=== PATIENT | female | born 1955 | race Caucasian/White ===

== ENCOUNTER 2022-06-12 04:46 | Inpatient (IN) | payer MEDICARE, SELFPAY ==
[2022-06-12] VITALS (13 sets, daily range): BP systolic 138–186; BP diastolic 53–83; PULSE 61–73; RESP 13–16; TEMP 36.1–36.7; O2SAT 90–97; BMI 18.5
--- NOTE | ~2022-06-12 | XR_ITS ---
XR hip RT 2V w AP pelvis 06/27/2022 07:47 Indication: Postop right hip internal fixation Procedure: 3 views right hip Comparison: 06/12/2022 Findings: Status post internal fixation with reduction of right femoral intertrochanteric fracture wi th intramedullary suzanne and dynamic compression screw. Displaced lesser trochanter. Osteopenia. There i s residual contrast in the colon. Vascular calcifications are present. No new fractures. Impression: 1: Near-anatomic alignment of right femoral intertrochanteric fracture status post internal fixation. Reviewed, dictated and finalized at location A. Impression: 1: Near-anatomic alignment of right femoral intertrochanteric fracture status p ost internal fixation.
--- NOTE | ~2022-06-12 | XR_ITS ---
EXAMINATION: XR chest 1V portable DATE: 06/21/2022 08:30 INDICATION: Shortness of breath. TECHNIQUE: A single frontal view of the chest was obtained. COMPARISON: Chest single view 06/20/2022, chest CT 06/20/2022 FINDINGS: There are small right and moderate-sized left pleural effusions. There are patchy airspace opacities in all lung zones bilaterally. No pneumothorax. The heart size is normal. A right upper ext remity peripherally inserted central venous catheter (PICC) is seen with tip at the superior cavoatri al junction. IMPRESSION: 1. Small right and moderate-sized left pleural effusions. 2. Diffuse lung disease with improved aeration of left lung, consistent with pulmonary edema versus p neumonia. Reviewed, dictated and finalized at location A. IMPRESSION: 1. Small right and moderate-sized left pleural effusions. 2. Diffuse lung disease with improved aeration of left lung, consistent with pu lmonary edema versus pneumonia.
--- NOTE | ~2022-06-12 | XR_ITS ---
EXAMINATION: XR hip RT 2V w AP pelvis DATE: 06/12/2022 05:54 INDICATION: Right hip pain. TECHNIQUE: An anteroposterior view of the pelvis and 2 views of right hip were obtained. COMPARISON: None. FINDINGS: There is a comminuted intertrochanteric fracture of proximal right femur. The main distal f racture fragment demonstrates 24 degrees varus angulation, impaction, and posterior angulation. There is mild osteoarthritis of the hips. There is lumbar levocurvature and mild spondylosis. IMPRESSION: 1. Intertrochanteric fracture of proximal right femur. 2. Mild osteoarthritis of the hips. Reviewed, dictated and finalized at location A.
--- NOTE | ~2022-06-12 | XR_ITS ---
EXAMINATION: XR chest 1V portable INDICATION: Pleural effusion TECHNIQUE: Portable AP chest at 0812 hours COMPARISON: 06/21/2022 FINDINGS: There are small pleural effusions. The left pleural effusion is decreased in size. There ar e minimal airspace opacities of the mid and lower lung zones with improvement. No pneumothorax is luz maria ntified. The heart size is normal. A right upper chart PICC ends with its tip in the distal superior vena cava. IMPRESSION: 1. Small pleural effusions, improved on the left. 2. Improving opacities of the mid and lower lung zones, consistent with pulmonary edema versus pneumo daja. Reviewed, dictated and finalized at location B. IMPRESSION: 1. Small pleural effusions, improved on the left. 2. Improving opacities of the mid and lower lung zones, consistent with pulmona ry edema versus pneumonia.
--- NOTE | ~2022-06-12 | XR_ITS ---
EXAMINATION: XR chest 1V portable DATE: 06/20/2022 05:54 INDICATION: Shortness of breath TECHNIQUE: frontal view of the chest was obtained. COMPARISON: Chest radiograph dated 06/19/22 FINDINGS: Dense opacities throughout the left hemithorax relatively sparing the apex consistent with likely mod erate to large left pleural effusion and associated atelectasis and/or pneumonia. Additional less den se airspace opacities at the left apex and throughout the central right lung is also an increased int erstitial pattern suggesting mild pulmonary edema. No pneumothorax or right-sided pleural effusion. C ardiac silhouette is obscured but not enlarged. IMPRESSION: 1. Increasing moderate to large left pleural effusion with associated atelectasis and/or pneumonia. 2. Perihilar predominant mild pulmonary edema. Reviewed, dictated and finalized at location A. IMPRESSION: 1. Increasing moderate to large left pleural effusion with associated atelectas is and/or pneumonia. 2. Perihilar predominant mild pulmonary edema.
--- NOTE | ~2022-06-12 | XR_ITS ---
XR chest 1V portable DATE: 06/19/2022 05:54 INDICATION: Shortness of breath TECHNIQUE: Portable AP chest on 06/19/2022 and 0525 hours COMPARISON: 06/18/2022 portable AP chest at 0525 hours FINDINGS: There is moderate interval improvement of left lung atelectasis since 06/18/2022, with resol ution of leftward shift of the heart mediastinum, increased aeration in the left upper lung zone. The re is residual prominent infiltrate and/atelectasis in the left mid and lower lung zones and to a les ser extent right mid and lower lung prather. No pneumothorax. Heart size is likely within normal range. Aortic arch calcification. No central lines or tubes. IMPRESSION: Improvement of left lung atelectasis since 06/18/2000 Reviewed, dictated and finalized at location A.
--- NOTE | ~2022-06-12 | XR_ITS ---
EXAMINATION: XR surgery orthopedic DATE: 06/21/2022 15:13 INDICATION: Right intertrochanteric nailing an intratrochanteric right hip fracture TECHNIQUE: 4 fluoroscopic images of the right hip were obtained during procedure performed by Dr. Mike mosqueda. Radiologist was not present for the imaging or procedure. The amount of fluoroscopy time used duri ng this procedure was 1.3 minutes. COMPARISON: 06/12/2022 FINDINGS: Interval open reduction internal fixation of the comminuted intratrochanteric fracture of the proxima l right femur with antegrade intramedullary suzanne, femoral neck dynamic compression screw and distal in terlocking screw fixation. Alignment is now near-anatomic aside from residual mild proximal distracti on of the intratrochanteric fracture fragment which is not included within the fixation. No new fract ures identified. Expected small amount of postoperative soft tissue gas at the operative bed. IMPRESSION: 1. Near-anatomic alignment post open reduction internal fixation of a comminuted intratrochanteric fr acture of the proximal right femur. Reviewed, dictated and finalized at location A. IMPRESSION: 1. Near-anatomic alignment post open reduction internal fixation of a comminute d intratrochanteric fracture of the proximal right femur.
--- NOTE | ~2022-06-12 | XR_ITS ---
EXAMINATION: XR chest 1V portable DATE: 06/15/2022 06:14 INDICATION: Lung atelectasis. TECHNIQUE: A single frontal view of the chest was obtained. COMPARISON: Chest CT 06/14/2022 FINDINGS: There are lucencies in the lungs, consistent with emphysema. There is volume loss of left h emithorax. There is a small left pleural effusion. There are airspace opacities in all left lung zone s, worse at left lung base. No pneumothorax. The heart size is normal. IMPRESSION: 1. Diffuse left lung disease with volume loss with interval improvement in aeration, likely a combina tion of atelectasis and pneumonia. 2. Stable small left pleural effusion. 3. Emphysema. Reviewed, dictated and finalized at location A. IMPRESSION: 1. Diffuse left lung disease with volume loss with interval improvement in aera tion, likely a combination of atelectasis and pneumonia. 2. Stable small left pleural effusion. 3. Emphysema.
--- NOTE | ~2022-06-12 | US_ITS ---
EXAMINATION: US venous doppler [facility] DATE: 06/26/2022 12:57 INDICATION: Lower limb swelling. TECHNIQUE: Grayscale ultrasound images without and with compression and Doppler ultrasound images of the bilateral lower extremity veins were obtained. COMPARISON: None. FINDINGS: The visualized portions of right common femoral vein, profunda (deep) femoral vein, femoral vein, pop liteal vein, peroneal veins, posterior tibial veins, and greater saphenous vein outflow are patent. The visualized portions of left common femoral vein, profunda femoral vein, femoral vein, popliteal v ein, peroneal veins, posterior tibial veins, and greater saphenous vein outflow are patent. IMPRESSION: 1. No deep venous thrombosis. Reviewed, dictated and finalized at location A.
--- NOTE | ~2022-06-12 | XR_ITS ---
EXAMINATION: XR chest 1V portable DATE: 06/16/2022 05:49 INDICATION: Pneumonia. TECHNIQUE: A single frontal view of the chest was obtained. COMPARISON: Chest single view 06/15/2022, chest CT 06/14/2022 FINDINGS: There is a small left pleural effusion. There is mild elevation of left hemidiaphragm. Ther e are airspace opacities in all left lung zones with a lower lung predominance. There are airspace op acities in right mid and lower lung zones. No pneumothorax. The heart size is normal. IMPRESSION: 1. Diffuse lung disease with improved aeration on the left, likely a combination of atelectasis and p neumonia. 2. Small left pleural effusion. Reviewed, dictated and finalized at location A. IMPRESSION: 1. Diffuse lung disease with improved aeration on the left, likely a combinatio n of atelectasis and pneumonia. 2. Small left pleural effusion.
--- NOTE | ~2022-06-12 | CT_ITS ---
EXAMINATION:CT diagnostic chest wo con DATE: 06/20/2022 12:04 INDICATION: Abnormal chest radiograph. Pleural effusion. TECHNIQUE: Computed tomography (CT) of the chest was performed without intravenous contrast. Automate d exposure control and iterative reconstruction technique were employed. The dose-length product (DLP ) was 121.77 mGy-cm. COMPARISON: Chest CT 06/14/2022, chest single view 06/20/2022 FINDINGS: There is mild emphysema. There are small right and moderate-sized left pleural effusions. T here are patchy airspace and groundglass opacities involving all lobes. There is dependent atelectasi s in the lower lobes. A calcified left lung nodule is consistent with old granulomatous disease. Ther e is mucous in the trachea and left mainstem bronchus. The heart size is normal. There are coronary a rtery calcifications. No pericardial effusion. There is moderate thoracic spondylosis. IMPRESSION: 1. Small right and moderate-sized left pleural effusions. 2. Multifocal lung disease, consistent with pulmonary edema versus pneumonia. 3. Mild emphysema. Reviewed, dictated and finalized at location A.
--- NOTE | ~2022-06-12 | XR_ITS ---
XR chest 1V portable DATE: 06/18/2022 06:40 INDICATION: Pneumonia TECHNIQUE: Portable AP chest on 06/18/2022 at 0525 hours COMPARISON: 06/16/2022 portable AP chest at 0510 hours FINDINGS: There is interval severe left lung atelectasis with minimal residual aeration in the left a pical area, with leftward shift of heart and mediastinum. The distal left mainstem bronchus appears o ccluded. There is pulmonary vascular congestion, prominence of the minor fissure consistent with pulmonary int erstitial edema, as well as some Jena B-lines consistent with pulmonary interstitial edema of the r ight lung. Minimal right pleural effusion is suggested. No pneumothorax. IMPRESSION: Near complete left lung atelectasis, with associated leftward shift heart and mediastinum Right lung congestive changes Reviewed, dictated and finalized at location A.
--- NOTE | ~2022-06-12 | XR_ITS ---
MODIFIED ESOPHAGRAM HISTORY: Witnessed choking episode TECHNIQUE: Modified barium esophagram was performed on 06/23/2022. I administered fluoroscopy and perf ormed the exam with speech pathologist. Patient was seated for lateral fluoroscopic imaging for chuck stion of thin liquids, pudding, solids and quantified amounts, followed by thin liquids in uncontroll ed amounts. This was recorded on tape. A single fluoroscopic spot image was also recorded. The DAP fo r this procedure was 1.088 Gycm2. The amount of fluoroscopy time used during this procedure was 1.7 m inutes. FINDINGS: Oral stage: Adequate function. Pharyngeal stage: There is piriform sinus residue and pharyngeal wall residue. Flash laryngeal penetr ation with trace amount of thin liquids with uncontrolled swallows. No aspiration.. Cervical/esophageal stage: Adequate function. IMPRESSION: Mild pharyngeal dysphagia with flash laryngeal penetration of trace amount of thin liquid . No aspiration. Please correlate with speech pathologist findings and specific feeding recommendati ons. Reviewed, dictated and finalized at location A. IMPRESSION: Mild pharyngeal dysphagia with flash laryngeal penetration of trace amount of thin liquid. No aspiration. Please correlate with speech pathologis t findings and specific feeding recommendations.
--- NOTE | ~2022-06-12 | CT_ITS ---
EXAMINATION: CTA chest PE protocol DATE: 06/14/2022 10:40 INDICATION: Chest pain and hypoxia TECHNIQUE: Computed tomography angiography (CTA) of the chest was performed with 100 mL Omnipaque-350 intravenous contrast timed to evaluate the pulmonary arteries. Coronal maximum intensity projection 3D-reconstructions were created by the technologist. The dose-length product (DLP) was 162.12 mGy-cm. Automated exposure control and iterative reconstruction technique were employed. COMPARISON: None. FINDINGS: The pulmonary arteries are well-opacified. No pulmonary embolism is identified. There is co mplete collapse of the left lung which appears to be due to mucous plugging in the main stem bronchus . There is mild emphysema. No pneumothorax is identified. There is a small left pleural effusion. The re are airspace opacities in the medial aspect of the right lower lobe. The heart size is normal. No pathologically enlarged thoracic lymph nodes are identified. There is moderate thoracic spondylosis. IMPRESSION: 1. No pulmonary embolus identified. 2. Complete collapse of the left lung which appears to be due to mucous plugging in the main stem bro nchus. 3. Small left pleural effusion. 4. Airspace opacities in the medial aspect of the right lower lobe, atelectasis versus infection/infl ammation versus subsolid nodule. Follow-up low-dose CT in three months is recommended. Reviewed, dictated and finalized at location B. IMPRESSION: 1. No pulmonary embolus identified. 2. Complete collapse of the left lung which appears to be due to mucous pluggin g in the main stem bronchus. 3. Small left pleural effusion. 4. Airspace opacities in the medial aspect of the right lower lobe, atelectasis versus infection/inflammation versus subsolid nodule. Follow-up low-dose CT in three months is recommended.
--- NOTE | ~2022-06-12 | XR_ITS ---
XR abdomen/kub 1V 07/03/2022 07:47 Indication: Nausea and vomiting Procedure: KUB Comparison: No prior studies for comparison. Findings: There is a large amount of gas within the small bowel and throughout the colon., Most likel y adynamic ileus. No definite transition site identified. No abnormal calcifications. No acute osseou s abnormality. Moderate lumbar spondylosis. Impression: 1: Dilated small bowel and colon throughout the abdomen, consistent with ileus. Distal colonic/rectal obstruction less favored. Reviewed, dictated and finalized at location A. Impression: 1: Dilated small bowel and colon throughout the abdomen, consistent with ileus. Distal colonic/rectal obstruction less favored.
--- NOTE | ~2022-06-12 | XR_ITS ---
EXAMINATION: XR chest 2V DATE: 06/25/2022 10:53 INDICATION: Fever. TECHNIQUE: Frontal and lateral views of the chest were obtained. COMPARISON: Chest single view 06/22/2022, chest CT 06/20/2022 FINDINGS: There are lucencies in the lungs, consistent with emphysema. There are small pleural effusi ons. There are airspace opacities at the lung bases. No pneumothorax. The heart size is normal. A rig ht upper extremity peripherally inserted central venous catheter (PICC) is seen with tip at the super ior cavoatrial junction. IMPRESSION: 1. Small pleural effusions. 2. Airspace opacities at the lung bases, consistent with atelectasis versus pneumonia. 3. Emphysema. Reviewed, dictated and finalized at location A. IMPRESSION: 1. Small pleural effusions. 2. Airspace opacities at the lung bases, consistent with atelectasis versus pne umonia. 3. Emphysema.
--- NOTE | ~2022-06-12 | XR_ITS ---
EXAMINATION: XR abdomen/kub 1V DATE: 07/04/2022 13:09 INDICATION: Adynamic ileus. TECHNIQUE: A supine view of the abdomen was obtained. COMPARISON: Abdomen radiograph 07/03/2022 FINDINGS: There is gaseous distention of the colon. There is loss of haustra in the proximal transver se colon and rectosigmoid. There is a dilated loop of small bowel in left abdomen. IMPRESSION: 1. Dilated small and large bowel, consistent with adynamic ileus or less likely distal colonic obstru ction. Loss of haustra in the proximal transverse colon and rectosigmoid suggests colitis. Reviewed, dictated and finalized at location A. IMPRESSION: 1. Dilated small and large bowel, consistent with adynamic ileus or less likely distal colonic obstruction. Loss of haustra in the proximal transverse colon a nd rectosigmoid suggests colitis.
--- NOTE | ~2022-06-12 | XR_ITS ---
EXAMINATION: XR chest 1V portable DATE: 06/26/2022 11:05 INDICATION: Altered mental status. TECHNIQUE: A single frontal view of the chest was obtained. COMPARISON: Chest 2 views 06/25/2022, chest CT 06/20/2022 FINDINGS: There is a small left pleural effusion. There are airspace opacities in the lower lung zone s, left worse than right. No pneumothorax. The heart size is normal. A right upper extremity peripher ally inserted central venous catheter (PICC) is seen with tip at the superior cavoatrial junction. IMPRESSION: 1. Stable small left pleural effusion. 2. Airspace opacities in the lower lung zones, left worse than right with improvement on the right, c onsistent with atelectasis versus pneumonia. Reviewed, dictated and finalized at location A. IMPRESSION: 1. Stable small left pleural effusion. 2. Airspace opacities in the lower lung zones, left worse than right with impro vement on the right, consistent with atelectasis versus pneumonia.
--- NOTE | ~2022-06-12 | XR_ITS ---
EXAMINATION: XR abdomen obstructive series DATE: 07/05/2022 12:36 INDICATION: Adynamic ileus. TECHNIQUE: Upright and supine views of the abdomen were obtained. COMPARISON: Abdomen radiograph 07/04/2022 FINDINGS: There is fold thickening of the transverse colon and sigmoid colon, which are mildly disten ded. The small bowel is normal in caliber. No free intraperitoneal gas. There is internal fixation of proximal right femur. IMPRESSION: 1. Fold thickening of the transverse colon and sigmoid colon, which are mildly distended, likely coli tis and adynamic ileus. Reviewed, dictated and finalized at location A. IMPRESSION: 1. Fold thickening of the transverse colon and sigmoid colon, which are mildly distended, likely colitis and adynamic ileus.
[2022-06-12] MEDS: MORPHINE SULFATE (*CRX) 4 MG/ML INJ IV PUSH ×5 (05:10→22:28)
--- NOTE | 2022-06-12 05:34 | PC.NURSE ---
Patient in xray at this time.
--- NOTE | 2022-06-12 05:56 | ECG_ITS ---
Measurements Intervals [place] Rate: 65 P: 27 NE: 146 QRS: 57 QRSD: 106 T: 75 QT: 441 QTc: 459 Interpretive Statements SINUS RHYTHM INCOMPLETE RIGHT BUNDLE BRANCH BLOCK BASELINE ARTIFACT- I, II, III, AVR, AVL, AVF, V1-V6 BORDERLINE ECG NO PREVIOUS ECG AVAILABLE FOR COMPARISON Electronically Signed On 06-12-2022 8:37:04 CDT by Navdeep Maciel D.O.
--- NOTE | 2022-06-12 06:12 | ED.LOWEXIN ---
HPI - Extremity Injury (Lower) General Chief Complaint: Extremity Injury, Lower Stated Complaint: Right hip pain Time Seen by Provider: 06/12/22 04:47 History of Present Illness HPI Narrative: Patient is a 66-year-old female who presents ER with right hip pain. Patient fell from standing in her kitchen. Did not strike her head or lose consciousness. Laid on the floor for couple hours before her and her decided to call an ambulance for help. She is in too much pain to try to ambulate. Related Data Allergies Allergy/AdvReac Type Severity Reaction Status Date / Time No Known Allergies Allergy Verified 06/12/22 04:55 Review of Systems Review of Systems: All systems reviewed & are unremarkable except as noted in HPI and below Constitutional: Constitutional: Denies chills and Denies fever(s) ENT: Denies nasal congestion and Denies sore throat Cardiovascular: Cardiovascular: Denies chest pain, Denies rapid heart rate and Denies radiating jaw, neck or arm pain Respiratory: Respiratory: Denies cough and Denies dyspnea Gastrointestinal: Gastrointestinal: Denies abdominal pain, Denies nausea and Denies vomiting Musculoskeletal: Musculoskeletal: Reports arthralgias and Reports joint swelling Neurologic: Denies focal weakness and Denies numbness PMFSH Past Medical History Medical History Anxiety Enlarged thyroid Family History Family History Father Diabetes mellitus Hypertension Family history of cardiovascular disease Social History Social History (System 12/15/21 @ 11:49 by Janay Fuchs) Smoking status: Current some day smoker Exam Narrative: GENERAL: Well-appearing, well-nourished, and in no acute distress. HEAD: Normocephalic, atraumatic. EYES: PERRL and EOMI. ENT: Mucous membranes moist. Rosacea of the face. CHEST: Clear to auscultation. No respiratory distress. HEART: Regular rate and rhythm. Normal peripheral pulses. ABDOMEN: Soft, nontender, nondistended. EXTREMITIES: Tender palpation to the right hip with limited range of motion due to the pain. No shortening or external rotation. Scattered abrasions bruising to the upper extremities. SKIN: Warm, dry, no rash. NEURO: Alert and oriented x3. PSYCH: Normal mood and affect. Course Course Emergency Course: Discussed case with Dr. Spicer. He will plan to take patient to the OR today. Keep NPO. Patient aware of diagnosis and treatment plan. Will contact hospitalist service for admission. Vital Signs Vital signs: Vital Signs Temperature 98.1 F 06/12/22 04:45 Pulse Rate 73 06/12/22 04:45 Respiratory Rate 15 06/12/22 04:45 Blood Pressure 186/83 H 06/12/22 04:45 Pulse Oximetry 93 06/12/22 04:45 Oxygen Delivery Room Air 06/12/22 04:45 Temperature 98.1 F 06/12/22 04:45 Pulse Rate 73 06/12/22 04:45 Respiratory Rate 15 06/12/22 04:45 Blood Pressure 186/83 H 06/12/22 04:45 Pulse Oximetry 93 06/12/22 04:45 Oxygen Delivery Room Air 06/12/22 04:45 MDM - Extremity Injury (Lower) Lab Data Result diagrams: 06/12/22 06:06 06/12/22 06:06 Labs: Lab Results 06/12/22 06/12/22 06/12/22 Range/Units 06:06 06:06 06:06 WBC 16.2 H (4.5-10.0) K/mm3 RBC 5.22 (4.2-5.4) M/mm3 Hgb 17.1 H (12.0-15.0) g/dL Hct 48.6 H (37.0-47.0) % MCV 93.1 (80-100) fl MCH 32.8 (26-34) pg MCHC 35.2 (32-36) g/dl RDW 15.5 H (11.5-14.5) % Plt Count 260 (150-375) k/mm3 MPV 8.8 (7.4-10.4) fl Immature Gran % (Auto) 0.5 (0-0.5) % Neut % (Auto) 88.7 H (45.5-73.1) % Lymph % (Auto) 5.1 L (18.3-44.2) % [place] % (Auto) 5.1 (2.6-8.5) % Eos % (Auto) 0.2 (0-4.4) % Baso % (Auto) 0.4 (0.2-1.2) % Lymph # (Auto) 0.82 L (0.9-3.2) K/mm3 [place] # (Auto) 0.8 H (0.1-0.6) K/mm3 Eos # (Auto) 0.0 (0-0.3) K/mm3 Baso #
[2022-06-12 06:13] LABS: Basophils Absolute Auto 0.1 K/mm3 (0.0-0.1); Basophils Percent Auto 0.4 % (0.2-1.2); Eosinophils Percent Auto 0.2 % (0-4.4); Hematocrit 48.6 % (37.0-47.0); Hemoglobin 17.1 g/dL (12.0-15.0); Immature Granulocyte Absolute 0.08 K/mm3 (0.00-0.031); Immature Granulocyte Percent A 0.5 % (0-0.5); Lymphocytes Absolute Auto 0.82 K/mm3 (0.9-3.2); Lymphocytes Percent Auto 5.1 % (18.3-44.2); Mean Corpuscular HGB Conc 35.2 g/dl (32-36); Mean Corpuscular Hemoglobin 32.8 pg (26-34); Mean Corpuscular Volume 93.1 fl (80-100); Mean Platelet Volume 8.8 fl (7.4-10.4); Monocytes Absolute Auto 0.8 K/mm3 (0.1-0.6); Monocytes Percent Auto 5.1 % (2.6-8.5); Neutrophils Absolute Auto 14.4 K/mm3 (1.3-6.7); Neutrophils Percent Auto 88.7 % (45.5-73.1); Platelet Count Result 260 k/mm3 (150-375); Red Blood Count 5.22 M/mm3 (4.2-5.4); Red Cell Distribution Width 15.5 % (11.5-14.5); White Blood Count 16.2 K/mm3 (4.5-10.0)
[2022-06-12 06:22] LABS: Anion Gap 13 mmol/L (8-16); Blood Urea Nitrogen 5 mg/dL (7-17); Calcium 7.9 mg/dL (8.4-10.2); Carbon Dioxide 24 mmol/L (22-30); Chloride 87 mmol/L (98-107); Estimated Glomerular Filt Rate > 60; Glucose 103 mg/dL (65-110); Potassium 3.6 mmol/L (3.4-5.0); Sodium 124 mmol/L (137-145)
[2022-06-12 06:24] LABS: INR 1.1; Prothrombin Time 13.7 Seconds (11.1-14.7)
[2022-06-12 06:25] LABS: Partial Thromboplastin Time 31.6 SECONDS (22.3-36.8)
[2022-06-12] MEDS: SODIUM CHLORIDE 0.9% IV 1,000 ML 125 ML IV CONT (08:08)
--- NOTE | 2022-06-12 08:11 | PM.CNOR ---
Assessment and Plan Assessment and plan (1) Closed intertrochanteric fracture of right femur: Code(s): S72.141A - Displaced intertrochanteric fracture of right femur, initial encounter for closed fracture Status: Acute Plan 66-year-old female with a comminuted right intertrochanteric hip fracture. This is unstable will need to be fixed surgically. She has got some medical issues that will need to be addressed including hyponatremia. She has a markedly elevated white count as well and an elevated hemoglobin. I have discussed the case with the hospitalist service. We will plan on surgical stabilization Monday which will give about 48 hours or so to address these issues and try to get her medically optimized for surgery. Did discuss this in detail with the patient however will review it again tomorrow with her as she may not have fully understood what I was talking about today secondary to recent alcohol consumption. History of Present Illness HPI Consult date: 06/12/22 Consult reason: fracture (Right IT hip fracture) Chief complaint: hip fracture Narrative: This document created with [id number] technology and is subject to postdoctoral scientist irregularities. 66-year-old female who was brought into the ER overnight complaints of right hip pain. She states that she was standing in her leg gave out. She was x-rayed and found to have a right intertrochanteric hip fracture. she is going to be admitted for further evaluation and management. Patient expresses no prodrome prior to this. She does smell of alcohol and admits to have had three beers and a red-headed slut to drink last night. (The latter is apparently a concoction of jaegermeister, peach schnapps and cranberry juice.) She is also a pack per day smoker for many years. She lives with her in [place]. No other injuries with this occurrence noted at this time. Review of Systems Constitutional: Constitutional: Reports no additional constitutional complaints, Denies excessive sweating and Denies fatigue Eyes: Eyes: Reports no additional eye complaints ENT: Reports system reviewed and no additional complaints, except as documented Cardiovascular: Cardiovascular: Denies chest pain at rest and Denies dyspnea Respiratory: Respiratory: Reports no additional respiratory complaints and Denies dyspnea Gastrointestinal: Gastrointestinal: Reports no additional gastrointestinal complaints Musculoskeletal: Musculoskeletal: Reports as per HPI Integumentary/Breasts: Skin/Breast: Reports system reviewed and no additional complaints, except as docu Neurologic: Reports as per HPI Psychiatric: Psychiatric: Reports anxiety Endocrine: Endocrine: Denies excessive sweating and Denies fatigue Hematologic/Lymphatic: Hematologic/Lymphatic: Denies easy bleeding and Denies easy bruising PMFSH Past Medical History Medical History (Updated 06/12/22 @ 08:19 by Mango Spicer MD) Alcohol use Anxiety Closed intertrochanteric fracture of right femur Enlarged thyroid Family History Family History Father Diabetes mellitus Hypertension Family history of cardiovascular disease Social History Social History (System 12/15/21 @ 11:49 by Janay Fuchs) Smoking status: Current some day smoker Meds Home Medications and Allergies Home Medications Medication Instructions Recorded Confirmed Type escitalopram oxalate 20 mg tablet 20 mg PO DAILY #90 tabs 02/25/22 Rx Allergies Allergy/AdvReac Type Severity Reaction Status Date / Time No Known Allergies Allergy Verified 06/12/22 04:55 Vital Signs Vital Signs - 24 hr 06/12/22 04:45 06/12/22 05:14 06/12/22 05:15 Temperature 98.1 F Pulse Rate 73 Respiratory Rate 15 Blood Pressure 186/83 H 166/71 H Pulse Oximetry 93 90 Oxygen Delivery Room Air 06/12/22 06:12 06/12/22 06:15 06/12/22 06:30 Temperature Pulse Rate 65
--- NOTE | 2022-06-12 08:23 | ADMGEN ---
This patient, Nora Ty, was admitted to [facility] Surg Room 303-01. Patient/family oriented to hospital policies and general routines including ID bracelet, bed and alarms, visiting hours, pain management, procedures, bathroom and other care routines, personal items, smoking policy, room service/diet, and visiting hours. Information on how to activate the Rapid Response Team has been discussed. Patient/Family are encouraged to report perceived risks to care and to ask questions if they do not understand what they are told or what they should do.
[2022-06-12 08:29] LABS: Ethanol 127 mg/dL (<10)
--- NOTE | 2022-06-12 09:27 | PM.IMHP ---
H&P: HPI History of Present Illness Date/Time: 06/12/22 09:27 Chief Complaint: Right hip pain Narrative: Date of service: 06/12/2022 Nora Ty is a 66-year-old female with a history of anxiety and daily alcohol use who presented to the emergency department on 06/12/2022 with complaints of right hip pain after suffering a fall at home. The patient states she was getting ready for bed and got up to turn on the lights when her hip just gave out on me. She fell to the ground and landed on her right hip. States she did not hit her head or lose consciousness. Denied any precipitating symptoms including dizziness, lightheadedness, shortness of breath, palpitations, chest pain. She stayed on the ground for about 2 hours. Her did attempt to help her up but any movement caused pain and ultimately EMS was summoned. Patient denies any history of joint problems and states nothing like this has ever happened to her before. She admits to drinking 3 beers and 1 mixed cocktail containing jagermeister and peach schnapps that night. States she typically drinks 3 beers per day. Denies any history of alcohol withdrawal symptoms. in the ED, her vital signs were stable, she was afebrile, white blood cell count 16.2, hemoglobin 17.1, hematocrit 48.6, sodium 124, additional laboratory workup unremarkable, and hip/pelvis x-ray showed intertrochanteric fracture proximal right femur. At the time of my evaluation, the patient states her right hip pain is rated 9/10. She is being admitted to the hospitalist service and will be seen in consultation by Orthopedic surgery with plans for surgical repair on 06/14/2022. Supervising physician for this history and physical is Dr. Kuldeep Garcia. Review of Systems Review of Systems: All systems reviewed with pertinent positives and negatives as per HPI. Patient denies any recent illness, denies fever, chills, nausea, vomiting, abdominal pain, diarrhea. States she is had a formed bowel movement today. Denies dysuria, hematuria, urgency, or frequency. No shortness of breath, cough, wheezing. Prior to her fall she was able to ambulate independently. she complains of arthritis in her hands. Denies back pain. states her appetite is good and denies weight loss. Endorses drinking a lot water. PMFSH Past Medical History Medical History (Updated 06/12/22 @ 10:01 by Venus Hill PA-C) Alcohol use Anxiety Closed intertrochanteric fracture of right femur Enlarged thyroid Family History Family History (Updated 06/12/22 @ 09:46 by Venus Hill PA-C) Father Diabetes mellitus Hypertension Family history of cardiovascular disease Non-Hodgkin lymphoma Mother Lung cancer Sibling Breast cancer Social History Social History (Updated 06/12/22 @ 09:48 by Venus Hill PA-C) Social History: lives at home with independent with ADLs PCP: Bibiana Cordova NP POA: Tato (close friend) Code: DNR Smoking packs per day: 1 Smoking cigarettes per day: 20.0 Years smoked: 47 Smoking pack-years: 47.00 Smoking status: Current every day smoker Tobacco type: cigarettes Alcohol intake: current Drinks per week: 28 Alcohol use details: 3 beers/day Substance use type: marijuana Other substance usage details: 1 joint every 2 weeks Spiritual care concerns: No Meds Home Medications and Allergies Home Medications Medication Instructions Recorded Confirmed Type escitalopram oxalate 20 mg tablet 20 mg PO DAILY #90 tabs 02/25/22 06/12/22 Rx Allergies Allergy/AdvReac Type Severity Reaction Status Date / Time No Known Allergies Allergy Verified 06/12/22 04:55 Vital Signs Vital Signs - 24 hr 06/12/22 04:45 06/12/22 05:14 06/12/22 05:15 Temperature 98.1 F Pulse Rate 73 Respiratory Rate 15 Blood Pressure 186/83 H 166/71 H Pulse Oximetry 93 90 Oxygen Delivery Room Air 06/12/22 06:12 06/12/22 06:15 06/12/22 06
[2022-06-12] MEDS: FOLIC ACID 1 MG TABLET PO (09:52)
[2022-06-12] MEDS: THIAMINE HCL 100 MG TABLET PO (09:52)
[2022-06-12 10:00] LABS: Creatinine Urine 15.8 mg/dL
[2022-06-12 10:04] LABS: Sodium Urine Random 18 meq/L
[2022-06-12 10:24] LABS: Sodium 127 mmol/L (137-145)
[2022-06-12 10:38] LABS: Appearance Urine Clear (Clear); Bilirubin Urine Negative (Negative); Color Urine Yellow (Yellow); Glucose Urine UA Negative (Negative); Ketones Urine Negative (Negative); Leukocyte Esterase Ur 1+ LEU/UL (Negative); Nitrate Urine Positive (Negative); Protein Urine Negative (Negative); Urobilinogen Urine 0.2 mg/dL (<2.0)
[2022-06-12 11:41] LABS: Add Urine Microscopic? YES; Blood Urine Trace-Intact (Negative)
[2022-06-12 11:43] LABS: RBC Urine 0-2 /hpf (0-2); WBC Urine 0-3 /hpf (0-3)
[2022-06-12 11:44] LABS: Amorphous Sediment Urine Few; Bacteria Urine 1+ /hpf; Squamous Epithelial Cell Urine Occasional /hpf (Few)
[2022-06-12 15:08] LABS: Sodium 126 mmol/L (137-145)
[2022-06-12] MEDS: SODIUM CHLORIDE 0.9% IV 1,000 ML 75 ML IV CONT (17:19)
[2022-06-12 21:21] LABS: Sodium 126 mmol/L (137-145)
[2022-06-13] VITALS (8 sets, daily range): BP systolic 165–180; BP diastolic 60–76; PULSE 69–82; RESP 16; TEMP 36.1–36.2; O2SAT 90–93
[2022-06-13] MEDS: MORPHINE SULFATE (*CRX) 4 MG/ML INJ IV PUSH ×3 (04:53→13:30)
[2022-06-13 06:02] LABS: Basophils Absolute Auto 0.1 K/mm3 (0.0-0.1); Basophils Percent Auto 0.4 % (0.2-1.2); Eosinophils Absolute Auto 0.1 K/mm3 (0-0.3); Eosinophils Percent Auto 0.5 % (0-4.4); Hematocrit 46.5 % (37.0-47.0); Hemoglobin 16.1 g/dL (12.0-15.0); Immature Granulocyte Absolute 0.07 K/mm3 (0.00-0.031); Immature Granulocyte Percent A 0.6 % (0-0.5); Lymphocytes Absolute Auto 0.78 K/mm3 (0.9-3.2); Lymphocytes Percent Auto 6.9 % (18.3-44.2); Mean Corpuscular HGB Conc 34.6 g/dl (32-36); Mean Corpuscular Hemoglobin 32.7 pg (26-34); Mean Corpuscular Volume 94.3 fl (80-100); Mean Platelet Volume 9.7 fl (7.4-10.4); Monocytes Percent Auto 8.6 % (2.6-8.5); Neutrophils Absolute Auto 9.4 K/mm3 (1.3-6.7); Platelet Count Result 237 k/mm3 (150-375); Red Blood Count 4.93 M/mm3 (4.2-5.4); Red Cell Distribution Width 15.7 % (11.5-14.5); White Blood Count 11.4 K/mm3 (4.5-10.0)
[2022-06-13 06:20] LABS: Anion Gap 3 mmol/L (8-16); Blood Urea Nitrogen 6 mg/dL (7-17); Calcium 8.4 mg/dL (8.4-10.2); Carbon Dioxide 26 mmol/L (22-30); Chloride 99 mmol/L (98-107); Estimated CRCL calculation 82 ml/min; Estimated Glomerular Filt Rate > 60; Glucose 97 mg/dL (65-110); Potassium 3.6 mmol/L (3.4-5.0); Sodium 128 mmol/L (137-145)
--- NOTE | 2022-06-13 07:56 | PM.PNORT ---
Progress Note: A&P Assessment and Plan (1) Closed intertrochanteric fracture of right femur: Code(s): S72.141A - Displaced intertrochanteric fracture of right femur, initial encounter for closed fracture Status: Acute Plan 66-year-old female with a right IT hip fracture. White count is coming down. Her sodium has improved. Plan on surgery tomorrow. Patient her knee braided and was able to have a cogent discussion this morning regarding the surgery planned for tomorrow. Risks and potential complications were discussed in detail and questions answered. Will keep NPO after midnight tonight. Subjective Subjective Date/Time Seen: 06/13/22 07:57 Principal diagnosis: Dx: Right intertrochanteric hip fracture Interval history: 66-year-old female with a right intertrochanteric hip fracture. Is lucid and conversant today. She understands where she is at and the nature of her injury. Exam Const: General: cooperative, alert, awake and uncomfortable (Right hip pain) Orientation/consciousness: patient oriented x3 HENMT: Head: normal to inspection Ears: hearing grossly normal bilaterally Resp: Effort & Inspection: able to speak in complete sentences GI: Inspection: non-distended GI Palp: No abdominal tenderness Neuro: General: patient oriented x3 Extrem: Other: Exam of right lower extremity demonstrates her holding the right hip in a flexed position. Grossly motor and sensory function intact right lower extremity but exam limited secondary to her discomfort. Psych: Mental Status: mental status grossly normal Objective Data Vital Signs Vital Signs: Vital Signs - 24 hr 06/12/22 08:00 06/12/22 14:09 06/12/22 15:06 Temperature 97.2 F L 98.0 F Pulse Rate 66 61 Respiratory Rate 16 16 Blood Pressure 138/58 L 183/53 H Pulse Oximetry 92 97 92 Oxygen Delivery Room Air 06/12/22 21:55 06/13/22 05:39 Temperature 96.9 F L 96.9 F L Pulse Rate 71 69 Respiratory Rate 16 16 Blood Pressure 161/74 H 180/68 H Pulse Oximetry 90 90 Oxygen Delivery Intake/Output Intake/Output: Intake & Output 06/10/22 06/11/22 06/12/22 06/13/22 23:59 23:59 23:59 23:59 Intake Total 1840 / 1840 750 / 750 Output Total 2350 / 2350 350 / 350 Balance -510 / -510 400 / 400 Meds/Results Medications: Active Medications Generic Name Dose Route Start Last Admin Trade Name Freq PRN Reason Stop Dose Admin Folic Acid 1 mg 06/12/22 09:00 06/12/22 09:52 Folic Acid 1 Mg Tablet PO 1 mg DAILY PRETTY Administration Sodium Chloride 1,000 mls @ 75 mls/hr 06/12/22 06:25 06/12/22 17:19 Normal Saline Iv IV CONT 75 mls/hr .[id number] PRETTY Administration Lorazepam 0.5 mg 06/12/22 09:16 Lorazepam (*Crx) 0.5 Mg Tablet PO Q6H PRN CIWA >8 Morphine Sulfate 4 mg 06/12/22 06:25 06/13/22 04:53 Morphine Sulfate (*Crx) 4 Mg/Ml Inj IV PUSH 4 mg Q2H PRN Administration Pain Rated 7-10 Ondansetron HCl 4 mg 06/12/22 06:25 Ondansetron Inj 4 Mg/2 Ml Vial IV PUSH Q4H PRN Nausea Thiamine HCl 100 mg 06/12/22 09:20 06/12/22 09:52 Thiamine Hcl 100 Mg Tablet PO 100 mg QAM PRETTY Administration Radiology Results: ITS Impressions Hip/Pelvis X-Ray 06/12/22 07:52 IMPRESSION: 1. Intertrochanteric fracture of proximal right femur. 2. Mild osteoarthritis of the hips. Labs Labs: Laboratory Results - last 24 hr 06/12/22 06/12/22 06/12/22 06:06 09:42 09:42 WBC RBC Hgb Hct MCV MCH MCHC RDW Plt Count MPV Immature Gran % (Auto) Neut % (Auto) Lymph % (Auto) [place] % (Auto) Eos % (Auto) Baso % (Auto) Lymph # (Auto) [place] # (Auto) Eos # (Auto) Baso # (Auto) Abs Immat Gran (auto) Absolute Neuts (auto) Absolute Nucleated RBC Nucleated RBC % Sodium Potassium Chloride Carbon Dioxide Anion Gap BUN Creatinine Estim Creat Clear Calc Estimated GFR
[2022-06-13] MEDS: SODIUM CHLORIDE 0.9% IV 1,000 ML 75 ML IV CONT ×2 (08:31→20:17)
[2022-06-13] MEDS: THIAMINE HCL 100 MG TABLET PO (08:33)
[2022-06-13] MEDS: FOLIC ACID 1 MG TABLET PO (08:33)
--- NOTE | 2022-06-13 13:15 | P.PNIM_ITS ---
Progress Note: A&P Assessment and Plan (1) Closed intertrochanteric fracture of right femur: Code(s): S72.141A - Displaced intertrochanteric fracture of right femur, initial encounter for closed fracture Status: Acute Assessment and Plan: Secondary to ground level fall * appreciate orthopedic surgery consultation * planning for surgical repair tomorrow afternoon * supportive care. Analgesics available as needed for pain * Doan catheter in place until increased mobility postoperatively * will need PT/OT following surgery (2) Hyponatremia: Code(s): E87.1 - Hypo-osmolality and hyponatremia Status: Acute Assessment and Plan: likely multifactorial secondary to chronic alcohol use, excess free water intake, SSRI * sodium 124 on presentation. urine sodium 18. * improving at appropriate rate with IV fluids. Sodium 128 today. 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 patient intoxicated on arrival with alcohol level of 127 * CIWA protocol with Ativan as needed for CIWA >8 * No signs/symptoms of withdrawal. CIWA scores ranging 0-1. * Thiamine and folic acid (6) Anxiety: Code(s): F41.9 - Anxiety disorder, unspecified Status: Chronic Assessment and Plan: No acute issues at this * SSRI on hold due to hyponatremia (7) Elevated blood pressure reading: Code(s): R03.0 - Elevated blood-pressure reading, without diagnosis of hypertension Status: Acute Assessment and Plan: Patient elevated blood pressure reading at 180/68. This is likely due to pain. Patient has no history of hypertension * P.r.n. hydralazine for systolic BP >170 * Monitor BP trends Subjective Date/time seen: 06/13/22 13:15 Interval history: Date of service: 06/13/2022 Nora Ty is a 66-year-old female with a history of anxiety and daily alcohol use who?is seen in follow-up for right hip fracture. She is having severe pain still today. She endorses 10/10 right hip pain. She has some improvement with analgesics. She is afraid to reposition herself in bed as any movements cause her to have pain. States the sometimes when her pain is severe she will become slightly shaky. She denies numbness or tingling in her extremities. Denies shortness breath, cough, chest pain, nausea, vomiting, fever, chills. Her appetite is fair. No issues with her Doan catheter. Review of Systems Review of Systems: All systems reviewed & are unremarkable except as noted in HPI and below Exam Narrative: General: thin, frail 66-year-old female appearing slightly older than stated age, lying in left lateral decubitus position, comfort
--- NOTE | 2022-06-13 13:15 | PM.IMPN ---
Progress Note: A&P Assessment and Plan (1) Closed intertrochanteric fracture of right femur: Code(s): S72.141A - Displaced intertrochanteric fracture of right femur, initial encounter for closed fracture Status: Acute Assessment and Plan: Secondary to ground level fall appreciate orthopedic surgery consultation planning for surgical repair tomorrow afternoon supportive care. Analgesics available as needed for pain Doan catheter in place until increased mobility postoperatively will need PT/OT following surgery (2) Hyponatremia: Code(s): E87.1 - Hypo-osmolality and hyponatremia Status: Acute Assessment and Plan: likely multifactorial secondary to chronic alcohol use, excess free water intake, SSRI sodium 124 on presentation. urine sodium 18. improving at appropriate rate with IV fluids. Sodium 128 today. recheck sodium this afternoon to ensure remaining stable hold escitalopram (3) Leukocytosis: Code(s): D72.829 - Elevated white blood cell count, unspecified Status: Acute Assessment and Plan: WBC elevated at 16.2 on arrival likely reactive secondary to fall improved without intervention down to 11.4 today (4) Polycythemia: Code(s): D75.1 - Secondary polycythemia Status: Acute Assessment and Plan: Hemoglobin and hematocrit elevated on presentation appears improved from prior labs in August 2021 suspect this is a chronic issue, likely due to chronic smoking, worsened due to dehydration monitor H&H during admission (5) Alcohol use: Code(s): Z72.89 - Other problems related to lifestyle Status: Acute Assessment and Plan: patient reports drinking 3 packs per day. patient intoxicated on arrival with alcohol level of 127 CIWA protocol with Ativan as needed for CIWA >8 No signs/symptoms of withdrawal. CIWA scores ranging 0-1. Thiamine and folic acid (6) Anxiety: Code(s): F41.9 - Anxiety disorder, unspecified Status: Chronic Assessment and Plan: No acute issues at this SSRI on hold due to hyponatremia (7) Elevated blood pressure reading: Code(s): R03.0 - Elevated blood-pressure reading, without diagnosis of hypertension Status: Acute Assessment and Plan: Patient elevated blood pressure reading at 180/68. This is likely due to pain. Patient has no history of hypertension P.r.n. hydralazine for systolic BP >170 Monitor BP trends Subjective Date/time seen: 06/13/22 13:15 Interval history: Date of service: 06/13/2022 Nora Ty is a 66-year-old female with a history of anxiety and daily alcohol use who?is seen in follow-up for right hip fracture. She is having severe pain still today. She endorses 10/10 right hip pain. She has some improvement with analgesics. She is afraid to reposition herself in bed as any movements cause her to have pain. States the sometimes when her pain is severe she will become slightly shaky. She denies numbness or tingling in her extremities. Denies shortness breath, cough, chest pain, nausea, vomiting, fever, chills. Her appetite is fair. No issues with her Doan catheter. Review of Systems Review of Systems: All systems reviewed & are unremarkable except as noted in HPI and below Exam Narrative: General: thin, frail 66-year-old female appearing slightly older than stated age, lying in left lateral decubitus position, comfortable, NARD Neuro: awake, alert and oriented x4, speech clear, no focal neuro deficits noted HEENMT: normocephalic, atraumatic, EOMI, sclerae anicteric Respiratory: clear to auscultation bilaterally, nonlabored breathing Cardio: regular rate, regular rhythm with S1-S2 Abdomen: nondistended, normoactive bowel sounds, soft, nontender to palpation : Doan catheter patent and draining straw-colored urine Extremities: right hip is tender to palpation, bilater
[2022-06-13] MEDS: hydrALAZINE HCL 20 MG/ML VIAL 10 MG IV PUSH (14:05)
[2022-06-13 14:51] LABS: Sodium 123 mmol/L (137-145)
[2022-06-13] MEDS: HYDROcodone/acetaminophen (*CRX) 5-325 MG TABLET 1 TAB PO ×2 (16:54→22:16)
[2022-06-13] MEDS: MORPHINE SULFATE (*CRX) 2 MG/ML INJ IV PUSH (20:16)
[2022-06-13 22:05] LABS: Sodium 124 mmol/L (137-145)
[2022-06-14] VITALS (18 sets, daily range): BP systolic 162–220; BP diastolic 81–103; PULSE 69–97; RESP 16–28; TEMP 35.9–36.7; O2SAT 94–96; BMI 18.5
--- NOTE | 2022-06-14 | ECHO_ITS ---
Patient Info Name: Nora Ty Age: 66 years : 1955 Gender: Female Ht: 69 in Wt: 125 lbs BSA: 1.65 m2 HR: 81 bpm BP: 188 / 81 mmHg Heart Rhythm: Sinus Rhythm Exam Date: 06/14/2022 1:14 PM Exam Location: [facility] Patient Status: Inpatient Admit Date: 06/12/2022 Staff Ordering Physician: Venus Hill PA-C Vamp Strap Ironer: Gary Beltran RDCS Attending Provider: Venus Hill PA-C Referring Physician: Sergio BOLAND; Exam Type: CA echo doppler color flow Study Info Indications R07.9 - Chest pain, unspecified Complete two-dimensional, color flow and Doppler transthoracic echocardiogram is performed. Summary 1. Complete two-dimensional, color flow and Doppler transthoracic echocardiogram is performed. 2. Left ventricular chamber dimension is normal. 3. Left ventricular systolic function is normal, estimated at 65-70%. 4. There is mildly increased left ventricular wall thickness. 5. The left ventricular diastolic function is grade I diastolic dysfunction. 6. Left atrial chamber dimension is moderately enlarged. 7. There is mild mitral valve regurgitation. 8. There is mild tricuspid valve regurgitation. 9. Moderate pulmonary hypertension, estimated pulmonary arterial systolic pressure is 49 mmHg. 10. There is mild pulmonic regurgitation. Left Ventricle Left ventricular chamber dimension is normal. Left ventricular systolic function is normal, estimated at 65-70%. There is mildly increased left ventricular wall thickness. The left ventricular diastolic function is grade I diastolic dysfunction. Right Ventricle Right ventricular chamber dimension is normal. Right ventricular systolic function is normal. Left Atria Left atrial chamber dimension is moderately enlarged. Right Atria Right atrial chamber dimension is normal. Atrial Septum Intact interatrial septum visualized by color flow imaging. Aortic Valve The aortic valve is trileaflet. There is mild aortic valve sclerosis. There is no aortic valve stenosis. There is trace aortic valve regurgitation. Pulmonic Valve The pulmonic valve is normal. There is no pulmonic valve stenosis. There is mild pulmonic regurgitation. Mitral Valve The mitral valve has normal leaflets. There is no mitral valve stenosis. There is mild mitral valve regurgitation. Tricuspid Valve The tricuspid valve leaflets are normal. There is no significant tricuspid valve stenosis. There is mild tricuspid valve regurgitation. Moderate pulmonary hypertension, estimated pulmonary arterial systolic pressure is 49 mmHg. Pericardium/Pleural The pericardium appears normal. There is no pericardial effusion. Inferior Vena Cava Normal inferior vena cava with >50% collapse upon inspiration consistent with normal right atrial pressure, 5 mmHg. Aorta The aortic root size at the sinus of Valsalva is normal. Left Ventricular Outflow Tract Name Value Normal LVOT 2D LVOT Diameter 2.0 cm LVOT Doppler LVOT Peak Gradient 5 mmHg LVOT Mean Gradient 2 mmHg LVOT VTI
[2022-06-14] MEDS: MORPHINE SULFATE (*CRX) 2 MG/ML INJ IV PUSH ×2 (00:59→13:19)
[2022-06-14 05:57] LABS: Hematocrit 47.2 % (37.0-47.0); Hemoglobin 16.1 g/dL (12.0-15.0); Mean Corpuscular HGB Conc 34.1 g/dl (32-36); Mean Corpuscular Hemoglobin 32.6 pg (26-34); Mean Corpuscular Volume 95.5 fl (80-100); Mean Platelet Volume 9.9 fl (7.4-10.4); Platelet Count Result 231 k/mm3 (150-375); Red Blood Count 4.94 M/mm3 (4.2-5.4); Red Cell Distribution Width 15.6 % (11.5-14.5)
[2022-06-14 06:08] LABS: Anion Gap 13 mmol/L (8-16); Blood Urea Nitrogen 5 mg/dL (7-17); Calcium 7.9 mg/dL (8.4-10.2); Carbon Dioxide 21 mmol/L (22-30); Chloride 92 mmol/L (98-107); Estimated CRCL calculation 100 ml/min; Estimated Glomerular Filt Rate > 60; Glucose 120 mg/dL (65-110); Potassium 3.1 mmol/L (3.4-5.0); Sodium 126 mmol/L (137-145)
[2022-06-14] MEDS: hydrALAZINE HCL 20 MG/ML VIAL 10 MG IV PUSH ×3 (06:08→17:21)
[2022-06-14] MEDS: METOPROLOL TARTRATE INJ 5 MG/5 ML VIAL IV PUSH (06:50)
[2022-06-14 08:38] LABS: Hematocrit 47.9 % (37.0-47.0); Mean Corpuscular HGB Conc 33.4 g/dl (32-36); Mean Corpuscular Hemoglobin 32.3 pg (26-34); Mean Corpuscular Volume 96.8 fl (80-100); Mean Platelet Volume 10.3 fl (7.4-10.4); Platelet Count Result 238 k/mm3 (150-375); Red Blood Count 4.95 M/mm3 (4.2-5.4); Red Cell Distribution Width 15.8 % (11.5-14.5); White Blood Count 20.7 K/mm3 (4.5-10.0)
--- NOTE | 2022-06-14 08:50 | ECG_ITS ---
Measurements Intervals [place] Rate: 85 P: 97 WI: 160 QRS: 31 QRSD: 105 T: 75 QT: 324 QTc: 387 Interpretive Statements SINUS RHYTHM LEFT ATRIAL ENLARGEMENT DELAYED PRECORDIAL R/S TRANSITION BORDERLINE ST-T WAVE ABNORMALITY- DIFFUSE LEADS BASELINE ARTIFACT- I, II, III, AVF, V6 BORDERLINE ECG COMPARED TO ECG 06/12/2022 06:09:21 NO SIGNIFICANT CHANGES Electronically Signed On 06-14-2022 9:29:26 CDT by Navdeep Maciel D.O.
[2022-06-14 08:52] LABS: Band Neutrophils Percent 15 % (0-6); Eosinophils Percent Manual 1 % (0-4); Lymphocytes Absolute Manual 1.65 K/mm3 (1.1-4.5); Monocytes Absolute Manual 0.62 K/mm3 (0.1-0.90); Monocytes Percent Manual 3 % (3-9); Neutrophils Absolute Manual 18.21 K/mm3 (1.7-7.2); Neutrophils Percent Manual 73 % (46-73); Platelet Estimate Adequate (Adequate); Total Cells Counted 100
[2022-06-14 08:53] LABS: Atypical Lymphocytes Present
[2022-06-14] MEDS: ONDANSETRON INJ 4 MG/2 ML VIAL IV PUSH ×2 (08:54→20:42)
[2022-06-14] MEDS: LORazepam (*CRX) 0.5 MG TABLET PO (09:01)
[2022-06-14 09:37] LABS: Troponin I 0.024 ng/mL (0.000-0.034)
--- NOTE | 2022-06-14 09:49 | P.PNIM_ITS ---
Progress Note: A&P Assessment and Plan (1) Closed intertrochanteric fracture of right femur: Code(s): S72.141A - Displaced intertrochanteric fracture of right femur, initial encounter for closed fracture Status: Acute Assessment and Plan: Secondary to ground level fall * appreciate orthopedic surgery consultation * will need surgical repair * supportive care. Analgesics available as needed for pain * Doan catheter in place until increased mobility postoperatively * will need PT/OT following surgery (2) Chest pain: Code(s): R07.9 - Chest pain, unspecified Status: Acute Assessment and Plan: Atypical presentation. Complains of 9.5/10 nonradiating chest pressure worsened with inspiration * EKG reviewed, no obvious ischemic changes * Troponin is pending * Obtain echocardiogram * Monitor on telemetry * Cardiology consultation. Input is appreciated (3) Alcohol withdrawal: Code(s): F10.939 - Alcohol use, unspecified with withdrawal, unspecified Status: Acute Assessment and Plan: patient reports drinking 3 beers per day. patient intoxicated on arrival with alcohol level of 127. * CIWA score is 13 this morning. Patient experiencing tremors in visual hallucination * Begin Librium scheduled 25 mg p.o. q.6 hours * Ativan as needed for withdrawal symptoms * Continue thiamine and folic acid * Transition to IMU for close monitoring (4) Hypoxia: Code(s): R09.02 - Hypoxemia Status: Acute Assessment and Plan: Pt hypoxic overnight in the upper 80s * Now requiring 1 L supplemental O2 * CXR pending * Will obtain CTA of chest given complaints of worsened CP with inspiration. * Check ABG * Monitor O2 sats closely and wean oxygen as tolerated (5) Hyponatremia: Code(s): E87.1 - Hypo-osmolality and hyponatremia Status: Acute Assessment and Plan: likely multifactorial secondary to chronic alcohol use, excess free water intake, SSRI * Sodium 124 on presentation. urine sodium 18. * Initially improved with IV fluids but on 06/13 began to decline again * Implemented free water restriction of 1500 cc/day. Sodium improving now, up to 126 * Recheck sodium this afternoon * SSRI on hold (6) Leukocytosis: Code(s): D72.829 - Elevated white blood cell count, unspecified Status: Acute Assessment and Plan: WBC elevated at 16.2 on arrival and remains persistently elevated * May have initially been reactive secondary to fall * Increase in WBC again today up to 21,000. * Differential demonstrates bandemia * Obtain urine culture, blood culture, CXR * Monitor CBC with differential closely (7) Polycythemia: Code(s): D75.1 - Secondary polycythemia Status: Acute Assessment and Plan: Hemoglobin and hematocrit elevated on presentation * appears to be persistent issue from prior labs in August 2021 * suspect this is a chronic issue, likely due to chronic smoking, worsened due to dehydration * will obtain ABG * monitor H&H during admission (8) Anxiety: Code(s): F41.9 - Anxiety disorder, unspecified Status: Chronic Assessment and Plan: No acute issues at this * SSRI on hold due to hyponatremia (9) Elevated blood pressure reading: Code(s): R03.0 - Elevated blood-pressure reading, without diagnosis of hypertension Status: Acute Assessment and Plan: Blood pressure has been running high. Last BP 188/81 Patient de
--- NOTE | 2022-06-14 09:49 | PM.IMPN ---
Progress Note: A&P Assessment and Plan (1) Closed intertrochanteric fracture of right femur: Code(s): S72.141A - Displaced intertrochanteric fracture of right femur, initial encounter for closed fracture Status: Acute Assessment and Plan: Secondary to ground level fall appreciate orthopedic surgery consultation will need surgical repair supportive care. Analgesics available as needed for pain Doan catheter in place until increased mobility postoperatively will need PT/OT following surgery (2) Chest pain: Code(s): R07.9 - Chest pain, unspecified Status: Acute Assessment and Plan: Atypical presentation. Complains of 9.5/10 nonradiating chest pressure worsened with inspiration EKG reviewed, no obvious ischemic changes Troponin is pending Obtain echocardiogram Monitor on telemetry Cardiology consultation. Input is appreciated (3) Alcohol withdrawal: Code(s): F10.939 - Alcohol use, unspecified with withdrawal, unspecified Status: Acute Assessment and Plan: patient reports drinking 3 beers per day. patient intoxicated on arrival with alcohol level of 127. CIWA score is 13 this morning. Patient experiencing tremors in visual hallucination Begin Librium scheduled 25 mg p.o. q.6 hours Ativan as needed for withdrawal symptoms Continue thiamine and folic acid Transition to IMU for close monitoring (4) Hypoxia: Code(s): R09.02 - Hypoxemia Status: Acute Assessment and Plan: Pt hypoxic overnight in the upper 80s Now requiring 1 L supplemental O2 CXR pending Will obtain CTA of chest given complaints of worsened CP with inspiration. Check ABG Monitor O2 sats closely and wean oxygen as tolerated (5) Hyponatremia: Code(s): E87.1 - Hypo-osmolality and hyponatremia Status: Acute Assessment and Plan: likely multifactorial secondary to chronic alcohol use, excess free water intake, SSRI Sodium 124 on presentation. urine sodium 18. Initially improved with IV fluids but on 06/13 began to decline again Implemented free water restriction of 1500 cc/day. Sodium improving now, up to 126 Recheck sodium this afternoon SSRI on hold (6) Leukocytosis: Code(s): D72.829 - Elevated white blood cell count, unspecified Status: Acute Assessment and Plan: WBC elevated at 16.2 on arrival and remains persistently elevated May have initially been reactive secondary to fall Increase in WBC again today up to 21,000. Differential demonstrates bandemia Obtain urine culture, blood culture, CXR Monitor CBC with differential closely (7) Polycythemia: Code(s): D75.1 - Secondary polycythemia Status: Acute Assessment and Plan: Hemoglobin and hematocrit elevated on presentation appears to be persistent issue from prior labs in August 2021 suspect this is a chronic issue, likely due to chronic smoking, worsened due to dehydration will obtain ABG monitor H&H during admission (8) Anxiety: Code(s): F41.9 - Anxiety disorder, unspecified Status: Chronic Assessment and Plan: No acute issues at this SSRI on hold due to hyponatremia (9) Elevated blood pressure reading: Code(s): R03.0 - Elevated blood-pressure reading, without diagnosis of hypertension Status: Acute Assessment and Plan: Blood pressure has been running high. Last BP 188/81 Patient denies history of hypertension Received 5 mg IV Lopressor this morning with improvement in BP Continue p.r.n. hydralazine for systolic BP >170 Monitor BP trends Subjective Date/time seen: 06/14/22 09:49 Interval history: Date of service: 06/14/2022 Nora Ty is a 66-year-old female with a history of anxiety and daily alcohol use who?is seen in follow-up for right hip fracture. Today she endorses 9.5/10 chest pressure in the midsternal region. Started ear
[2022-06-14] MEDS: POTASSIUM CHLORIDE INJ 40 MEQ in SODIUM CHLORIDE 0.9% IV 500 ML 130 MEQ IVPB (09:57)
[2022-06-14] MEDS: SODIUM CHLORIDE 0.9% IV 1,000 ML 75 ML IV CONT (10:00)
[2022-06-14 10:25] LABS: Alveolar/Arterial O2 Gradient 97.7 mmHg; Base Excess ABG -2.8 mEq/l (+/-2.0); Fractional Inspired Oxygen 28 %; HCO3 ABG 19.9 mEq/l (22.0-26.0); Oxygen Content ABG 22.7 %vol (16.0-22.0); Oxyhemoglobin 91.9 % THb (90.0-100.0); PCO2 ABG 30.3 mmHg (35.0-45.0); PO2 ABG 66.2 mmHg (80.0-100.0); PO2 FiO2 Ratio Arterial Blood 2.36 %; Total Hemoglobin 17.6 g/dL (12.0-18.0); pH ABG 7.436 (7.350-7.450)
[2022-06-14 10:26] LABS: Device NASAL CANNULA; Site Drawn LEFT BRACHIAL
[2022-06-14] MEDS: chlordiazePOXIDE (*CRX) 25 MG CAPSULE PO ×2 (11:57→17:21)
[2022-06-14] MEDS: FOLIC ACID 1 MG TABLET PO (11:57)
[2022-06-14] MEDS: THIAMINE HCL 100 MG TABLET PO (11:57)
--- NOTE | 2022-06-14 12:19 | PC.NURSE ---
This patient, Nora Ty, was transferred to IMU on 06/14/22 at 1130. Personal belongings sent with patient. Report given to NATHAN Andersen. Appropriate documentation sent with patient.
--- NOTE | 2022-06-14 12:21 | PM.CNPUL ---
Assessment and Plan Assessment and plan (1) Atelectasis of left lung: Code(s): J98.11 - Atelectasis Status: Acute Assessment and Plan: 66-year-old female presented with R hip pain, and shortness of breath. She was found to have right hip fracture and complete left lung atelectasis. Patient's lung atelectasis is most likely due to retained bronchial secretions related to chest wall pain. She has been a smoker but has no history of lung disease. In addition to left lung atelectasis, there is evidence of small pleural effusion on the left. Plan: we will proceed with aggressive pulmonary toilet with nebulized short-acting bronchodilators and nebulized Mucomyst. Will repeat chest x-ray tomorrow am; if lung still atelectatic, we will proceed with bronchoscopy. Keep patient NPO tonight. (2) Chest pain: Code(s): R07.9 - Chest pain, unspecified Status: Acute (3) Anxiety: Code(s): F41.9 - Anxiety disorder, unspecified Status: Chronic (4) Alcohol use: Code(s): Z72.89 - Other problems related to lifestyle Status: Acute (5) Closed intertrochanteric fracture of right femur: Code(s): S72.141A - Displaced intertrochanteric fracture of right femur, initial encounter for closed fracture Status: Acute History of Present Illness History of Present Illness Consult date: 06/14/22 Chief complaint: hip fracture Narrative: This 66-year-old female was brought into the emergency room after she fell at home. Patient fell to the ground and injured her right hip. When she was evaluated in the emergency room she was found to have a right inter trochanteric fracture proximal right femur. She also had some shortness of breath and underwent a chest CT. Chest CT showed complete collapse of the left lung and a small pleural effusion on the left. Currently the patient complaining of right substernal chest pain with inspirations. She has no cough hemoptysis sputum production fever or chills. She has been a smoker for many years. She also drinks alcohol on a daily basis. She is not on any medications for lung disease. Patient is scheduled to undergo right hip surgery. Review of Systems Review of Systems: All system review is negative except as noted in HPI below. [facility] Past Medical History Medical History (Updated 06/14/22 @ 12:25 by Paddy Gomez MD) Alcohol use Anxiety Closed intertrochanteric fracture of right femur Enlarged thyroid Family History Family History (Updated 06/12/22 @ 09:46 by Venus Hill PA-C) Father Diabetes mellitus Hypertension Family history of cardiovascular disease Non-Hodgkin lymphoma Mother Lung cancer Sibling Breast cancer Social History Social History (Updated 06/12/22 @ 09:48 by Venus Hill PA-C) Social History: lives at home with independent with ADLs PCP: Bibiana Cordova NP POA: Tato (close friend) Code: DNR Smoking packs per day: 1 Smoking cigarettes per day: 20.0 Years smoked: 47 Smoking pack-years: 47.00 Smoking status: Current every day smoker Tobacco type: cigarettes Alcohol intake: current Drinks per week: 28 Alcohol use details: 3 beers/day Substance use type: marijuana Other substance usage details: 1 joint every 2 weeks Spiritual care concerns: No Meds Home Medications and Allergies Home Medications Medication Instructions Recorded Confirmed Type escitalopram oxalate 20 mg tablet 20 mg PO DAILY #90 tabs 02/25/22 06/12/22 Rx Allergies Allergy/AdvReac Type Severity Reaction Status Date / Time No Known Allergies Allergy Verified 06/12/22 04:55 Vital Signs Vital Signs - 24 hr 06/13/22 14:03 06/13/22 14:20 06/13/22 14:54 Temperature 36.2 C L Pulse Rate 75 Pulse Rate [Radial Palpation] Respiratory Rate 16 Blood Pressure 179/60 H 179/76 H 165/75 H Pulse Oximetry 91 Oxygen Delivery Oxygen Flow Rate 06/13/22 1
[2022-06-14 13:04] LABS: Sodium 128 mmol/L (137-145)
[2022-06-14] MEDS: ENOXAPARIN 40 MG/0.4 ML SYRINGE SUB-Q (13:32)
[2022-06-14] MEDS: ALBUTEROL SULFATE NEB 2.5 MG/3 ML INH INHALATION ×2 (15:10→20:22)
[2022-06-14] MEDS: ACETYLCYSTEINE 20% INHAL SOLN 800 MG/4 ML VIAL 200 MG INHALATION ×2 (15:10→20:22)
--- NOTE | 2022-06-14 16:07 | PM.CNCAR ---
Assessment and Plan Assessment and plan (1) Chest pain: Code(s): R07.9 - Chest pain, unspecified Status: Acute Assessment and Plan: Noncardiac chest pain. Chest pain is reproducible by pushing her epigastrium. Start pantoprazole 40 mg p.o. daily (2) Elevated blood pressure reading: Code(s): R03.0 - Elevated blood-pressure reading, without diagnosis of hypertension Status: Acute Assessment and Plan: BP is markedly elevated. Hydralazine 10 mg IV x1. Will start losartan 25 mg p.o. x1 (3) Alcohol use: Code(s): Z72.89 - Other problems related to lifestyle Status: Acute Assessment and Plan: Counseling performed (4) Hypokalemia: Code(s): E87.6 - Hypokalemia Status: Acute Assessment and Plan: Replaced (5) Preop cardiovascular exam: Code(s): Z01.810 - Encounter for preprocedural cardiovascular examination Status: Acute Assessment and Plan: Low risk perioperative cardiovascular complications. No ischemic workup needed History of Present Illness History of Present Illness Consult date/time: 06/14/22 16:07 Requesting physician: Venus Hill PA-C Consult reason: chest pain Reason For Visit: hip fracture Narrative: Reason for consultation: Chest pain, preop Date of service 06/14/2022 Requesting provider: Venus Hill History: Patient is a 66-year-old female who has no known cardiac issues or history. She came to the hospital following a fall and resultant hip fracture. She complains of chest pain/epigastric pain today. Is been constant. Is worsened by pushing on her stomach/epigastric area. Does not radiate. She does have shortness of breath which she says is new. She also describes ?throat burning ?/heartburn. She denies any syncope, paroxysmal nocturnal dyspnea, orthopnea, edema, palpitations. Chest pain does not radiate. Review of Systems Review of Systems: All systems reviewed & are unremarkable except as noted in HPI and below Constitutional: Constitutional: Denies body ache(s) Eyes: Eyes: Denies blurry vision ENT: Reports Normal hearing present Cardiovascular: Cardiovascular: Reports chest pain Respiratory: Respiratory: Reports dyspnea Gastrointestinal: Gastrointestinal: Reports abdominal pain Genitourinary: Genitourinary: Denies hematuria Musculoskeletal: Musculoskeletal: Denies back pain Integumentary/Breasts: Skin/Breast: Denies dry skin Neurologic: Denies Abnormal speech present Psychiatric: Psychiatric: Denies anxiety Endocrine: Endocrine: Denies excessive sweating Hematologic/Lymphatic: Hematologic/Lymphatic: Denies easy bleeding Allergic/Immunologic: Allergic/Immunologic: Denies GI upset with certain foods PMFSH Past Medical History Medical History Alcohol use Anxiety Closed intertrochanteric fracture of right femur Enlarged thyroid Family History Family History Father Diabetes mellitus Hypertension Family history of cardiovascular disease Non-Hodgkin lymphoma Mother Lung cancer Sibling Breast cancer Social History Social History Social History: lives at home with independent with ADLs PCP: Bibiana Cordova NP POA: Tato (close friend) Code: DNR Smoking packs per day: 1 Smoking cigarettes per day: 20.0 Years smoked: 47 Smoking pack-years: 47.00 Smoking status: Current every day smoker Tobacco type: cigarettes Alcohol intake: current Drinks per week: 28 Alcohol use details: 3 beers/day Substance use type: marijuana Other substance usage details: 1 joint every 2 weeks Spiritual care concerns: No Meds Home Medications and Allergies Home Medications Medication Instructions Recorded Confirmed Type escitalopram oxalate 20 mg tablet 20 mg PO D
[2022-06-14 16:10] LABS: Troponin I 0.034 ng/mL (0.000-0.034)
[2022-06-14] MEDS: PANTOPRAZOLE 40 MG TABLET PO (17:21)
--- NOTE | 2022-06-14 20:37 | PCRCNOTE ---
Pt became very sick and started vomitting during 1999 UPD and vest treatment on 06/14. RT stopped UPD and vest immediately. RN informed.
--- NOTE | 2022-06-14 21:18 | PC.NURSE ---
patient started having nausea and mostly dry heaves, scant emesis when mucomyst was started.
[2022-06-15] VITALS (28 sets, daily range): BP systolic 147–179; BP diastolic 47–89; PULSE 84–96; RESP 16–21; TEMP 36.5–37.2; O2SAT 93–100
[2022-06-15] MEDS: ALBUTEROL SULFATE NEB 2.5 MG/0.5 ML INH ×5 (04:03→16:51)
[2022-06-15 04:46] LABS: Hematocrit 44.1 % (37.0-47.0); Hemoglobin 15.1 g/dL (12.0-15.0); Mean Corpuscular HGB Conc 34.2 g/dl (32-36); Mean Corpuscular Hemoglobin 32.4 pg (26-34); Mean Corpuscular Volume 94.6 fl (80-100); Mean Platelet Volume 9.7 fl (7.4-10.4); Platelet Count Result 227 k/mm3 (150-375); Red Blood Count 4.66 M/mm3 (4.2-5.4); Red Cell Distribution Width 15.6 % (11.5-14.5); White Blood Count 16.1 K/mm3 (4.5-10.0)
[2022-06-15] MEDS: SODIUM CHLORIDE 0.9% IV 1,000 ML 75 ML IV CONT ×2 (05:05→23:12)
[2022-06-15 05:08] LABS: Alanine Aminotransferase 31 U/L (6-35); Albumin Level 2.9 g/dL (3.5-5.1); Alkaline Phosphatase 100 U/L (38-126); Anion Gap 9 mmol/L (8-16); Aspartate Amino Transferase 31 U/L (14-36); Bilirubin,Total 1.4 mg/dL (0.2-1.3); Blood Urea Nitrogen 12 mg/dL (7-17); Calcium 8.5 mg/dL (8.4-10.2); Carbon Dioxide 20 mmol/L (22-30); Chloride 99 mmol/L (98-107); Estimated CRCL calculation 82 ml/min; Estimated Glomerular Filt Rate > 60; Glucose 134 mg/dL (65-110); Sodium 128 mmol/L (137-145)
[2022-06-15 06:01] LABS: Band Neutrophils Percent 26 % (0-6); Lymphocytes Absolute Manual 1.28 K/mm3 (1.1-4.5); Metamyelocytes Percent 1 %; Monocytes Absolute Manual 0.16 K/mm3 (0.1-0.90); Monocytes Percent Manual 1 % (3-9); Myelocytes Percent 1 %; Neutrophils Absolute Manual 14.32 K/mm3 (1.7-7.2); Neutrophils Percent Manual 63 % (46-73); Total Cells Counted 100
[2022-06-15 06:02] LABS: Anisocytosis 1+ (NORMAL); Giant Platelets Present; Macrocytosis 1+ (NORMAL); Platelet Estimate Adequate (Adequate)
[2022-06-15 06:03] LABS: Atypical Lymphocytes Present; Crenated RBC 1+ (NORMAL); Poikilocytosis 1+ (NORMAL)
[2022-06-15] MEDS: FOLIC ACID 1 MG TABLET PO (08:12)
[2022-06-15] MEDS: THIAMINE HCL 100 MG TABLET PO (08:12)
[2022-06-15] MEDS: PANTOPRAZOLE 40 MG TABLET PO (08:12)
[2022-06-15] MEDS: LOSARTAN POTASSIUM 25 MG TABLET PO (08:12)
[2022-06-15] MEDS: hydrALAZINE HCL 20 MG/ML VIAL 10 MG IV PUSH (08:12)
[2022-06-15] MEDS: ENOXAPARIN 40 MG/0.4 ML SYRINGE SUB-Q (08:12)
[2022-06-15] MEDS: DORNASE ALFA INH SOLN 1 MG/ML 2.5 ML AMP 2.5 MG INHALATION ×2 (08:28→20:18)
[2022-06-15] MEDS: ALBUTEROL SULFATE NEB 2.5 MG/3 ML INH INHALATION ×4 (08:29→20:18)
--- NOTE | 2022-06-15 09:20 | PCRCNOTE ---
Pt refused chest vest treatment for 0800 round, pt states it makes her sick to her stomach. Nurse notified of refusal.
--- NOTE | 2022-06-15 09:59 | PM.PNPUL ---
Progress Note: A&P Assessment and Plan (1) Atelectasis of left lung: Code(s): J98.11 - Atelectasis Status: Acute (2) Pneumonia: Code(s): J18.9 - Pneumonia, unspecified organism Status: Acute Assessment and Plan: 66-year-old female presented with right hip fracture and left lung atelectasis. She has been on pulmonary toilet since yesterday. On today's chest x-ray there is probably partial re-expansion of the left lung; there is a left lower lobe infiltrate which could represent pneumonia versus atelectasis. also small pleural effusion. Patient has leukocytosis. Plan I will start the patient on antibiotics for community-acquired pneumonia. Continue with current pulmonary toilet regimen and DVT prophylaxis. Repeat chest x-ray in a.m. (3) Leukocytosis: Code(s): D72.829 - Elevated white blood cell count, unspecified Status: Acute (4) Closed intertrochanteric fracture of right femur: Code(s): S72.141A - Displaced intertrochanteric fracture of right femur, initial encounter for closed fracture Status: Acute Subjective Date/time seen: 06/15/22 09:59 patient doing better this a.m.. She no longer has chest pain or shortness of breath. Started coughing up some clear phlegm. Undergoing pulmonary toilet with nebulized short-acting bronchodilators and mucolytic agents. Chest x-ray showed partial re-expansion of left lung; question lower lobe atelectasis versus pneumonia. Review of Systems Review of Systems: All systems reviewed & are unremarkable except as noted in HPI and below Constitutional: Constitutional: Denies body ache(s) Eyes: Eyes: Denies blurry vision ENT: Reports Normal hearing present Cardiovascular: Cardiovascular: Reports chest pain Respiratory: Respiratory: Reports dyspnea Gastrointestinal: Gastrointestinal: Reports abdominal pain Genitourinary: Genitourinary: Denies hematuria Musculoskeletal: Musculoskeletal: Denies back pain Integumentary/Breasts: Skin/Breast: Denies dry skin Neurologic: Denies Abnormal speech present Psychiatric: Psychiatric: Denies anxiety Endocrine: Endocrine: Denies excessive sweating Hematologic/Lymphatic: Hematologic/Lymphatic: Denies easy bleeding Allergic/Immunologic: Allergic/Immunologic: Denies GI upset with certain foods Exam Narrative: GENERAL APPEARANCE: Well developed, well nourished, alert and cooperative, and appears to be in no acute distress SKIN: Inspection of the skin reveals no rashes, ulcerations or petechiae. HEENT: Sclerae anicteric and conjunctivae pink and moist. Extraocular movements were intact and pupils were equal, round, and reactive to light. The oral mucosa, hard and soft palate, tongue and posterior pharynx were normal. Edentulous. NECK: Supple. There was no thyroid enlargement, and no tenderness, or masses were felt. CHEST: Normal AP diameter and normal contour without any kyphoscoliosis. LUNGS: Auscultation of the lungs revealed normal breath sounds on right, decreased breath sounds at left base posteriorly CARDIAC: There was a regular rate and rhythm without any murmurs, gallops, rubs. ABDOMEN: Soft and nontender with normal bowel sounds. There was no organomegaly. LYMPH NODES: No lymphadenopathy was appreciated in the neck. EXTREMITIES: No cyanosis, clubbing or edema. NEUROLOGIC: Alert and oriented x 3. Normal affect. Objective Data Vital Signs Vital Signs: Vital Signs - 24 hr 06/14/22 11:00 06/14/22 12:00 06/14/22 12:00 Temperature Pulse Rate 88 Pulse Rate [Radial Palpation] Respiratory Rate Blood Pressure 177/88 H Pulse Oximetry 94 Oxygen Delivery Nasal Cannula Oxygen Flow Rate 1 06/14/22 12:58 06/14/22 15:10 06/14/22 15:18 Temperature 35.9 C L Pulse Rate 83 93 Pulse Rate [Radial Palpation] Respiratory Rate 28 H 20 Blood Pressure 203/93 H Pulse Oximetry 96 94 Oxygen Delivery Nasal Cannula Oxygen Flow Rate 2 09
--- NOTE | 2022-06-15 10:38 | PM.PNCARD ---
Progress Note: A&P Assessment and Plan (1) Chest pain: Code(s): R07.9 - Chest pain, unspecified Status: Acute Assessment and Plan: Noncardiac chest pain. Resolve with pantoprazole (2) Elevated blood pressure reading: Code(s): R03.0 - Elevated blood-pressure reading, without diagnosis of hypertension Status: Acute Assessment and Plan: BP is markedly elevated. Will add amlodipine 5 mg daily p.o. daily, 1st dose now (3) Alcohol use: Code(s): Z72.89 - Other problems related to lifestyle Status: Acute Assessment and Plan: Counseling performed (4) Hypokalemia: Code(s): E87.6 - Hypokalemia Status: Acute Assessment and Plan: KCL 40 mg p.o. x1 now (5) Preop cardiovascular exam: Code(s): Z01.810 - Encounter for preprocedural cardiovascular examination Status: Acute Assessment and Plan: Low risk perioperative cardiovascular complications. No ischemic workup needed Subjective Date/time seen: 06/15/22 10:38 Interval history: Nora Ty is a 66-year-old female with a history of anxiety and daily alcohol use who?is seen in follow-up for right hip fracture. Date of service 06/15/2022: Chest pain/epigastric pain resolved with pantoprazole. Feels better today. No chest pain or shortness of breath Review of Systems Review of Systems: All systems reviewed & are unremarkable except as noted in HPI and below Constitutional: Constitutional: Denies body ache(s) and Denies excessive sweating Eyes: Eyes: Denies blurry vision ENT: Reports Normal hearing present Cardiovascular: Cardiovascular: Reports chest pain and Reports dyspnea Respiratory: Respiratory: Reports dyspnea Gastrointestinal: Gastrointestinal: Reports abdominal pain Genitourinary: Genitourinary: Denies hematuria Musculoskeletal: Musculoskeletal: Denies back pain Integumentary/Breasts: Skin/Breast: Denies dry skin Neurologic: Reports Normal hearing present and Denies Abnormal speech present Psychiatric: Psychiatric: Denies anxiety Endocrine: Endocrine: Denies excessive sweating Hematologic/Lymphatic: Hematologic/Lymphatic: Denies easy bleeding Allergic/Immunologic: Allergic/Immunologic: Denies GI upset with certain foods Exam Narrative: Patient awake alert appears to be an mild distress. Appears stated age Const: General: comfortable and in distress HENMT: General nose exam: Normal nares present Mouth: Yes moist mucous membranes Eyes: General: appearance normal, both eyes and all related structures Sclera: sclerae normal Neck: Neck: supple Thyroid: thyroid normal Carotids: no bruits Chest: Other: Positive reproducible epigastric/lower sternal pain to palpate Resp: Auscultation: clear to auscultation bilaterally Other: Absent breath sounds on left Cardio: Rate: regular rate Rhythm: regular rhythm Heart sounds: no murmurs GI: Inspection: non-distended Auscultation: normal bowel sounds Skin: General skin exam: normal color and no rashes or lesions noted Neuro: General: No gait normal Cranial nerves: Yes Normal hearing present Speech: normal speech and No Abnormal speech present Extrem: General: normal to inspection Psych: Mental Status: mental status grossly normal Affect: normal affect Objective Data Vital Signs Vital Signs: Vital Signs - 24 hr 06/14/22 11:00 06/14/22 12:00 06/14/22 12:00 Temperature Pulse Rate 88 Pulse Rate [Radial Palpation] Respiratory Rate Blood Pressure 177/88 H Pulse Oximetry 94 Oxygen Delivery Nasal Cannula Oxygen Flow Rate 1 06/14/22 12:58 06/14/22 15:10 06/14/22 15:18 Temperature 35.9 C L Pulse Rate 83 93 Pulse Rate [Radial Palpation] Respiratory Rate 28 H 20 Blood Pressure 203/93 H Pulse Oximetry 96 94 Oxygen Delivery Nasal Cannula Oxygen Flow Rate 2 06/14/22 16:00 06/14/22 16:42 06/14/22 16:00 Temperature 36.1 C L Pulse
[2022-06-15] MEDS: POTASSIUM CHLORIDE 20 MEQ TABLET 40 MEQ PO (11:29)
[2022-06-15] MEDS: amLODIPine BESYLATE 5 MG TABLET PO (11:30)
[2022-06-15] MEDS: chlordiazePOXIDE (*CRX) 25 MG CAPSULE PO ×3 (13:02→23:33)
--- NOTE | 2022-06-15 14:48 | P.PNIM_ITS ---
Progress Note: A&P Assessment and Plan (1) Closed intertrochanteric fracture of right femur: Code(s): S72.141A - Displaced intertrochanteric fracture of right femur, initial encounter for closed fracture Status: Acute Assessment and Plan: Secondary to ground level fall * appreciate orthopedic surgery consultation * will need surgical repair * supportive care. Analgesics available as needed for pain * Doan catheter in place until increased mobility postoperatively * will need PT/OT following surgery discussed with orthopedics will hold off on surgery until further stabilization from pneumonia standpoint. (2) Chest pain: Code(s): R07.9 - Chest pain, unspecified Status: Acute Assessment and Plan: Atypical presentation. Complains of 9.5/10 nonradiating chest pressure worsened with inspiration * EKG reviewed, no obvious ischemic changes * troponins negative * echocardiogram EF 65-70% moderate pulmonary hypertension grade 1 diastolic dysfunction * Monitor on telemetry * Cardiology consultation. Input is appreciated (3) Alcohol withdrawal: Code(s): F10.939 - Alcohol use, unspecified with withdrawal, unspecified Status: Acute Assessment and Plan: patient reports drinking 3 beers per day. patient intoxicated on arrival with alcohol level of 127. * CIWA monitoring. Patient experiencing tremors in visual hallucination * started on Librium scheduled 25 mg p.o. q.6 hours * Ativan as needed for withdrawal symptoms * Continue thiamine and folic acid * currently in IMU (4) Hypoxia: Code(s): R09.02 - Hypoxemia Status: Acute Assessment and Plan: Pt hypoxic overnight in the upper 80s * Now requiring 1 L supplemental O2 * CT chest with complete collapse of left lung and small pleural effusion on the left * Repeat chest x-ray with diffuse left lung disease with volume loss with interval improvement in aeration likely a combination of atelectasis and pneumonia. * ABG with no Hypercapnia * Monitor O2 sats closely and wean oxygen as tolerated * Left lower lobe pneumonia. Treated for community-acquired pneumonia (5) Hyponatremia: Code(s): E87.1 - Hypo-osmolality and hyponatremia Status: Acute Assessment and Plan: likely multifactorial secondary to chronic alcohol use, excess free water intake, SSRI * Sodium 124 on presentation. urine sodium 18. * Initially improved with IV fluids but on 06/13 began to decline again * Implemented free water restriction of 1500 cc/day. Sodium improving now, up to 126 * SSRI on hold (6) Leukocytosis: Code(s): D72.829 - Elevated white blood cell count, unspecified Status: Acute Assessment and Plan: WBC elevated at 16.2 on arrival and remains persistently elevated * May have initially been reactive secondary to fall * Increase in WBC again today up to 21,000. * Differential demonstrates bandemia * pancultured * Monitor CBC with differential closely (7) Polycythemia: Code(s): D75.1 - Secondary polycythemia Status: Acute Assessment and Plan: Hemoglobin and hematocrit elevated on presentation * appears to be persistent issue from prior labs in August 2021 * suspect this is a chronic issue, likely due to chronic smoking, worsened due to dehydration * monitor H&H during admission (8) Anxiety: Code(s): F41.9 - Anxiety disorder, unspecified Status: Chronic Assessment and Plan: No acute issues at this *
--- NOTE | 2022-06-15 14:48 | PM.IMPN ---
Progress Note: A&P Assessment and Plan (1) Closed intertrochanteric fracture of right femur: Code(s): S72.141A - Displaced intertrochanteric fracture of right femur, initial encounter for closed fracture Status: Acute Assessment and Plan: Secondary to ground level fall appreciate orthopedic surgery consultation will need surgical repair supportive care. Analgesics available as needed for pain Doan catheter in place until increased mobility postoperatively will need PT/OT following surgery discussed with orthopedics will hold off on surgery until further stabilization from pneumonia standpoint. (2) Chest pain: Code(s): R07.9 - Chest pain, unspecified Status: Acute Assessment and Plan: Atypical presentation. Complains of 9.5/10 nonradiating chest pressure worsened with inspiration EKG reviewed, no obvious ischemic changes troponins negative echocardiogram EF 65-70% moderate pulmonary hypertension grade 1 diastolic dysfunction Monitor on telemetry Cardiology consultation. Input is appreciated (3) Alcohol withdrawal: Code(s): F10.939 - Alcohol use, unspecified with withdrawal, unspecified Status: Acute Assessment and Plan: patient reports drinking 3 beers per day. patient intoxicated on arrival with alcohol level of 127. CIWA monitoring. Patient experiencing tremors in visual hallucination started on Librium scheduled 25 mg p.o. q.6 hours Ativan as needed for withdrawal symptoms Continue thiamine and folic acid currently in IMU (4) Hypoxia: Code(s): R09.02 - Hypoxemia Status: Acute Assessment and Plan: Pt hypoxic overnight in the upper 80s Now requiring [address] chest with complete collapse of left lung and small pleural effusion on the left Repeat chest x-ray with diffuse left lung disease with volume loss with interval improvement in aeration likely a combination of atelectasis and pneumonia. ABG with no Hypercapnia Monitor O2 sats closely and wean oxygen as tolerated Left lower lobe pneumonia. Treated for community-acquired pneumonia (5) Hyponatremia: Code(s): E87.1 - Hypo-osmolality and hyponatremia Status: Acute Assessment and Plan: likely multifactorial secondary to chronic alcohol use, excess free water intake, SSRI Sodium 124 on presentation. urine sodium 18. Initially improved with IV fluids but on 06/13 began to decline again Implemented free water restriction of 1500 cc/day. Sodium improving now, up to 126 SSRI on hold (6) Leukocytosis: Code(s): D72.829 - Elevated white blood cell count, unspecified Status: Acute Assessment and Plan: WBC elevated at 16.2 on arrival and remains persistently elevated May have initially been reactive secondary to fall Increase in WBC again today up to 21,000. Differential demonstrates bandemia pancultured Monitor CBC with differential closely (7) Polycythemia: Code(s): D75.1 - Secondary polycythemia Status: Acute Assessment and Plan: Hemoglobin and hematocrit elevated on presentation appears to be persistent issue from prior labs in August 2021 suspect this is a chronic issue, likely due to chronic smoking, worsened due to dehydration monitor H&H during admission (8) Anxiety: Code(s): F41.9 - Anxiety disorder, unspecified Status: Chronic Assessment and Plan: No acute issues at this SSRI on hold due to hyponatremia (9) Elevated blood pressure reading: Code(s): R03.0 - Elevated blood-pressure reading, without diagnosis of hypertension Status: Acute Assessment and Plan: Blood pressure has been running high. Last BP 188/81 Patient denies history of hypertension Received 5 mg IV Lopressor with improvement in BP Continue p.r.n. hydralazine for systolic BP >170 Monitor BP trends Subjective Date/time seen:
--- NOTE | 2022-06-15 15:11 | PM.PNORT ---
Progress Note: A&P Assessment and Plan (1) Closed intertrochanteric fracture of right femur: Code(s): S72.141A - Displaced intertrochanteric fracture of right femur, initial encounter for closed fracture Status: Acute Plan 66-year-old female with a right intertrochanteric hip fracture. Dr. Spicer has discussed the case further with Dr. Baugh. Unfortunately, she has recently developed a pneumonia with atelectasis. This along with her underlying medical issues will tentatively push back the surgery to 06/21/2022. Continue supportive care. Subjective Subjective Date/Time Seen: 06/15/22 07:15 Principal diagnosis: Right intertrochanteric hip fracture Interval history: 66-year-old female with a right intertrochanteric hip fracture. She is aware this will need surgical attention. She is relatively pain-free this morning. Unfortunately she developed a pneumonia that will need to be addressed prior to surgery. Review of Systems Constitutional: Constitutional: Reports as per HPI Exam Const: General: comfortable Orientation/consciousness: patient oriented x3 HENMT: Head: normal to inspection Resp: Effort & Inspection: able to speak in complete sentences Neuro: General: patient oriented x3 Extrem: Other: Exam of right lower extremity demonstrates her laying with the right hip up and in a slightly flexed position. She can wiggle her toes and dorsiflex/plantar flex the foot without difficulty. Calves negative. Neurovascular status right lower extremity is intact. Exam limited due to the intertrochanteric fracture. Psych: Mental Status: mental status grossly normal Objective Data Vital Signs Vital Signs: Vital Signs - 24 hr 06/14/22 15:18 06/14/22 16:00 06/14/22 16:42 Temperature 96.9 F L Pulse Rate 93 93 Pulse Rate [Radial Palpation] Respiratory Rate 20 21 H Blood Pressure 197/92 H Pulse Oximetry 94 95 Oxygen Delivery Nasal Cannula Oxygen Flow Rate 1 06/14/22 16:00 06/14/22 18:00 06/14/22 20:00 Temperature 97.6 F Pulse Rate 89 95 97 Pulse Rate [Radial Palpation] Respiratory Rate 20 Blood Pressure 178/83 H Pulse Oximetry 94 Oxygen Delivery Oxygen Flow Rate 06/14/22 20:34 06/14/22 20:00 06/14/22 20:00 Temperature Pulse Rate 97 Pulse Rate [Radial Palpation] 69 Respiratory Rate 20 Blood Pressure 178/83 H Pulse Oximetry 94 94 Oxygen Delivery Nasal Cannula Nasal Cannula Oxygen Flow Rate 1 1 06/14/22 20:00 06/14/22 22:00 06/14/22 23:01 Temperature 98.0 F Pulse Rate 94 92 93 Pulse Rate [Radial Palpation] Respiratory Rate 20 Blood Pressure 162/89 H Pulse Oximetry 94 Oxygen Delivery Oxygen Flow Rate 06/15/22 00:00 06/15/22 00:00 06/15/22 00:00 Temperature Pulse Rate 88 88 Pulse Rate [Radial Palpation] 88 Respiratory Rate 20 Blood Pressure 162/89 H Pulse Oximetry 94 Oxygen Delivery Nasal Cannula Oxygen Flow Rate 1 06/15/22 02:00 06/15/22 04:05 06/15/22 04:11 Temperature Pulse Rate 87 96 94 Pulse Rate [Radial Palpation] Respiratory Rate 16 16 Blood Pressure Pulse Oximetry Oxygen Delivery Oxygen Flow Rate 06/15/22 04:00 06/15/22 04:00 06/15/22 04:00 Temperature Pulse Rate 92 92 Pulse Rate [Radial Palpation] 92 Respiratory Rate 16 Blood Pressure 162/89 H Pulse Oximetry 94 Oxygen Delivery Nasal Cannula Oxygen Flow Rate 1 06/15/22 04:00 06/15/22 06:00 06/15/22 08:02 Temperature 97.9 F 97.9 F Pulse Rate 90 90 89 Pulse Rate [Radial Palpation] Respiratory Rate 20 18 Blood Pressure 163/74 H 179/71 H Pulse Oximetry 95 96 Oxygen Delivery Oxygen Flow Rate 06/15/22 08:29 06/15/22 08:34 06/15/22 08:40 Temperature Pulse Rate 94 90 95 Pulse Rate [Radial Palpation] Respiratory Rate 16 16 16 Blood Pressure Pulse Oximetry 96 Oxygen Delivery Nasal Cannula Oxygen Flow Rate 1 06/15/22 08:00 06/15/22 08:00 09
--- NOTE | 2022-06-15 16:22 | PC.NURSE ---
On 06/15/22, the student, [Dara [facility] ], provided care and completed [employer] documentation on this patient. I have reviewed the student's documentation and agree with the findings.
[2022-06-15] MEDS: LORazepam (*CRX) 0.5 MG TABLET PO (20:11)
[2022-06-15 21:46] LABS: SARS-CoV-2 RNA PCR Negative
[2022-06-16] VITALS (22 sets, daily range): BP systolic 148–178; BP diastolic 61–83; PULSE 77–95; RESP 16–30; TEMP 36.5–36.9; O2SAT 91–99
[2022-06-16] MEDS: ALBUTEROL SULFATE NEB 2.5 MG/3 ML INH INHALATION ×3 (00:25→09:28)
[2022-06-16 04:52] LABS: Basophils Percent Auto 0.2 % (0.2-1.2); Eosinophils Percent Auto 0.2 % (0-4.4); Hematocrit 37.6 % (37.0-47.0); Hemoglobin 13.2 g/dL (12.0-15.0); Immature Granulocyte Absolute 0.05 K/mm3 (0.00-0.031); Immature Granulocyte Percent A 0.4 % (0-0.5); Lymphocytes Absolute Auto 0.64 K/mm3 (0.9-3.2); Lymphocytes Percent Auto 5.6 % (18.3-44.2); Mean Corpuscular HGB Conc 35.1 g/dl (32-36); Mean Corpuscular Hemoglobin 32.6 pg (26-34); Mean Corpuscular Volume 92.8 fl (80-100); Mean Platelet Volume 9.6 fl (7.4-10.4); Monocytes Absolute Auto 1.6 K/mm3 (0.1-0.6); Monocytes Percent Auto 13.7 % (2.6-8.5); Neutrophils Absolute Auto 9.1 K/mm3 (1.3-6.7); Neutrophils Percent Auto 79.9 % (45.5-73.1); Platelet Count Result 218 k/mm3 (150-375); Red Blood Count 4.05 M/mm3 (4.2-5.4); Red Cell Distribution Width 15.3 % (11.5-14.5); White Blood Count 11.3 K/mm3 (4.5-10.0)
[2022-06-16] MEDS: chlordiazePOXIDE (*CRX) 25 MG CAPSULE PO (05:04)
--- NOTE | 2022-06-16 05:07 | PC.NURSE ---
PATIENT WOKE UP AND WAS EXTREMELY CONFUSED AND SCREAMING FOR HER . TRIED TO EXPLAIN THAT SHE WAS IN THE HOSPITAL AND SHE CALLED US A LIAR. THEN ASKED WHY SHE IS HERE. WHEN TOLD WHY SHE WAS HERE, SHE AGAIN CALLED US LIARS. AND WAS DEMANDING TO SEE HER . KEPT LETTING HER KNOW WHERE SHE WAS AND WHAT WAS HAPPENING UNTIL SHE CALMED DOWN.
[2022-06-16 05:24] LABS: Alanine Aminotransferase 23 U/L (6-35); Albumin Level 2.7 g/dL (3.5-5.1); Alkaline Phosphatase 83 U/L (38-126); Anion Gap 8 mmol/L (8-16); Aspartate Amino Transferase 25 U/L (14-36); Bilirubin,Total 1.3 mg/dL (0.2-1.3); Blood Urea Nitrogen 7 mg/dL (7-17); Calcium 7.8 mg/dL (8.4-10.2); Carbon Dioxide 22 mmol/L (22-30); Chloride 98 mmol/L (98-107); Estimated CRCL calculation 100 ml/min; Estimated Glomerular Filt Rate > 60; Glucose 110 mg/dL (65-110); Magnesium 1.7 mg/dL (1.6-2.3); Potassium 2.8 mmol/L (3.4-5.0); Sodium 128 mmol/L (137-145)
[2022-06-16] MEDS: MAGNESIUM SULF 2 GM/WATER 50ML 2 GM/50 ML BAG IVPB (08:52)
[2022-06-16] MEDS: POTASSIUM CHLORIDE INJ 40 MEQ in SODIUM CHLORIDE 0.9% IV 500 ML 130 MEQ IVPB (08:53)
[2022-06-16] MEDS: ENOXAPARIN 40 MG/0.4 ML SYRINGE SUB-Q (09:04)
[2022-06-16] MEDS: LOSARTAN POTASSIUM 25 MG TABLET PO (09:04)
[2022-06-16] MEDS: PANTOPRAZOLE 40 MG TABLET PO (09:04)
[2022-06-16] MEDS: amLODIPine BESYLATE 5 MG TABLET PO (09:04)
[2022-06-16] MEDS: THIAMINE HCL 100 MG TABLET PO (09:04)
[2022-06-16] MEDS: FOLIC ACID 1 MG TABLET PO (09:04)
--- NOTE | 2022-06-16 10:06 | PM.PNPUL ---
Progress Note: A&P Assessment and Plan (1) Atelectasis of left lung: Code(s): J98.11 - Atelectasis Status: Acute (2) Pneumonia: Code(s): J18.9 - Pneumonia, unspecified organism Status: Acute Assessment and Plan: 66-year-old female presented with right hip fracture and left lung atelectasis. Following treatment with aggressive pulmonary the left lung has re-expanded. On latest chest x-rays there was evidence of a left lower lobe infiltrate possibly due to pneumonia. Patient also had leukocytosis which was in favor of left lower pneumonia. She has been on antibiotics for community-acquired pneumonia. Clinical status has improved over the last 2 days. Currently remains on room air not complaining of chest pain cough or sputum production. WBC trending down. On chest x-ray there is a small pleural effusion as well. Hip repair surgery on hold at this point. Plan continue with current antibiotic regimen and DVT prophylaxis. Repeat chest x-ray over the weekend. (3) Leukocytosis: Code(s): D72.829 - Elevated white blood cell count, unspecified Status: Acute (4) Closed intertrochanteric fracture of right femur: Code(s): S72.141A - Displaced intertrochanteric fracture of right femur, initial encounter for closed fracture Status: Acute Subjective Date/time seen: 06/16/22 10:06 Patient stated she is doing better. Currently on room air. She has no chest pain no cough or sputum production. On antibiotics for left lower lobe pneumonia. Review of Systems Constitutional: Constitutional: Reports as per HPI Exam Narrative: GENERAL APPEARANCE: Well developed, well nourished, alert and cooperative, and appears to be in no acute distress SKIN: Inspection of the skin reveals no rashes, ulcerations or petechiae. HEENT: Sclerae anicteric and conjunctivae pink and moist. Extraocular movements were intact and pupils were equal, round, and reactive to light. The oral mucosa, hard and soft palate, tongue and posterior pharynx were normal. Edentulous. NECK: Supple. There was no thyroid enlargement, and no tenderness, or masses were felt. CHEST: Normal AP diameter and normal contour without any kyphoscoliosis. LUNGS: Auscultation of the lungs revealed normal breath sounds on right, decreased breath sounds at left base posteriorly CARDIAC: There was a regular rate and rhythm without any murmurs, gallops, rubs. ABDOMEN: Soft and nontender with normal bowel sounds. There was no organomegaly. LYMPH NODES: No lymphadenopathy was appreciated in the neck. EXTREMITIES: No cyanosis, clubbing or edema. NEUROLOGIC: Alert and oriented x 3. Normal affect. Objective Data Vital Signs Vital Signs: Vital Signs - 24 hr 06/15/22 12:48 06/15/22 12:54 06/15/22 13:04 Temperature 36.6 C Pulse Rate 94 96 95 Pulse Rate [Radial Palpation] Respiratory Rate 16 16 16 Blood Pressure 148/47 H Pulse Oximetry 100 Oxygen Delivery Oxygen Flow Rate 06/15/22 12:00 06/15/22 12:00 06/15/22 14:00 Temperature Pulse Rate 92 87 Pulse Rate [Radial Palpation] Respiratory Rate Blood Pressure Pulse Oximetry 96 Oxygen Delivery Nasal Cannula Oxygen Flow Rate 1 06/15/22 16:00 06/15/22 16:42 06/15/22 16:52 Temperature 37.2 C Pulse Rate 91 88 Pulse Rate [Radial Palpation] Respiratory Rate 21 H 16 Blood Pressure 147/64 H Pulse Oximetry 96 98 Oxygen Delivery Nasal Cannula Oxygen Flow Rate 1 06/15/22 17:02 06/15/22 16:00 06/15/22 18:00 Temperature Pulse Rate 89 92 94 Pulse Rate [Radial Palpation] Respiratory Rate 16 Blood Pressure Pulse Oximetry Oxygen Delivery Oxygen Flow Rate 06/15/22 20:00 06/15/22 20:00 06/15/22 20:25 Temperature Pulse Rate 94 85 Pulse Rate [Radial Palpation] 92 Respiratory Rate 16 Blood Pressure 147/64 H Pulse Oximetry 98 Oxygen Delivery Room Air Oxygen Flow Rate 06/15/22 20:35 09
--- NOTE | 2022-06-16 11:15 | PM.PNORT ---
Progress Note: A&P Assessment and Plan (1) Closed intertrochanteric fracture of right femur: Code(s): S72.141A - Displaced intertrochanteric fracture of right femur, initial encounter for closed fracture Status: Acute Plan Other medical issues noted. Looks like things are moving in the right direction. Still planning on ORIF right IT hip fracture on MondayJune 21. Subjective Subjective Date/Time Seen: 06/16/22 11:15 Principal diagnosis: Dx:Right IT hip fracture Interval history: Events of past days noted. Pulmonary situation looks like it is improving. Patient is comfortable in recumbent position in bed. Exam Const: General: cooperative, alert and awake Other: Seems to answer questions appropriately. HENMT: Head: normal to inspection Ears: hearing grossly normal bilaterally Resp: Effort & Inspection: able to speak in complete sentences GI: Inspection: non-distended GI Palp: No abdominal tenderness Extrem: Other: Exam of Right lower extremity shows that it is shortened and rotated. Does have some irritability with right hip movement. Psych: Mental Status: mental status grossly normal Objective Data Vital Signs Vital Signs: Vital Signs - 24 hr 06/15/22 12:48 06/15/22 12:54 06/15/22 13:04 Temperature 97.9 F Pulse Rate 94 96 95 Pulse Rate [Radial Palpation] Respiratory Rate 16 16 16 Blood Pressure 148/47 H Pulse Oximetry 100 Oxygen Delivery Oxygen Flow Rate 06/15/22 12:00 06/15/22 12:00 06/15/22 14:00 Temperature Pulse Rate 92 87 Pulse Rate [Radial Palpation] Respiratory Rate Blood Pressure Pulse Oximetry 96 Oxygen Delivery Nasal Cannula Oxygen Flow Rate 1 06/15/22 16:00 06/15/22 16:42 06/15/22 16:52 Temperature 98.9 F Pulse Rate 91 88 Pulse Rate [Radial Palpation] Respiratory Rate 21 H 16 Blood Pressure 147/64 H Pulse Oximetry 96 98 Oxygen Delivery Nasal Cannula Oxygen Flow Rate 1 06/15/22 17:02 06/15/22 16:00 06/15/22 18:00 Temperature Pulse Rate 89 92 94 Pulse Rate [Radial Palpation] Respiratory Rate 16 Blood Pressure Pulse Oximetry Oxygen Delivery Oxygen Flow Rate 06/15/22 20:00 06/15/22 20:00 06/15/22 20:25 Temperature Pulse Rate 94 85 Pulse Rate [Radial Palpation] 92 Respiratory Rate 16 Blood Pressure 147/64 H Pulse Oximetry 98 Oxygen Delivery Room Air Oxygen Flow Rate 06/15/22 20:35 06/15/22 20:41 06/15/22 20:00 Temperature 97.7 F Pulse Rate 89 86 Pulse Rate [Radial Palpation] Respiratory Rate 16 20 Blood Pressure 150/86 H Pulse Oximetry 96 97 Oxygen Delivery Room Air Oxygen Flow Rate 06/15/22 20:00 06/15/22 22:00 06/15/22 23:52 Temperature 97.9 F Pulse Rate 84 95 91 Pulse Rate [Radial Palpation] Respiratory Rate 20 Blood Pressure 148/81 H Pulse Oximetry 93 Oxygen Delivery Oxygen Flow Rate 06/16/22 00:00 06/16/22 00:00 06/16/22 00:00 Temperature Pulse Rate 90 90 Pulse Rate [Radial Palpation] 90 Respiratory Rate 20 Blood Pressure 148/81 H Pulse Oximetry 93 Oxygen Delivery Room Air Oxygen Flow Rate 06/16/22 00:25 06/16/22 00:35 06/16/22 02:00 Temperature Pulse Rate 82 83 82 Pulse Rate [Radial Palpation] Respiratory Rate 16 16 Blood Pressure Pulse Oximetry Oxygen Delivery Oxygen Flow Rate 06/16/22 04:00 06/16/22 04:00 06/16/22 04:00 Temperature Pulse Rate 81 81 Pulse Rate [Radial Palpation] 81 Respiratory Rate 16 Blood Pressure 148/81 H Pulse Oximetry 93 Oxygen Delivery Room Air Oxygen Flow Rate 06/16/22 04:31 06/16/22 04:43 06/16/22 04:00 Temperature 97.8 F Pulse Rate 81 85 88 Pulse Rate [Radial Palpation] Respiratory Rate 18 18 20 Blood Pressure 150/78 H Pulse Oximetry 96 Oxygen Delivery Oxygen Flow Rate 06/16/22 06:00 06/16/22 08:00 06/16/22 09:22 Temperature 98.4 F Pulse Rate 8
[2022-06-16] MEDS: LORazepam INJ (*CRX) 2 MG/ML VIAL 0.5 MG IV PUSH (12:29)
[2022-06-16] MEDS: chlordiazePOXIDE (*CRX) 25 MG CAPSULE 50 MG PO ×2 (12:29→17:52)
[2022-06-16] MEDS: SODIUM CHLORIDE 0.9% IV 1,000 ML 75 ML IV CONT (13:12)
--- NOTE | 2022-06-16 14:15 | PCRCNOTE ---
Patient did not tolerate 0800 breathing treatment and refused 1200 Treatment. Patient Refused chest vest, states it makes her sick. RN notified.
--- NOTE | 2022-06-16 14:23 | PC.NURSE ---
On 06/16/22, the student, [Emmy Graham], provided care and completed [facility] documentation on this patient. I have reviewed the student's documentation and agree with the findings.
--- NOTE | 2022-06-16 15:07 | PM.IMPN ---
Progress Note: A&P Assessment and Plan (1) Closed intertrochanteric fracture of right femur: Code(s): S72.141A - Displaced intertrochanteric fracture of right femur, initial encounter for closed fracture Status: Acute Assessment and Plan: Secondary to ground level fall appreciate orthopedic surgery consultation will need surgical repair supportive care. Analgesics available as needed for pain Doan catheter in place until increased mobility postoperatively will need PT/OT following surgery discussed with orthopedics will hold off on surgery until further stabilization from pneumonia standpoint. (2) Chest pain: Code(s): R07.9 - Chest pain, unspecified Status: Acute Assessment and Plan: Atypical presentation. Complains of 9.5/10 nonradiating chest pressure worsened with inspiration EKG reviewed, no obvious ischemic changes troponins negative echocardiogram EF 65-70% moderate pulmonary hypertension grade 1 diastolic dysfunction Monitor on telemetry Cardiology consultation. Input is appreciated (3) Alcohol withdrawal: Code(s): F10.939 - Alcohol use, unspecified with withdrawal, unspecified Status: Acute Assessment and Plan: patient reports drinking 3 beers per day. patient intoxicated on arrival with alcohol level of 127. CIWA monitoring. Patient experiencing tremors in visual hallucination started on Librium scheduled 25 mg p.o. q.6 hours Ativan as needed for withdrawal symptoms Continue thiamine and folic acid currently in IMU 06/16 worsening alcohol withdrawal symptoms. Increase Librium to 50 Q 6. Ativan p.r.n. (4) Hypoxia: Code(s): R09.02 - Hypoxemia Status: Acute Assessment and Plan: Pt hypoxic overnight in the upper 80s Now requiring [address] chest with complete collapse of left lung and small pleural effusion on the left Repeat chest x-ray with diffuse left lung disease with volume loss with interval improvement in aeration likely a combination of atelectasis and pneumonia. ABG with no Hypercapnia Monitor O2 sats closely and wean oxygen as tolerated Left lower lobe pneumonia. Treated for community-acquired pneumonia Repeat chest x-ray with improving left lower lobe collapse/atelectasis as pneumonia (5) Hyponatremia: Code(s): E87.1 - Hypo-osmolality and hyponatremia Status: Acute Assessment and Plan: likely multifactorial secondary to chronic alcohol use, excess free water intake, SSRI Sodium 124 on presentation. urine sodium 18. Initially improved with IV fluids but on 09/05 began to decline again Implemented free water restriction of 1500 cc/day. Sodium improving now, up to 126 SSRI on hold (6) Leukocytosis: Code(s): D72.829 - Elevated white blood cell count, unspecified Status: Acute Assessment and Plan: WBC elevated at 16.2 on arrival and remains persistently elevated May have initially been reactive secondary to fall Increase in WBC again today up to 21,000. Differential demonstrates bandemia pancultured Monitor CBC with differential closely (7) Polycythemia: Code(s): D75.1 - Secondary polycythemia Status: Acute Assessment and Plan: Hemoglobin and hematocrit elevated on presentation appears to be persistent issue from prior labs in August 2021 suspect this is a chronic issue, likely due to chronic smoking, worsened due to dehydration monitor H&H during admission (8) Anxiety: Code(s): F41.9 - Anxiety disorder, unspecified Status: Chronic Assessment and Plan: No acute issues at this SSRI on hold due to hyponatremia (9) Elevated blood pressure reading: Code(s): R03.0 - Elevated blood-pressure reading, without diagnosis of hypertension Status: Acute Assessment and Plan: Blood pressure has been running high. Last BP 188/81 Patient denies hist
[2022-06-16] MEDS: LORazepam INJ (*CRX) 2 MG/ML VIAL IV PUSH (21:05)
--- NOTE | 2022-06-16 22:11 | PCRCNOTE ---
Window of time for administration has passed. See next scheduled administration.
--- NOTE | 2022-06-16 23:24 | PC.NURSE ---
Called Dr. Castro at [phone] with sodium results of 130. Orders to recheck in an hour. Called Dr. Castro at [phone] with sodium results of 130 left message.
[2022-06-17] VITALS (20 sets, daily range): BP systolic 133–175; BP diastolic 61–74; PULSE 70–87; RESP 14–18; TEMP 36.2–36.9; O2SAT 91–100
[2022-06-17] MEDS: chlordiazePOXIDE (*CRX) 25 MG CAPSULE 50 MG PO ×2 (00:12→05:48)
[2022-06-17] MEDS: SODIUM CHLORIDE 0.9% IV 1,000 ML 75 ML IV CONT (03:12)
[2022-06-17 05:00] LABS: Basophils Percent Auto 0.5 % (0.2-1.2); Eosinophils Absolute Auto 0.1 K/mm3 (0-0.3); Eosinophils Percent Auto 1.5 % (0-4.4); Hematocrit 38.7 % (37.0-47.0); Hemoglobin 13.3 g/dL (12.0-15.0); Immature Granulocyte Absolute 0.07 K/mm3 (0.00-0.031); Immature Granulocyte Percent A 0.9 % (0-0.5); Lymphocytes Absolute Auto 0.75 K/mm3 (0.9-3.2); Lymphocytes Percent Auto 9.3 % (18.3-44.2); Mean Corpuscular HGB Conc 34.4 g/dl (32-36); Mean Corpuscular Hemoglobin 32.4 pg (26-34); Mean Corpuscular Volume 94.4 fl (80-100); Mean Platelet Volume 9.8 fl (7.4-10.4); Monocytes Absolute Auto 1.3 K/mm3 (0.1-0.6); Monocytes Percent Auto 15.9 % (2.6-8.5); Neutrophils Absolute Auto 5.8 K/mm3 (1.3-6.7); Neutrophils Percent Auto 71.9 % (45.5-73.1); Platelet Count Result 211 k/mm3 (150-375); Red Cell Distribution Width 15.1 % (11.5-14.5); White Blood Count 8.1 K/mm3 (4.5-10.0)
[2022-06-17 05:16] LABS: Alanine Aminotransferase 25 U/L (6-35); Albumin Level 2.6 g/dL (3.5-5.1); Alkaline Phosphatase 88 U/L (38-126); Anion Gap 9 mmol/L (8-16); Aspartate Amino Transferase 30 U/L (14-36); Bilirubin,Total 1.2 mg/dL (0.2-1.3); Blood Urea Nitrogen 3 mg/dL (7-17); Calcium 7.6 mg/dL (8.4-10.2); Carbon Dioxide 23 mmol/L (22-30); Chloride 97 mmol/L (98-107); Estimated CRCL calculation 100 ml/min; Estimated Glomerular Filt Rate > 60; Glucose 91 mg/dL (65-110); Magnesium 1.8 mg/dL (1.6-2.3); Potassium 2.3 mmol/L (3.4-5.0); Sodium 129 mmol/L (137-145)
[2022-06-17] MEDS: DORNASE ALFA INH SOLN 1 MG/ML 2.5 ML AMP 2.5 MG INHALATION ×2 (07:46→22:09)
[2022-06-17] MEDS: ALBUTEROL SULFATE NEB 2.5 MG/3 ML INH INHALATION ×3 (07:46→22:09)
[2022-06-17] MEDS: THIAMINE HCL 100 MG TABLET PO (08:52)
[2022-06-17] MEDS: ENOXAPARIN 40 MG/0.4 ML SYRINGE SUB-Q (08:53)
[2022-06-17] MEDS: PANTOPRAZOLE 40 MG TABLET PO (08:53)
[2022-06-17] MEDS: LOSARTAN POTASSIUM 25 MG TABLET PO (08:53)
[2022-06-17] MEDS: FOLIC ACID 1 MG TABLET PO (08:53)
[2022-06-17] MEDS: amLODIPine BESYLATE 5 MG TABLET PO (08:54)
--- NOTE | 2022-06-17 11:17 | PM.PNPUL ---
Progress Note: A&P Assessment and Plan (1) Atelectasis of left lung: Code(s): J98.11 - Atelectasis Status: Acute (2) Pneumonia: Code(s): J18.9 - Pneumonia, unspecified organism Status: Acute Assessment and Plan: 66-year-old female presented with right hip fracture and left lung atelectasis. Following treatment with aggressive pulmonary the left lung has re-expanded. On latest chest x-rays there was evidence of a left lower lobe infiltrate possibly due to pneumonia. Patient has been treated for community acquired pneumonia with significant improvement. She no longer has leukocytosis. Remains on room air. Still has decreased breath sounds at left base posteriorly. Plan: Continue with current antibiotic regimen DVT prophylaxis. Will repeat chest x-ray in a.m. (3) Leukocytosis: Code(s): D72.829 - Elevated white blood cell count, unspecified Status: Acute (4) Closed intertrochanteric fracture of right femur: Code(s): S72.141A - Displaced intertrochanteric fracture of right femur, initial encounter for closed fracture Status: Acute Subjective Date/time seen: 06/17/22 11:17 patient has no new respiratory symptoms. Afebrile, on room air. Review of Systems Review of Systems: All systems reviewed & are unremarkable except as noted in HPI and below Exam Narrative: GENERAL APPEARANCE: Well developed, well nourished, alert and cooperative, and appears to be in no acute distress SKIN: Inspection of the skin reveals no rashes, ulcerations or petechiae. HEENT: Sclerae anicteric and conjunctivae pink and moist. Extraocular movements were intact and pupils were equal, round, and reactive to light. The oral mucosa, hard and soft palate, tongue and posterior pharynx were normal. Edentulous. NECK: Supple. There was no thyroid enlargement, and no tenderness, or masses were felt. CHEST: Normal AP diameter and normal contour without any kyphoscoliosis. LUNGS: Auscultation of the lungs revealed normal breath sounds on right, decreased breath sounds at left base posteriorly CARDIAC: There was a regular rate and rhythm without any murmurs, gallops, rubs. ABDOMEN: Soft and nontender with normal bowel sounds. There was no organomegaly. LYMPH NODES: No lymphadenopathy was appreciated in the neck. EXTREMITIES: No cyanosis, clubbing or edema. NEUROLOGIC: Alert and oriented x 3. Normal affect. Objective Data Vital Signs Vital Signs: Vital Signs - 24 hr 06/16/22 11:55 06/16/22 12:00 06/16/22 12:00 Temperature 36.6 C Pulse Rate 77 85 Respiratory Rate 28 H Blood Pressure 168/83 H Pulse Oximetry 96 Oxygen Delivery Room Air 06/16/22 15:45 06/16/22 16:00 06/16/22 14:00 Temperature 36.6 C 36.6 C Pulse Rate 78 78 80 Respiratory Rate 30 H 30 H Blood Pressure 174/71 H 174/74 H Pulse Oximetry 99 99 Oxygen Delivery 06/16/22 16:00 06/16/22 18:00 06/16/22 16:00 Temperature Pulse Rate 87 90 Respiratory Rate Blood Pressure Pulse Oximetry Oxygen Delivery Room Air 06/16/22 19:30 06/16/22 20:00 06/16/22 23:56 Temperature 36.5 C 36.6 C Pulse Rate 80 79 Respiratory Rate 16 16 Blood Pressure 170/73 H 178/61 H Pulse Oximetry 94 91 Oxygen Delivery Room Air 06/16/22 20:00 06/16/22 22:00 06/17/22 00:00 Temperature Pulse Rate 85 95 83 Respiratory Rate Blood Pressure Pulse Oximetry Oxygen Delivery 06/17/22 02:00 06/17/22 00:00 06/17/22 04:00 Temperature 36.6 C Pulse Rate 74 72 Respiratory Rate 18 Blood Pressure 175/70 H Pulse Oximetry 94 Oxygen Delivery Room Air 06/17/22 04:00 06/17/22 06:00 06/17/22 04:00 Temperature Pulse Rate 70 74 Respiratory Rate Blood Pressure Pulse Oximetry Oxygen Delivery Room Air 06/17/22 07:56 06/17/22 07:56 06/17/22 08:06 Temperature Pulse Rate 74 74 80 Respiratory Rate 18 18 18 Blood Pressure Pulse Oximetry 93 Oxygen Deliver
--- NOTE | 2022-06-17 11:47 | PM.PNORT ---
Progress Note: A&P Assessment and Plan (1) Closed intertrochanteric fracture of right femur: Code(s): S72.141A - Displaced intertrochanteric fracture of right femur, initial encounter for closed fracture Status: Acute Plan Pulmonary condition appears to be improving. Plan on ORIF right IT hip fracture on MondayJune 21. Time Spent With Patient Time with patient: less than 15 minutes Subjective Subjective Date/Time Seen: 06/17/22 11:47 Principal diagnosis: Right IT hip fracture Interval history: Patient resting quietly. Pain has been well controlled while she is laying down. Pulmonary conditions have been improving. She is currently on room air. Review of Systems Review of Systems: All systems reviewed & are unremarkable except as noted in HPI and below Exam Const: General: comfortable and no acute distress HENMT: Head: normal to inspection Resp: Effort & Inspection: normal respiratory effort GI: Inspection: non-distended GI Palp: No abdominal tenderness Extrem: Other: Exam of the right lower extremity shows that it is shortened and rotated externally. Does have some irritability with palpation of the right hip. Ecchymosis noted of the inner right thigh. Neurovascular status right lower extremity is intact. Psych: Mental Status: mental status grossly normal Objective Data Vital Signs Vital Signs: Vital Signs - 24 hr 06/16/22 11:55 06/16/22 12:00 06/16/22 12:00 Temperature 97.8 F Pulse Rate 77 85 Respiratory Rate 28 H Blood Pressure 168/83 H Pulse Oximetry 96 Oxygen Delivery Room Air 06/16/22 15:45 06/16/22 16:00 06/16/22 14:00 Temperature 97.9 F 97.9 F Pulse Rate 78 78 80 Respiratory Rate 30 H 30 H Blood Pressure 174/71 H 174/74 H Pulse Oximetry 99 99 Oxygen Delivery 06/16/22 16:00 06/16/22 18:00 06/16/22 16:00 Temperature Pulse Rate 87 90 Respiratory Rate Blood Pressure Pulse Oximetry Oxygen Delivery Room Air 06/16/22 19:30 06/16/22 20:00 06/16/22 23:56 Temperature 97.7 F 97.8 F Pulse Rate 80 79 Respiratory Rate 16 16 Blood Pressure 170/73 H 178/61 H Pulse Oximetry 94 91 Oxygen Delivery Room Air 06/16/22 20:00 06/16/22 22:00 06/17/22 00:00 Temperature Pulse Rate 85 95 83 Respiratory Rate Blood Pressure Pulse Oximetry Oxygen Delivery 06/17/22 02:00 06/17/22 00:00 06/17/22 04:00 Temperature 97.8 F Pulse Rate 74 72 Respiratory Rate 18 Blood Pressure 175/70 H Pulse Oximetry 94 Oxygen Delivery Room Air 06/17/22 04:00 06/17/22 06:00 06/17/22 04:00 Temperature Pulse Rate 70 74 Respiratory Rate Blood Pressure Pulse Oximetry Oxygen Delivery Room Air 06/17/22 07:56 06/17/22 07:56 06/17/22 08:06 Temperature Pulse Rate 74 74 80 Respiratory Rate 18 18 18 Blood Pressure Pulse Oximetry 93 Oxygen Delivery Room Air 06/17/22 08:00 06/17/22 08:00 Temperature 97.1 F L Pulse Rate 74 70 Respiratory Rate 18 Blood Pressure 165/67 H Pulse Oximetry 100 Oxygen Delivery Intake/Output Intake/Output: Intake & Output 06/14/22 06/15/22 06/16/22 06/17/22 23:59 23:59 23:59 23:59 Intake Total 2300 1420 1350 1100 Output Total 2525 1125 2700 2450 Balance -225 295 -1350 -1350 Meds/Results Medications: Active Medications Generic Name Dose Route Start Last Admin Trade Name Joseq PRN Reason Stop Dose Admin Acetaminophen 650 mg 06/13/22 13:21 Acetaminophen 325 Mg Tablet PO Q4H PRN Headache Hydrocodone Bitart/Acetaminophen 1 tab 06/13/22 13:21 06/13/22 22:16 Hydrocodone/Acetaminophen (*Crx) 5-325 Mg Tablet PO 1 tab Q6H PRN Administration Pain Rated 4-6 Albuterol 2.5 mg 06/14/22 16:00 06/17/22 07:46 Albuterol Sulfate Neb 2.5 Mg/3 Ml Inh INHALATION 2.5 mg Q4HRT PRETTY Administration Amlodipine Besylate 5 mg 06/15/22 10:40 06/17/22 08:54 Amlodipine Besylate 5 Mg Tablet PO 5 mg QAM
--- NOTE | 2022-06-17 12:21 | P.PNIM_ITS ---
Progress Note: A&P Assessment and Plan (1) Closed intertrochanteric fracture of right femur: Code(s): S72.141A - Displaced intertrochanteric fracture of right femur, initial encounter for closed fracture Status: Acute Assessment and Plan: Secondary to ground level fall * appreciate orthopedic surgery consultation * will need surgical repair * supportive care. Analgesics available as needed for pain * Doan catheter in place until increased mobility postoperatively * will need PT/OT following surgery discussed with orthopedics will hold off on surgery until further stabilization from pneumonia standpoint. (2) Chest pain: Code(s): R07.9 - Chest pain, unspecified Status: Acute Assessment and Plan: Atypical presentation. Complains of 9.5/10 nonradiating chest pressure worsened with inspiration * EKG reviewed, no obvious ischemic changes * troponins negative * echocardiogram EF 65-70% moderate pulmonary hypertension grade 1 diastolic dysfunction * Monitor on telemetry * Cardiology consultation. Input is appreciated (3) Alcohol withdrawal: Code(s): F10.939 - Alcohol use, unspecified with withdrawal, unspecified Status: Acute Assessment and Plan: patient reports drinking 3 beers per day. patient intoxicated on arrival with alcohol level of 127. * CIWA monitoring. Patient experiencing tremors in visual hallucination * started on Librium scheduled 25 mg p.o. q.6 hours * Ativan as needed for withdrawal symptoms * Continue thiamine and folic acid * currently in IMU * 06/16 worsening alcohol withdrawal symptoms. Increase Librium to 50 Q 6. Ativan p.r.n. * No more somnolent will lower Librium to 25 q.6 * (4) Hypoxia: Code(s): R09.02 - Hypoxemia Status: Acute Assessment and Plan: Pt hypoxic overnight in the upper 80s * Now requiring 1 L supplemental O2 * CT chest with complete collapse of left lung and small pleural effusion on the left * Repeat chest x-ray with diffuse left lung disease with volume loss with interval improvement in aeration likely a combination of atelectasis and pneumonia. * ABG with no Hypercapnia * Monitor O2 sats closely and wean oxygen as tolerated * Left lower lobe pneumonia. Treated for community-acquired pneumonia * Repeat chest x-ray with improving left lower lobe collapse/atelectasis as pneumonia (5) Hyponatremia: Code(s): E87.1 - Hypo-osmolality and hyponatremia Status: Acute Assessment and Plan: likely multifactorial secondary to chronic alcohol use, excess free water intake, SSRI * Sodium 124 on presentation. urine sodium 18. * Initially improved with IV fluids but on 06/13 began to decline again * Implemented free water restriction of 1500 cc/day. Sodium improving now, up to 126 * SSRI on hold (6) Leukocytosis: Code(s): D72.829 - Elevated white blood cell count, unspecified Status: Acute Assessment and Plan: WBC elevated at 16.2 on arrival and remains persistently elevated * May have initially been reactive secondary to fall * Increase in WBC again today up to 21,000. * Differential demonstrates bandemia * pancultured * Monitor CBC with differential closely (7) Polycythemia: Code(s): D75.1 - Secondary polycythemia Status: Acute Assessment and Plan: Hemoglobin and hematocrit elevated on presentation * appears to be persistent issue from prior labs in August 2021 * suspect this is a chronic issue, likely due to chronic smoking, w
--- NOTE | 2022-06-17 12:21 | PM.IMPN ---
Progress Note: A&P Assessment and Plan (1) Closed intertrochanteric fracture of right femur: Code(s): S72.141A - Displaced intertrochanteric fracture of right femur, initial encounter for closed fracture Status: Acute Assessment and Plan: Secondary to ground level fall appreciate orthopedic surgery consultation will need surgical repair supportive care. Analgesics available as needed for pain Doan catheter in place until increased mobility postoperatively will need PT/OT following surgery discussed with orthopedics will hold off on surgery until further stabilization from pneumonia standpoint. (2) Chest pain: Code(s): R07.9 - Chest pain, unspecified Status: Acute Assessment and Plan: Atypical presentation. Complains of 9.5/10 nonradiating chest pressure worsened with inspiration EKG reviewed, no obvious ischemic changes troponins negative echocardiogram EF 65-70% moderate pulmonary hypertension grade 1 diastolic dysfunction Monitor on telemetry Cardiology consultation. Input is appreciated (3) Alcohol withdrawal: Code(s): F10.939 - Alcohol use, unspecified with withdrawal, unspecified Status: Acute Assessment and Plan: patient reports drinking 3 beers per day. patient intoxicated on arrival with alcohol level of 127. CIWA monitoring. Patient experiencing tremors in visual hallucination started on Librium scheduled 25 mg p.o. q.6 hours Ativan as needed for withdrawal symptoms Continue thiamine and folic acid currently in IMU 06/16 worsening alcohol withdrawal symptoms. Increase Librium to 50 Q 6. Ativan p.r.n. No more somnolent will lower Librium to 25 q.6 (4) Hypoxia: Code(s): R09.02 - Hypoxemia Status: Acute Assessment and Plan: Pt hypoxic overnight in the upper 80s Now requiring [address] chest with complete collapse of left lung and small pleural effusion on the left Repeat chest x-ray with diffuse left lung disease with volume loss with interval improvement in aeration likely a combination of atelectasis and pneumonia. ABG with no Hypercapnia Monitor O2 sats closely and wean oxygen as tolerated Left lower lobe pneumonia. Treated for community-acquired pneumonia Repeat chest x-ray with improving left lower lobe collapse/atelectasis as pneumonia (5) Hyponatremia: Code(s): E87.1 - Hypo-osmolality and hyponatremia Status: Acute Assessment and Plan: likely multifactorial secondary to chronic alcohol use, excess free water intake, SSRI Sodium 124 on presentation. urine sodium 18. Initially improved with IV fluids but on 06/13 began to decline again Implemented free water restriction of 1500 cc/day. Sodium improving now, up to 126 SSRI on hold (6) Leukocytosis: Code(s): D72.829 - Elevated white blood cell count, unspecified Status: Acute Assessment and Plan: WBC elevated at 16.2 on arrival and remains persistently elevated May have initially been reactive secondary to fall Increase in WBC again today up to 21,000. Differential demonstrates bandemia pancultured Monitor CBC with differential closely (7) Polycythemia: Code(s): D75.1 - Secondary polycythemia Status: Acute Assessment and Plan: Hemoglobin and hematocrit elevated on presentation appears to be persistent issue from prior labs in August 2021 suspect this is a chronic issue, likely due to chronic smoking, worsened due to dehydration monitor H&H during admission (8) Anxiety: Code(s): F41.9 - Anxiety disorder, unspecified Status: Chronic Assessment and Plan: No acute issues at this SSRI on hold due to hyponatremia (9) Elevated blood pressure reading: Code(s): R03.0 - Elevated blood-pressure reading, without diagnosis of hypertension Status: Acute Assessment and Plan: Blood pressure has been
[2022-06-17] MEDS: POTASSIUM CHLORIDE INJ 40 MEQ in SODIUM CHLORIDE 0.9% IV 500 ML 130 MEQ IVPB ×2 (13:46→20:38)
[2022-06-17] MEDS: POTASSIUM CHLORIDE 20 MEQ TABLET 40 MEQ PO (13:55)
[2022-06-17] MEDS: MAGNESIUM SULF 2 GM/WATER 50ML 2 GM/50 ML BAG IVPB (13:55)
--- NOTE | 2022-06-17 14:35 | PCRCNOTE ---
Window of time for administration has passed. See next scheduled administration.
[2022-06-17] MEDS: chlordiazePOXIDE (*CRX) 25 MG CAPSULE PO ×2 (17:13→23:14)
--- NOTE | 2022-06-17 20:20 | PC.NURSE ---
I spoke with Dr. Baugh regarding patient potassium level of 3.0. Order was given to hang 40 K IV at 2014.
[2022-06-17] MEDS: HYDROcodone/acetaminophen (*CRX) 5-325 MG TABLET 1 TAB PO (21:58)
[2022-06-18] VITALS (28 sets, daily range): BP systolic 138–173; BP diastolic 64–73; PULSE 75–91; RESP 12–33; TEMP 36.1–36.9; O2SAT 91–95
[2022-06-18] MEDS: ALBUTEROL SULFATE NEB 2.5 MG/3 ML INH INHALATION ×6 (02:08→20:22)
[2022-06-18 04:56] LABS: Basophils Percent Auto 0.6 % (0.2-1.2); Eosinophils Absolute Auto 0.2 K/mm3 (0-0.3); Eosinophils Percent Auto 2.9 % (0-4.4); Hematocrit 37.6 % (37.0-47.0); Hemoglobin 12.9 g/dL (12.0-15.0); Immature Granulocyte Absolute 0.12 K/mm3 (0.00-0.031); Immature Granulocyte Percent A 1.7 % (0-0.5); Lymphocytes Absolute Auto 1.01 K/mm3 (0.9-3.2); Lymphocytes Percent Auto 14.5 % (18.3-44.2); Mean Corpuscular HGB Conc 34.3 g/dl (32-36); Mean Corpuscular Hemoglobin 32.2 pg (26-34); Mean Corpuscular Volume 93.8 fl (80-100); Mean Platelet Volume 9.5 fl (7.4-10.4); Monocytes Absolute Auto 1.3 K/mm3 (0.1-0.6); Monocytes Percent Auto 19.3 % (2.6-8.5); Neutrophils Absolute Auto 4.2 K/mm3 (1.3-6.7); Platelet Count Result 230 k/mm3 (150-375); Red Blood Count 4.01 M/mm3 (4.2-5.4); Red Cell Distribution Width 15.1 % (11.5-14.5)
[2022-06-18 05:11] LABS: Alanine Aminotransferase 21 U/L (6-35); Albumin Level 2.3 g/dL (3.5-5.1); Alkaline Phosphatase 79 U/L (38-126); Anion Gap 8 mmol/L (8-16); Aspartate Amino Transferase 17 U/L (14-36); Bilirubin,Total 0.7 mg/dL (0.2-1.3); Blood Urea Nitrogen 5 mg/dL (7-17); Calcium 7.5 mg/dL (8.4-10.2); Carbon Dioxide 21 mmol/L (22-30); Chloride 103 mmol/L (98-107); Estimated CRCL calculation 100 ml/min; Estimated Glomerular Filt Rate > 60; Glucose 104 mg/dL (65-110); Potassium 3.1 mmol/L (3.4-5.0); Sodium 132 mmol/L (137-145)
[2022-06-18] MEDS: SODIUM CHLORIDE 0.9% IV 1,000 ML 75 ML IV CONT (05:27)
[2022-06-18] MEDS: chlordiazePOXIDE (*CRX) 25 MG CAPSULE PO (05:31)
--- NOTE | 2022-06-18 05:50 | PC.NURSE ---
Dr. Estevez notified of AM potassium of 3.1 no further orders given.
[2022-06-18] MEDS: POTASSIUM CHLORIDE INJ 40 MEQ in SODIUM CHLORIDE 0.9% IV 500 ML 130 MEQ IVPB (08:34)
[2022-06-18] MEDS: FOLIC ACID 1 MG TABLET PO (08:39)
[2022-06-18] MEDS: PANTOPRAZOLE 40 MG TABLET PO (08:39)
[2022-06-18] MEDS: LOSARTAN POTASSIUM 25 MG TABLET PO (08:39)
[2022-06-18] MEDS: THIAMINE HCL 100 MG TABLET PO (08:39)
[2022-06-18] MEDS: amLODIPine BESYLATE 5 MG TABLET PO (08:39)
[2022-06-18] MEDS: ENOXAPARIN 40 MG/0.4 ML SYRINGE SUB-Q (08:39)
--- NOTE | 2022-06-18 09:42 | P.PNIM_ITS ---
Progress Note: A&P Assessment and Plan (1) Closed intertrochanteric fracture of right femur: Code(s): S72.141A - Displaced intertrochanteric fracture of right femur, initial encounter for closed fracture Status: Acute Assessment and Plan: Secondary to ground level fall * appreciate orthopedic surgery consultation * will need surgical repair * supportive care. Analgesics available as needed for pain * Doan catheter in place until increased mobility postoperatively * will need PT/OT following surgery discussed with orthopedics will hold off on surgery until further stabilization from pneumonia standpoint. (2) Chest pain: Code(s): R07.9 - Chest pain, unspecified Status: Acute Assessment and Plan: Atypical presentation. Complains of .5 nonradiating chest pressure worsened with inspiration * EKG reviewed, no obvious ischemic changes * troponins negative * echocardiogram EF 65-70% moderate pulmonary hypertension grade 1 diastolic dysfunction * Monitor on telemetry * Cardiology consultation. Input is appreciated (3) Alcohol withdrawal: Code(s): F10.939 - Alcohol use, unspecified with withdrawal, unspecified Status: Acute Assessment and Plan: patient reports drinking 3 beers per day. patient intoxicated on arrival with alcohol level of 127. * CIWA monitoring. Patient experiencing tremors in visual hallucination * started on Librium scheduled 25 mg p.o. q.6 hours * Ativan as needed for withdrawal symptoms * Continue thiamine and folic acid * currently in IMU * 06/16 worsening alcohol withdrawal symptoms. Increase Librium to 50 Q 6. Ativan p.r.n. * Now more somnolent will lower Librium to 25 q.6: More improved mentation * (4) Hypoxia: Code(s): R09.02 - Hypoxemia Status: Acute Assessment and Plan: Pt hypoxic overnight in the upper 80s * Now requiring 1 L supplemental O2 * CT chest with complete collapse of left lung and small pleural effusion on the left * Repeat chest x-ray with diffuse left lung disease with volume loss with interval improvement in aeration likely a combination of atelectasis and pneumonia. * ABG with no Hypercapnia * Monitor O2 sats closely and wean oxygen as tolerated * Left lower lobe pneumonia. Treated for community-acquired pneumonia * Repeat chest x-ray with improving left lower lobe collapse/atelectasis as pneumonia 06/18/2022 near complete atelectasis on left lower lobe Add EzPAP/past nebulizer treatment already on Pulmozyme Pulmonary following for this if need bronchoscopy (5) Hyponatremia: Code(s): E87.1 - Hypo-osmolality and hyponatremia Status: Acute Assessment and Plan: likely multifactorial secondary to chronic alcohol use, excess free water intake, SSRI * Sodium 124 on presentation. urine sodium 18. * Initially improved with IV fluids but on 06/13 began to decline again * Implemented free water restriction of 1500 cc/day. Sodium improving now, up to 126 * SSRI on hold (6) Leukocytosis: Code(s): D72.829 - Elevated white blood cell count, unspecified Status: Acute Assessment and Plan: WBC elevated at 16.2 on arrival and remains persistently elevated * May have initially been reactive secondary to fall * Increase in WBC again today up to 21,000. * Differential demonstrates bandemia * pancultured * Monitor CBC with differential closely (7) Polycythemia: Code(s): D75.1 - Secondary polycythemia Status: Acute Assessment and Lois
--- NOTE | 2022-06-18 09:42 | PM.IMPN ---
Progress Note: A&P Assessment and Plan (1) Closed intertrochanteric fracture of right femur: Code(s): S72.141A - Displaced intertrochanteric fracture of right femur, initial encounter for closed fracture Status: Acute Assessment and Plan: Secondary to ground level fall appreciate orthopedic surgery consultation will need surgical repair supportive care. Analgesics available as needed for pain Doan catheter in place until increased mobility postoperatively will need PT/OT following surgery discussed with orthopedics will hold off on surgery until further stabilization from pneumonia standpoint. (2) Chest pain: Code(s): R07.9 - Chest pain, unspecified Status: Acute Assessment and Plan: Atypical presentation. Complains of 9.5/10 nonradiating chest pressure worsened with inspiration EKG reviewed, no obvious ischemic changes troponins negative echocardiogram EF 65-70% moderate pulmonary hypertension grade 1 diastolic dysfunction Monitor on telemetry Cardiology consultation. Input is appreciated (3) Alcohol withdrawal: Code(s): F10.939 - Alcohol use, unspecified with withdrawal, unspecified Status: Acute Assessment and Plan: patient reports drinking 3 beers per day. patient intoxicated on arrival with alcohol level of 127. CIWA monitoring. Patient experiencing tremors in visual hallucination started on Librium scheduled 25 mg p.o. q.6 hours Ativan as needed for withdrawal symptoms Continue thiamine and folic acid currently in IMU 06/16 worsening alcohol withdrawal symptoms. Increase Librium to 50 Q 6. Ativan p.r.n. Now more somnolent will lower Librium to 25 q.6: More improved mentation (4) Hypoxia: Code(s): R09.02 - Hypoxemia Status: Acute Assessment and Plan: Pt hypoxic overnight in the upper 80s Now requiring [address] chest with complete collapse of left lung and small pleural effusion on the left Repeat chest x-ray with diffuse left lung disease with volume loss with interval improvement in aeration likely a combination of atelectasis and pneumonia. ABG with no Hypercapnia Monitor O2 sats closely and wean oxygen as tolerated Left lower lobe pneumonia. Treated for community-acquired pneumonia Repeat chest x-ray with improving left lower lobe collapse/atelectasis as pneumonia 06/18/2022 near complete atelectasis on left lower lobe Add EzPAP/past nebulizer treatment already on Pulmozyme Pulmonary following for this if need bronchoscopy (5) Hyponatremia: Code(s): E87.1 - Hypo-osmolality and hyponatremia Status: Acute Assessment and Plan: likely multifactorial secondary to chronic alcohol use, excess free water intake, SSRI Sodium 124 on presentation. urine sodium 18. Initially improved with IV fluids but on 06/13 began to decline again Implemented free water restriction of 1500 cc/day. Sodium improving now, up to 126 SSRI on hold (6) Leukocytosis: Code(s): D72.829 - Elevated white blood cell count, unspecified Status: Acute Assessment and Plan: WBC elevated at 16.2 on arrival and remains persistently elevated May have initially been reactive secondary to fall Increase in WBC again today up to 21,000. Differential demonstrates bandemia pancultured Monitor CBC with differential closely (7) Polycythemia: Code(s): D75.1 - Secondary polycythemia Status: Acute Assessment and Plan: Hemoglobin and hematocrit elevated on presentation appears to be persistent issue from prior labs in August 2021 suspect this is a chronic issue, likely due to chronic smoking, worsened due to dehydration monitor H&H during admission (8) Anxiety: Code(s): F41.9 - Anxiety disorder, unspecified Status: Chronic Assessment and Plan: No acute issues at this SSRI on hold due to hyponatremia (9) Elevate
--- NOTE | 2022-06-18 10:32 | PM.PNPUL ---
Progress Note: A&P Assessment and Plan (1) Atelectasis of left lung: Code(s): J98.11 - Atelectasis Status: Acute (2) Pneumonia: Code(s): J18.9 - Pneumonia, unspecified organism Status: Acute Assessment and Plan: 66-year-old female presented with right hip fracture and left lung atelectasis. Following treatment with aggressive pulmonary the left lung has re-expanded. patient also on treatment for left lower lobe pneumonia. White cell count back into normal range. Last chest x-ray taken today showed new left lung atelectasis. Patient has no new respiratory symptoms. Case was discussed with the hospitalist. Will proceed with aggressive pulmonary toilet including nebulized short-acting bronchodilators every 4 hours, nebulized mucolytic agents, vest treatment. Also decrease sedative medications so that patient can wake up and start coughing. add incentive spirometry. repeat chest x-ray in a.m. (3) Leukocytosis: Code(s): D72.829 - Elevated white blood cell count, unspecified Status: Acute (4) Closed intertrochanteric fracture of right femur: Code(s): S72.141A - Displaced intertrochanteric fracture of right femur, initial encounter for closed fracture Status: Acute Subjective Date/time seen: 06/18/22 10:32 Patient has no new respiratory symptoms. Sleeping through most of the day. She has been on sedatives for alcohol withdrawal. Remains on room air. The chest x-ray showed new left lung atelectasis. Patient afebrile. Review of Systems Review of Systems: All systems reviewed & are unremarkable except as noted in HPI and below Exam Narrative: GENERAL APPEARANCE: Well developed, well nourished, appears drowsy, and appears to be in no acute distress SKIN: Inspection of the skin reveals no rashes, ulcerations or petechiae. HEENT: Sclerae anicteric and conjunctivae pink and moist. Extraocular movements were intact and pupils were equal, round, and reactive to light. The oral mucosa, hard and soft palate, tongue and posterior pharynx were normal. Edentulous. NECK: Supple. There was no thyroid enlargement, and no tenderness, or masses were felt. CHEST: Normal AP diameter and normal contour without any kyphoscoliosis. LUNGS: Auscultation of the lungs revealed normal breath sounds on right, decreased breath sounds on left CARDIAC: There was a regular rate and rhythm without any murmurs, gallops, rubs. ABDOMEN: Soft and nontender with normal bowel sounds. There was no organomegaly. LYMPH NODES: No lymphadenopathy was appreciated in the neck. EXTREMITIES: No cyanosis, clubbing or edema. NEUROLOGIC: Alert and oriented x 3. Normal affect. Objective Data Vital Signs Vital Signs: Vital Signs - 24 hr 06/17/22 12:00 06/17/22 15:52 06/17/22 16:23 Temperature 36.3 C L 36.9 C Pulse Rate 74 80 78 Pulse Rate [Radial Palpation] Respiratory Rate 16 17 18 Blood Pressure 152/72 H 142/65 H Pulse Oximetry 95 96 Oxygen Delivery 06/17/22 16:29 06/17/22 12:00 06/17/22 16:00 Temperature Pulse Rate 76 Pulse Rate [Radial Palpation] Respiratory Rate 18 Blood Pressure Pulse Oximetry Oxygen Delivery Room Air Room Air 06/17/22 16:00 06/17/22 20:00 06/17/22 12:00 Temperature 36.7 C Pulse Rate 82 75 Pulse Rate [Radial Palpation] 81 Respiratory Rate 14 Blood Pressure 142/65 H 162/74 H Pulse Oximetry 94 Oxygen Delivery 06/17/22 14:00 06/17/22 16:00 06/17/22 18:00 Temperature Pulse Rate 74 77 84 Pulse Rate [Radial Palpation] Respiratory Rate Blood Pressure Pulse Oximetry Oxygen Delivery 06/17/22 22:11 06/17/22 23:25 06/17/22 20:00 Temperature 36.6 C Pulse Rate 83 87 81 Pulse Rate [Radial Palpation] Respiratory Rate 18 18 Blood Pressure 133/61 Pulse Oximetry 91 93 Oxygen Delivery Room Air 06/18/22 00:00 06/18/22 02:11 06/17/22 22:30 Temperature Pulse Rate 80 86 84 Pulse Rate [Rad
[2022-06-18] MEDS: DORNASE ALFA INH SOLN 1 MG/ML 2.5 ML AMP 2.5 MG INHALATION ×2 (11:43→20:22)
[2022-06-18] MEDS: ACETAMINOPHEN 325 MG TABLET 650 MG PO ×2 (17:57→23:45)
[2022-06-19] VITALS (26 sets, daily range): BP systolic 140–182; BP diastolic 57–77; PULSE 72–91; RESP 12–24; TEMP 36.2–36.6; O2SAT 94–96
[2022-06-19] MEDS: ALBUTEROL SULFATE NEB 2.5 MG/3 ML INH INHALATION ×3 (00:07→19:58)
--- NOTE | 2022-06-19 04:10 | PCRCNOTE ---
Pt refusing 0400 UPD stating she 'is not sick'. When RT reiterated that she is in the hospital, the pt stated she is not in the hospital, she is at home. RN notified and RN evaluated pt. Pt would not allow RT to put UPD mask on face after RN discussed with pt.
[2022-06-19] MEDS: LORazepam INJ (*CRX) 2 MG/ML VIAL 0.5 MG IV PUSH ×2 (04:29→21:17)
--- NOTE | 2022-06-19 05:37 | PC.NURSE ---
Patient is refusing blood draw at 0500. Will try again in an hour.
[2022-06-19] MEDS: chlordiazePOXIDE (*CRX) 25 MG CAPSULE PO ×2 (06:22→23:22)
[2022-06-19] MEDS: ACETAMINOPHEN 325 MG TABLET 650 MG PO ×2 (06:22→23:24)
[2022-06-19 07:38] LABS: Basophils Absolute Auto 0.1 K/mm3 (0.0-0.1); Basophils Percent Auto 0.6 % (0.2-1.2); Eosinophils Absolute Auto 0.4 K/mm3 (0-0.3); Eosinophils Percent Auto 3.8 % (0-4.4); Hematocrit 41.8 % (37.0-47.0); Hemoglobin 14.4 g/dL (12.0-15.0); Immature Granulocyte Absolute 0.21 K/mm3 (0.00-0.031); Lymphocytes Percent Auto 8.6 % (18.3-44.2); Mean Corpuscular HGB Conc 34.4 g/dl (32-36); Mean Corpuscular Volume 95.7 fl (80-100); Mean Platelet Volume 9.6 fl (7.4-10.4); Monocytes Absolute Auto 1.5 K/mm3 (0.1-0.6); Monocytes Percent Auto 14.2 % (2.6-8.5); Neutrophils Absolute Auto 7.4 K/mm3 (1.3-6.7); Neutrophils Percent Auto 70.8 % (45.5-73.1); Platelet Count Result 275 k/mm3 (150-375); Red Blood Count 4.37 M/mm3 (4.2-5.4); Red Cell Distribution Width 15.5 % (11.5-14.5); White Blood Count 10.4 K/mm3 (4.5-10.0)
[2022-06-19 07:41] LABS: Alanine Aminotransferase 24 U/L (6-35); Albumin Level 2.6 g/dL (3.5-5.1); Alkaline Phosphatase 99 U/L (38-126); Anion Gap 7 mmol/L (8-16); Aspartate Amino Transferase 21 U/L (14-36); Bilirubin,Total 0.8 mg/dL (0.2-1.3); Blood Urea Nitrogen 6 mg/dL (7-17); Calcium 8.4 mg/dL (8.4-10.2); Carbon Dioxide 23 mmol/L (22-30); Chloride 101 mmol/L (98-107); Estimated CRCL calculation 100 ml/min; Estimated Glomerular Filt Rate > 60; Glucose 95 mg/dL (65-110); Magnesium 1.5 mg/dL (1.6-2.3); Potassium 2.8 mmol/L (3.4-5.0); Sodium 131 mmol/L (137-145)
[2022-06-19] MEDS: DORNASE ALFA INH SOLN 1 MG/ML 2.5 ML AMP 2.5 MG INHALATION ×2 (07:51→20:04)
--- NOTE | 2022-06-19 07:56 | PCRCNOTE ---
Patient was not co operating and refusing.
[2022-06-19] MEDS: POTASSIUM CHLORIDE 20 MEQ TABLET 40 MEQ PO (08:21)
[2022-06-19] MEDS: MAGNESIUM SULF 2 GM/WATER 50ML 2 GM/50 ML BAG IVPB (08:22)
[2022-06-19] MEDS: FOLIC ACID 1 MG TABLET PO (08:25)
[2022-06-19] MEDS: ENOXAPARIN 40 MG/0.4 ML SYRINGE SUB-Q (08:25)
[2022-06-19] MEDS: LOSARTAN POTASSIUM 25 MG TABLET PO (08:25)
[2022-06-19] MEDS: PANTOPRAZOLE 40 MG TABLET PO (08:25)
[2022-06-19] MEDS: THIAMINE HCL 100 MG TABLET PO (08:26)
[2022-06-19] MEDS: amLODIPine BESYLATE 5 MG TABLET PO (08:26)
--- NOTE | 2022-06-19 09:51 | PM.PNPUL ---
Progress Note: A&P Assessment and Plan (1) Atelectasis of left lung: Code(s): J98.11 - Atelectasis Status: Acute (2) Pneumonia: Code(s): J18.9 - Pneumonia, unspecified organism Status: Acute Assessment and Plan: 66-year-old female presented with right hip fracture and left lung atelectasis. Following treatment with aggressive pulmonary toilet the left lung has re-expanded. Left lung atelectasis relapsed and patient resumed pulmonary toilet. Today's chest x-ray showed re-expansion of left lung. There is left lower lobe infiltrate probably due to pneumonia and also pleural effusion. She has no leukocytosis. Plan: Continue with pulmonary toilet, incentive spirometry. Decrease oral sedatives so that the patient can be more awake and use incentive spirometry. need to monitor left lower lobe infiltrate and left pleural effusion. Continue with current antibiotics for now. (3) Leukocytosis: Code(s): D72.829 - Elevated white blood cell count, unspecified Status: Acute (4) Closed intertrochanteric fracture of right femur: Code(s): S72.141A - Displaced intertrochanteric fracture of right femur, initial encounter for closed fracture Status: Acute Subjective Date/time seen: 06/19/22 09:51 patient has no new respiratory symptoms. Appears more awake this a.m. afebrile on room air. Chest x-ray showed re-expansion of left lung. Review of Systems Review of Systems: All systems reviewed & are unremarkable except as noted in HPI and below Exam Narrative: GENERAL APPEARANCE: Well developed, well nourished, appears drowsy, and appears to be in no acute distress SKIN: Inspection of the skin reveals no rashes, ulcerations or petechiae. HEENT: Sclerae anicteric and conjunctivae pink and moist. Extraocular movements were intact and pupils were equal, round, and reactive to light. The oral mucosa, hard and soft palate, tongue and posterior pharynx were normal. Edentulous. NECK: Supple. There was no thyroid enlargement, and no tenderness, or masses were felt. CHEST: Normal AP diameter and normal contour without any kyphoscoliosis. LUNGS: Auscultation of the lungs revealed normal breath sounds on right, decreased breath sounds left base laterally CARDIAC: There was a regular rate and rhythm without any murmurs, gallops, rubs. ABDOMEN: Soft and nontender with normal bowel sounds. There was no organomegaly. LYMPH NODES: No lymphadenopathy was appreciated in the neck. EXTREMITIES: No cyanosis, clubbing or edema. NEUROLOGIC: Alert and oriented x 3. Normal affect. Objective Data Vital Signs Vital Signs: Vital Signs - 24 hr 06/18/22 10:00 06/18/22 12:00 06/18/22 11:44 Temperature 36.6 C Pulse Rate 80 84 79 Pulse Rate [Radial Palpation] Respiratory Rate 20 12 Blood Pressure 173/71 H Pulse Oximetry 93 Oxygen Delivery 06/18/22 11:49 06/18/22 11:47 06/18/22 12:00 Temperature Pulse Rate 87 79 90 Pulse Rate [Radial Palpation] Respiratory Rate 12 12 Blood Pressure Pulse Oximetry 95 Oxygen Delivery Room Air 06/18/22 14:00 06/18/22 15:41 06/18/22 16:17 Temperature Pulse Rate 86 86 84 Pulse Rate [Radial Palpation] Respiratory Rate 20 12 Blood Pressure Pulse Oximetry 93 Oxygen Delivery Room Air 06/18/22 16:22 06/18/22 16:00 06/18/22 16:00 Temperature 36.8 C Pulse Rate 81 84 88 Pulse Rate [Radial Palpation] Respiratory Rate 12 22 H Blood Pressure 159/69 H Pulse Oximetry 94 Oxygen Delivery 06/18/22 18:00 06/18/22 20:00 06/18/22 20:22 Temperature 36.9 C Pulse Rate 87 89 86 Pulse Rate [Radial Palpation] Respiratory Rate 33 H 16 Blood Pressure 162/73 H Pulse Oximetry 92 Oxygen Delivery 06/18/22 20:35 06/18/22 20:35 06/18/22 20:00 Temperature Pulse Rate 84 91 Pulse Rate [Radial Palpation] Respiratory Rate 16 Blood Pressure Pulse Oximetry 92 Oxygen Delivery Room Air
[2022-06-19] MEDS: DEXTROSE 5%/0.9% SOD CHL 1,000 ML 50 ML IV CONT (12:46)
--- NOTE | 2022-06-19 14:35 | P.PNIM_ITS ---
Progress Note: A&P Assessment and Plan (1) Closed intertrochanteric fracture of right femur: Code(s): S72.141A - Displaced intertrochanteric fracture of right femur, initial encounter for closed fracture Status: Acute Assessment and Plan: Secondary to ground level fall * appreciate orthopedic surgery consultation * will need surgical repair * supportive care. Analgesics available as needed for pain * Doan catheter in place until increased mobility postoperatively * will need PT/OT following surgery discussed with orthopedics will hold off on surgery until further stabilization from pneumonia standpoint. (2) Chest pain: Code(s): R07.9 - Chest pain, unspecified Status: Acute Assessment and Plan: Atypical presentation. Complains of .02/15 nonradiating chest pressure worsened with inspiration * EKG reviewed, no obvious ischemic changes * troponins negative * echocardiogram EF 65-70% moderate pulmonary hypertension grade 1 diastolic dysfunction * Monitor on telemetry * Cardiology consultation. Input is appreciated (3) Alcohol withdrawal: Code(s): F10.939 - Alcohol use, unspecified with withdrawal, unspecified Status: Acute Assessment and Plan: patient reports drinking 3 beers per day. patient intoxicated on arrival with alcohol level of 127. * CIWA monitoring. Patient experiencing tremors in visual hallucination * started on Librium scheduled 25 mg p.o. q.6 hours * Ativan as needed for withdrawal symptoms * Continue thiamine and folic acid * currently in IMU * 06/16 worsening alcohol withdrawal symptoms. Increase Librium to 50 Q 6. Ativan p.r.n. * Now more somnolent will lower Librium to 25 q.6: More improved mentation * more agitated today will up Librium to 25 mg Q 8 hour * Continue CIWA protocol * (4) Hypoxia: Code(s): R09.02 - Hypoxemia Status: Acute Assessment and Plan: Pt hypoxic overnight in the upper 80s * Now requiring 1 L supplemental O2 * CT chest with complete collapse of left lung and small pleural effusion on the left * Repeat chest x-ray with diffuse left lung disease with volume loss with interval improvement in aeration likely a combination of atelectasis and pneumonia. * ABG with no Hypercapnia * Monitor O2 sats closely and wean oxygen as tolerated * Left lower lobe pneumonia. Treated for community-acquired pneumonia * Repeat chest x-ray with improving left lower lobe collapse/atelectasis as pneu monia 06/18/2022 near complete atelectasis on left lower lobe Add EzPAP/past nebulizer treatment already on Pulmo[facility] Pulmonary following for this if need bronchoscopy 06/19/2022: improvement In left lower lobe atelectasis today (5) Hyponatremia: Code(s): E87.1 - Hypo-osmolality and hyponatremia Status: Acute Assessment and Plan: likely multifactorial secondary to chronic alcohol use, excess free water intake, SSRI * Sodium 124 on presentation. urine sodium 18. * Initially improved with IV fluids but on 06/13 began to decline again * Implemented free water restriction of 1500 cc/day. Sodium improving now, up to 126 * SSRI on hold (6) Leukocytosis: Code(s): D72.829 - Elevated white blood cell count, unspecified Status: Acute Assessment and Plan: WBC elevated at 16.2 on arrival and remains persistently elevated * May have initially been reactive secondary to fall * Increase in WBC again today up to 21,000. * Differential demonstrates bandemia * pancultured * Monitor CBC with differen
--- NOTE | 2022-06-19 14:35 | PM.IMPN ---
Progress Note: A&P Assessment and Plan (1) Closed intertrochanteric fracture of right femur: Code(s): S72.141A - Displaced intertrochanteric fracture of right femur, initial encounter for closed fracture Status: Acute Assessment and Plan: Secondary to ground level fall appreciate orthopedic surgery consultation will need surgical repair supportive care. Analgesics available as needed for pain Doan catheter in place until increased mobility postoperatively will need PT/OT following surgery discussed with orthopedics will hold off on surgery until further stabilization from pneumonia standpoint. (2) Chest pain: Code(s): R07.9 - Chest pain, unspecified Status: Acute Assessment and Plan: Atypical presentation. Complains of 9.5/10 nonradiating chest pressure worsened with inspiration EKG reviewed, no obvious ischemic changes troponins negative echocardiogram EF 65-70% moderate pulmonary hypertension grade 1 diastolic dysfunction Monitor on telemetry Cardiology consultation. Input is appreciated (3) Alcohol withdrawal: Code(s): F10.939 - Alcohol use, unspecified with withdrawal, unspecified Status: Acute Assessment and Plan: patient reports drinking 3 beers per day. patient intoxicated on arrival with alcohol level of 127. CIWA monitoring. Patient experiencing tremors in visual hallucination started on Librium scheduled 25 mg p.o. q.6 hours Ativan as needed for withdrawal symptoms Continue thiamine and folic acid currently in IMU 06/16 worsening alcohol withdrawal symptoms. Increase Librium to 50 Q 6. Ativan p.r.n. Now more somnolent will lower Librium to 25 q.6: More improved mentation more agitated today will up Librium to 25 mg Q 8 hour Continue CIWA protocol (4) Hypoxia: Code(s): R09.02 - Hypoxemia Status: Acute Assessment and Plan: Pt hypoxic overnight in the upper 80s Now requiring [address] chest with complete collapse of left lung and small pleural effusion on the left Repeat chest x-ray with diffuse left lung disease with volume loss with interval improvement in aeration likely a combination of atelectasis and pneumonia. ABG with no Hypercapnia Monitor O2 sats closely and wean oxygen as tolerated Left lower lobe pneumonia. Treated for community-acquired pneumonia Repeat chest x-ray with improving left lower lobe collapse/atelectasis as pneumonia 06/18/2022 near complete atelectasis on left lower lobe Add EzPAP/past nebulizer treatment already on Pulmo[facility] Pulmonary following for this if need bronchoscopy 06/19/2022: improvement In left lower lobe atelectasis today (5) Hyponatremia: Code(s): E87.1 - Hypo-osmolality and hyponatremia Status: Acute Assessment and Plan: likely multifactorial secondary to chronic alcohol use, excess free water intake, SSRI Sodium 124 on presentation. urine sodium 18. Initially improved with IV fluids but on 06/13 began to decline again Implemented free water restriction of 1500 cc/day. Sodium improving now, up to 126 SSRI on hold (6) Leukocytosis: Code(s): D72.829 - Elevated white blood cell count, unspecified Status: Acute Assessment and Plan: WBC elevated at 16.2 on arrival and remains persistently elevated May have initially been reactive secondary to fall Increase in WBC again today up to 21,000. Differential demonstrates bandemia pancultured Monitor CBC with differential closely (7) Polycythemia: Code(s): D75.1 - Secondary polycythemia Status: Acute Assessment and Plan: Hemoglobin and hematocrit elevated on presentation appears to be persistent issue from prior labs in August 2021 suspect this is a chronic issue, likely due to chronic smoking, worsened due to dehydration monitor H&H during admission (8) Anxiety: Code(s): F41.9 - Anxiety disord
[2022-06-20] VITALS (30 sets, daily range): BP systolic 124–167; BP diastolic 54–72; PULSE 65–94; RESP 16–24; TEMP 35.7–36.6; O2SAT 92–100
[2022-06-20] MEDS: ALBUTEROL SULFATE NEB 2.5 MG/3 ML INH INHALATION ×6 (00:33→20:19)
[2022-06-20] MEDS: KETOROLAC 30 MG/ML VIAL (*BKC) IV PUSH (05:09)
[2022-06-20 05:24] LABS: Basophils Absolute Auto 0.1 K/mm3 (0.0-0.1); Basophils Percent Auto 0.8 % (0.2-1.2); Eosinophils Absolute Auto 0.3 K/mm3 (0-0.3); Eosinophils Percent Auto 3.6 % (0-4.4); Immature Granulocyte Absolute 0.22 K/mm3 (0.00-0.031); Immature Granulocyte Percent A 2.6 % (0-0.5); Lymphocytes Absolute Auto 0.96 K/mm3 (0.9-3.2); Lymphocytes Percent Auto 11.3 % (18.3-44.2); Mean Corpuscular HGB Conc 34.2 g/dl (32-36); Mean Corpuscular Hemoglobin 32.3 pg (26-34); Mean Corpuscular Volume 94.5 fl (80-100); Mean Platelet Volume 9.6 fl (7.4-10.4); Monocytes Absolute Auto 1.5 K/mm3 (0.1-0.6); Monocytes Percent Auto 17.3 % (2.6-8.5); Neutrophils Absolute Auto 5.5 K/mm3 (1.3-6.7); Neutrophils Percent Auto 64.4 % (45.5-73.1); Platelet Count Result 311 k/mm3 (150-375); Red Blood Count 4.02 M/mm3 (4.2-5.4); Red Cell Distribution Width 15.3 % (11.5-14.5); White Blood Count 8.5 K/mm3 (4.5-10.0)
[2022-06-20 05:33] LABS: Alanine Aminotransferase 24 U/L (6-35); Albumin Level 2.4 g/dL (3.5-5.1); Alkaline Phosphatase 102 U/L (38-126); Anion Gap 7 mmol/L (8-16); Aspartate Amino Transferase 25 U/L (14-36); Bilirubin,Total 0.6 mg/dL (0.2-1.3); Blood Urea Nitrogen 5 mg/dL (7-17); Calcium 8.3 mg/dL (8.4-10.2); Carbon Dioxide 22 mmol/L (22-30); Chloride 100 mmol/L (98-107); Estimated CRCL calculation 100 ml/min; Estimated Glomerular Filt Rate > 60; Glucose 106 mg/dL (65-110); Potassium 2.9 mmol/L (3.4-5.0); Sodium 129 mmol/L (137-145)
[2022-06-20] MEDS: DORNASE ALFA INH SOLN 1 MG/ML 2.5 ML AMP 2.5 MG INHALATION ×2 (07:38→20:19)
[2022-06-20 09:06] LABS: Anion Gap 7 mmol/L (8-16); Blood Urea Nitrogen 5 mg/dL (7-17); Calcium 8.4 mg/dL (8.4-10.2); Carbon Dioxide 22 mmol/L (22-30); Chloride 101 mmol/L (98-107); Estimated CRCL calculation 100 ml/min; Estimated Glomerular Filt Rate > 60; Glucose 110 mg/dL (65-110); Sodium 130 mmol/L (137-145)
--- NOTE | 2022-06-20 09:24 | PCSTNOTE ---
Please refer to the Bedside Swallow Evaluation in the EMR. Please note, silent aspiration cannot be ruled out at bedside.
[2022-06-20] MEDS: DEXTROSE 5%/0.9% SOD CHL 1,000 ML 50 ML IV CONT (09:39)
[2022-06-20] MEDS: ENOXAPARIN 40 MG/0.4 ML SYRINGE SUB-Q (09:40)
[2022-06-20] MEDS: FUROSEMIDE INJ 40 MG/4 ML VIAL 20 MG IV PUSH (09:41)
--- NOTE | 2022-06-20 12:39 | PM.PNORT ---
Progress Note: A&P Assessment and Plan (1) Closed intertrochanteric fracture of right femur: Code(s): S72.141A - Displaced intertrochanteric fracture of right femur, initial encounter for closed fracture Status: Acute Plan Still plan on ORIF right IT hip fracture on MondayJune 21 if okay with hospitalist service. Other medical issues are noted and she is currently saturating 100% on room air. She is NPO due to aspiration yesterday and needs to remain NPO until decision for surgery is made. Subjective Subjective Date/Time Seen: 06/20/22 12:39 Principal diagnosis: Right IT hip fracture Interval history: Patient resting quietly. Pain has been well controlled. She is currently on room air. She has had a setback regarding her pulmonary status. Chest CT obtained this morning shows a moderate size left pleural effusion consistent with pulmonary edema. Review of Systems Constitutional: Constitutional: Reports as per HPI Exam Const: General: comfortable and no acute distress HENMT: Head: normal to inspection Resp: Effort & Inspection: normal respiratory effort GI: Inspection: non-distended GI Palp: No abdominal tenderness Extrem: Other: Exam of the right lower extremity shows that it is shortened and rotated externally. Does have some irritability with palpation of the right hip. Neurovascular status right lower extremity is intact. Psych: Mental Status: mental status grossly normal Objective Data Vital Signs Vital Signs: Vital Signs - 24 hr 06/19/22 15:44 06/19/22 14:00 06/19/22 16:00 Temperature 97.7 F Pulse Rate 80 85 85 Pulse Rate [Radial Palpation] Respiratory Rate 20 Blood Pressure 156/77 H Pulse Oximetry 95 Oxygen Delivery Oxygen Flow Rate 06/19/22 16:00 06/19/22 16:00 06/19/22 16:29 Temperature Pulse Rate 72 Pulse Rate [Radial Palpation] 82 Respiratory Rate 12 Blood Pressure 156/77 H Pulse Oximetry Oxygen Delivery Room Air Oxygen Flow Rate 06/19/22 16:36 06/19/22 16:36 06/19/22 18:00 Temperature Pulse Rate 76 85 Pulse Rate [Radial Palpation] Respiratory Rate 12 Blood Pressure Pulse Oximetry 95 Oxygen Delivery Room Air Oxygen Flow Rate 06/19/22 19:50 06/19/22 19:58 06/19/22 21:18 Temperature Pulse Rate 83 80 Pulse Rate [Radial Palpation] 88 Respiratory Rate 12 12 Blood Pressure Pulse Oximetry Oxygen Delivery Oxygen Flow Rate 06/19/22 20:00 06/19/22 20:00 06/19/22 20:00 Temperature 97.6 F Pulse Rate 91 80 91 Pulse Rate [Radial Palpation] Respiratory Rate 18 18 Blood Pressure 161/70 H Pulse Oximetry 95 95 Oxygen Delivery Room Air Oxygen Flow Rate 06/19/22 22:00 06/19/22 23:47 06/19/22 23:57 Temperature Pulse Rate 88 88 Pulse Rate [Radial Palpation] 81 Respiratory Rate 18 Blood Pressure 161/70 H Pulse Oximetry 94 Oxygen Delivery Nasal Cannula Oxygen Flow Rate 2 06/19/22 23:57 06/20/22 00:00 06/20/22 00:00 Temperature 97.6 F Pulse Rate 88 79 78 Pulse Rate [Radial Palpation] Respiratory Rate 18 16 Blood Pressure 130/65 Pulse Oximetry 94 95 Oxygen Delivery Nasal Cannula Oxygen Flow Rate 2 06/20/22 02:00 06/20/22 02:42 06/20/22 04:00 Temperature 97.9 F Pulse Rate 75 85 Pulse Rate [Radial Palpation] Respiratory Rate 18 Blood Pressure 138/72 Pulse Oximetry 93 92 Oxygen Delivery Nasal Cannula Oxygen Flow Rate 3 06/20/22 04:00 06/20/22 04:00 06/20/22 04:00 Temperature Pulse Rate 76 85 Pulse Rate [Radial Palpation] 81 Respiratory Rate 18 Blood Pressure 138/72 Pulse Oximetry 98 Oxygen Delivery Nasal Cannula Oxygen Flow Rate 3 06/20/22 00:25 06/20/22 00:40 06/20/22 04:40 Temperature Pulse Rate 77 76 74 Pulse Rate [Radial Palpation] Respiratory Rate 16 16 16 Blood Pressure Pulse Oximetry 98 Oxygen Delivery Nasal Cannula Oxygen Flow Rate 3
--- NOTE | 2022-06-20 13:00 | P.PNIM_ITS ---
Progress Note: A&P Assessment and Plan (1) Closed intertrochanteric fracture of right femur: Code(s): S72.141A - Displaced intertrochanteric fracture of right femur, initial encounter for closed fracture Status: Acute Assessment and Plan: Secondary to ground level fall * appreciate orthopedic surgery consultation * will need surgical repair * supportive care. Analgesics available as needed for pain * Doan catheter in place until increased mobility postoperatively * will need PT/OT following surgery discussed with orthopedics will hold off on surgery until further stabilization from pneumonia standpoint. Tentative surgery planned 06/21/2022 (2) Chest pain: Code(s): R07.9 - Chest pain, unspecified Status: Acute Assessment and Plan: Atypical presentation. Complains of 9.5/10 nonradiating chest pressure worsened with inspiration * EKG reviewed, no obvious ischemic changes * troponins negative * echocardiogram EF 65-70% moderate pulmonary hypertension grade 1 diastolic dysfunction * Monitor on telemetry * Cardiology consultation. Input is appreciated (3) Alcohol withdrawal: Code(s): F10.939 - Alcohol use, unspecified with withdrawal, unspecified Status: Acute Assessment and Plan: patient reports drinking 3 beers per day. patient intoxicated on arrival with alcohol level of 127. * CIWA monitoring. Patient experiencing tremors in visual hallucination * started on Librium scheduled 25 mg p.o. q.6 hours * Ativan as needed for withdrawal symptoms * Continue thiamine and folic acid * currently in IMU * 06/16 worsening alcohol withdrawal symptoms. Increase Librium to 50 Q 6. Ativan p.r.n. * Now more somnolent will lower Librium to 25 q.6: More improved mentation * more agitated today will up Librium to 25 mg Q 8 hour * Continue CIWA protocol * Hypoactive delirium 06/20/2022. Discontinue Librium * (4) Hypoxia: Code(s): R09.02 - Hypoxemia Status: Acute Assessment and Plan: Pt hypoxic overnight in the upper 80s * Now requiring 1 L supplemental O2 * CT chest with complete collapse of left lung and small pleural effusion on the left * Repeat chest x-ray with diffuse left lung disease with volume loss with interval improvement in aeration likely a combination of atelectasis and pneumonia. * ABG with no Hypercapnia * Monitor O2 sats closely and wean oxygen as tolerated * Left lower lobe pneumonia. Treated for community-acquired pneumonia * Repeat chest x-ray with improving left lower lobe collapse/atelectasis as pneumonia 06/18/2022 near complete atelectasis on left lower lobe Add EzPAP/past nebulizer treatment already on [facility]mo[facility] Pulmonary following for this if need bronchoscopy 06/19/2022: improvement In left lower lobe atelectasis today 06/20/2022 worsening left lower lobe atelectasis. Worsening due to worsening pleural effusion. Aspiration last night. speech therapy to see (5) Hyponatremia: Code(s): E87.1 - Hypo-osmolality and hyponatremia Status: Acute Assessment and Plan: likely multifactorial secondary to chronic alcohol use, excess free water intake, SSRI * Sodium 124 on presentation. urine sodium 18. * Initially improved with IV fluids but on 06/13 began to decline again * Implemented free water restriction of 1500 cc/day. Sodium improving now, up to 126 * SSRI on hold (6) Leukocytosis: Code(s): D72.829 - Elevated white blood cell count, unspecified Status: Acute Assessment and Plan: WBC eleva
--- NOTE | 2022-06-20 13:00 | PM.IMPN ---
Progress Note: A&P Assessment and Plan (1) Closed intertrochanteric fracture of right femur: Code(s): S72.141A - Displaced intertrochanteric fracture of right femur, initial encounter for closed fracture Status: Acute Assessment and Plan: Secondary to ground level fall appreciate orthopedic surgery consultation will need surgical repair supportive care. Analgesics available as needed for pain Doan catheter in place until increased mobility postoperatively will need PT/OT following surgery discussed with orthopedics will hold off on surgery until further stabilization from pneumonia standpoint. Tentative surgery planned 06/21/2022 (2) Chest pain: Code(s): R07.9 - Chest pain, unspecified Status: Acute Assessment and Plan: Atypical presentation. Complains of 9.5/10 nonradiating chest pressure worsened with inspiration EKG reviewed, no obvious ischemic changes troponins negative echocardiogram EF 65-70% moderate pulmonary hypertension grade 1 diastolic dysfunction Monitor on telemetry Cardiology consultation. Input is appreciated (3) Alcohol withdrawal: Code(s): F10.939 - Alcohol use, unspecified with withdrawal, unspecified Status: Acute Assessment and Plan: patient reports drinking 3 beers per day. patient intoxicated on arrival with alcohol level of 127. CIWA monitoring. Patient experiencing tremors in visual hallucination started on Librium scheduled 25 mg p.o. q.6 hours Ativan as needed for withdrawal symptoms Continue thiamine and folic acid currently in IMU 06/16 worsening alcohol withdrawal symptoms. Increase Librium to 50 Q 6. Ativan p.r.n. Now more somnolent will lower Librium to 25 q.6: More improved mentation more agitated today will up Librium to 25 mg Q 8 hour Continue CIWA protocol Hypoactive delirium 06/20/2022. Discontinue Librium (4) Hypoxia: Code(s): R09.02 - Hypoxemia Status: Acute Assessment and Plan: Pt hypoxic overnight in the upper 80s Now requiring [address] chest with complete collapse of left lung and small pleural effusion on the left Repeat chest x-ray with diffuse left lung disease with volume loss with interval improvement in aeration likely a combination of atelectasis and pneumonia. ABG with no Hypercapnia Monitor O2 sats closely and wean oxygen as tolerated Left lower lobe pneumonia. Treated for community-acquired pneumonia Repeat chest x-ray with improving left lower lobe collapse/atelectasis as pneumonia 06/18/2022 near complete atelectasis on left lower lobe Add EzPAP/past nebulizer treatment already on Pulmozyme Pulmonary following for this if need bronchoscopy 06/19/2022: improvement In left lower lobe atelectasis today 06/20/2022 worsening left lower lobe atelectasis. Worsening due to worsening pleural effusion. Aspiration last night. speech therapy to see (5) Hyponatremia: Code(s): E87.1 - Hypo-osmolality and hyponatremia Status: Acute Assessment and Plan: likely multifactorial secondary to chronic alcohol use, excess free water intake, SSRI Sodium 124 on presentation. urine sodium 18. Initially improved with IV fluids but on 06/13 began to decline again Implemented free water restriction of 1500 cc/day. Sodium improving now, up to 126 SSRI on hold (6) Leukocytosis: Code(s): D72.829 - Elevated white blood cell count, unspecified Status: Acute Assessment and Plan: WBC elevated at 16.2 on arrival and remains persistently elevated May have initially been reactive secondary to fall Increase in WBC again today up to 21,000. Differential demonstrates bandemia pancultured Monitor CBC with differential closely (7) Polycythemia: Code(s): D75.1 - Secondary polycythemia Status: Acute Assessment and Plan: Hemoglobin and hematocrit elevated on presentation appears
--- NOTE | 2022-06-20 13:59 | PM.PNPUL ---
Progress Note: A&P Assessment and Plan (1) Atelectasis of left lung: Code(s): J98.11 - Atelectasis Status: Acute Assessment and Plan: 66-year-old female presented with right hip fracture and left lung atelectasis.? Following treatment with aggressive pulmonary toilet the left lung has re-expanded favoring mucous plug. ? Left lung atelectasis relapsed and patient resumed pulmonary toilet.? Today's chest x-ray showed re-expansion of left lung.? There is left lower lobe infiltrate probably due to pneumonia and also pleural effusion.? She has no leukocytosis. 06/19 Plan: ? Continue with pulmonary toilet, incentive spirometry.? Decrease? oral sedatives so that the patient can be more awake and use incentive spirometry.? need to monitor left lower lobe infiltrate and left pleural effusion.? Continue with current antibiotics for now.? 06/20 patient is communicative, knows her name, place and [place]. Complains of hip pain. Denies any respiratory complaints. Chest x-ray at 6:48 a.m. demonstrated worsening left lung consolidation. CT scan at 12:07 p.m. demonstrated no lobar collapse, a moderate left pleural effusion and a small right pleural effusion with bilateral atelectasis and multifocal infiltrates Consistent with pneumonia or edema. Patient is afebrile. White blood cell count 8.5. Current saturations on room air 100%. Day#6 Ceftriaxone and azithromycin. Patient has no lobar collapse on her CT scan on albuterol 2.5 mg nebulized q.4 hours. She does have mild emphysema on her CT scan I will add ipratropium 0.5 mg nebulized q.4 hours. Patient is also receiving dornase 2.5 mg nebulized q.12 hours. She is not wheezing and I do not feel she needs inhaled or systemic steroids. Continue Cornet valve q.4 hours while awake. Continue chest physiotherapy q.6 hours. Patient has a moderate left and small right pleural effusion. She has an echocardiogram with normal LV systolic function and grade 1 diastolic dysfunction. I will check a BNP in the morning. Since admission is listed as diuresed 1.9 L. Will discuss additional diuretics with hospitalist. From a pulmonary perspective the patient is not having an active COPD exacerbation, is on minimal oxygen and Has received 6 days of adequate antibiotics for presumed pneumonia. There are no contraindications to general anesthesia from a pulmonary perspective. Discussed with Dr. Baugh. Will follow with you. Subjective Date/time seen: 06/20/22 13:59 Interval history: Consult date: 06/14/22 Chief complaint: hip fracture Narrative: This 66-year-old female was brought into the emergency room after she fell at home.? Patient fell to the ground and injured her right hip.? When she was evaluated in the emergency room she was found to have a right inter trochanteric fracture proximal right femur.? She also had some shortness of breath and underwent a chest CT.? Chest CT showed complete collapse of the left lung and a small pleural effusion on the left.? Currently the patient complaining of right substernal chest pain with inspirations.? She has no cough hemoptysis sputum production fever or chills.? She has been a smoker for many years.? She also drinks alcohol on a daily basis.? She is not on any medications for lung disease.? Patient is scheduled to undergo right hip surgery. 06/19/22? 09:51 ?patient has no new respiratory symptoms.? Appears more awake this a.m. afebrile on room air.? Chest x-ray showed re-expansion of left lung. 06/20 patient is communicative, knows her name, place and [place]. Complains of hip pain. Denies any respiratory complaints. Chest x-ray at 6:48 a.m. demonstrated worsening left lung consolidation. CT scan at 12:07 p.m. demonstrated a moderate left pleural effusion and a small right pleural effusion with bilateral atelectasis and multifocal infiltrates Consistent with pneumonia or edema. Patient is afebrile.
[2022-06-20] MEDS: LIDOCAINE HCL 1% PF INJ 5 ML VIAL INFILTRATE (14:10)
[2022-06-20] MEDS: KCL 40 MEQ/WATER 100 ML 100 ML 25 ML IVPB (15:40)
[2022-06-20] MEDS: THIAMINE HCL 200 MG/2 ML VIAL 100 MG IV PUSH (15:41)
[2022-06-20] MEDS: FOLIC ACID 1 MG/0.2 ML INJ IV PUSH (15:41)
[2022-06-20] MEDS: PANTOPRAZOLE SODIUM IV 40 MG VIAL IV PUSH (15:41)
[2022-06-20] MEDS: FUROSEMIDE INJ 40 MG/4 ML VIAL IV PUSH (15:43)
[2022-06-20] MEDS: IPRATROPIUM BR 0.02% INH SOLN 0.5 MG/2.5 ML VIAL INHALATION (20:19)
[2022-06-20] MEDS: HYDROmorphone HCL INJ (*CRX) 1 MG/ML SYR IV PUSH (21:00)
[2022-06-20 21:35] LABS: Potassium 3.2 mmol/L (3.4-5.0)
[2022-06-20] MEDS: CENTRAL LINE FLUSH 10 ML IV PUSH (21:50)
[2022-06-21] VITALS (31 sets, daily range): BP systolic 97–183; BP diastolic 50–117; PULSE 64–105; RESP 13–22; TEMP 35.9–37.1; O2SAT 94–100
[2022-06-21] MEDS: IPRATROPIUM BR 0.02% INH SOLN 0.5 MG/2.5 ML VIAL INHALATION ×4 (00:02→20:06)
[2022-06-21] MEDS: ALBUTEROL SULFATE NEB 2.5 MG/3 ML INH INHALATION ×4 (00:02→20:07)
[2022-06-21] MEDS: KETOROLAC 30 MG/ML VIAL (*BKC) IV PUSH (01:03)
[2022-06-21 01:32] LABS: Glucose Point of Care 105 mg/dl (65-105)
[2022-06-21 05:36] LABS: Basophils Absolute Auto 0.1 K/mm3 (0.0-0.1); Basophils Percent Auto 0.8 % (0.2-1.2); Eosinophils Absolute Auto 0.5 K/mm3 (0-0.3); Eosinophils Percent Auto 6.2 % (0-4.4); Hematocrit 37.4 % (37.0-47.0); Hemoglobin 12.8 g/dL (12.0-15.0); Immature Granulocyte Absolute 0.29 K/mm3 (0.00-0.031); Immature Granulocyte Percent A 3.7 % (0-0.5); Lymphocytes Absolute Auto 0.95 K/mm3 (0.9-3.2); Lymphocytes Percent Auto 12.3 % (18.3-44.2); Mean Corpuscular HGB Conc 34.2 g/dl (32-36); Mean Corpuscular Hemoglobin 32.3 pg (26-34); Mean Corpuscular Volume 94.4 fl (80-100); Mean Platelet Volume 9.3 fl (7.4-10.4); Monocytes Absolute Auto 0.9 K/mm3 (0.1-0.6); Neutrophils Absolute Auto 5.1 K/mm3 (1.3-6.7); Platelet Count Result 339 k/mm3 (150-375); Red Blood Count 3.96 M/mm3 (4.2-5.4); Red Cell Distribution Width 15.4 % (11.5-14.5); White Blood Count 7.7 K/mm3 (4.5-10.0)
[2022-06-21 05:46] LABS: Alanine Aminotransferase 21 U/L (6-35); Albumin Level 2.5 g/dL (3.5-5.1); Alkaline Phosphatase 85 U/L (38-126); Anion Gap 9 mmol/L (8-16); Aspartate Amino Transferase 18 U/L (14-36); Bilirubin,Total 0.5 mg/dL (0.2-1.3); Blood Urea Nitrogen 9 mg/dL (7-17); Calcium 8.1 mg/dL (8.4-10.2); Carbon Dioxide 24 mmol/L (22-30); Chloride 101 mmol/L (98-107); Estimated CRCL calculation 82 ml/min; Estimated Glomerular Filt Rate > 60; Glucose 96 mg/dL (65-110); Magnesium 1.7 mg/dL (1.6-2.3); Sodium 134 mmol/L (137-145)
[2022-06-21 05:55] LABS: NT Pro B Type Natriuretic Pept 359 pg/mL (5-100)
[2022-06-21] MEDS: CENTRAL LINE FLUSH 10 ML IV PUSH ×2 (06:19→20:43)
[2022-06-21 06:22] LABS: Glucose Point of Care 98 mg/dl (65-105)
[2022-06-21] MEDS: DORNASE ALFA INH SOLN 1 MG/ML 2.5 ML AMP 2.5 MG INHALATION (08:18)
[2022-06-21] MEDS: FOLIC ACID 1 MG/0.2 ML INJ IV PUSH (09:02)
[2022-06-21] MEDS: THIAMINE HCL 200 MG/2 ML VIAL 100 MG IV PUSH (09:02)
[2022-06-21] MEDS: PANTOPRAZOLE SODIUM IV 40 MG VIAL IV PUSH (09:03)
[2022-06-21] MEDS: KCL 40 MEQ/WATER 100 ML 100 ML 25 ML IVPB (09:03)
--- NOTE | 2022-06-21 09:12 | PM.PNPUL ---
Progress Note: A&P Assessment and Plan (1) Atelectasis of left lung: Code(s): J98.11 - Atelectasis Status: Acute Assessment and Plan: 66-year-old female presented with right hip fracture and left lung atelectasis.? Following treatment with aggressive pulmonary toilet the left lung has re-expanded favoring mucous plug. ? Left lung atelectasis relapsed and patient resumed pulmonary toilet.? Today's chest x-ray showed re-expansion of left lung.? There is left lower lobe infiltrate probably due to pneumonia and also pleural effusion.? She has no leukocytosis. 06/19 Plan: ? Continue with pulmonary toilet, incentive spirometry.? Decrease? oral sedatives so that the patient can be more awake and use incentive spirometry.? need to monitor left lower lobe infiltrate and left pleural effusion.? Continue with current antibiotics for now.? 06/20 patient is communicative, knows her name, place and [place]. Complains of hip pain. Denies any respiratory complaints. Chest x-ray at 6:48 a.m. demonstrated worsening left lung consolidation. CT scan at 12:07 p.m. demonstrated no lobar collapse, a moderate left pleural effusion and a small right pleural effusion with bilateral atelectasis and multifocal infiltrates Consistent with pneumonia or edema. Patient is afebrile. White blood cell count 8.5. Current saturations on room air 100%. Day#6 Ceftriaxone and azithromycin. Patient has no lobar collapse on her CT scan on albuterol 2.5 mg nebulized q.4 hours. She does have mild emphysema on her CT scan I will add ipratropium 0.5 mg nebulized q.4 hours. Patient is also receiving dornase 2.5 mg nebulized q.12 hours. She is not wheezing and I do not feel she needs inhaled or systemic steroids. Continue Cornet valve q.4 hours while awake. Continue chest physiotherapy q.6 hours. Patient has a moderate left and small right pleural effusion. She has an echocardiogram with normal LV systolic function and grade 1 diastolic dysfunction. I will check a BNP in the morning. Since admission is listed as diuresed 1.9 L. Will discuss additional diuretics with hospitalist. From a pulmonary perspective the patient is not having an active COPD exacerbation, is on minimal oxygen and Has received 6 days of adequate antibiotics for presumed pneumonia. There are no contraindications to general anesthesia from a pulmonary perspective. 06/21 Patient denies any respiratory complaints. Chest x-ray today without any lobar collapse and a small right and moderate size left pleural effusion. White blood cell count 7.7, BNP 359, creatinine 0.5. Room air saturations 96%. Her right leg is in traction and she is scheduled to go to the OR at 1:30 p.m. No wheezes on exam. She has received 6 days of azithromycin and will discontinue, contnunue ceftriaxone. Continue albuterol 2.5 mg nebs q.4 hours, ipratropium 0.5 mg nebs q.4 hours, Cornet flutter valve q.4 hours while awake, vibratory vest if she can tolerate this, she is producing no phlegm and I will discontinue dornase today Will follow with you. Subjective Date/time seen: 06/21/22 09:12 Interval history: Consult date: 06/14/22 Chief complaint: hip fracture Narrative: This 66-year-old female was brought into the emergency room after she fell at home.? Patient fell to the ground and injured her right hip.? When she was evaluated in the emergency room she was found to have a right inter trochanteric fracture proximal right femur.? She also had some shortness of breath and underwent a chest CT.? Chest CT showed complete collapse of the left lung and a small pleural effusion on the left.? Currently the patient complaining of right substernal chest pain with inspirations.? She has no cough hemoptysis sputum production fever or chills.? She has been a smoker for many years.? She also drinks alcohol on a daily basis.? She is not on any medications for lung disease.? Patient is scheduled to undergo right hip go
[2022-06-21] MEDS: MORPHINE SULFATE (*CRX) 2 MG/ML INJ IV PUSH (09:26)
[2022-06-21 12:13] LABS: Glucose Point of Care 95 mg/dl (65-105)
--- NOTE | 2022-06-21 12:53 | WPDANESEPPF ---
Anes - Initial Pre Proc Eval Procedure: Operation Date: 06/14/22 15:00 Proposed Procedures p Right Trochanteric Nail - Mango Spicer MD Operation Date: 06/21/22 13:30 Proposed Procedures p Right Intertrochanteric Nail - Mango Spicer MD Date/Time: 06/21/22 12:53 Surgeon: Russ Baugh MD Pre Op Diagnosis: hip fracture Patient Data Age: 66 Gender: F Height: 1.75 m Weight: 57 kg Last Vital Signs Temp 36.3 C L 06/21/22 12:37 Pulse 78 06/21/22 12:37 Resp 20 06/21/22 12:37 BP 148/69 H 06/21/22 12:37 Pulse Ox 94 06/21/22 12:37 O2 Del Method Room Air 06/21/22 08:20 O2 Flow Rate 1 06/21/22 04:00 Allergies Allergy/AdvReac Type Severity Reaction Status Date / Time No Known Allergies Allergy Verified 06/21/22 12:47 Home Medications Medication Instructions Recorded Confirmed Type escitalopram oxalate 20 mg tablet 20 mg PO DAILY #90 tabs 02/25/22 06/12/22 Rx Laboratory Tests 06/20/22 06/20/22 06/21/22 21:21 23:48 05:21 WBC RBC Hgb Hct MCV MCH MCHC RDW Plt Count MPV Immature Gran % (Auto) Neut % (Auto) Lymph % (Auto) [place] % (Auto) Eos % (Auto) Baso % (Auto) Lymph # (Auto) [place] # (Auto) Eos # (Auto) Baso # (Auto) Abs Immat Gran (auto) Absolute Neuts (auto) Absolute Nucleated RBC Nucleated RBC % Sodium Potassium 3.2 mmol/L L mmol/L (3.4-5.0) Chloride Carbon Dioxide Anion Gap BUN Creatinine Estim Creat Clear Calc Estimated GFR Glucose POC Capillary Glucose 105 mg/dl mg/dl (65-105) Calcium Magnesium Total Bilirubin AST ALT Alkaline Phosphatase NT-Pro-B Natriuret Pep 359 pg/mL H pg/mL (5-100) Total Protein Albumin 06/21/22 06/21/22 06/21/22 05:21 05:21 06:20 WBC 7.7 K/mm3 K/mm3 (4.5-10.0) RBC 3.96 M/mm3 L M/mm3 (4.2-5.4) Hgb 12.8 g/dL g/dL (12.0-15.0) Hct 37.4 % % (37.0-47.0) MCV 94.4 fl fl (80-100) MCH 32.3 pg pg (26-34) MCHC 34.2 g/dl g/dl (32-36) RDW 15.4 % H % (11.5-14.5) Plt Count 339 k/mm3 k/mm3 (150-375) MPV 9.3 fl fl (7.4-10.4) Immature Gran % (Auto) 3.7 % H % (0-0.5) Neut % (Auto) 66.0 % % (45.5-73.1) Lymph % (Auto) 12.3 % L % (18.3-44.2) [place] % (Auto) 11.0 % H % (2.6-8.5) Eos % (Auto) 6.2 % H % (0-4.4) Baso % (Auto) 0.8 % % (0.2-1.2) Lymph # (Auto) 0.95 K/mm3 K/mm3 (0.9-3.2) [place] # (Auto) 0.9 K/mm3 H K/mm3 (0.1-0.6) Eos # (Auto) 0.5 K/mm3 H K/mm3 (0-0.3) Baso # (Auto) 0.1 K/mm3 K/mm3 (0.0-0.1) Abs Immat Gran (auto) 0.29 K/mm3 H K/mm3 (0.00-0.031) Absolute Neuts (auto) 5.1 K/mm3 K/mm3 (1.3-6.7) Absolute Nucleated RBC 0.0 K/mm3 K/mm3 (0.0-0.012) Nucleated RBC % 0.0 % % (0.0-0.2) Sodium 134 mmol/L L mmol/L (137-145) Potassium 3.0 mmol/L L mmol/L (3.4-5.0) Chloride 101 mmol/L mmol/L (98-107) Carbon Dioxide 24 mmol/L mmol/L (22-30) Anion Gap 9 mmol/L mmol/L (8-16) BUN 9 mg/dL mg/dL (7-17) Creatinine 0.50 mg/dL L mg/dL (0.7-1.0) Estim Creat Clear Calc 82 ml/min ml/min Estimated GFR > 60 (59 - ) Glucose 96 mg/dL mg/dL (65-110) POC Capillary Glucose 98 mg/dl mg/dl (65-105) Calcium 8.1 mg/dL L mg/dL (8.4-10
--- NOTE | 2022-06-21 13:04 | PCNFU ---
Nutrition Follow-Up Complete: Suboptimal po intake related to reduced appetite as evidenced by self reported weight loss prior to admission, low BMI of 18.6 Goal: PO intake 75% of meals. not meeting goal Pt current nutrition is NPO. Nutrition recommendation: advance diet per medically advised and offer ensure enlive, and preferred foods. may consider prune juice once diet is advanced due to no bowel movements since 06/16. Last recorded weight is 57 kg. Bowel Motility:no bowel movements since 06/16/2022 Labs Reviewed:06/21 Alb: 2.5, Na: 134, K: 3, Cr: 0.5 Meds Noted:folic acid, B1, protonix, zofran, cozaar, ativan, lactated ringers, apresoline, sublime, lovenox, albuterol, Skin:WNL Additional Notes: NPO for surgery and will see speech Wed 06/22 morning, NPO since 06/20, refuses meals, documented meals 06/15 dinner (50%), 06/18 breakfast (100%) Monitor intake, wt, labs. Follow up in 7 days.
--- NOTE | 2022-06-21 13:16 | WPDHPUPDATE1 ---
History and Physical Update Update Date/Time: 06/21/22 13:16 History and Physical has been reviewed, including an updated exam of the patient. Clinical situation has improved such that we will proceed with right hip fracture repair today. Risks and potential complications were discussed in detail and questions answered previously.
[2022-06-21] MEDS: LACTATED RINGERS 1,000 ML 30 ML IV CONT (13:23)
[2022-06-21 13:30] LABS: Glucose Point of Care 85 mg/dl (65-105)
--- NOTE | 2022-06-21 13:30 | PCNSR ---
On 06/21/22, the student, Miguel Sweeney, provided care and completed [employer] documentation on this patient. I have reviewed the student's documentation and agree with the findings. Glenys Pagan MS RD LDN
--- NOTE | 2022-06-21 15:33 | W.PM.PROC2 ---
Procedure Note - Detailed Date of Procedure 06/21/22 Pre-op Diagnosis Right IT hip fracture Post-op Diagnosis Same Procedure Performed ORIF right IT hip fracture with trochanteric nail device Surgeon Mango Spicer MD [employer] Operator Catina Irby Anesthesia General Description of Procedure The patient was identified and proper site identified, then was taken to the operating room and after general anesthetic induction and intubation was transferred to the Leiter table positioning supine taking care to properly pad position the torso and extremities. A provisional reduction was able to be obtained with fluoroscopic assistance. The right hip and thigh was then prepped and draped in the usual sterile fashion. A short incision was made proximal to the tip of the greater trochanter. Subcutaneous tissue was sharply dissected down to the gluteus fascia which was incised over the tip of the greater trochanter. An awl was used to create a starting hole through which a guide suzanne was inserted into the femoral canal verifying its position fluoroscopically. The one-step Reamer was used to prepare the entry point for the suzanne. A 125 degree, 9 millimeter short nail was then inserted to the appropriate level using the targeting device. Through a 2nd more distal incision under fluoroscopic visualization a 90 mm lag screw was inserted over a guidewire into the femoral neck and head securing it with the set screw. Through a 3rd more distal incision, using the targeting device, a distal interlocking screw was placed. The overall construct was assessed fluoroscopically on the AP and lateral views, and was noted to be satisfactory. The targeting device was removed. The wounds were irrigated with sterile antibiotic solution. The fascia was reapproximated with 0 Vicryl as was the deeper layers of the subcu. Skin edges were reapproximated with 3-0 Monocryl subcuticular stitch and ale. Sterile dressing was applied. The procedure was well tolerated. There were no known intraoperative complications. Patient is currently on IV antibiotics. Estimated Blood Loss 100 Urine Output 300 Drains No Packing No Pathology None sent Complications No immediate complications Condition Stable Disposition PACU
[2022-06-21] MEDS: fentaNYL CITRATE INJ (*CRX) 100 MCG/2 ML VIAL 25 MCG IV PUSH ×5 (15:56→16:59)
[2022-06-21] MEDS: hydrALAZINE HCL 20 MG/ML VIAL 5 MG IV PUSH (16:42)
--- NOTE | 2022-06-21 16:56 | P.PNIM_ITS ---
Progress Note: A&P Assessment and Plan (1) Closed intertrochanteric fracture of right femur: Code(s): S72.141A - Displaced intertrochanteric fracture of right femur, initial encounter for closed fracture Status: Acute Assessment and Plan: Secondary to ground level fall * appreciate orthopedic surgery consultation * will need surgical repair * supportive care. Analgesics available as needed for pain * Doan catheter in place until increased mobility postoperatively * will need PT/OT following surgery discussed with orthopedics will hold off on surgery until further stabilization from pneumonia standpoint. plan for surgery today 06/21/2022 (2) Chest pain: Code(s): R07.9 - Chest pain, unspecified Status: Acute Assessment and Plan: Atypical presentation. Complains of 9.5/10 nonradiating chest pressure worsened with inspiration * EKG reviewed, no obvious ischemic changes * troponins negative * echocardiogram EF 65-70% moderate pulmonary hypertension grade 1 diastolic dysfunction * Monitor on telemetry * Cardiology consultation. Input is appreciated (3) Alcohol withdrawal: Code(s): F10.939 - Alcohol use, unspecified with withdrawal, unspecified Status: Acute Assessment and Plan: patient reports drinking 3 beers per day. patient intoxicated on arrival with alcohol level of 127. * CIWA monitoring. Patient experiencing tremors in visual hallucination * started on Librium scheduled 25 mg p.o. q.6 hours * Ativan as needed for withdrawal symptoms * Continue thiamine and folic acid * currently in IMU * 06/16 worsening alcohol withdrawal symptoms. Increase Librium to 50 Q 6. Ativan p.r.n. * Now more somnolent will lower Librium to 25 q.6: More improved mentation * more agitated today will up Librium to 25 mg Q 8 hour * Continue CIWA protocol * Hypoactive delirium 06/20/2022. Discontinue Librium * she is currently seems recovered from alcohol withdrawal. She is off Librium now (4) Hypoxia: Code(s): R09.02 - Hypoxemia Status: Acute Assessment and Plan: Pt hypoxic overnight in the upper 80s * Now requiring 1 L supplemental O2 * CT chest with complete collapse of left lung and small pleural effusion on the left * Repeat chest x-ray with diffuse left lung disease with volume loss with interval improvement in aeration likely a combination of atelectasis and pneumonia. * ABG with no Hypercapnia * Monitor O2 sats closely and wean oxygen as tolerated * Left lower lobe pneumonia. Treated for community-acquired pneumonia * Repeat chest x-ray with improving left lower lobe collapse/atelectasis as pneumonia 06/18/2022 near complete atelectasis on left lower lobe Add EzPAP/past nebulizer treatment already on Pulmozyme Pulmonary following for this if need bronchoscopy 06/19/2022: improvement In left lower lobe atelectasis today 06/20/2022 worsening left lower lobe atelectasis. Worsening due to worsening pleural effusion. Aspiration last night. speech therapy to see 06/21/2022 chest x-ray reviewed has bilateral pleural effusion but improved from yesterday. Okay for planned surgery from medical standpoint. Discussed with Pulmonary 06/20/2022 (5) Hyponatremia: Code(s): E87.1 - Hypo-osmolality and hyponatremia Status: Acute Assessment and Plan: likely multifactorial secondary to chronic alcohol use, excess free water intake, SSRI * Sodium 124 on presentation. urine sodium 18. * Initially improved with IV fluids but on 06/13 began to decline again * Implemented free wa
--- NOTE | 2022-06-21 16:56 | PM.IMPN ---
Progress Note: A&P Assessment and Plan (1) Closed intertrochanteric fracture of right femur: Code(s): S72.141A - Displaced intertrochanteric fracture of right femur, initial encounter for closed fracture Status: Acute Assessment and Plan: Secondary to ground level fall appreciate orthopedic surgery consultation will need surgical repair supportive care. Analgesics available as needed for pain Doan catheter in place until increased mobility postoperatively will need PT/OT following surgery discussed with orthopedics will hold off on surgery until further stabilization from pneumonia standpoint. plan for surgery today 06/21/2022 (2) Chest pain: Code(s): R07.9 - Chest pain, unspecified Status: Acute Assessment and Plan: Atypical presentation. Complains of 9.5/10 nonradiating chest pressure worsened with inspiration EKG reviewed, no obvious ischemic changes troponins negative echocardiogram EF 65-70% moderate pulmonary hypertension grade 1 diastolic dysfunction Monitor on telemetry Cardiology consultation. Input is appreciated (3) Alcohol withdrawal: Code(s): F10.939 - Alcohol use, unspecified with withdrawal, unspecified Status: Acute Assessment and Plan: patient reports drinking 3 beers per day. patient intoxicated on arrival with alcohol level of 127. CIWA monitoring. Patient experiencing tremors in visual hallucination started on Librium scheduled 25 mg p.o. q.6 hours Ativan as needed for withdrawal symptoms Continue thiamine and folic acid currently in IMU 06/16 worsening alcohol withdrawal symptoms. Increase Librium to 50 Q 6. Ativan p.r.n. Now more somnolent will lower Librium to 25 q.6: More improved mentation more agitated today will up Librium to 25 mg Q 8 hour Continue CIWA protocol Hypoactive delirium 06/20/2022. Discontinue Librium she is currently seems recovered from alcohol withdrawal. She is off Librium now (4) Hypoxia: Code(s): R09.02 - Hypoxemia Status: Acute Assessment and Plan: Pt hypoxic overnight in the upper 80s Now requiring [address] chest with complete collapse of left lung and small pleural effusion on the left Repeat chest x-ray with diffuse left lung disease with volume loss with interval improvement in aeration likely a combination of atelectasis and pneumonia. ABG with no Hypercapnia Monitor O2 sats closely and wean oxygen as tolerated Left lower lobe pneumonia. Treated for community-acquired pneumonia Repeat chest x-ray with improving left lower lobe collapse/atelectasis as pneumonia 06/18/2022 near complete atelectasis on left lower lobe Add EzPAP/past nebulizer treatment already on Pulmozyme Pulmonary following for this if need bronchoscopy 06/19/2022: improvement In left lower lobe atelectasis today 06/20/2022 worsening left lower lobe atelectasis. Worsening due to worsening pleural effusion. Aspiration last night. speech therapy to see 06/21/2022 chest x-ray reviewed has bilateral pleural effusion but improved from yesterday. Okay for planned surgery from medical standpoint. Discussed with Pulmonary 06/20/2022 (5) Hyponatremia: Code(s): E87.1 - Hypo-osmolality and hyponatremia Status: Acute Assessment and Plan: likely multifactorial secondary to chronic alcohol use, excess free water intake, SSRI Sodium 124 on presentation. urine sodium 18. Initially improved with IV fluids but on 06/13 began to decline again Implemented free water restriction of 1500 cc/day. Sodium improving now, up to 126 SSRI on hold (6) Leukocytosis: Code(s): D72.829 - Elevated white blood cell count, unspecified Status: Acute Assessment and Plan: WBC elevated at 16.2 on arrival and remains persistently elevated May have initially been reactive secondary to fall Increase in WBC again today up to 21,000. Differentia
[2022-06-21] MEDS: SODIUM CHLORIDE 0.9% IV 1,000 ML 100 ML IV CONT (17:21)
[2022-06-21 18:08] LABS: Glucose Point of Care 119 mg/dl (65-105)
[2022-06-21] MEDS: hydrALAZINE HCL 20 MG/ML VIAL 10 MG IV PUSH (18:31)
[2022-06-21] MEDS: MORPHINE SULFATE (*CRX) 2 MG/ML INJ 1 MG IV PUSH ×2 (18:31→23:15)
--- NOTE | 2022-06-21 21:37 | PC.NURSE ---
Pt's inpatient status was changed from med-tele to IMU by Dr. Spicer following surgery. Spoke with Dr. Spicer to see if he is opposed to pt being moved to a medical floor or if he would like to keep her IMU status. Dr. Spicer states that is up to the hospitalist but he is agreeable with whatever the hospitalist chooses to do. Spoke with Alicia Rojas NP. States she would like for pt to stay IMU overnight.
[2022-06-21 23:38] LABS: Glucose Point of Care 125 mg/dl (65-105)
[2022-06-22] VITALS (20 sets, daily range): BP systolic 130–165; BP diastolic 51–70; PULSE 66–89; RESP 16–20; TEMP 35.7–36.7; O2SAT 93–100
[2022-06-22] MEDS: IPRATROPIUM BR 0.02% INH SOLN 0.5 MG/2.5 ML VIAL INHALATION ×5 (00:20→21:39)
[2022-06-22] MEDS: ALBUTEROL SULFATE NEB 2.5 MG/3 ML INH INHALATION ×5 (00:20→21:39)
[2022-06-22] MEDS: MORPHINE SULFATE (*CRX) 2 MG/ML INJ 1 MG IV PUSH (02:32)
[2022-06-22] MEDS: SODIUM CHLORIDE 0.9% IV 1,000 ML 100 ML IV CONT ×3 (02:36→23:48)
[2022-06-22] MEDS: HYDROcodone/acetaminophen (*CRX) 5-325 MG TABLET 1 TAB PO ×4 (04:37→18:44)
[2022-06-22] MEDS: CENTRAL LINE FLUSH 10 ML IV PUSH ×3 (04:38→21:14)
[2022-06-22 05:00] LABS: Basophils Absolute Auto 0.1 K/mm3 (0.0-0.1); Basophils Percent Auto 0.6 % (0.2-1.2); Eosinophils Percent Auto 0.1 % (0-4.4); Hematocrit 37.9 % (37.0-47.0); Hemoglobin 12.8 g/dL (12.0-15.0); Immature Granulocyte Absolute 0.28 K/mm3 (0.00-0.031); Lymphocytes Absolute Auto 0.68 K/mm3 (0.9-3.2); Lymphocytes Percent Auto 4.9 % (18.3-44.2); Mean Corpuscular HGB Conc 33.8 g/dl (32-36); Mean Corpuscular Hemoglobin 32.5 pg (26-34); Mean Corpuscular Volume 96.2 fl (80-100); Mean Platelet Volume 9.5 fl (7.4-10.4); Monocytes Percent Auto 7.3 % (2.6-8.5); Neutrophils Absolute Auto 11.7 K/mm3 (1.3-6.7); Neutrophils Percent Auto 85.1 % (45.5-73.1); Platelet Count Result 417 k/mm3 (150-375); Red Blood Count 3.94 M/mm3 (4.2-5.4); Red Cell Distribution Width 15.5 % (11.5-14.5); White Blood Count 13.8 K/mm3 (4.5-10.0)
[2022-06-22 05:10] LABS: Alanine Aminotransferase 27 U/L (6-35); Albumin Level 2.7 g/dL (3.5-5.1); Alkaline Phosphatase 118 U/L (38-126); Anion Gap 6 mmol/L (8-16); Aspartate Amino Transferase 22 U/L (14-36); Bilirubin,Total 0.5 mg/dL (0.2-1.3); Blood Urea Nitrogen 12 mg/dL (7-17); Calcium 8.9 mg/dL (8.4-10.2); Carbon Dioxide 24 mmol/L (22-30); Chloride 104 mmol/L (98-107); Estimated CRCL calculation 82 ml/min; Estimated Glomerular Filt Rate > 60; Glucose 102 mg/dL (65-110); Magnesium 1.6 mg/dL (1.6-2.3); Potassium 4.2 mmol/L (3.4-5.0); Sodium 134 mmol/L (137-145)
--- NOTE | 2022-06-22 07:50 | WPDANESPN ---
Anes - Prog Note Post-Op Date/Time: 06/22/22 07:50 Cardiovascular status: normal Respiratory status: normal Airway patency: baseline Mental status: baseline Post-Op hydration status: normal Vital Signs: Last Vital Signs Temp 36.7 C 06/22/22 04:00 Pulse 73 06/22/22 06:00 Resp 18 06/22/22 04:13 BP 144/56 H 06/22/22 04:00 Pulse Ox 95 06/22/22 04:00 O2 Del Method Nasal Cannula 06/22/22 04:00 O2 Flow Rate 2 06/22/22 04:00 Pain Score (VAS): 0/10 I/O: Intake & Output 06/21/22 06/21/22 06/22/22 15:59 23:59 07:59 Intake Total 275 402 5960 Output Total 300 230 750 Balance 350 270 418 Laboratory Tests 06/22/22 04:44 06/22/22 04:44 06/21/22 06/21/22 06/21/22 12:03 13:27 18:05 WBC RBC Hgb Hct MCV MCH MCHC RDW Plt Count MPV Immature Gran % (Auto) Neut % (Auto) Lymph % (Auto) [place] % (Auto) Eos % (Auto) Baso % (Auto) Lymph # (Auto) [place] # (Auto) Eos # (Auto) Baso # (Auto) Abs Immat Gran (auto) Absolute Neuts (auto) Absolute Nucleated RBC Nucleated RBC % Sodium Potassium Chloride Carbon Dioxide Anion Gap BUN Creatinine Estim Creat Clear Calc Estimated GFR Glucose POC Capillary Glucose 95 85 119 H Calcium Magnesium Total Bilirubin AST ALT Alkaline Phosphatase Total Protein Albumin 06/21/22 06/22/22 06/22/22 23:36 04:44 04:44 WBC 13.8 H RBC 3.94 L Hgb 12.8 Hct 37.9 MCV 96.2 MCH 32.5 MCHC 33.8 RDW 15.5 H Plt Count 417 H MPV 9.5 Immature Gran % (Auto) 2.0 H Neut % (Auto) 85.1 H Lymph % (Auto) 4.9 L [place] % (Auto) 7.3 Eos % (Auto) 0.1 Baso % (Auto) 0.6 Lymph # (Auto) 0.68 L [place] # (Auto) 1.0 H Eos # (Auto) 0.0 Baso # (Auto) 0.1 Abs Immat Gran (auto) 0.28 H Absolute Neuts (auto) 11.7 H Absolute Nucleated RBC 0.0 Nucleated RBC % 0.0 Sodium 134 L Potassium 4.2 Chloride 104 Carbon Dioxide 24 Anion Gap 6 L BUN 12 Creatinine 0.50 L Estim Creat Clear Calc 82 Estimated GFR > 60 Glucose 102 POC Capillary Glucose 125 H Calcium 8.9 Magnesium 1.6 Total Bilirubin 0.5 AST 22 ALT 27 Alkaline Phosphatase 118 Total Protein 6.0 L Albumin 2.7 L Post-procedural complaints: none Patient Feedback: Patient satisfied with anesthetic care. Other Findings: Patient asleep and resting comfortably
--- NOTE | 2022-06-22 08:24 | PM.IMPN ---
Progress Note: A&P Assessment and Plan (1) Closed intertrochanteric fracture of right femur: Code(s): S72.141A - Displaced intertrochanteric fracture of right femur, initial encounter for closed fracture Status: Acute Assessment and Plan: OR 06/21/22, POD#1 from ORIF R. hip (2) Chest pain: Code(s): R07.9 - Chest pain, unspecified Status: Acute Assessment and Plan: Echocardiogram from 06/14/22 showed EF 65-70% moderate pulmonary hypertension grade 1 diastolic dysfunction, chest pain resolved, likely 2/2 GERD, cardiology consult reviewed, no further workup needed (3) Alcohol withdrawal: Code(s): F10.939 - Alcohol use, unspecified with withdrawal, unspecified Status: Acute Assessment and Plan: Appears resolved, monitor (4) Hypoxia: Code(s): R09.02 - Hypoxemia Status: Acute Assessment and Plan: Pt hypoxic overnight in the upper 80s, required supplemental O2, CT chest showed complete collapse of left lung and small pleural effusion on the left, repeat chest x-ray showed diffuse left lung disease with volume loss with interval improvement in aeration likely a combination of atelectasis and pneumonia, thought to have left lower lobe pneumonia, treated for community-acquired pneumonia. Repeat chest x-ray with improving left lower lobe collapse/atelectasis as pneumonia. 06/18: Near complete atelectasis on left lower lobe, add EzPAP/past nebulizer treatment already on pulmozyme, pulmonary following for this if need bronchoscopy. 06/19: Improvement In left lower lobe atelectasis today. 06/20: Worsening left lower lobe atelectasis. Worsening due to worsening pleural effusion. Aspiration last night. speech therapy to see. 06/21: Chest x-ray reviewed has bilateral pleural effusion but improved from yesterday. Okay for planned surgery from medical standpoint. Discussed with pulm 06/20. 06/22: completed 5 day course of azithromycin, cont rocephin, day 8 today, will likely d/c at day 10 d/t complicated course, defer to pulm for recs (5) Hyponatremia: Code(s): E87.1 - Hypo-osmolality and hyponatremia Status: Acute Assessment and Plan: likely multifactorial secondary to chronic alcohol use, excess free water intake, SSRI Sodium 124 on presentation. urine sodium 18. Initially improved with IV fluids but on 06/13 began to decline again Implemented free water restriction of 1500 cc/day. Sodium improving now, up to 126 SSRI on hold 06/22: sodium essentially resolved at 134, fluid restriction d/c, monitor (6) Leukocytosis: Code(s): D72.829 - Elevated white blood cell count, unspecified Status: Acute Assessment and Plan: monitor (7) Polycythemia: Code(s): D75.1 - Secondary polycythemia Status: Acute Assessment and Plan: Hemoglobin and hematocrit elevated on presentation, hgb 16/hct 47.9 appears to be persistent issue from prior labs in August 2021 suspect this is a chronic issue, likely due to chronic smoking, worsened due to dehydration monitor H&H during admission 06/22: stable at 12.8/37.9 (8) Anxiety: Code(s): F41.9 - Anxiety disorder, unspecified Status: Chronic Assessment and Plan: No acute issues at this SSRI on hold due to hyponatremia 06/22: will restart SSRI soon, low sodium almost resolved (9) Elevated blood pressure reading: Code(s): R03.0 - Elevated blood-pressure reading, without diagnosis of hypertension Status: Acute Assessment and Plan: Blood pressure has been running high. Last BP 188/81 Patient denies history of hypertension Received 5 mg IV Lopressor with improvement in BP Continue p.r.n. hydralazine for systolic BP >170 Monitor BP trends Plan DVT prophylaxis with SCDs GI prophylaxis not indicated Code status DNR Subjective Date/time seen: 06/22/22 08:24 Interval history: Patient resting comfortably, no complai
[2022-06-22] MEDS: APIXABAN 2.5 MG TABLET PO ×2 (08:39→21:10)
[2022-06-22] MEDS: PANTOPRAZOLE SODIUM IV 40 MG VIAL IV PUSH (08:39)
[2022-06-22] MEDS: FOLIC ACID 1 MG/0.2 ML INJ IV PUSH (08:39)
[2022-06-22] MEDS: SENNA/DOCUSATE SODIUM TABLET 2 TAB PO (08:39)
[2022-06-22] MEDS: THIAMINE HCL 200 MG/2 ML VIAL 100 MG IV PUSH (08:39)
[2022-06-22] MEDS: FAMOTIDINE 20 MG TABLET PO ×2 (08:39→21:10)
--- NOTE | 2022-06-22 10:03 | PM.PNPUL ---
Progress Note: A&P Assessment and Plan (1) Atelectasis of left lung: Code(s): J98.11 - Atelectasis Status: Acute Assessment and Plan: 66-year-old female presented with right hip fracture and left lung atelectasis.? Following treatment with aggressive pulmonary toilet the left lung has re-expanded favoring mucous plug. ? Left lung atelectasis relapsed and patient resumed pulmonary toilet.? Today's chest x-ray showed re-expansion of left lung.? There is left lower lobe infiltrate probably due to pneumonia and also pleural effusion.? She has no leukocytosis. 06/19 Plan: ? Continue with pulmonary toilet, incentive spirometry.? Decrease? oral sedatives so that the patient can be more awake and use incentive spirometry.? need to monitor left lower lobe infiltrate and left pleural effusion.? Continue with current antibiotics for now.? 06/20 patient is communicative, knows her name, place and [place]. Complains of hip pain. Denies any respiratory complaints. Chest x-ray at 6:48 a.m. demonstrated worsening left lung consolidation. CT scan at 12:07 p.m. demonstrated no lobar collapse, a moderate left pleural effusion and a small right pleural effusion with bilateral atelectasis and multifocal infiltrates Consistent with pneumonia or edema. Patient is afebrile. White blood cell count 8.5. Current saturations on room air 100%. Day#6 Ceftriaxone and azithromycin. Patient has no lobar collapse on her CT scan on albuterol 2.5 mg nebulized q.4 hours. She does have mild emphysema on her CT scan I will add ipratropium 0.5 mg nebulized q.4 hours. Patient is also receiving dornase 2.5 mg nebulized q.12 hours. She is not wheezing and I do not feel she needs inhaled or systemic steroids. Continue Cornet valve q.4 hours while awake. Continue chest physiotherapy q.6 hours. Patient has a moderate left and small right pleural effusion. She has an echocardiogram with normal LV systolic function and grade 1 diastolic dysfunction. I will check a BNP in the morning. Since admission is listed as diuresed 1.9 L. Will discuss additional diuretics with hospitalist. From a pulmonary perspective the patient is not having an active COPD exacerbation, is on minimal oxygen and Has received 6 days of adequate antibiotics for presumed pneumonia. There are no contraindications to general anesthesia from a pulmonary perspective. 06/21 Patient denies any respiratory complaints. Chest x-ray today without any lobar collapse and a small right and moderate size left pleural effusion. White blood cell count 7.7, BNP 359, creatinine 0.5. Room air saturations 96%. Her right leg is in traction and she is scheduled to go to the OR at 1:30 p.m. No wheezes on exam. She has received 6 days of azithromycin and will discontinue, contnunue ceftriaxone. Continue albuterol 2.5 mg nebs q.4 hours, ipratropium 0.5 mg nebs q.4 hours, Cornet flutter valve q.4 hours while awake, vibratory vest if she can tolerate this, she is producing no phlegm and I will discontinue dornase today. Status post right hip ORIF later in day. 06/22 Required morphine for pain overnight. patient is awake complaining of right hip pain. She is on 1 L nasal cannula saturations 98%. White blood cell count is 13.8. Chest x-ray today with improved infiltrates and small bilateral pleural effusions there is no lobar collapse. today is day 7 ceftriaxone. Would continue for a total of 10 days. Aggressive pulmonary toilet and physical therapy as tolerated by limitations from her hip operation. Continue albuterol and ipratropium nebs and will change them to q.4 hours while awake, continue Cornet flutter valve and if needed vibratory vest for secretion assistance. diuretics as tolerated for fluid overload per hospitalist. Will sign off, call with questions, discussed with Dr. Metzger Subjective Date/time seen: 06/22/22 10:03 Interval history: Consult date: 06/14/22 Chief complaint: h
[2022-06-22 12:18] LABS: Glucose Point of Care 114 mg/dl (65-105)
--- NOTE | 2022-06-22 14:36 | PC.NURSE ---
This patient, Nora Ty, was transferred to [[id number] ] on 06/22/22 at 1425. Personal belongings sent with patient. Report given to [NATHAN Graf @ [phone] ]. Appropriate documentation sent with patient.
--- NOTE | 2022-06-22 14:50 | PC.NURSE ---
Received from IMU via bed. Family at bedside.
--- NOTE | 2022-06-22 16:01 | PM.PNORT ---
Progress Note: A&P Assessment and Plan (1) Closed intertrochanteric fracture of right femur: Code(s): S72.141A - Displaced intertrochanteric fracture of right femur, initial encounter for closed fracture Status: Acute Plan 66-year-old female postop day 1 after ORIF right intertrochanteric femur fracture with Dr. Spicer. Begin daily island dressing changes tomorrow. Participate with therapy as tolerated. Maintain toe-touch weight-bearing status. DVT prophylaxis: Eliquis b.i.d. Pain: [place] q3h Subjective Subjective Date/Time Seen: 06/22/22 16:01 Post Op day: 1 Principal diagnosis: ORIF right IT hip fracture Interval history: 66-year-old female postop day 1 after ORIF right intertrochanteric femur fracture. she struggled to perform physical therapy this morning was able to participate more fully this afternoon. She has failed her swallow screen so she continues to be NPO. She does have quite a bit of pain in the right hip but states it is controlled with her current pain medications. Review of Systems Review of Systems: All systems reviewed & are unremarkable except as noted in HPI and below Exam Const: General: comfortable Resp: Effort & Inspection: normal respiratory effort GI: Inspection: non-distended Skin: General skin exam: normal color Extrem: Other: Exam of the right hip shows a clean and dry surgical dressing. No appreciable ecchymosis or swelling at or distal to the surgical site. Calves negative. Neurovascular status right lower extremity is intact. Psych: Mental Status: mental status grossly normal Objective Data Vital Signs Vital Signs: Vital Signs - 24 hr 06/21/22 16:05 06/21/22 16:15 06/21/22 16:30 Temperature Pulse Rate 66 72 69 Respiratory Rate 14 16 13 Blood Pressure 153/117 H 166/69 H 183/80 H Pulse Oximetry 100 94 98 Oxygen Delivery Simple Face Mask Room Air Nasal Cannula Oxygen Flow Rate 8 2 06/21/22 16:45 06/21/22 16:50 06/21/22 18:10 Temperature 97.2 F L Pulse Rate 70 72 85 Respiratory Rate 14 15 20 Blood Pressure 170/63 H 158/70 H 179/63 H Pulse Oximetry 98 97 Oxygen Delivery Nasal Cannula Oxygen Flow Rate 2 06/21/22 18:22 06/21/22 20:07 06/21/22 20:16 Temperature 97.7 F Pulse Rate 88 105 H 99 Respiratory Rate 22 H 18 18 Blood Pressure 171/87 H Pulse Oximetry 94 Oxygen Delivery Oxygen Flow Rate 06/21/22 20:00 06/21/22 20:00 06/21/22 20:00 Temperature 97.9 F Pulse Rate 101 H 104 H Respiratory Rate 20 Blood Pressure 149/75 H Pulse Oximetry 94 94 Oxygen Delivery Nasal Cannula Oxygen Flow Rate 2 06/21/22 22:00 06/21/22 23:45 06/22/22 00:00 Temperature 97.6 F Pulse Rate 86 82 82 Respiratory Rate 20 Blood Pressure 112/50 L Pulse Oximetry 95 Oxygen Delivery Oxygen Flow Rate 06/22/22 00:00 06/22/22 00:20 06/22/22 00:30 Temperature Pulse Rate 80 83 Respiratory Rate 18 18 Blood Pressure Pulse Oximetry 95 Oxygen Delivery Nasal Cannula Oxygen Flow Rate 2 06/22/22 02:00 06/22/22 04:04 06/22/22 04:13 Temperature Pulse Rate 89 79 80 Respiratory Rate 18 18 Blood Pressure Pulse Oximetry Oxygen Delivery Oxygen Flow Rate 06/22/22 04:00 06/22/22 04:00 06/22/22 04:00 Temperature 98.0 F Pulse Rate 85 87 Respiratory Rate 20 Blood Pressure 144/56 H Pulse Oximetry 96 95 Oxygen Delivery Nasal Cannula Oxygen Flow Rate 2 06/22/22 06:00 06/22/22 08:12 06/22/22 08:24 Temperature 96.2 F L Pulse Rate 73 69 Respiratory Rate 20 Blood Pressure 153/59 H Pulse Oximetry 100 Oxygen Delivery Nasal Cannula Oxygen Flow Rate 1 06/22/22 08:55 06/22/22 08:25 06/22/22 08:36 Temperature Pulse Rate 72 77 Respiratory Rate 18 18 Blood Pressure Pulse Oximetry Oxygen Delivery Nasal Cannula Oxygen Flow Rate 1 06/22/22 09:20 06/22/22 08:00 06/22/22 08:00 Temperature 97.2 F L Pulse Rate 83 74 Respiratory
--- NOTE | 2022-06-22 17:50 | PC.NURSE ---
On 06/22/22, the student, [Tr[facility] ], provided care and completed [employer] documentation on this patient. I have reviewed the student's documentation and agree with the findings.
[2022-06-22 18:14] LABS: Glucose Point of Care 86 mg/dl (65-105)
[2022-06-23] VITALS (11 sets, daily range): BP systolic 136–168; BP diastolic 63–72; PULSE 70–87; RESP 14–18; TEMP 36.4–36.9; O2SAT 91–97
[2022-06-23 01:32] LABS: Glucose Point of Care 83 mg/dl (65-105)
[2022-06-23] MEDS: HYDROcodone/acetaminophen (*CRX) 5-325 MG TABLET 1 TAB PO ×3 (02:45→13:14)
[2022-06-23] MEDS: CENTRAL LINE FLUSH 10 ML IV PUSH ×3 (05:03→20:51)
[2022-06-23 05:07] LABS: Glucose Point of Care 93 mg/dl (65-105)
[2022-06-23 05:11] LABS: Basophils Absolute Auto 0.1 K/mm3 (0.0-0.1); Basophils Percent Auto 0.6 % (0.2-1.2); Eosinophils Absolute Auto 0.6 K/mm3 (0-0.3); Eosinophils Percent Auto 5.9 % (0-4.4); Hematocrit 34.7 % (37.0-47.0); Hemoglobin 11.6 g/dL (12.0-15.0); Immature Granulocyte Absolute 0.13 K/mm3 (0.00-0.031); Immature Granulocyte Percent A 1.4 % (0-0.5); Lymphocytes Absolute Auto 0.88 K/mm3 (0.9-3.2); Lymphocytes Percent Auto 9.3 % (18.3-44.2); Mean Corpuscular HGB Conc 33.4 g/dl (32-36); Mean Corpuscular Volume 98.6 fl (80-100); Mean Platelet Volume 9.3 fl (7.4-10.4); Monocytes Absolute Auto 0.8 K/mm3 (0.1-0.6); Monocytes Percent Auto 8.1 % (2.6-8.5); Neutrophils Absolute Auto 7.1 K/mm3 (1.3-6.7); Neutrophils Percent Auto 74.7 % (45.5-73.1); Platelet Count Result 370 k/mm3 (150-375); Red Blood Count 3.52 M/mm3 (4.2-5.4); Red Cell Distribution Width 15.7 % (11.5-14.5); White Blood Count 9.5 K/mm3 (4.5-10.0)
[2022-06-23 05:22] LABS: Alanine Aminotransferase 22 U/L (6-35); Albumin Level 2.3 g/dL (3.5-5.1); Alkaline Phosphatase 89 U/L (38-126); Anion Gap 8 mmol/L (8-16); Aspartate Amino Transferase 19 U/L (14-36); Bilirubin,Total 0.4 mg/dL (0.2-1.3); Blood Urea Nitrogen 8 mg/dL (7-17); Calcium 7.9 mg/dL (8.4-10.2); Carbon Dioxide 25 mmol/L (22-30); Chloride 103 mmol/L (98-107); Estimated CRCL calculation 100 ml/min; Estimated Glomerular Filt Rate > 60; Glucose 88 mg/dL (65-110); Potassium 2.9 mmol/L (3.4-5.0); Sodium 136 mmol/L (137-145)
--- NOTE | 2022-06-23 08:06 | PM.IMPN ---
Progress Note: A&P Assessment and Plan (1) Closed intertrochanteric fracture of right femur: Code(s): S72.141A - Displaced intertrochanteric fracture of right femur, initial encounter for closed fracture Status: Acute Assessment and Plan: OR 06/21/22, POD#2 from ORIF R. hip Pain uncontrolled on norco, will switch to percocet (2) Chest pain: Code(s): R07.9 - Chest pain, unspecified Status: Acute Assessment and Plan: Echocardiogram from 06/14/22 showed EF 65-70% moderate pulmonary hypertension grade 1 diastolic dysfunction, chest pain resolved, likely 2/2 GERD, cardiology consult reviewed, no further workup needed (3) Alcohol withdrawal: Code(s): F10.939 - Alcohol use, unspecified with withdrawal, unspecified Status: Acute Assessment and Plan: Appears resolved, monitor (4) Hypoxia: Code(s): R09.02 - Hypoxemia Status: Acute Assessment and Plan: Pt hypoxic overnight in the upper 80s, required supplemental O2, CT chest showed complete collapse of left lung and small pleural effusion on the left, repeat chest x-ray showed diffuse left lung disease with volume loss with interval improvement in aeration likely a combination of atelectasis and pneumonia, thought to have left lower lobe pneumonia, treated for community-acquired pneumonia. Repeat chest x-ray with improving left lower lobe collapse/atelectasis as pneumonia. 06/18: Near complete atelectasis on left lower lobe, add EzPAP/past nebulizer treatment already on pulmozyme, pulmonary following for this if need bronchoscopy. 06/19: Improvement In left lower lobe atelectasis today. 06/20: Worsening left lower lobe atelectasis. Worsening due to worsening pleural effusion. Aspiration last night. speech therapy to see. 06/21: Chest x-ray reviewed has bilateral pleural effusion but improved from yesterday. Okay for planned surgery from medical standpoint. Discussed with pulm 06/20. 06/22: completed 5 day course of azithromycin, cont rocephin, day 8 today, will likely d/c at day 10 d/t complicated course, defer to pulm for recs 06/23: Day 9/10 of rocephin, anticipate d/c abx tomorrow and possibly d/c patient to rehab tomorrow as well (5) Hyponatremia: Code(s): E87.1 - Hypo-osmolality and hyponatremia Status: Acute Assessment and Plan: likely multifactorial secondary to chronic alcohol use, excess free water intake, SSRI Sodium 124 on presentation. urine sodium 18. Initially improved with IV fluids but on 06/13 began to decline again Implemented free water restriction of 1500 cc/day. Sodium improving now, up to 126 SSRI on hold 06/22: sodium essentially resolved at 134, fluid restriction d/c, monitor 06/23: 136 today, d/c IVF, encourage po fluids (6) Leukocytosis: Code(s): D72.829 - Elevated white blood cell count, unspecified Status: Acute Assessment and Plan: resolved (7) Polycythemia: Code(s): D75.1 - Secondary polycythemia Status: Acute Assessment and Plan: Hemoglobin and hematocrit elevated on presentation, hgb 16/hct 47.9 appears to be persistent issue from prior labs in August 2021 suspect this is a chronic issue, likely due to chronic smoking, worsened due to dehydration monitor H&H during admission 06/22: stable at 12.8/37.9 06/23: resolved (8) Anxiety: Code(s): F41.9 - Anxiety disorder, unspecified Status: Chronic Assessment and Plan: No acute issues at this SSRI on hold due to hyponatremia 06/22: will restart SSRI soon, low sodium almost resolved 06/23: sodium improving, start SSRI tomorrow at d/c (9) Elevated blood pressure reading: Code(s): R03.0 - Elevated blood-pressure reading, without diagnosis of hypertension Status: Acute Assessment and Plan: Blood pressure has been running high. Last BP 188/81 Patient denies history of hypertension Received 5 mg IV Lopressor with improvement in
[2022-06-23] MEDS: IPRATROPIUM BR 0.02% INH SOLN 0.5 MG/2.5 ML VIAL INHALATION ×3 (08:23→20:20)
[2022-06-23] MEDS: ALBUTEROL SULFATE NEB 2.5 MG/3 ML INH INHALATION ×3 (08:23→20:19)
[2022-06-23] MEDS: APIXABAN 2.5 MG TABLET PO ×2 (09:38→20:51)
[2022-06-23] MEDS: PANTOPRAZOLE 40 MG TABLET PO (09:38)
[2022-06-23] MEDS: FOLIC ACID 1 MG TABLET PO (09:38)
[2022-06-23] MEDS: FAMOTIDINE 20 MG TABLET PO ×2 (09:38→20:51)
[2022-06-23] MEDS: THIAMINE HCL 100 MG TABLET PO (09:38)
[2022-06-23] MEDS: amLODIPine BESYLATE 5 MG TABLET PO (09:38)
[2022-06-23] MEDS: SENNA/DOCUSATE SODIUM TABLET 2 TAB PO ×2 (09:38→16:46)
--- NOTE | 2022-06-23 10:56 | PCSTNOTE ---
Modified barium swallow study. Patient edentulous, not wearing dentures, which she reports she usually wears when eating. Residue in pyriform sinuses, valleculae, and pharyngeal wall mostly noted after first thin liquid bolus by spoon. Patient able to clear with second swallow. Less residue with slightly thickened liquid in subsequent swallows. No significant difficulty with pudding consistency. Mixed consistency (fruit cocktail) approximately 3 ml bolus by spoon required extra chewing but patient was able to successfully breakdown fruit pieces to form cohesive bolus. No penetration or aspiration observed. Recommend: level 5 diet (minced and moist) and mildly thickened liquids (level 2/nectar). Speech therapy recommended to treat swallowing. Thank you for the referral of this patient.
[2022-06-23] MEDS: LIDOCAINE 5% PATCH 1 PATCH TRANSDERM (11:12)
[2022-06-23] MEDS: polyethylene glycoL 3350 17 GM POWD.PACK PO (11:13)
[2022-06-23 12:06] LABS: Glucose Point of Care 95 mg/dl (65-105)
--- NOTE | 2022-06-23 12:22 | PM.PNORT ---
Progress Note: A&P Assessment and Plan (1) Closed intertrochanteric fracture of right femur: Code(s): S72.141A - Displaced intertrochanteric fracture of right femur, initial encounter for closed fracture Status: Acute Plan Continue to mobilize. Affected weight-bearing minimum of eight weeks. Upon discharge from hospital daily 325 milligram coated aspirin for DVT prophylaxis for eight weeks. Will need to have ale out in about two weeks. Follow up in the office with me in eight weeks. Instructions placed in discharge section. Subjective Subjective Date/Time Seen: 06/23/22 12:22 Post Op day: 2 Principal diagnosis: Dx: postop day 2 ORIF right IT hip fracture Interval history: 66-year-old female who is postop day two ORIF right IT hip fracture. She has had a bit of her of course since she was admitted but is doing much better today. Has no real recollection of the past couple of week plus. Not having much discomfort in her right hip or leg at this point. Exam Const: General: cooperative, alert and awake HENMT: Head: normal to inspection Ears: hearing grossly normal bilaterally Resp: Effort & Inspection: able to speak in complete sentences GI: Inspection: non-distended GI Palp: No abdominal tenderness Extrem: Other: Exam of the right lower extremity shows normal alignment. Hip incisions are dry. Minimal swelling the thigh with no real bruising. Calves negative. Grossly neurovascular status right lower extremity intact. Exam of extremities otherwise nonfocal. Psych: Mental Status: mental status grossly normal ( Seems fatigued though) Objective Data Vital Signs Vital Signs: Vital Signs - 24 hr 06/22/22 12:45 06/22/22 15:10 06/22/22 18:08 Temperature 97.5 F L Pulse Rate 75 72 Respiratory Rate 18 18 16 Blood Pressure 165/70 H Pulse Oximetry 100 93 Oxygen Delivery Room Air 06/22/22 21:15 06/22/22 21:40 06/22/22 21:15 Temperature 97.8 F Pulse Rate 75 72 Respiratory Rate 16 20 Blood Pressure 133/51 L Pulse Oximetry 94 Oxygen Delivery Room Air 06/23/22 02:43 06/23/22 06:00 06/23/22 08:24 Temperature 97.6 F 97.8 F Pulse Rate 74 70 76 Respiratory Rate 16 16 14 Blood Pressure 167/64 H 168/68 H Pulse Oximetry 95 95 Oxygen Delivery 06/23/22 08:33 06/23/22 09:35 06/23/22 09:50 Temperature 98.4 F Pulse Rate 74 84 Respiratory Rate 14 18 Blood Pressure 160/72 H Pulse Oximetry 95 Oxygen Delivery Room Air Intake/Output Intake/Output: Intake & Output 06/20/22 06/21/22 06/22/22 06/23/22 23:59 23:59 23:59 23:59 Intake Total 1565 / 1565 2150 / 2150 3050 / 3050 50 / 50 Output Total 2300 / 2300 830 / 480.0 1150 / 1150 375 / 375 Balance -735 / -735 1320 / 1670.0 1900 / 1900 -325 / -325 Meds/Results Medications: Active Medications Generic Name Dose Route Start Last Admin Trade Name Freq PRN Reason Stop Dose Admin Acetaminophen 650 mg 06/13/22 13:21 06/19/22 23:24 Acetaminophen 325 Mg Tablet PO 650 mg Q4H PRN Administration Headache Hydrocodone Bitart/Acetaminophen 1 tab 06/21/22 15:59 06/23/22 09:38 Hydrocodone/Acetaminophen (*Crx) 5-325 Mg Tablet PO 06/23/22 15:58 1 tab Q3H PRN Administration Pain Rated 4-6 Albuterol 2.5 mg 06/22/22 12:00 06/23/22 12:03 Albuterol Sulfate Neb 2.5 Mg/3 Ml Inh INHALATION Not Given [id number] PRETTY Amlodipine Besylate 5 mg 06/15/22 10:40 06/23/22 09:38 Amlodipine Besylate 5 Mg Tablet PO 5 mg QAM PRETTY Administration Apixaban 2.5 mg 06/22/22 09:00 06/23/22 09:38 Apixaban 2.5 Mg Tablet PO 2.5 mg Q12HR PRETTY Administration Famotidine 20 mg 06/21/22 21:00 06/23/22 09:38 Famotidine 20 Mg Tablet PO 20 mg Q12HR PRETTY Administration Folic Acid 1 mg 06/12/22 09:00 06/23/22 09:38 Folic Acid 1 Mg Tablet PO 1 mg DAILY PRETTY Administration Hydralazine HCl 10 mg 06/13/22 13:10 06/21/22 18:31 Hydralazine Hcl 20 Mg/Ml Vial
[2022-06-23] MEDS: POTASSIUM CHLORIDE 20 MEQ TABLET 40 MEQ PO (13:13)
[2022-06-23] MEDS: POTASSIUM CHLORIDE INJ 40 MEQ in SODIUM CHLORIDE 0.9% IV 500 ML 130 MEQ IVPB (13:13)
[2022-06-23] MEDS: MORPHINE SULFATE (*CRX) 2 MG/ML INJ IV PUSH (13:46)
[2022-06-23 17:16] LABS: Glucose Point of Care 106 mg/dl (65-105)
[2022-06-23] MEDS: oxyCODONE/ACETAMINOPHEN (*CRX) 10-325 MG TABLET 1 TAB PO (17:43)
[2022-06-24] VITALS (12 sets, daily range): BP systolic 132–161; BP diastolic 62–73; PULSE 76–105; RESP 16–20; TEMP 36.5–37.6; O2SAT 95–98
[2022-06-24] MEDS: oxyCODONE/ACETAMINOPHEN (*CRX) 10-325 MG TABLET 1 TAB PO ×2 (00:17→05:10)
[2022-06-24 00:33] LABS: Glucose Point of Care 92 mg/dl (65-105)
[2022-06-24] MEDS: CENTRAL LINE FLUSH 20 ML IV PUSH (05:19)
[2022-06-24] MEDS: CENTRAL LINE FLUSH 10 ML IV PUSH ×3 (05:19→20:09)
[2022-06-24 05:42] LABS: Glucose Point of Care 86 mg/dl (65-105)
[2022-06-24 05:43] LABS: Basophils Absolute Auto 0.1 K/mm3 (0.0-0.1); Basophils Percent Auto 0.6 % (0.2-1.2); Eosinophils Absolute Auto 0.4 K/mm3 (0-0.3); Eosinophils Percent Auto 4.7 % (0-4.4); Hematocrit 38.2 % (37.0-47.0); Hemoglobin 12.7 g/dL (12.0-15.0); Immature Granulocyte Absolute 0.09 K/mm3 (0.00-0.031); Lymphocytes Absolute Auto 0.84 K/mm3 (0.9-3.2); Lymphocytes Percent Auto 9.5 % (18.3-44.2); Mean Corpuscular HGB Conc 33.2 g/dl (32-36); Mean Corpuscular Hemoglobin 32.3 pg (26-34); Mean Corpuscular Volume 97.2 fl (80-100); Mean Platelet Volume 9.5 fl (7.4-10.4); Monocytes Absolute Auto 0.8 K/mm3 (0.1-0.6); Monocytes Percent Auto 8.5 % (2.6-8.5); Neutrophils Absolute Auto 6.7 K/mm3 (1.3-6.7); Neutrophils Percent Auto 75.7 % (45.5-73.1); Platelet Count Result 409 k/mm3 (150-375); Red Blood Count 3.93 M/mm3 (4.2-5.4); Red Cell Distribution Width 15.4 % (11.5-14.5); White Blood Count 8.8 K/mm3 (4.5-10.0)
[2022-06-24 05:56] LABS: Alanine Aminotransferase 21 U/L (6-35); Albumin Level 2.5 g/dL (3.5-5.1); Alkaline Phosphatase 109 U/L (38-126); Anion Gap 7 mmol/L (8-16); Aspartate Amino Transferase 20 U/L (14-36); Bilirubin,Total 0.6 mg/dL (0.2-1.3); Blood Urea Nitrogen 7 mg/dL (7-17); Calcium 8.4 mg/dL (8.4-10.2); Carbon Dioxide 26 mmol/L (22-30); Chloride 101 mmol/L (98-107); Estimated CRCL calculation 82 ml/min; Estimated Glomerular Filt Rate > 60; Glucose 91 mg/dL (65-110); Potassium 3.6 mmol/L (3.4-5.0); Sodium 134 mmol/L (137-145)
[2022-06-24 08:52] LABS: Glucose Point of Care 92 mg/dl (65-105)
[2022-06-24] MEDS: IPRATROPIUM BR 0.02% INH SOLN 0.5 MG/2.5 ML VIAL INHALATION ×4 (09:20→20:41)
[2022-06-24] MEDS: ALBUTEROL SULFATE NEB 2.5 MG/3 ML INH INHALATION ×4 (09:20→20:41)
[2022-06-24] MEDS: polyethylene glycoL 3350 17 GM POWD.PACK PO (09:52)
[2022-06-24] MEDS: THIAMINE HCL 100 MG TABLET PO (09:54)
[2022-06-24] MEDS: PANTOPRAZOLE 40 MG TABLET PO (09:54)
[2022-06-24] MEDS: SENNA/DOCUSATE SODIUM TABLET 2 TAB PO (09:54)
[2022-06-24] MEDS: FOLIC ACID 1 MG TABLET PO (09:55)
[2022-06-24] MEDS: APIXABAN 2.5 MG TABLET PO ×2 (09:55→20:09)
[2022-06-24] MEDS: amLODIPine BESYLATE 5 MG TABLET PO (09:55)
[2022-06-24] MEDS: FAMOTIDINE 20 MG TABLET PO ×2 (09:55→20:10)
[2022-06-24] MEDS: LIDOCAINE 5% PATCH 1 PATCH TRANSDERM (09:56)
--- NOTE | 2022-06-24 10:32 | PM.PNORT ---
Progress Note: A&P Assessment and Plan (1) Closed intertrochanteric fracture of right femur: Code(s): S72.141A - Displaced intertrochanteric fracture of right femur, initial encounter for closed fracture Status: Acute Plan Post op day 3. Struggling with therapy today. This will be a long road to recovery for her. Continue to mobilize. Toe touch weight-bearing minimum of eight weeks on the RLE. Will need to have ale out in 2 weeks. Follow up in the office with in eight weeks with new xray. Daily 325 mg aspirin for 8 weeks upon discharge. Subjective Subjective Date/Time Seen: 06/24/22 10:32 Post Op day: 3 Principal diagnosis: postop day 3 ORIF right IT hip fracture Interval history: 66-year-old female who is postop day 3 ORIF right IT hip fracture. She is complaining of pain in the right hip on exam today but had just finished with therapy. She struggled to participate with them this morning and appears fatigued. Review of Systems Review of Systems: All systems reviewed & are unremarkable except as noted in HPI and below Exam Const: General: cooperative, alert and awake HENMT: Head: normal to inspection Ears: hearing grossly normal bilaterally Resp: Effort & Inspection: able to speak in complete sentences GI: Inspection: non-distended GI Palp: No abdominal tenderness Extrem: Other: Exam of the right lower extremity shows normal alignment. Dressing is clean and dry. Mild swelling to the thigh, no bruising. Calves negative. Neurovascular status right lower extremity intact. Psych: Mental Status: mental status grossly normal ( Seems fatigued though) Objective Data Vital Signs Vital Signs: Vital Signs - 24 hr 06/23/22 13:45 06/23/22 14:53 06/23/22 18:20 Temperature 97.5 F L 98.5 F Pulse Rate 87 82 85 Respiratory Rate 18 14 18 Blood Pressure 146/71 H 136/63 Pulse Oximetry 97 95 Oxygen Delivery 06/23/22 20:21 06/23/22 20:33 06/23/22 21:24 Temperature 97.7 F Pulse Rate 73 77 77 Respiratory Rate 16 16 16 Blood Pressure 148/64 H Pulse Oximetry 91 Oxygen Delivery 06/23/22 20:00 06/24/22 00:43 06/24/22 05:16 Temperature 97.7 F 98.2 F Pulse Rate 88 88 Respiratory Rate 18 16 Blood Pressure 155/72 H 161/73 H Pulse Oximetry 95 98 Oxygen Delivery Room Air 06/24/22 09:20 06/24/22 09:31 Temperature Pulse Rate 78 76 Respiratory Rate 16 16 Blood Pressure Pulse Oximetry Oxygen Delivery Intake/Output Intake/Output: Intake & Output 06/21/22 06/22/22 06/23/22 06/24/22 23:59 23:59 23:59 23:59 Intake Total 2150 3050 850 100 Output Total 830 1150 1325 400 Balance 1320 1900 -475 -300 Meds/Results Medications: Active Medications Generic Name Dose Route Start Last Admin Trade Name Freq PRN Reason Stop Dose Admin Acetaminophen 650 mg 06/13/22 13:21 06/19/22 23:24 Acetaminophen 325 Mg Tablet PO 650 mg Q4H PRN Administration Headache Albuterol 2.5 mg 06/22/22 12:00 06/24/22 09:20 Albuterol Sulfate Neb 2.5 Mg/3 Ml Inh INHALATION 2.5 mg [id number] PRETTY Administration Amlodipine Besylate 5 mg 06/15/22 10:40 06/24/22 09:55 Amlodipine Besylate 5 Mg Tablet PO 5 mg QAM PRETTY Administration Apixaban 2.5 mg 06/22/22 09:00 06/24/22 09:55 Apixaban 2.5 Mg Tablet PO 2.5 mg Q12HR PRETTY Administration Famotidine 20 mg 06/21/22 21:00 06/24/22 09:55 Famotidine 20 Mg Tablet PO 20 mg Q12HR PRETTY Administration Folic Acid 1 mg 06/12/22 09:00 06/24/22 09:55 Folic Acid 1 Mg Tablet PO 1 mg DAILY PRETTY Administration Hydralazine HCl 10 mg 06/13/22 13:10 06/21/22 18:31 Hydralazine Hcl 20 Mg/Ml Vial IV PUSH 10 mg Q8H PRN Administration Systolic BP >170 Ceftriaxone Sodium/Dextrose 1 gm in 50 mls @ 100 mls/hr 06/15/22 10:00 06/23/22 10:09 Rocephin 1 Gm/D5w 50 Ml IVPB 06/24/22 11:00 Infused Q24H PRETTY Infusion Ipratropium [place] 0.5 mg 06/22/22 12:00 06/24/22 09:20 I
[2022-06-24 11:58] LABS: Glucose Point of Care 104 mg/dl (65-105)
--- NOTE | 2022-06-24 12:35 | PCPTNOTE ---
Attempted to see patient for PT, however patient refused due to hip pain 07/18. Assisted pt to better position in bed and RN aware.
[2022-06-24] MEDS: HYDROmorphone HCL INJ (*CRX) 1 MG/ML SYR 0.5 MG IV PUSH ×2 (13:26→17:15)
--- NOTE | 2022-06-24 15:00 | PM.IMPN ---
Progress Note: A&P Assessment and Plan (1) Closed intertrochanteric fracture of right femur: Code(s): S72.141A - Displaced intertrochanteric fracture of right femur, initial encounter for closed fracture Status: Acute Assessment and Plan: OR 06/21/22, POD#3 from ORIF R. hip Pain remains uncontrolled on percocet, will switch to dilaudid (2) Chest pain: Code(s): R07.9 - Chest pain, unspecified Status: Acute Assessment and Plan: Echocardiogram from 06/14/22 showed EF 65-70% moderate pulmonary hypertension grade 1 diastolic dysfunction, chest pain resolved, likely 2/2 GERD, cardiology consult reviewed, no further workup needed (3) Alcohol withdrawal: Code(s): F10.939 - Alcohol use, unspecified with withdrawal, unspecified Status: Acute Assessment and Plan: Appears resolved, monitor (4) Hypoxia: Code(s): R09.02 - Hypoxemia Status: Acute Assessment and Plan: Pt hypoxic overnight in the upper 80s, required supplemental O2, CT chest showed complete collapse of left lung and small pleural effusion on the left, repeat chest x-ray showed diffuse left lung disease with volume loss with interval improvement in aeration likely a combination of atelectasis and pneumonia, thought to have left lower lobe pneumonia, treated for community-acquired pneumonia. Repeat chest x-ray with improving left lower lobe collapse/atelectasis as pneumonia. 06/18: Near complete atelectasis on left lower lobe, add EzPAP/past nebulizer treatment already on pulmozyme, pulmonary following for this if need bronchoscopy. 06/19: Improvement In left lower lobe atelectasis today. 06/20: Worsening left lower lobe atelectasis. Worsening due to worsening pleural effusion. Aspiration last night. speech therapy to see. 06/21: Chest x-ray reviewed has bilateral pleural effusion but improved from yesterday. Okay for planned surgery from medical standpoint. Discussed with pulm 06/20. 06/22: completed 5 day course of azithromycin, cont rocephin, day 8 today, will likely d/c at day 10 d/t complicated course, defer to pulm for recs 06/23: Day 9/10 of rocephin, anticipate d/c abx tomorrow and possibly d/c patient to rehab tomorrow as well 06/24: Day / of rocephin, d/c abx today (5) Hyponatremia: Code(s): E87.1 - Hypo-osmolality and hyponatremia Status: Acute Assessment and Plan: likely multifactorial secondary to chronic alcohol use, excess free water intake, SSRI Sodium 124 on presentation. urine sodium 18. Initially improved with IV fluids but on 06/13 began to decline again Implemented free water restriction of 1500 cc/day. Sodium improving now, up to 126 SSRI on hold 06/22: sodium essentially resolved at 134, fluid restriction d/c, monitor 06/23: 136 today, d/c IVF, encourage po fluids 06/24: 134 today, stable (6) Leukocytosis: Code(s): D72.829 - Elevated white blood cell count, unspecified Status: Acute Assessment and Plan: resolved (7) Polycythemia: Code(s): D75.1 - Secondary polycythemia Status: Acute Assessment and Plan: Hemoglobin and hematocrit elevated on presentation, hgb 16/hct 47.9 appears to be persistent issue from prior labs in August 2021 suspect this is a chronic issue, likely due to chronic smoking, worsened due to dehydration monitor H&H during admission 06/22: stable at 12.8/37.9 06/23: resolved (8) Anxiety: Code(s): F41.9 - Anxiety disorder, unspecified Status: Chronic Assessment and Plan: No acute issues at this SSRI on hold due to hyponatremia 06/22: will restart SSRI soon, low sodium almost resolved 06/23: sodium improving, start SSRI tomorrow at d/c 06/24: restart SSRI tomorrow, still in pain and somnolent today (9) Elevated blood pressure reading: Code(s): R03.0 - Elevated blood-pressure reading, without diagnosis of hypertension Status: Acute Assessment and Plan
[2022-06-24 17:42] LABS: Glucose Point of Care 94 mg/dl (65-105)
[2022-06-24] MEDS: HYDROcodone/acetaminophen (*CRX) 7.5-325 MG TABLET 1 TAB PO (20:09)
[2022-06-25] VITALS (12 sets, daily range): BP systolic 117–148; BP diastolic 54–63; PULSE 81–99; RESP 16–20; TEMP 36.4–37.9; O2SAT 90–97; BMI 10.0
[2022-06-25] MEDS: HYDROmorphone HCL INJ (*CRX) 1 MG/ML SYR 0.5 MG IV PUSH ×2 (00:42→22:23)
[2022-06-25 00:58] LABS: Glucose Point of Care 92 mg/dl (65-105)
[2022-06-25] MEDS: CENTRAL LINE FLUSH 10 ML IV PUSH ×3 (05:33→20:29)
[2022-06-25] MEDS: CENTRAL LINE FLUSH 20 ML IV PUSH (05:33)
[2022-06-25] MEDS: HYDROcodone/acetaminophen (*CRX) 7.5-325 MG TABLET 1 TAB PO (05:35)
[2022-06-25 05:56] LABS: Glucose Point of Care 94 mg/dl (65-105)
[2022-06-25 06:00] LABS: Basophils Absolute Auto 0.1 K/mm3 (0.0-0.1); Basophils Percent Auto 0.4 % (0.2-1.2); Eosinophils Absolute Auto 0.3 K/mm3 (0-0.3); Eosinophils Percent Auto 1.4 % (0-4.4); Hematocrit 40.1 % (37.0-47.0); Hemoglobin 13.4 g/dL (12.0-15.0); Immature Granulocyte Absolute 0.24 K/mm3 (0.00-0.031); Immature Granulocyte Percent A 1.1 % (0-0.5); Lymphocytes Percent Auto 3.8 % (18.3-44.2); Mean Corpuscular HGB Conc 33.4 g/dl (32-36); Mean Corpuscular Hemoglobin 32.5 pg (26-34); Mean Corpuscular Volume 97.3 fl (80-100); Mean Platelet Volume 9.6 fl (7.4-10.4); Monocytes Absolute Auto 0.7 K/mm3 (0.1-0.6); Monocytes Percent Auto 3.5 % (2.6-8.5); Neutrophils Absolute Auto 18.8 K/mm3 (1.3-6.7); Neutrophils Percent Auto 89.8 % (45.5-73.1); Platelet Count Result 488 k/mm3 (150-375); Red Blood Count 4.12 M/mm3 (4.2-5.4); Red Cell Distribution Width 15.7 % (11.5-14.5)
[2022-06-25 06:11] LABS: Alanine Aminotransferase 21 U/L (6-35); Albumin Level 2.4 g/dL (3.5-5.1); Alkaline Phosphatase 158 U/L (38-126); Anion Gap 5 mmol/L (8-16); Aspartate Amino Transferase 20 U/L (14-36); Bilirubin,Total 0.7 mg/dL (0.2-1.3); Blood Urea Nitrogen 11 mg/dL (7-17); Calcium 8.6 mg/dL (8.4-10.2); Carbon Dioxide 23 mmol/L (22-30); Chloride 103 mmol/L (98-107); Estimated CRCL calculation 70 ml/min; Estimated Glomerular Filt Rate > 60; Glucose 93 mg/dL (65-110); Potassium 3.5 mmol/L (3.4-5.0); Sodium 131 mmol/L (137-145)
[2022-06-25] MEDS: IPRATROPIUM BR 0.02% INH SOLN 0.5 MG/2.5 ML VIAL INHALATION ×3 (07:47→20:02)
[2022-06-25] MEDS: ALBUTEROL SULFATE NEB 2.5 MG/3 ML INH INHALATION ×4 (07:47→20:02)
--- NOTE | 2022-06-25 09:20 | PM.IMPN ---
Progress Note: A&P Assessment and Plan (1) Postoperative infection: Code(s): T81.40XA - Infection following a procedure, unspecified, initial encounter Status: Acute Assessment and Plan: WBC elevated to 21 after d/c abx yesterday after 10 day course completed Fever of 100.2 Check CXR, UA, blood + urine cultures IS to bedside D/c macario Start broad spectrum antibiotics with vancomycin and cefepime Update: Chest x-ray showed small pleural effusions with some opacities at the bases, suggestive of atelectasis with underlying emphysema noted. Will continue antibiotics for now, suspect low-grade fever secondary to atelectasis and will encourage incentive spirometer as well as ambulation. Pulse ox is stable on room air for now. Urinalysis was positive for nitrates and bacteria as well as leuk esterase, concerning for UTI. Macario pulled today. (2) Closed intertrochanteric fracture of right femur: Code(s): S72.141A - Displaced intertrochanteric fracture of right femur, initial encounter for closed fracture Status: Acute Assessment and Plan: OR 06/21/22, POD#3 from ORIF R. hip Pain remains uncontrolled on dilaudid, will schedule tylenol 500 mg q8h + norco 5 mg Q4h and have tramadol and dilaudid available for breakthrough pain, emphasized importance of treating pain aggressively so patient can participate with therapy D/c macario today (3) Chest pain: Code(s): R07.9 - Chest pain, unspecified Status: Acute Assessment and Plan: Echocardiogram from 06/14/22 showed EF 65-70% moderate pulmonary hypertension grade 1 diastolic dysfunction, chest pain resolved, likely 2/2 GERD, cardiology consult reviewed, no further workup needed (4) Alcohol withdrawal: Code(s): F10.939 - Alcohol use, unspecified with withdrawal, unspecified Status: Acute Assessment and Plan: Appears resolved, monitor (5) Hypoxia: Code(s): R09.02 - Hypoxemia Status: Acute Assessment and Plan: Pt hypoxic overnight in the upper 80s, required supplemental O2, CT chest showed complete collapse of left lung and small pleural effusion on the left, repeat chest x-ray showed diffuse left lung disease with volume loss with interval improvement in aeration likely a combination of atelectasis and pneumonia, thought to have left lower lobe pneumonia, treated for community-acquired pneumonia. Repeat chest x-ray with improving left lower lobe collapse/atelectasis as pneumonia. 06/18: Near complete atelectasis on left lower lobe, add EzPAP/past nebulizer treatment already on pulmozyme, pulmonary following for this if need bronchoscopy. 06/19: Improvement In left lower lobe atelectasis today. 06/20: Worsening left lower lobe atelectasis. Worsening due to worsening pleural effusion. Aspiration last night. speech therapy to see. 06/21: Chest x-ray reviewed has bilateral pleural effusion but improved from yesterday. Okay for planned surgery from medical standpoint. Discussed with pulm 06/20. 06/22: completed 5 day course of azithromycin, cont rocephin, day 8 today, will likely d/c at day 10 d/t complicated course, defer to pulm for recs 06/23: Day / of rocephin, anticipate d/c abx tomorrow and possibly d/c patient to rehab tomorrow as well 06/24: Day 10/10 of rocephin, d/c abx today (6) Hyponatremia: Code(s): E87.1 - Hypo-osmolality and hyponatremia Status: Acute Assessment and Plan: likely multifactorial secondary to chronic alcohol use, excess free water intake, SSRI Sodium 124 on presentation. urine sodium 18. Initially improved with IV fluids but on 06/13 began to decline again Implemented free water restriction of 1500 cc/day. Sodium improving now, up to 126 SSRI on hold 06/22: sodium essentially resolved at 134, fluid restriction d/c, monitor 06/23: 136 today, d/c IVF, encourage po fluids 06/24: 134 today, stable (7) Leukocytosis: Code(s): D72.829 - Elevated white blood cell count,
[2022-06-25] MEDS: PANTOPRAZOLE 40 MG TABLET PO (10:22)
[2022-06-25] MEDS: FAMOTIDINE 20 MG TABLET PO ×2 (10:22→20:25)
[2022-06-25] MEDS: SENNA/DOCUSATE SODIUM TABLET 2 TAB PO ×2 (10:22→17:30)
[2022-06-25] MEDS: HYDROcodone/acetaminophen (*CRX) 5-325 MG TABLET 1 TAB PO ×4 (10:22→20:31)
[2022-06-25] MEDS: predniSONE 20 MG TABLET 40 MG PO (10:22)
[2022-06-25] MEDS: THIAMINE HCL 100 MG TABLET PO (10:22)
[2022-06-25] MEDS: FOLIC ACID 1 MG TABLET PO (10:23)
[2022-06-25] MEDS: amLODIPine BESYLATE 5 MG TABLET PO (10:23)
[2022-06-25] MEDS: APIXABAN 2.5 MG TABLET PO ×2 (10:23→20:24)
[2022-06-25] MEDS: ACETAMINOPHEN 500 MG TABLET PO ×2 (10:24→17:30)
[2022-06-25] MEDS: LIDOCAINE 5% PATCH 1 PATCH TRANSDERM (10:24)
[2022-06-25 12:12] LABS: Glucose Point of Care 116 mg/dl (65-105)
--- NOTE | 2022-06-25 12:36 | PCSTNOTE ---
Patient lethargic and unable to stay awake. Unable to participate in speech therapy for swallowing at this time. Will be remain scheduled to be seen for speech therapy at next opportunity.
[2022-06-25 18:29] LABS: Glucose Point of Care 168 mg/dl (65-105)
[2022-06-26] VITALS (18 sets, daily range): BP systolic 84–144; BP diastolic 48–68; PULSE 81–116; RESP 16–22; TEMP 36.2–37.1; O2SAT 90–99
[2022-06-26] MEDS: HYDROcodone/acetaminophen (*CRX) 5-325 MG TABLET 1 TAB PO ×3 (00:22→09:52)
[2022-06-26] MEDS: ACETAMINOPHEN 500 MG TABLET PO ×3 (00:22→17:45)
[2022-06-26 01:18] LABS: Glucose Point of Care 149 mg/dl (65-105)
[2022-06-26] MEDS: CENTRAL LINE FLUSH 20 ML IV PUSH (05:08)
[2022-06-26] MEDS: CENTRAL LINE FLUSH 10 ML IV PUSH ×3 (05:08→23:11)
[2022-06-26 05:22] LABS: Basophils Absolute Auto 0.1 K/mm3 (0.0-0.1); Basophils Percent Auto 0.4 % (0.2-1.2); Eosinophils Absolute Auto 0.7 K/mm3 (0-0.3); Eosinophils Percent Auto 2.3 % (0-4.4); Hematocrit 39.7 % (37.0-47.0); Hemoglobin 13.5 g/dL (12.0-15.0); Immature Granulocyte Absolute 0.34 K/mm3 (0.00-0.031); Immature Granulocyte Percent A 1.1 % (0-0.5); Lymphocytes Absolute Auto 0.79 K/mm3 (0.9-3.2); Lymphocytes Percent Auto 2.6 % (18.3-44.2); Mean Corpuscular Hemoglobin 32.5 pg (26-34); Mean Corpuscular Volume 95.4 fl (80-100); Mean Platelet Volume 9.5 fl (7.4-10.4); Monocytes Absolute Auto 0.7 K/mm3 (0.1-0.6); Monocytes Percent Auto 2.4 % (2.6-8.5); Neutrophils Absolute Auto 27.3 K/mm3 (1.3-6.7); Neutrophils Percent Auto 91.2 % (45.5-73.1); Platelet Count Result 584 k/mm3 (150-375); Red Blood Count 4.16 M/mm3 (4.2-5.4); Red Cell Distribution Width 15.3 % (11.5-14.5)
[2022-06-26 05:33] LABS: Alanine Aminotransferase 22 U/L (6-35); Albumin Level 2.4 g/dL (3.5-5.1); Alkaline Phosphatase 142 U/L (38-126); Anion Gap 8 mmol/L (8-16); Aspartate Amino Transferase 30 U/L (14-36); Bilirubin,Total 0.8 mg/dL (0.2-1.3); Blood Urea Nitrogen 15 mg/dL (7-17); Calcium 8.9 mg/dL (8.4-10.2); Carbon Dioxide 22 mmol/L (22-30); Chloride 102 mmol/L (98-107); Estimated CRCL calculation 70 ml/min; Estimated Glomerular Filt Rate > 60; Glucose 97 mg/dL (65-110); Potassium 3.7 mmol/L (3.4-5.0); Sodium 132 mmol/L (137-145)
[2022-06-26 05:51] LABS: Platelet Estimate Increased (Adequate)
[2022-06-26] MEDS: IPRATROPIUM BR 0.02% INH SOLN 0.5 MG/2.5 ML VIAL INHALATION ×4 (08:07→20:43)
[2022-06-26] MEDS: ALBUTEROL SULFATE NEB 2.5 MG/3 ML INH INHALATION ×4 (08:08→20:43)
[2022-06-26] MEDS: FAMOTIDINE 20 MG TABLET PO ×2 (09:41→20:47)
[2022-06-26] MEDS: APIXABAN 2.5 MG TABLET PO ×2 (09:42→20:46)
[2022-06-26] MEDS: SENNA/DOCUSATE SODIUM TABLET 2 TAB PO ×2 (09:42→17:45)
[2022-06-26] MEDS: amLODIPine BESYLATE 5 MG TABLET PO (09:42)
[2022-06-26] MEDS: ERTAPENEM 1 GM/NS 50 ML 1 GM/50 ML BAG IVPB (09:42)
[2022-06-26] MEDS: PANTOPRAZOLE 40 MG TABLET PO (09:42)
[2022-06-26] MEDS: THIAMINE HCL 100 MG TABLET PO (09:42)
[2022-06-26] MEDS: FOLIC ACID 1 MG TABLET PO (09:42)
[2022-06-26] MEDS: polyethylene glycoL 3350 17 GM POWD.PACK PO (09:43)
--- NOTE | 2022-06-26 10:16 | PCOTNOTE ---
Attempted to see pt for occupational therapy tx this AM. Pt appears to be more lethargic and unable to stay awake in comparison to yesterday. Therapist attempted to have pt complete grooming tasks seated in recliner however, pt was unable to initiate task requiring total assist even with hand over hand assistance. Pt was cued both verbally and with sternal rubbing but will only briefly open eyes and then close them. Due to pt not able to participate in therapeutic tasks for her benefit for increase independence, session was not able to be completed RN is aware of pt's status. Will continue per poc duration/frequency tomorrow.
--- NOTE | 2022-06-26 10:42 | PM.PNORT ---
Progress Note: A&P Assessment and Plan (1) Closed intertrochanteric fracture of right femur: Code(s): S72.141A - Displaced intertrochanteric fracture of right femur, initial encounter for closed fracture Status: Acute Plan 66-year-old female postop day 5 ORIF right IT hip fracture. Clinical course has declined. Question was raised as to whether not there is a surgical site infection given the increased agitation yesterday and increasing white count. Clinically does not look to be that at all. There is a little bit of bright yellow serous drainage consistent with fatty necrosis at the proximal most incision. Chest x-ray reordered. I will get in touch with hospitalists service as well regarding this. Following. Subjective Subjective Date/Time Seen: 06/26/22 10:42 Post Op day: 5 Principal diagnosis: Dx: S/p ORIF right IT hip fracture Interval history: 66-year-old female five days out from ORIF right IT hip fracture. Clinical course has worsened. There was concern for surgical site infection because of some drainage a possible source. Reviewing the record there has not been chest x-ray done today but there was one yes that showed bilateral pleural effusions. Antibiotic has been changed. Is sitting up in the chair but is somnolent. Exam Const: General: No cooperative (N/A --not uncooperative either.), alert or awake Orientation/consciousness: No patient oriented x3 HENMT: Head: normal to inspection GI: Inspection: non-distended Skin: General skin exam: rashes and/or lesions noted (Has got red rash over entire body.) Neuro: General: No patient oriented x3 Extrem: Other: Exam of right hip shows well-approximated incisions. The distal two incisions are dry. Proximal incision has got scant serous drainage on it but the skin edges look well apposed. This looks like it is coming through the staple holes. No additional surrounding erythema other than what is noted with the overall skin rash along the right thigh. Calves negative. Psych: Mental Status: mental status grossly abnormal (Somnolent) Objective Data Vital Signs Vital Signs: Vital Signs - 24 hr 06/25/22 11:53 06/25/22 12:03 06/25/22 14:30 Temperature 98.3 F Pulse Rate 90 94 81 Respiratory Rate 16 16 16 Blood Pressure 137/63 Pulse Oximetry 97 06/25/22 15:48 06/25/22 15:57 06/25/22 19:54 Temperature 97.6 F Pulse Rate 88 90 86 Respiratory Rate 16 16 20 Blood Pressure 117/61 Pulse Oximetry 90 06/25/22 19:58 06/25/22 20:05 06/26/22 05:52 Temperature 97.6 F Pulse Rate 81 89 107 H Respiratory Rate 16 16 22 H Blood Pressure 144/64 H Pulse Oximetry 98 06/26/22 08:07 06/26/22 08:15 Temperature Pulse Rate 116 H 112 H Respiratory Rate 18 16 Blood Pressure Pulse Oximetry Intake/Output Intake/Output: Intake & Output 06/23/22 06/24/22 06/25/22 06/26/22 23:59 23:59 23:59 23:59 Intake Total 850 / 850 270 / 270 1120 / 1120 250 / 250 Output Total 1325 / 1325 700 / 700 350 / 350 Balance -475 / -475 -430 / -430 770 / 770 250 / 250 Meds/Results Medications: Active Medications Generic Name Dose Route Start Last Admin Trade Name Annabelle PRN Reason Stop Dose Admin Acetaminophen 500 mg 06/25/22 09:00 06/26/22 09:42 Acetaminophen 500 Mg Tablet PO 500 mg Q8H PRETTY Administration Hydrocodone Bitart/Acetaminophen 1 tab 06/25/22 09:00 06/26/22 09:52 Hydrocodone/Acetaminophen (*Crx) 5-325 Mg Tablet PO 1 tab Q4HR PRETTY Administration Albuterol 2.5 mg 06/22/22 12:00 06/26/22 08:08 Albuterol Sulfate Neb 2.5 Mg/3 Ml Inh INHALATION 2.5 mg [id number] PRETTY Administration Amlodipine Besylate 5 mg 06/15/22 10:40 06/26/22 09:42 Amlodipine Besylate 5 Mg Tablet PO 5 mg QAM PRETTY Administration Apixaban 2.5 mg 06/22/22 09:00 06/26/22 09:42 Apixaban 2.5 Mg Tablet PO 2.5 mg Q12HR PRETTY Administration Famotidine 20 mg 06/21/22 21:00 06/26/22 09:41 Famotidine 20 Mg
[2022-06-26 10:48] LABS: Lactic Acid Reflex 3.2 mmol/L (0.7-2.0)
[2022-06-26 11:15] LABS: Procalcitonin 0.3 ng/mL
--- NOTE | 2022-06-26 12:00 | PM.IMPN ---
Progress Note: A&P Assessment and Plan (1) Postoperative infection: Code(s): T81.40XA - Infection following a procedure, unspecified, initial encounter Status: Acute Assessment and Plan: 06/25: WBC elevated to 21 after d/c abx yesterday after 10 day course completed of Rocephin and 5 day course of azithromycin Fever of 100.2 Check CXR, UA, blood + urine cultures IS to bedside D/c macario Start broad spectrum antibiotics with vancomycin and cefepime Update: Chest x-ray showed small pleural effusions with some opacities at the bases, suggestive of atelectasis with underlying emphysema noted. Will continue antibiotics for now, suspect low-grade fever secondary to atelectasis and will encourage incentive spirometer as well as ambulation. Pulse ox is stable on room air for now. Urinalysis was positive for nitrates and bacteria as well as leuk esterase, concerning for UTI. Macario pulled today. 06/26: White blood cell count continues to go up, cefepime discontinued in favor of ertapenem, continue vancomycin. Urinalysis abnormal, concerning for UTI. Blood and urine cultures still pending. Surgical site infection appears unlikely. Chest x-ray relatively unchanged, however, there could be some incompletely treated pneumonia due to the lung collapse she experienced last week. Will attempt to deescalate antibiotics pending culture results, likely to Levaquin. MRSA swab pending (2) Closed intertrochanteric fracture of right femur: Code(s): S72.141A - Displaced intertrochanteric fracture of right femur, initial encounter for closed fracture Status: Acute Assessment and Plan: OR 06/21/22, POD#3 from ORIF R. hip Pain remains uncontrolled on dilaudid, will schedule tylenol 500 mg q8h + norco 5 mg Q4h and have tramadol and dilaudid available for breakthrough pain, emphasized importance of treating pain aggressively so patient can participate with therapy D/c macario 06/25 (3) Chest pain: Code(s): R07.9 - Chest pain, unspecified Status: Acute Assessment and Plan: Echocardiogram from 06/14/22 showed EF 65-70% moderate pulmonary hypertension grade 1 diastolic dysfunction, chest pain resolved, likely 2/2 GERD, cardiology consult reviewed, no further workup needed (4) Alcohol withdrawal: Code(s): F10.939 - Alcohol use, unspecified with withdrawal, unspecified Status: Acute Assessment and Plan: Appears resolved, monitor (5) Hypoxia: Code(s): R09.02 - Hypoxemia Status: Acute Assessment and Plan: Pt hypoxic overnight in the upper 80s, required supplemental O2, CT chest showed complete collapse of left lung and small pleural effusion on the left, repeat chest x-ray showed diffuse left lung disease with volume loss with interval improvement in aeration likely a combination of atelectasis and pneumonia, thought to have left lower lobe pneumonia, treated for community-acquired pneumonia. Repeat chest x-ray with improving left lower lobe collapse/atelectasis as pneumonia. 06/18: Near complete atelectasis on left lower lobe, add EzPAP/past nebulizer treatment already on pulmozyme, pulmonary following for this if need bronchoscopy. 06/19: Improvement in left lower lobe atelectasis today. 06/20: Worsening left lower lobe atelectasis. Worsening due to worsening pleural effusion. Aspiration last night. speech therapy to see. 06/21: Chest x-ray reviewed has bilateral pleural effusion but improved from yesterday. Okay for planned surgery from medical standpoint. Discussed with pulm 06/20. 06/22: completed 5 day course of azithromycin, cont rocephin, day 8 today, will likely d/c at day 10 d/t complicated course, defer to pulm for recs 06/23: Day 9/10 of rocephin, anticipate d/c abx tomorrow and possibly d/c patient to rehab tomorrow as well 06/24: Day 10/10 of rocephin, d/c abx today (6) Hyponatremia: Code(s): E87.1 - Hypo-osmolality and hyponatremia Status: Acute Assessment an
[2022-06-26 12:32] LABS: Glucose Point of Care 111 mg/dl (65-105)
[2022-06-26] MEDS: SODIUM CHLORIDE 0.9% IV 1,000 ML 999 ML IV CONT (13:31)
[2022-06-26 13:37] LABS: Reflex Lactic Acid Yes or No Add Lactic
[2022-06-26 14:30] LABS: Lactic Acid 1.1 mmol/L (0.7-2.0)
--- NOTE | 2022-06-26 15:22 | PC.NURSE ---
This patient, Nora Ty, was received from [ [id number]] on 06/26/22 at 1422. Patient/family oriented to unit policies and routines
--- NOTE | 2022-06-26 18:10 | PC.NURSE ---
Patient requested multiple times to be placed on bedpan for urination, without success. Bladder scan noted to have 267 ml of urine. Will continue to monitor closely.
[2022-06-26 18:15] LABS: Appearance Urine Slightly Cloudy (Clear); Bilirubin Urine 1+ (Negative); Glucose Urine UA Negative (Negative); Ketones Urine 1+ mg/dL (Negative); Leukocyte Esterase Ur 2+ LEU/UL (NEGATIVE); Nitrate Urine Negative (Negative); Protein Urine 1+ mg/dL (Negative); Urobilinogen Urine 0.2 mg/dL (<2.0); pH Urine 5.5 (5.0-9.0)
[2022-06-26 18:21] LABS: Bacteria Urine Trace /hpf; Mucus Urine Rare /lpf; RBC Urine 21-50 /hpf (0-2); Squamous Epithelial Cell Urine Many /hpf (Few); WBC Urine 31-50 /hpf (0-3)
[2022-06-26 18:24] LABS: Add Urine Microscopic? YES; Blood Urine Trace-Intact (Negative); Color Urine Dark Yellow (Yellow)
[2022-06-26 19:48] LABS: Glucose Point of Care 109 mg/dl (65-105)
[2022-06-27] VITALS (16 sets, daily range): BP systolic 109–141; BP diastolic 50–88; PULSE 84–98; RESP 16–20; TEMP 36.5–37.1; O2SAT 90–100; BMI 11.0
[2022-06-27] MEDS: CENTRAL LINE FLUSH 10 ML IV PUSH ×3 (06:01→20:42)
[2022-06-27 06:12] LABS: Basophils Absolute Auto 0.1 K/mm3 (0.0-0.1); Basophils Percent Auto 0.4 % (0.2-1.2); Eosinophils Absolute Auto 0.8 K/mm3 (0-0.3); Hematocrit 37.8 % (37.0-47.0); Hemoglobin 12.6 g/dL (12.0-15.0); Immature Granulocyte Absolute 0.19 K/mm3 (0.00-0.031); Lymphocytes Percent Auto 6.4 % (18.3-44.2); Mean Corpuscular HGB Conc 33.3 g/dl (32-36); Mean Corpuscular Hemoglobin 32.1 pg (26-34); Mean Corpuscular Volume 96.4 fl (80-100); Monocytes Absolute Auto 0.9 K/mm3 (0.1-0.6); Monocytes Percent Auto 4.9 % (2.6-8.5); Neutrophils Absolute Auto 15.5 K/mm3 (1.3-6.7); Neutrophils Percent Auto 83.3 % (45.5-73.1); Platelet Count Result 602 k/mm3 (150-375); Red Blood Count 3.92 M/mm3 (4.2-5.4); Red Cell Distribution Width 15.5 % (11.5-14.5); White Blood Count 18.6 K/mm3 (4.5-10.0)
[2022-06-27 06:22] LABS: Alanine Aminotransferase 21 U/L (6-35); Albumin Level 2.1 g/dL (3.5-5.1); Alkaline Phosphatase 121 U/L (38-126); Anion Gap 8 mmol/L (8-16); Aspartate Amino Transferase 18 U/L (14-36); Bilirubin,Total 0.8 mg/dL (0.2-1.3); Blood Urea Nitrogen 19 mg/dL (7-17); Calcium 8.2 mg/dL (8.4-10.2); Carbon Dioxide 21 mmol/L (22-30); Chloride 104 mmol/L (98-107); Estimated CRCL calculation 53 ml/min; Estimated Glomerular Filt Rate > 60; Glucose 91 mg/dL (65-110); Potassium 3.4 mmol/L (3.4-5.0); Sodium 133 mmol/L (137-145)
[2022-06-27] MEDS: ALBUTEROL SULFATE NEB 2.5 MG/3 ML INH INHALATION ×4 (09:27→21:11)
[2022-06-27] MEDS: IPRATROPIUM BR 0.02% INH SOLN 0.5 MG/2.5 ML VIAL INHALATION ×4 (09:27→21:11)
[2022-06-27] MEDS: ERTAPENEM 1 GM/NS 50 ML 1 GM/50 ML BAG IVPB (09:52)
[2022-06-27] MEDS: LIDOCAINE 5% PATCH 1 PATCH TRANSDERM ×2 (09:53)
[2022-06-27] MEDS: ACETAMINOPHEN 500 MG TABLET PO ×2 (09:54→17:26)
[2022-06-27] MEDS: PANTOPRAZOLE 40 MG TABLET PO (09:54)
[2022-06-27] MEDS: FOLIC ACID 1 MG TABLET PO (09:54)
[2022-06-27] MEDS: THIAMINE HCL 100 MG TABLET PO (09:54)
[2022-06-27] MEDS: SENNA/DOCUSATE SODIUM TABLET 2 TAB PO ×2 (09:54→17:25)
[2022-06-27] MEDS: FAMOTIDINE 20 MG TABLET PO (09:54)
[2022-06-27] MEDS: APIXABAN 2.5 MG TABLET PO ×2 (09:54→20:42)
[2022-06-27] MEDS: polyethylene glycoL 3350 17 GM POWD.PACK PO (09:55)
[2022-06-27 12:31] LABS: Glucose Point of Care 118 mg/dl (65-105)
--- NOTE | 2022-06-27 13:22 | PM.IMPN ---
Progress Note: A&P Assessment and Plan (1) UTI (urinary tract infection): Code(s): N39.0 - Urinary tract infection, site not specified Status: Acute Assessment and Plan: Cont ertapenem, f/u cultures, macario d/c (2) Postoperative infection: Code(s): T81.40XA - Infection following a procedure, unspecified, initial encounter Status: Acute Assessment and Plan: 06/25: WBC elevated to 21 after d/c abx yesterday after 10 day course completed of Rocephin and 5 day course of azithromycin Fever of 100.2 Check CXR, UA, blood + urine cultures IS to bedside D/c macario Start broad spectrum antibiotics with vancomycin and cefepime Update: Chest x-ray showed small pleural effusions with some opacities at the bases, suggestive of atelectasis with underlying emphysema noted. Will continue antibiotics for now, suspect low-grade fever secondary to atelectasis and will encourage incentive spirometer as well as ambulation. Pulse ox is stable on room air for now. Urinalysis was positive for nitrates and bacteria as well as leuk esterase, concerning for UTI. Macario pulled today. 06/26: White blood cell count continues to go up, cefepime discontinued in favor of ertapenem, continue vancomycin. Urinalysis abnormal, concerning for UTI. Blood and urine cultures still pending. Surgical site infection appears unlikely. Chest x-ray relatively unchanged, however, there could be some incompletely treated pneumonia due to the lung collapse she experienced last week. Will attempt to deescalate antibiotics pending culture results, likely to Levaquin. MRSA swab pending 06/27: WBC finally trending down to 18 from 30, likely 2/2 ertapenem, concern for UTI, less likely surgical site infection or pneumonia. F/u cultures. (3) Closed intertrochanteric fracture of right femur: Code(s): S72.141A - Displaced intertrochanteric fracture of right femur, initial encounter for closed fracture Status: Acute Assessment and Plan: OR 06/21/22, POD#3 from ORIF R. hip Pain remains uncontrolled on dilaudid, will schedule tylenol 500 mg q8h + norco 5 mg Q4h and have tramadol and dilaudid available for breakthrough pain, emphasized importance of treating pain aggressively so patient can participate with therapy D/c macario 06/25 (4) Chest pain: Code(s): R07.9 - Chest pain, unspecified Status: Acute Assessment and Plan: Echocardiogram from 06/14/22 showed EF 65-70% moderate pulmonary hypertension grade 1 diastolic dysfunction, chest pain resolved, likely 2/2 GERD, cardiology consult reviewed, no further workup needed (5) Alcohol withdrawal: Code(s): F10.939 - Alcohol use, unspecified with withdrawal, unspecified Status: Acute Assessment and Plan: Appears resolved, monitor (6) Hypoxia: Code(s): R09.02 - Hypoxemia Status: Acute Assessment and Plan: Pt hypoxic overnight in the upper 80s, required supplemental O2, CT chest showed complete collapse of left lung and small pleural effusion on the left, repeat chest x-ray showed diffuse left lung disease with volume loss with interval improvement in aeration likely a combination of atelectasis and pneumonia, thought to have left lower lobe pneumonia, treated for community-acquired pneumonia. Repeat chest x-ray with improving left lower lobe collapse/atelectasis as pneumonia. 06/18: Near complete atelectasis on left lower lobe, add EzPAP/past nebulizer treatment already on pulmozyme, pulmonary following for this if need bronchoscopy. 06/19: Improvement in left lower lobe atelectasis today. 06/20: Worsening left lower lobe atelectasis. Worsening due to worsening pleural effusion. Aspiration last night. speech therapy to see. 06/21: Chest x-ray reviewed has bilateral pleural effusion but improved from yesterday. Okay for planned surgery from medical standpoint. Discussed with pulm 06/20. 06/22: completed 5 day course of azithromycin, cont rocephin, day 8 tofranklyn
--- NOTE | 2022-06-27 15:28 | PM.PNORT ---
Progress Note: A&P Assessment and Plan (1) Closed intertrochanteric fracture of right femur: Code(s): S72.141A - Displaced intertrochanteric fracture of right femur, initial encounter for closed fracture Status: Acute Plan 66-year-old female postop day 6 ORIF right IT hip fracture. Scant serous drainage at the proximal incision site has remained the same, this is not appear to have any signs of infection. Surgical incision site remains well approximated. Continue to attempt to mobilize. Following. Subjective Subjective Date/Time Seen: 06/27/22 15:28 Principal diagnosis: Dx: S/p ORIF right IT hip fracture Interval history: 66-year-old female 6 days out from ORIF right IT hip fracture. White count has improved since yesterday. There was concern for surgical site infection, the incision does have some serous drainage but overall the site looks good. She is still struggling to progress much with therapy. Review of Systems Review of Systems: All systems reviewed & are unremarkable except as noted in HPI and below Exam Const: General: alert and awake Orientation/consciousness: No oriented to time (Had to reorient patient on time in year) and confusion HENMT: Head: normal to inspection GI: Inspection: non-distended Skin: General skin exam: rashes and/or lesions noted (Has got red rash over entire body.) Extrem: Other: Exam of right hip shows well-approximated incisions, distal incisions are dry. Proximal incision has got scant serous drainage. The rash on her body does cover the incision site, no focal erythema or swelling to the surgical site. Calves negative. Psych: Mental Status: mental status grossly abnormal (Somnolent) Objective Data Vital Signs Vital Signs: Vital Signs - 24 hr 06/26/22 15:48 06/26/22 15:57 06/26/22 16:00 Temperature Pulse Rate 88 86 90 Respiratory Rate 18 16 Blood Pressure Pulse Oximetry Oxygen Delivery 06/26/22 16:00 06/26/22 18:00 06/26/22 20:29 Temperature 98.0 F Pulse Rate 90 94 86 Respiratory Rate 16 18 Blood Pressure 116/52 L Pulse Oximetry 99 95 Oxygen Delivery Room Air 06/26/22 20:00 06/26/22 20:00 06/26/22 23:31 Temperature 98.8 F Pulse Rate 87 84 Respiratory Rate 20 Blood Pressure 122/68 Pulse Oximetry 95 90 Oxygen Delivery Room Air 06/26/22 20:43 06/26/22 22:00 06/27/22 00:00 Temperature Pulse Rate 81 96 91 Respiratory Rate 16 Blood Pressure Pulse Oximetry Oxygen Delivery 06/27/22 00:00 06/27/22 02:00 06/27/22 04:00 Temperature Pulse Rate 98 90 Respiratory Rate Blood Pressure Pulse Oximetry 90 Oxygen Delivery Room Air 06/27/22 04:00 06/27/22 06:00 06/27/22 09:27 Temperature Pulse Rate 96 87 Respiratory Rate 16 Blood Pressure Pulse Oximetry 95 Oxygen Delivery Room Air 06/27/22 09:35 06/27/22 08:00 06/27/22 12:13 Temperature 98.7 F Pulse Rate 85 93 87 Respiratory Rate 16 18 16 Blood Pressure 109/58 L Pulse Oximetry 100 Oxygen Delivery 06/27/22 12:27 06/27/22 08:00 Temperature Pulse Rate 85 Respiratory Rate 16 Blood Pressure Pulse Oximetry Oxygen Delivery Room Air Intake/Output Intake/Output: Intake & Output 06/24/22 06/25/22 06/26/22 06/27/22 23:59 23:59 23:59 23:59 Intake Total 270 1120 1480 250 Output Total 700 350 151 Balance -293 011 1355 250 Meds/Results Medications: Active Medications Generic Name Dose Route Start Last Admin Trade Name Freq PRN Reason Stop Dose Admin Acetaminophen 500 mg 06/25/22 09:00 06/27/22 09:54 Acetaminophen 500 Mg Tablet PO 500 mg Q8H PRETTY Administration Hydrocodone Bitart/Acetaminophen 1 tab 06/26/22 17:08 Hydrocodone/Acetaminophen (*Crx) 5-325 Mg Tablet PO Q4HR PRN Pain Rated 4-6 Albuterol 2.5 mg 06/22/22 12:00 06/27/22 12:13 Albuterol Sulfate Neb 2.5 Mg/3 Ml Inh INHALATION 2.5 mg [id number] PRETTY Administration Amlod
--- NOTE | 2022-06-27 17:15 | PCPTNOTE ---
Attempted PT re-evaluation, patient refused despite therapist encouragement to participate. RN aware. Will follow.
--- NOTE | 2022-06-27 17:30 | PC.NURSE ---
Noted patient's skin to be deep red on face and chest. Upon assessment I noted patient to be diffusely reddened from bilateral upper thighs up to face. Patient's skin had several blistering areas with other areas peeling and flaking off over entire upper chest and breasts. I immediately stopped the administration of the Vancomycin and notified MD. Will continue to monitor.
--- NOTE | 2022-06-27 18:00 | PC.NURSE ---
reached and this RN received new orders to stop the Vancomycin and administer IVP Diphenhydramine, IVP famotidine, and IVP Solu-medrol. MD to assess patient and go through MAR in order to determine if there are any other medications she would like to D/C. Will administer medications and continue to monitor patient.
--- NOTE | 2022-06-27 18:30 | PC.NURSE ---
Noted patient's skin becoming diffusely reddened with flaking and blistering. Vancomycin not administered. notified.
[2022-06-27] MEDS: methylPREDNISolone SOD SUCC 40 MG VIAL IV PUSH (18:32)
[2022-06-27] MEDS: diphenhydrAMINE HCl INJ 50 MG/ML VIAL 25 MG IV PUSH ×2 (18:32→23:41)
[2022-06-27 18:41] LABS: Glucose Point of Care 90 mg/dl (65-105)
[2022-06-27] MEDS: HYDROmorphone HCL INJ (*CRX) 1 MG/ML SYR 0.5 MG IV PUSH (18:51)
[2022-06-27] MEDS: FAMOTIDINE 20 MG/2 ML VIAL IV PUSH ×2 (18:53→20:42)
[2022-06-28] VITALS (11 sets, daily range): BP systolic 125–137; BP diastolic 58–60; PULSE 75–100; RESP 16–22; TEMP 36.9–37.3; O2SAT 90–96
[2022-06-28] MEDS: CENTRAL LINE FLUSH 10 ML IV PUSH ×2 (05:09→18:47)
[2022-06-28] MEDS: diphenhydrAMINE HCl INJ 50 MG/ML VIAL 25 MG IV PUSH ×4 (05:09→23:54)
[2022-06-28 05:28] LABS: Alanine Aminotransferase 24 U/L (6-35); Albumin Level 2.6 g/dL (3.5-5.1); Alkaline Phosphatase 149 U/L (38-126); Anion Gap 9 mmol/L (8-16); Aspartate Amino Transferase 20 U/L (14-36); Bilirubin,Total 0.7 mg/dL (0.2-1.3); Blood Urea Nitrogen 24 mg/dL (7-17); Calcium 8.7 mg/dL (8.4-10.2); Carbon Dioxide 22 mmol/L (22-30); Chloride 104 mmol/L (98-107); Estimated CRCL calculation 53 ml/min; Estimated Glomerular Filt Rate > 60; Glucose 134 mg/dL (65-110); Potassium 4.2 mmol/L (3.4-5.0); Sodium 135 mmol/L (137-145)
[2022-06-28 05:29] LABS: Basophils Absolute Auto 0.1 K/mm3 (0.0-0.1); Basophils Percent Auto 0.5 % (0.2-1.2); Eosinophils Percent Auto 0.1 % (0-4.4); Hematocrit 39.2 % (37.0-47.0); Hemoglobin 12.8 g/dL (12.0-15.0); Immature Granulocyte Absolute 0.25 K/mm3 (0.00-0.031); Immature Granulocyte Percent A 1.8 % (0-0.5); Lymphocytes Absolute Auto 1.46 K/mm3 (0.9-3.2); Lymphocytes Percent Auto 10.8 % (18.3-44.2); Mean Corpuscular HGB Conc 32.7 g/dl (32-36); Mean Corpuscular Hemoglobin 32.2 pg (26-34); Mean Corpuscular Volume 98.5 fl (80-100); Mean Platelet Volume 9.8 fl (7.4-10.4); Monocytes Absolute Auto 0.4 K/mm3 (0.1-0.6); Monocytes Percent Auto 2.7 % (2.6-8.5); Neutrophils Absolute Auto 11.4 K/mm3 (1.3-6.7); Neutrophils Percent Auto 84.1 % (45.5-73.1); Platelet Count Result 671 k/mm3 (150-375); Red Blood Count 3.98 M/mm3 (4.2-5.4); Red Cell Distribution Width 15.7 % (11.5-14.5); White Blood Count 13.5 K/mm3 (4.5-10.0)
--- NOTE | 2022-06-28 07:42 | PM.PNORT ---
Progress Note: A&P Assessment and Plan (1) Closed intertrochanteric fracture of right femur: Code(s): S72.141A - Displaced intertrochanteric fracture of right femur, initial encounter for closed fracture Status: Acute Plan 66-year-old female seven days out from ORIF right hip fracture. Repeat x-ray yesterday shows maintenance of anatomic reduction with no change in the position of the hardware. There is scant amount of serous drainage coming from the proximal portion of the wound. It is less than yesterday. Does not appear to be infection particularly in light of the antibiotics that she is on. From our perspective, try to mobilize when possible. Will stop the Eliquis as this could be a possible source of her rash and start her on Lovenox 40 milligrams q.day. Following. Subjective Subjective Date/Time Seen: 06/28/22 07:42 Post Op day: 8 Principal diagnosis: Dx: Status post ORIF right IT hip fracture Interval history: Patient is somnolent today and not terribly interactive. Exam Const: General: no acute distress HENMT: Head: normal to inspection GI: Inspection: non-distended Extrem: Other: Exam of right hip wound shows scant serous drainage proximal most wound. No clear-cut surrounding erythema. Does have rash over entire body. Psych: Mental Status: mental status grossly abnormal (Unable to assess) Objective Data Vital Signs Vital Signs: Vital Signs - 24 hr 06/27/22 09:27 06/27/22 09:35 06/27/22 08:00 Temperature 98.7 F Pulse Rate 87 85 93 Respiratory Rate 16 16 18 Blood Pressure 109/58 L Pulse Oximetry 100 Oxygen Delivery 06/27/22 12:13 06/27/22 12:27 06/27/22 08:00 Temperature Pulse Rate 87 85 Respiratory Rate 16 16 Blood Pressure Pulse Oximetry Oxygen Delivery Room Air 06/27/22 15:52 06/27/22 16:01 06/27/22 16:00 Temperature 98.3 F Pulse Rate 86 85 86 Respiratory Rate 20 20 20 Blood Pressure 109/50 L Pulse Oximetry 98 Oxygen Delivery 06/27/22 20:28 06/27/22 20:00 06/27/22 21:13 Temperature 97.7 F Pulse Rate 97 97 89 Respiratory Rate 20 20 20 Blood Pressure 141/88 H Pulse Oximetry 97 97 Oxygen Delivery Room Air 06/27/22 21:21 Temperature Pulse Rate 84 Respiratory Rate 20 Blood Pressure Pulse Oximetry Oxygen Delivery Intake/Output Intake/Output: Intake & Output 06/25/22 06/26/22 06/27/22 06/28/22 23:59 23:59 23:59 23:59 Intake Total 1120 / 1120 1480 / 1480 600 / 600 Output Total 350 / 350 151 / 151 200 / 200 Balance 770 / 770 1329 / 1329 600 / 600 -200 / -200 Meds/Results Medications: Active Medications Generic Name Dose Route Start Last Admin Trade Name Freq PRN Reason Stop Dose Admin Albuterol 2.5 mg 06/22/22 12:00 06/27/22 21:11 Albuterol Sulfate Neb 2.5 Mg/3 Ml Inh INHALATION 2.5 mg [id number] PRETTY Administration Amlodipine Besylate 5 mg 06/15/22 10:40 06/26/22 09:42 Amlodipine Besylate 5 Mg Tablet PO 5 mg QAM PRETTY Administration Apixaban 2.5 mg 06/22/22 09:00 06/27/22 20:42 Apixaban 2.5 Mg Tablet PO 2.5 mg Q12HR PRETTY Administration Diphenhydramine HCl 25 mg 06/27/22 18:00 06/28/22 05:09 Diphenhydramine Hcl Inj 50 Mg/Ml Vial IV PUSH 25 mg Q6H PRETTY Administration Famotidine 20 mg 06/27/22 18:00 06/27/22 20:42 Famotidine 20 Mg/2 Ml Vial IV PUSH 20 mg Q12HR PRETTY Administration Folic Acid 1 mg 06/12/22 09:00 06/27/22 09:54 Folic Acid 1 Mg Tablet PO 1 mg DAILY PRETTY Administration Hydralazine HCl 10 mg 06/13/22 13:10 06/21/22 18:31 Hydralazine Hcl 20 Mg/Ml Vial IV PUSH 10 mg Q8H PRN Administration Systolic BP >170 Hydromorphone HCl 0.5 mg 06/24/22 13:02 06/27/22 18:51 Hydromorphone Hcl Inj (*Crx) 1 Mg/Ml Syr IV PUSH 0.5 mg Q3H PRN Administration Pain Rated 7-10 Ertapenem 1 gm in 50 mls @ 100 mls/hr 06/26/22 08:15 06/27/22 10:22 Karina 1 Gm/Ns 50 Ml IVPB Infused QAM PRETTY Infusion
[2022-06-28] MEDS: IPRATROPIUM BR 0.02% INH SOLN 0.5 MG/2.5 ML VIAL INHALATION ×4 (07:45→20:33)
[2022-06-28] MEDS: ALBUTEROL SULFATE NEB 2.5 MG/3 ML INH INHALATION ×4 (07:45→20:34)
--- NOTE | 2022-06-28 09:17 | PCOTNOTE ---
Attempted to see patient for OT, patient refused all interventions. Patient's RN notified, went in and talked with patient. Patient continued to refuse, despite encouragement and discussion of plan of care for optimal rehab. Patient continued to refuse tough titties. patient not seen for OT at this time.
[2022-06-28] MEDS: HYDROmorphone HCL INJ (*CRX) 1 MG/ML SYR 0.5 MG IV PUSH ×2 (11:26→20:52)
[2022-06-28] MEDS: ENOXAPARIN 40 MG/0.4 ML SYRINGE SUB-Q (11:29)
[2022-06-28] MEDS: ERTAPENEM 1 GM/NS 50 ML 1 GM/50 ML BAG IVPB (11:32)
[2022-06-28] MEDS: FAMOTIDINE 20 MG/2 ML VIAL IV PUSH ×2 (11:32→20:55)
[2022-06-28] MEDS: FOLIC ACID 1 MG TABLET PO (11:35)
[2022-06-28] MEDS: polyethylene glycoL 3350 17 GM POWD.PACK PO (11:35)
[2022-06-28] MEDS: THIAMINE HCL 100 MG TABLET PO (11:35)
[2022-06-28] MEDS: SENNA/DOCUSATE SODIUM TABLET 2 TAB PO (11:36)
--- NOTE | 2022-06-28 12:09 | PCNFU ---
Nutrition Follow-Up Complete: Suboptimal po intake related to reduced appetite as evidenced by self reported weight loss prior to admission, low BMI of 18.6 PO intake 75% of meals. Goal: meet 50-75% meals and nutritional supplement goal not met continue current goal Pt current nutrition is thickened liquids, minced and moist, level 5 diet Nutrition recommendation: offer food preferences, states she likes pasta and chocolate pudding Last recorded weight is 57 kg. Bowel Motility:last BM 06/27 Labs Reviewed:Na: 135, BUN: 24, POC capillary glucose: 134, Alkaline phosphorus: 149, total protein: 5, albumin: 2.6 Meds Noted:folic acid, B1, miralax, albuterol, norvasc, lovenox, invanz, apresoline, cozaar, narcan Skin:WNL-no pressure injuries Additional Notes: refused / meals, meals consumed were 10-25% Pt wants/prefers chocolate boost and refuses chocolate ensure, family may have to provide boost to meet energy goals Pt may also benefit from assisted feeds Monitor intake, wt, labs. Follow up in 5 days.
--- NOTE | 2022-06-28 12:42 | PCOTNOTE ---
Attempted to see patient, patient lethargic and just received pain meds making patient drowsy and not very responsive. Patient not seen at this time for safety. Will continue OT plan of care as appropriate.
--- NOTE | 2022-06-28 12:47 | PCSTNOTE ---
Attempted to see patient for speech therapy, patient sleeping and difficult to wake. Patient then refused.
[2022-06-28 12:52] LABS: Glucose Point of Care 131 mg/dl (65-105)
--- NOTE | 2022-06-28 14:26 | PCPTNOTE ---
Patient refused treatment this session. Patient unable to give reason why. Per RN patient did get pain medication that made her drowsy.
--- NOTE | 2022-06-28 14:50 | PCNSR ---
On 06/28/22, the student, Miguel Sweeney, provided care and completed [employer] documentation on this patient. I have reviewed the student's documentation and agree with the findings.
--- NOTE | 2022-06-28 15:11 | PCPTNOTE ---
Attempted to see patient for PT, with patient's son present to give encouragement, however patient was to drowsy/ lethargic to participate with therapy.
[2022-06-28 18:21] LABS: Glucose Point of Care 109 mg/dl (65-105)
--- NOTE | 2022-06-28 18:53 | PM.IMPN ---
Progress Note: A&P Assessment and Plan (1) UTI (urinary tract infection): Code(s): N39.0 - Urinary tract infection, site not specified Status: Acute Assessment and Plan: Cont ertapenem, f/u cultures, macario d/c (2) Postoperative infection: Code(s): T81.40XA - Infection following a procedure, unspecified, initial encounter Status: Acute Assessment and Plan: 06/25: WBC elevated to 21 after d/c abx yesterday after 10 day course completed of Rocephin and 5 day course of azithromycin Fever of 100.2 Check CXR, UA, blood + urine cultures IS to bedside D/c macario Start broad spectrum antibiotics with vancomycin and cefepime Update: Chest x-ray showed small pleural effusions with some opacities at the bases, suggestive of atelectasis with underlying emphysema noted. Will continue antibiotics for now, suspect low-grade fever secondary to atelectasis and will encourage incentive spirometer as well as ambulation. Pulse ox is stable on room air for now. Urinalysis was positive for nitrates and bacteria as well as leuk esterase, concerning for UTI. Macario pulled today. 06/26: White blood cell count continues to go up, cefepime discontinued in favor of ertapenem, continue vancomycin. Urinalysis abnormal, concerning for UTI. Blood and urine cultures still pending. Surgical site infection appears unlikely. Chest x-ray relatively unchanged, however, there could be some incompletely treated pneumonia due to the lung collapse she experienced last week. Will attempt to deescalate antibiotics pending culture results, likely to Levaquin. MRSA swab pending 06/27: WBC finally trending down to 18 from 30, likely 2/2 ertapenem, concern for UTI, less likely surgical site infection or pneumonia. F/u cultures. (3) Closed intertrochanteric fracture of right femur: Code(s): S72.141A - Displaced intertrochanteric fracture of right femur, initial encounter for closed fracture Status: Acute Assessment and Plan: OR 06/21/22, postop from ORIF R. hip Pain controlled D/c macario 06/25 (4) Chest pain: Code(s): R07.9 - Chest pain, unspecified Status: Acute Assessment and Plan: Echocardiogram from 06/14/22 showed EF 65-70% moderate pulmonary hypertension grade 1 diastolic dysfunction, chest pain resolved, likely 2/2 GERD, cardiology consult reviewed, no further workup needed (5) Alcohol withdrawal: Code(s): F10.939 - Alcohol use, unspecified with withdrawal, unspecified Status: Acute Assessment and Plan: Appears resolved, monitor (6) Hypoxia: Code(s): R09.02 - Hypoxemia Status: Acute Assessment and Plan: Pt hypoxic overnight in the upper 80s, required supplemental O2, CT chest showed complete collapse of left lung and small pleural effusion on the left, repeat chest x-ray showed diffuse left lung disease with volume loss with interval improvement in aeration likely a combination of atelectasis and pneumonia, thought to have left lower lobe pneumonia, treated for community-acquired pneumonia. Repeat chest x-ray with improving left lower lobe collapse/atelectasis as pneumonia. 06/18: Near complete atelectasis on left lower lobe, add EzPAP/past nebulizer treatment already on pulmozyme, pulmonary following for this if need bronchoscopy. 06/19: Improvement in left lower lobe atelectasis today. 06/20: Worsening left lower lobe atelectasis. Worsening due to worsening pleural effusion. Aspiration last night. speech therapy to see. 06/21: Chest x-ray reviewed has bilateral pleural effusion but improved from yesterday. Okay for planned surgery from medical standpoint. Discussed with pulm 06/20. 06/22: completed 5 day course of azithromycin, cont rocephin, day 8 today, will likely d/c at day 10 d/t complicated course, defer to pulm for recs 06/23: Day 9/10 of rocephin, anticipate d/c abx tomorrow and possibly d/c patient to rehab tomorrow as well 06/24: Day 10/10 of rocephin, d/c abx today
[2022-06-28] MEDS: methylPREDNISolone SOD SUCC 40 MG VIAL IV PUSH (20:52)
[2022-06-28 23:20] LABS: Glucose Point of Care 110 mg/dl (65-105)
[2022-06-29] VITALS (12 sets, daily range): BP systolic 149–162; BP diastolic 67–89; PULSE 80–100; RESP 18–20; TEMP 36.5–37.6; O2SAT 94–100; BMI 11.0
[2022-06-29] MEDS: HYDROmorphone HCL INJ (*CRX) 1 MG/ML SYR 0.5 MG IV PUSH ×3 (00:51→23:32)
[2022-06-29] MEDS: CENTRAL LINE FLUSH 10 ML IV PUSH ×4 (00:51→21:43)
[2022-06-29 04:47] LABS: Basophils Absolute Auto 0.1 K/mm3 (0.0-0.1); Basophils Percent Auto 0.7 % (0.2-1.2); Eosinophils Percent Auto 0.4 % (0-4.4); Hematocrit 35.1 % (37.0-47.0); Hemoglobin 11.5 g/dL (12.0-15.0); Immature Granulocyte Absolute 0.16 K/mm3 (0.00-0.031); Immature Granulocyte Percent A 1.7 % (0-0.5); Lymphocytes Absolute Auto 1.02 K/mm3 (0.9-3.2); Lymphocytes Percent Auto 10.8 % (18.3-44.2); Mean Corpuscular HGB Conc 32.8 g/dl (32-36); Mean Corpuscular Hemoglobin 32.4 pg (26-34); Mean Corpuscular Volume 98.9 fl (80-100); Mean Platelet Volume 9.8 fl (7.4-10.4); Monocytes Absolute Auto 0.3 K/mm3 (0.1-0.6); Monocytes Percent Auto 2.7 % (2.6-8.5); Neutrophils Absolute Auto 7.9 K/mm3 (1.3-6.7); Neutrophils Percent Auto 83.7 % (45.5-73.1); Platelet Count Result 593 k/mm3 (150-375); Red Blood Count 3.55 M/mm3 (4.2-5.4); Red Cell Distribution Width 15.6 % (11.5-14.5); White Blood Count 9.4 K/mm3 (4.5-10.0)
[2022-06-29 04:58] LABS: Alanine Aminotransferase 21 U/L (6-35); Albumin Level 2.5 g/dL (3.5-5.1); Alkaline Phosphatase 118 U/L (38-126); Anion Gap 8 mmol/L (8-16); Aspartate Amino Transferase 21 U/L (14-36); Bilirubin,Total 0.5 mg/dL (0.2-1.3); Blood Urea Nitrogen 20 mg/dL (7-17); Calcium 8.4 mg/dL (8.4-10.2); Carbon Dioxide 27 mmol/L (22-30); Chloride 104 mmol/L (98-107); Estimated CRCL calculation 60 ml/min; Estimated Glomerular Filt Rate > 60; Glucose 133 mg/dL (65-110); Potassium 3.8 mmol/L (3.4-5.0); Sodium 139 mmol/L (137-145)
--- NOTE | 2022-06-29 05:27 | PC.NURSE ---
I HAVE MONITORED THE CHARTING AND MEDICATION DISPENSING DONE BY IRVIN MADDOX RN-LICENSE PENDING, AND I AGREE WITH EVERYTHING.
[2022-06-29] MEDS: diphenhydrAMINE HCl INJ 50 MG/ML VIAL 25 MG IV PUSH ×4 (05:37→23:33)
[2022-06-29] MEDS: methylPREDNISolone SOD SUCC 40 MG VIAL IV PUSH (05:54)
[2022-06-29] MEDS: ALBUTEROL SULFATE NEB 2.5 MG/3 ML INH INHALATION ×4 (08:07→20:15)
[2022-06-29] MEDS: IPRATROPIUM BR 0.02% INH SOLN 0.5 MG/2.5 ML VIAL INHALATION ×4 (08:07→20:15)
--- NOTE | 2022-06-29 10:30 | PCPTNOTE ---
Attempted to see patient for PT at this time, however speech therapy was in room with patient.
[2022-06-29] MEDS: ENOXAPARIN 40 MG/0.4 ML SYRINGE SUB-Q (11:49)
[2022-06-29] MEDS: SENNA/DOCUSATE SODIUM TABLET 2 TAB PO (11:50)
[2022-06-29] MEDS: FOLIC ACID 1 MG TABLET PO (11:50)
[2022-06-29] MEDS: FAMOTIDINE 20 MG/2 ML VIAL IV PUSH (11:50)
[2022-06-29] MEDS: THIAMINE HCL 100 MG TABLET PO (11:50)
[2022-06-29 12:20] LABS: Glucose Point of Care 114 mg/dl (65-105)
--- NOTE | 2022-06-29 15:43 | PM.IMPN ---
Progress Note: A&P Assessment and Plan (1) UTI (urinary tract infection): Code(s): N39.0 - Urinary tract infection, site not specified Status: Acute Assessment and Plan: Cont ertapenem, f/u cultures, macario d/c (2) Postoperative infection: Code(s): T81.40XA - Infection following a procedure, unspecified, initial encounter Status: Acute Assessment and Plan: 06/25: WBC elevated to 21 after d/c abx yesterday after 10 day course completed of Rocephin and 5 day course of azithromycin Fever of 100.2 Check CXR, UA, blood + urine cultures IS to bedside D/c macario Start broad spectrum antibiotics with vancomycin and cefepime Update: Chest x-ray showed small pleural effusions with some opacities at the bases, suggestive of atelectasis with underlying emphysema noted. Will continue antibiotics for now, suspect low-grade fever secondary to atelectasis and will encourage incentive spirometer as well as ambulation. Pulse ox is stable on room air for now. Urinalysis was positive for nitrates and bacteria as well as leuk esterase, concerning for UTI. Macario pulled today. 06/26: White blood cell count continues to go up, cefepime discontinued in favor of ertapenem, continue vancomycin. Urinalysis abnormal, concerning for UTI. Blood and urine cultures still pending. Surgical site infection appears unlikely. Chest x-ray relatively unchanged, however, there could be some incompletely treated pneumonia due to the lung collapse she experienced last week. Will attempt to deescalate antibiotics pending culture results, likely to Levaquin. MRSA swab pending 06/27: WBC finally trending down to 18 from 30, likely 2/2 ertapenem, concern for UTI, less likely surgical site infection or pneumonia. F/u cultures. 06/29: Patient with resolution of leukocytosis s/p cefepime-->ertapenem. 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 Patient discussed with infectious disease pharmacist. Urine culture growing juana parapsilosis. Patient had significant improvement on antibiotics, so will continue with levofloxacin and discuss duration with ID pharmacist tomorrow. -Due to recent reactions to two antibiotics will give levofloxacin today and monitor (3) Closed intertrochanteric fracture of right femur: Code(s): S72.141A - Displaced intertrochanteric fracture of right femur, initial encounter for closed fracture Status: Acute Assessment and Plan: OR 06/21/22, postop from ORIF R. hip Pain controlled D/c macario 06/25 (4) Chest pain: Code(s): R07.9 - Chest pain, unspecified Status: Acute Assessment and Plan: Echocardiogram from 06/14/22 showed EF 65-70% moderate pulmonary hypertension grade 1 diastolic dysfunction, chest pain resolved, likely 2/2 GERD, cardiology consult reviewed, no further workup needed (5) Alcohol withdrawal: Code(s): F10.939 - Alcohol use, unspecified with withdrawal, unspecified Status: Acute Assessment and Plan: Appears resolved, monitor (6) Hypoxia: Code(s): R09.02 - Hypoxemia Status: Acute Assessment and Plan: Pt hypoxic overnight in the upper 80s, required supplemental O2, CT chest showed complete collapse of left lung and small pleural effusion on the left, repeat chest x-ray showed diffuse left lung disease with volume loss with interval improvement in aeration likely a combination of atelectasis and pneumonia, thought to have left lower lobe pneumonia, treated for community-acquired pneumonia. Repeat chest x-ray with improving left lower lobe collapse/atelectasis as pneumonia. 06/18: Near complete atelectasis on left lower lobe, add EzPAP/past nebulizer treatment already on pulmozyme, pulmonary following for this if need bronchoscopy. 06/19: Improvement in left lower lobe atelectasis today. 06/20: Worsening left lower lobe atelectasis. Worsening due to worsening pl
--- NOTE | 2022-06-29 16:38 | PM.PNORT ---
Progress Note: A&P Assessment and Plan (1) Closed intertrochanteric fracture of right femur: Code(s): S72.141A - Displaced intertrochanteric fracture of right femur, initial encounter for closed fracture Status: Acute Plan 66-year-old female 8 days out from ORIF right hip fracture. There is still scant amount of serous drainage coming from the proximal portion of the wound, does not appear to be infection. Mobilize when able. Following. Subjective Subjective Date/Time Seen: 06/29/22 16:38 Post Op day: 9 Principal diagnosis: Dx: Status post ORIF right IT hip fracture Interval history: More awake and alert during today's exam. She reports that she has not been able to participate well with physical therapy. However, she does state that she needs to get home to take care of her kids. Still scant non purulent drainage from the proximal incision. Review of Systems Constitutional: Constitutional: Reports as per HPI Exam Const: General: uncomfortable (Has some right hip pain.) HENMT: Head: normal to inspection Resp: Effort & Inspection: normal respiratory effort GI: Inspection: non-distended Extrem: Other: Exam of right hip wound shows scant serous drainage proximal most wound. Island dressing was changed. Psych: Mental Status: mental status grossly abnormal (Appears to be improving, she is aware of her attempts at PT) Objective Data Vital Signs Vital Signs: Vital Signs - 24 hr 06/28/22 16:45 06/28/22 17:29 06/28/22 17:47 Temperature 99.2 F Pulse Rate 79 80 77 Respiratory Rate 22 H 16 16 Blood Pressure 137/58 L Pulse Oximetry 96 Oxygen Delivery 06/28/22 20:38 06/28/22 20:00 06/28/22 20:50 Temperature Pulse Rate 92 82 100 Respiratory Rate 22 H 22 H 22 H Blood Pressure Pulse Oximetry 96 Oxygen Delivery Room Air 06/29/22 00:00 06/29/22 08:07 06/29/22 08:11 Temperature 99.7 F H 97.7 F Pulse Rate 88 80 87 Respiratory Rate 18 20 20 Blood Pressure 149/67 H 161/89 H Pulse Oximetry 100 94 Oxygen Delivery 06/29/22 11:20 06/29/22 11:37 06/29/22 08:20 Temperature Pulse Rate 91 100 85 Respiratory Rate 20 20 20 Blood Pressure Pulse Oximetry Oxygen Delivery 06/29/22 08:00 06/29/22 15:31 06/29/22 15:51 Temperature Pulse Rate 98 98 Respiratory Rate 20 20 Blood Pressure Pulse Oximetry Oxygen Delivery Room Air 06/29/22 16:36 Temperature 98.5 F Pulse Rate 86 Respiratory Rate 20 Blood Pressure 162/72 H Pulse Oximetry 98 Oxygen Delivery Intake/Output Intake/Output: Intake & Output 06/26/22 06/27/22 06/28/22 06/29/22 23:59 23:59 23:59 23:59 Intake Total 1480 600 230 90 Output Total 840 102 8780 Balance 1329 600 30 -910 Meds/Results Medications: Active Medications Generic Name Dose Route Start Last Admin Trade Name Freq PRN Reason Stop Dose Admin Albuterol 2.5 mg 06/22/22 12:00 06/29/22 15:30 Albuterol Sulfate Neb 2.5 Mg/3 Ml Inh INHALATION 2.5 mg [id number] PRETTY Administration Amlodipine Besylate 5 mg 06/15/22 10:40 06/26/22 09:42 Amlodipine Besylate 5 Mg Tablet PO 5 mg QAM PRETTY Administration Diphenhydramine HCl 25 mg 06/27/22 18:00 06/29/22 11:49 Diphenhydramine Hcl Inj 50 Mg/Ml Vial IV PUSH 25 mg Q6H PRETTY Administration Enoxaparin Sodium 40 mg 06/28/22 09:00 06/29/22 11:49 Enoxaparin 40 Mg/0.4 Ml Syringe SUB-Q 40 mg DAILY PRETTY Administration Famotidine 20 mg 06/27/22 18:00 06/29/22 11:50 Famotidine 20 Mg/2 Ml Vial IV PUSH 20 mg Q12HR PRETTY Administration Folic Acid 1 mg 06/12/22 09:00 06/29/22 11:50 Folic Acid 1 Mg Tablet PO 1 mg DAILY PRETTY Administration Hydralazine HCl 10 mg 06/13/22 13:10 06/21/22 18:31 Hydralazine Hcl 20 Mg/Ml Vial IV PUSH 10 mg Q8H PRN Administration Systolic BP >170 Hydromorphone HCl 0.5 mg 06/24/22 13:02 06/29/22 00:51 Hydromorphone Hcl Inj (*Crx) 1 Mg/Ml Syr IV PUSH 0.5 mg Q3H P
--- NOTE | 2022-06-29 17:31 | PM.CNCAR ---
History of Present Illness History of Present Illness Consult date/time: 06/29/22 17:31 Reason For Visit: hip fracture Narrative: Nora Ty is a 66-year-old female whom I was asked to see at the request of [facility] P.A.-C, for my advice and opinion regarding her chest pain and preoperative evaluation, in consultation. This is a re-consultation. Patient was initially admitted on 06/12/2022 after a right hip fracture. She was seen by Dr. Wolff to evaluate chest pain which was reproducible by compressing her epigastrium and thought to be secondary to GERD. Pantoprazole was started. She has a history of hypertension and daily alcohol use. Her hip surgery was delayed until June 21 due to pulmonary problems with atelectasis, mucus plugging, left lower lobe pneumonia and a pleural effusion. [facility] Past Medical History Medical History (Updated 06/28/22 @ 18:55 by Olive Metzger DO) Alcohol use Anxiety Enlarged thyroid Surgical History Surgical History (Updated 06/23/22 @ 12:26 by Mango Spicer MD) Closed intertrochanteric fracture of right femur ORIF with troch nail 06/21/2022 Family History Family History Father Diabetes mellitus Hypertension Family history of cardiovascular disease Non-Hodgkin lymphoma Mother Lung cancer Sibling Breast cancer Social History Social History Social History: lives at home with independent with ADLs PCP: Bibiana Cordova NP POA: Tato (close friend) Code: DNR Smoking packs per day: 1 Smoking cigarettes per day: 20.0 Years smoked: 47 Smoking pack-years: 47.00 Smoking status: Current every day smoker Tobacco type: cigarettes Alcohol intake: current Drinks per week: 28 Alcohol use details: 3 beers/day Substance use type: marijuana Other substance usage details: 1 joint every 2 weeks Gender identity (if verbalized by the patient): Female Sexual Orientation (if Verbalized by the Patient): Straight or Heterosexual Spiritual care concerns: No Meds Home Medications and Allergies Home Medications Medication Instructions Recorded Confirmed Type escitalopram oxalate 20 mg tablet 20 mg PO DAILY #90 tabs 02/25/22 06/12/22 Rx Allergies Allergy/AdvReac Type Severity Reaction Status Date / Time cefepime Allergy Severe Other Verified 06/29/22 11:09 ceftriaxone Allergy Severe Other Verified 06/29/22 11:09 ertapenem Allergy Severe Other Verified 06/29/22 11:09 Vital Signs Vital Signs - 24 hr 06/28/22 17:47 06/28/22 20:38 06/28/22 20:00 Temperature Pulse Rate 77 92 82 Respiratory Rate 16 22 H 22 H Blood Pressure Pulse Oximetry 96 Oxygen Delivery Room Air 06/28/22 20:50 06/29/22 00:00 06/29/22 08:07 Temperature 99.7 F H Pulse Rate 100 88 80 Respiratory Rate 22 H 18 20 Blood Pressure 149/67 H Pulse Oximetry 100 Oxygen Delivery 06/29/22 08:11 06/29/22 11:20 06/29/22 11:37 Temperature 97.7 F Pulse Rate 87 91 100 Respiratory Rate 20 20 20 Blood Pressure 161/89 H Pulse Oximetry 94 Oxygen Delivery 06/29/22 08:20 06/29/22 08:00 06/29/22 15:31 Temperature Pulse Rate 85 98 Respiratory Rate 20 20 Blood Pressure Pulse Oximetry Oxygen Delivery Room Air 06/29/22 15:51 06/29/22 16:36 Temperature 98.5 F Pulse Rate 98 86 Respiratory Rate 20 20 Blood Pressure 162/72 H Pulse Oximetry 98 Oxygen Delivery Results Labs and Meds Result diagrams: 06/29/22 04:41 06/29/22 04:40 Lab results: Cardiac Enzymes 06/29/22 Range/Units 04:40 AST 21 (14-36) U/L CBC 06/29/22 Range/Units 04:41 WBC 9.4 (4.5-10.0) K/mm3 RBC 3.55 L (4.2-5.4) M/mm3 Hgb 11.5 L (12.0-15.0) g/dL Hct 35.1 L (37.0-47.0) % Plt Count 593 H (150-375) k/mm3 Lymph # (Auto) 1.02 (0.9-3.2) K/mm3 [place] # (Au
--- NOTE | 2022-06-29 18:21 | PC.NURSE ---
This patient, Nora Ty, was transferred to [facility] on 06/29/22 at 1737. Personal belongings sent with patient. Report given to Brittney EVANS. Appropriate documentation sent with patient.
--- NOTE | 2022-06-29 22:31 | PC.NURSE ---
Pt refused medication and blood draw.
[2022-06-30 01:04] LABS: Glucose Point of Care 92 mg/dl (65-105)
[2022-06-30 05:26] VITALS: BP 152/87; PULSE 85; RESP 20; TEMP 36.6; O2SAT 99
[2022-06-30] MEDS: HYDROmorphone HCL INJ (*CRX) 1 MG/ML SYR 0.5 MG IV PUSH (05:45)
[2022-06-30] MEDS: diphenhydrAMINE HCl INJ 50 MG/ML VIAL 25 MG IV PUSH ×2 (05:45→12:17)
[2022-06-30] MEDS: CENTRAL LINE FLUSH 10 ML IV PUSH ×3 (05:59→20:52)
[2022-06-30 06:29] LABS: Basophils Absolute Auto 0.1 K/mm3 (0.0-0.1); Basophils Percent Auto 0.8 % (0.2-1.2); Eosinophils Absolute Auto 0.5 K/mm3 (0-0.3); Eosinophils Percent Auto 5.3 % (0-4.4); Hematocrit 34.6 % (37.0-47.0); Hemoglobin 11.4 g/dL (12.0-15.0); Immature Granulocyte Absolute 0.29 K/mm3 (0.00-0.031); Immature Granulocyte Percent A 3.1 % (0-0.5); Lymphocytes Absolute Auto 1.28 K/mm3 (0.9-3.2); Lymphocytes Percent Auto 13.8 % (18.3-44.2); Mean Corpuscular HGB Conc 32.9 g/dl (32-36); Mean Corpuscular Hemoglobin 32.9 pg (26-34); Mean Platelet Volume 9.7 fl (7.4-10.4); Monocytes Absolute Auto 0.9 K/mm3 (0.1-0.6); Monocytes Percent Auto 9.2 % (2.6-8.5); Neutrophils Absolute Auto 6.3 K/mm3 (1.3-6.7); Neutrophils Percent Auto 67.8 % (45.5-73.1); Platelet Count Result 540 k/mm3 (150-375); Red Blood Count 3.46 M/mm3 (4.2-5.4); Red Cell Distribution Width 15.7 % (11.5-14.5); White Blood Count 9.3 K/mm3 (4.5-10.0)
[2022-06-30 06:52] LABS: Glucose Point of Care 90 mg/dl (65-105)
[2022-06-30 07:01] LABS: Alanine Aminotransferase 22 U/L (6-35); Albumin Level 2.5 g/dL (3.5-5.1); Alkaline Phosphatase 121 U/L (38-126); Anion Gap 7 mmol/L (8-16); Aspartate Amino Transferase 26 U/L (14-36); Bilirubin,Total 0.6 mg/dL (0.2-1.3); Blood Urea Nitrogen 14 mg/dL (7-17); Calcium 8.4 mg/dL (8.4-10.2); Carbon Dioxide 29 mmol/L (22-30); Chloride 103 mmol/L (98-107); Estimated CRCL calculation 60 ml/min; Estimated Glomerular Filt Rate > 60; Glucose 92 mg/dL (65-110); Potassium 2.9 mmol/L (3.4-5.0); Sodium 139 mmol/L (137-145)
--- NOTE | 2022-06-30 09:12 | PCOTNOTE ---
Attempted to see patient this am, however upon entering patient was moaning out in pain. Pt presented crooked in bed with gown hanging to side from neck. Pt rated her pain Easily a 9. Pt reported pain in heels and hips. Assisted patient with repositioning and elevated legs with 2 pillows lifting heels. Pt not seen at this time due to pain. RN notified.
[2022-06-30 09:19] LABS: Glucose Point of Care 81 mg/dl (65-105)
[2022-06-30] MEDS: POTASSIUM CHLORIDE INJ 40 MEQ in SODIUM CHLORIDE 0.9% IV 500 ML 130 MEQ IVPB (09:48)
--- NOTE | 2022-06-30 10:59 | PC.NURSE ---
Patient refused morning meds. Will attempt again this afternoon.
--- NOTE | 2022-06-30 12:02 | PM.IMPN ---
Progress Note: A&P Assessment and Plan (1) UTI (urinary tract infection): Code(s): N39.0 - Urinary tract infection, site not specified Status: Acute Assessment and Plan: Cont ertapenem, f/u cultures, macario d/c (2) Postoperative infection: Code(s): T81.40XA - Infection following a procedure, unspecified, initial encounter Status: Acute Assessment and Plan: 06/25: WBC elevated to 21 after d/c abx yesterday after 10 day course completed of Rocephin and 5 day course of azithromycin Fever of 100.2 Check CXR, UA, blood + urine cultures IS to bedside D/c macario Start broad spectrum antibiotics with vancomycin and cefepime Update: Chest x-ray showed small pleural effusions with some opacities at the bases, suggestive of atelectasis with underlying emphysema noted. Will continue antibiotics for now, suspect low-grade fever secondary to atelectasis and will encourage incentive spirometer as well as ambulation. Pulse ox is stable on room air for now. Urinalysis was positive for nitrates and bacteria as well as leuk esterase, concerning for UTI. Macario pulled today. 06/26: White blood cell count continues to go up, cefepime discontinued in favor of ertapenem, continue vancomycin. Urinalysis abnormal, concerning for UTI. Blood and urine cultures still pending. Surgical site infection appears unlikely. Chest x-ray relatively unchanged, however, there could be some incompletely treated pneumonia due to the lung collapse she experienced last week. Will attempt to deescalate antibiotics pending culture results, likely to Levaquin. MRSA swab pending 06/27: WBC finally trending down to 18 from 30, likely 2/2 ertapenem, concern for UTI, less likely surgical site infection or pneumonia. F/u cultures. 06/29: Patient with resolution of leukocytosis s/p cefepime-->ertapenem. 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 Patient discussed with infectious disease pharmacist. Urine culture growing juana parapsilosis. Patient had significant improvement on antibiotics, so will continue with levofloxacin and discuss duration with ID pharmacist tomorrow. -Due to recent reactions to two antibiotics will give levofloxacin today and monitor 06/30: Tolerated levofloxacin well. EKG from 06/14 shows normal QTC. Will recheck prior to discharge if the medication needs to continue. Discussed with ID pharmacist and will plan for 7 days of levofloxacin. 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 Will discontinue sedating medications to see if patient becomes less confused. If not improved in the morning, will get CT head. (4) Closed intertrochanteric fracture of right femur: Code(s): S72.141A - Displaced intertrochanteric fracture of right femur, initial encounter for closed fracture Status: Acute Assessment and Plan: OR 06/21/22, postop from ORIF R. hip Pain controlled D/c macario 06/25 (5) Chest pain: Code(s): R07.9 - Chest pain, unspecified Status: Acute Assessment and Plan: Echocardiogram from 06/14/22 showed EF 65-70% moderate pulmonary hypertension grade 1 diastolic dysfunction, chest pain resolved, likely 2/2 GERD, cardiology consult reviewed, no further workup needed (6) Alcohol withdrawal: Code(s): F10.939 - Alcohol use, unspecified with withdrawal, unspecified Status: Acute Assessment and Plan: Appears resolved, monitor (7) Hypoxia: Code(s): R09.02 - Hypoxemia Status: Acute Assessment and Plan: Pt hypoxic overnight in the upper 80s, required supplemental O2, CT chest showed complete collapse of left lung and small pleural effusion on the left, repeat chest x-ray showed diffuse left lung disease with volume lo
[2022-06-30 12:24] LABS: Glucose Point of Care 91 mg/dl (65-105)
[2022-06-30 12:45] VITALS: PULSE 84; RESP 20
[2022-06-30] MEDS: ALBUTEROL SULFATE NEB 2.5 MG/3 ML INH INHALATION ×2 (12:45→20:30)
[2022-06-30] MEDS: IPRATROPIUM BR 0.02% INH SOLN 0.5 MG/2.5 ML VIAL INHALATION ×2 (12:45→20:30)
[2022-06-30 13:00] VITALS: PULSE 88; RESP 20
[2022-06-30] MEDS: EUCERIN CREAM 120 GM JAR 1 APPLIC TOPICAL (14:33)
[2022-06-30 14:59] VITALS: BP 162/78; PULSE 90; RESP 16; TEMP 37; O2SAT 98
[2022-06-30 17:32] LABS: Glucose Point of Care 112 mg/dl (65-105)
--- NOTE | 2022-06-30 18:02 | PC.NURSE ---
Patient refusing any PO meds. I offered for them to be given in applesauce or pudding and patient still refused. Was able to give IV medication only.
[2022-06-30 19:29] VITALS: BP 186/77; PULSE 80; RESP 16; TEMP 37.1; O2SAT 98
[2022-06-30 20:31] VITALS: PULSE 86; RESP 16
[2022-06-30] MEDS: FAMOTIDINE 20 MG/2 ML VIAL IV PUSH (20:51)
[2022-06-30 21:24] LABS: Glucose Point of Care 89 mg/dl (65-105)
[2022-06-30 22:11] LABS: Anion Gap 3 mmol/L (8-16); Blood Urea Nitrogen 9 mg/dL (7-17); Calcium 8.1 mg/dL (8.4-10.2); Carbon Dioxide 29 mmol/L (22-30); Chloride 98 mmol/L (98-107); Estimated CRCL calculation 70 ml/min; Estimated Glomerular Filt Rate > 60; Glucose 92 mg/dL (65-110); Sodium 130 mmol/L (137-145)
[2022-07-01] VITALS (13 sets, daily range): BP systolic 134–180; BP diastolic 57–74; PULSE 72–97; RESP 12–18; TEMP 36.7–37.7; O2SAT 95–97; BMI 10.0
[2022-07-01 00:08] LABS: Glucose Point of Care 92 mg/dl (65-105)
[2022-07-01] MEDS: POTASSIUM CHLORIDE INJ 40 MEQ in SODIUM CHLORIDE 0.9% IV 500 ML 130 MEQ IVPB (01:22)
[2022-07-01] MEDS: hydrALAZINE HCL 20 MG/ML VIAL 10 MG IV PUSH (04:55)
[2022-07-01] MEDS: CENTRAL LINE FLUSH 10 ML IV PUSH ×2 (04:57→14:50)
[2022-07-01 05:35] LABS: Glucose Point of Care 86 mg/dl (65-105)
[2022-07-01 05:39] LABS: Basophils Percent Auto 0.4 % (0.2-1.2); Eosinophils Absolute Auto 0.7 K/mm3 (0-0.3); Eosinophils Percent Auto 8.3 % (0-4.4); Hematocrit 35.7 % (37.0-47.0); Hemoglobin 11.9 g/dL (12.0-15.0); Immature Granulocyte Absolute 0.33 K/mm3 (0.00-0.031); Lymphocytes Absolute Auto 1.29 K/mm3 (0.9-3.2); Lymphocytes Percent Auto 15.8 % (18.3-44.2); Mean Corpuscular HGB Conc 33.3 g/dl (32-36); Mean Corpuscular Hemoglobin 32.1 pg (26-34); Mean Corpuscular Volume 96.2 fl (80-100); Mean Platelet Volume 9.7 fl (7.4-10.4); Monocytes Absolute Auto 0.9 K/mm3 (0.1-0.6); Monocytes Percent Auto 10.4 % (2.6-8.5); Neutrophils Percent Auto 61.1 % (45.5-73.1); Platelet Count Result 425 k/mm3 (150-375); Red Blood Count 3.71 M/mm3 (4.2-5.4); Red Cell Distribution Width 15.5 % (11.5-14.5); White Blood Count 8.2 K/mm3 (4.5-10.0)
[2022-07-01 05:51] LABS: Alanine Aminotransferase 19 U/L (6-35); Albumin Level 2.2 g/dL (3.5-5.1); Alkaline Phosphatase 105 U/L (38-126); Anion Gap 6 mmol/L (8-16); Aspartate Amino Transferase 26 U/L (14-36); Bilirubin,Total 0.5 mg/dL (0.2-1.3); Blood Urea Nitrogen 8 mg/dL (7-17); Calcium 7.7 mg/dL (8.4-10.2); Carbon Dioxide 27 mmol/L (22-30); Chloride 99 mmol/L (98-107); Estimated CRCL calculation 70 ml/min; Estimated Glomerular Filt Rate > 60; Glucose 87 mg/dL (65-110); Potassium 3.3 mmol/L (3.4-5.0); Sodium 132 mmol/L (137-145)
[2022-07-01] MEDS: IPRATROPIUM BR 0.02% INH SOLN 0.5 MG/2.5 ML VIAL INHALATION ×4 (07:29→20:12)
[2022-07-01] MEDS: ALBUTEROL SULFATE NEB 2.5 MG/3 ML INH INHALATION ×4 (07:29→20:12)
--- NOTE | 2022-07-01 07:30 | PM.IMPN ---
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 Patient is on day three of levofloxacin. Will continue for a total of 7 dyas of treatment. (2) Postoperative infection: Code(s): T81.40XA - Infection following a procedure, unspecified, initial encounter Status: Acute Assessment and Plan: 06/25: WBC elevated to 21 after d/c abx yesterday after 10 day course completed of Rocephin and 5 day course of azithromycin Fever of 100.2 Check CXR, UA, blood + urine cultures IS to bedside D/c macario Start broad spectrum antibiotics with vancomycin and cefepime Update: Chest x-ray showed small pleural effusions with some opacities at the bases, suggestive of atelectasis with underlying emphysema noted. Will continue antibiotics for now, suspect low-grade fever secondary to atelectasis and will encourage incentive spirometer as well as ambulation. Pulse ox is stable on room air for now. Urinalysis was positive for nitrates and bacteria as well as leuk esterase, concerning for UTI. Macario pulled today. 06/26: White blood cell count continues to go up, cefepime discontinued in favor of ertapenem, continue vancomycin. Urinalysis abnormal, concerning for UTI. Blood and urine cultures still pending. Surgical site infection appears unlikely. Chest x-ray relatively unchanged, however, there could be some incompletely treated pneumonia due to the lung collapse she experienced last week. Will attempt to deescalate antibiotics pending culture results, likely to [place]. MRSA swab pending 06/27: WBC finally trending down to 18 from 30, likely 2/2 ertapenem, concern for UTI, less likely surgical site infection or pneumonia. F/u cultures. 06/29: Patient with resolution of leukocytosis s/p cefepime-->ertapenem. 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 Patient discussed with infectious disease pharmacist. Urine culture growing juana parapsilosis. Patient had significant improvement on antibiotics, so will continue with levofloxacin and discuss duration with ID pharmacist tomorrow. -Due to recent reactions to two antibiotics will give levofloxacin today and monitor 06/30: Tolerated levofloxacin well. EKG from 06/14 shows normal QTC. Will recheck prior to discharge if the medication needs to continue. Discussed with ID pharmacist and will plan for 7 days of levofloxacin. 07/01: Continue levofloxacin. 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 She is no longer confused. Resolved. (4) Closed intertrochanteric fracture of right femur: Code(s): S72.141A - Displaced intertrochanteric fracture of right femur, initial encounter for closed fracture Status: Acute Assessment and Plan: OR 06/21/22, postop from ORIF R. hip Pain controlled D/c macario 06/25 07/01: Patient is appropriate for discharge but is awaiting insurance authorization. (5) Chest pain: Code(s): R07.9 - Chest pain, unspecified Status: Acute Assessment and Plan: Echocardiogram from 06/14/22 showed EF 65-70% moderate pulmonary hypertension grade 1 diastolic dysfunction, chest pain resolved, likely 2/2 GERD, cardiology consult reviewed, no further workup needed (6) Alcohol withdrawal: Code(s): F10.939 - Alcohol use, unspecified with withdrawal, unspecified Status: Acute Assessment and Plan: Appears resolved, monitor (7) Hypoxia: Code(s): R09.02 - Hypoxemia Status: Acute Assessment and Plan: Pt hypoxic overnight in the upper 80s, required sup
--- NOTE | 2022-07-01 09:15 | PM.PNORT ---
Progress Note: A&P Assessment and Plan (1) Closed intertrochanteric fracture of right femur: Code(s): S72.141A - Displaced intertrochanteric fracture of right femur, initial encounter for closed fracture Status: Acute Plan 66-year-old female postop day 10 after ORIF of right IT hip fracture. Plan is to discharge to SNF with continued rehab. The ale of both right lateral thigh incisions can come out and 4 days (07/05/2022). This could be done at the SNF. If they are unable to take these out, we can certainly see her in the office at or around that date for removal. Plan for 8 week follow-up after surgical date in our office with new right hip x-rays. This would be around August 16, 2022. Maintain weight-bearing status until that visit. Also plan for daily 325 mg aspirin for DVT prophylaxis for 8 weeks upon discharge. Subjective Subjective Date/Time Seen: 07/01/22 09:15 Post Op day: 10 Principal diagnosis: Dx: Status post ORIF right IT hip fracture Interval history: 66-year-old female postop day 10 after ORIF right IT hip fracture. Incision site is clean and dry. She denies any new complaints. Very alert and active during today's exam and participating with therapy. Review of Systems Constitutional: Constitutional: Reports as per HPI Exam Const: General: comfortable and no acute distress HENMT: Head: normal to inspection Resp: Effort & Inspection: normal respiratory effort GI: Inspection: non-distended Extrem: Other: Exam of right hip shows clean and dry surgical dressings. No appreciable drainage. No ecchymosis or swelling of the distal right extremity. Neurovascular status right lower extremity is intact. Psych: Mental Status: mental status grossly normal (Really showed improvement this morning.) Affect: normal affect Objective Data Vital Signs Vital Signs: Vital Signs - 24 hr 06/30/22 12:45 06/30/22 13:00 06/30/22 14:59 Temperature 98.6 F Pulse Rate 84 88 90 Respiratory Rate 20 20 16 Blood Pressure 162/78 H Pulse Oximetry 98 Oxygen Delivery 06/30/22 19:29 06/30/22 20:31 06/30/22 20:00 Temperature 98.8 F Pulse Rate 80 86 Respiratory Rate 16 16 Blood Pressure 186/77 H Pulse Oximetry 98 Oxygen Delivery Room Air 07/01/22 03:41 07/01/22 05:28 07/01/22 07:30 Temperature 98.0 F Pulse Rate 79 80 Respiratory Rate 17 15 Blood Pressure 180/74 H 150/70 H Pulse Oximetry 95 Oxygen Delivery 07/01/22 07:51 Temperature Pulse Rate 84 Respiratory Rate 15 Blood Pressure Pulse Oximetry Oxygen Delivery Intake/Output Intake/Output: Intake & Output 06/28/22 06/29/22 06/30/22 07/01/22 23:59 23:59 23:59 23:59 Intake Total 230 240 720 Output Total 200 1375 2575 1000 Balance 30 -1135 -1855 -1000 Meds/Results Medications: Active Medications Generic Name Dose Route Start Last Admin Trade Name Freq PRN Reason Stop Dose Admin Albuterol 2.5 mg 06/22/22 12:00 07/01/22 07:29 Albuterol Sulfate Neb 2.5 Mg/3 Ml Inh INHALATION 2.5 mg [id number] PRETTY Administration Amlodipine Besylate 5 mg 06/15/22 10:40 06/26/22 09:42 Amlodipine Besylate 5 Mg Tablet PO 5 mg QAM PRETTY Administration Enoxaparin Sodium 40 mg 06/28/22 09:00 06/30/22 12:15 Enoxaparin 40 Mg/0.4 Ml Syringe SUB-Q Not Given DAILY PRETTY Famotidine 20 mg 06/27/22 18:00 06/30/22 20:51 Famotidine 20 Mg/2 Ml Vial IV PUSH 20 mg Q12HR PRETTY Administration Folic Acid 1 mg 06/12/22 09:00 06/30/22 12:15 Folic Acid 1 Mg Tablet PO Not Given DAILY PRETTY Hydralazine HCl 10 mg 06/13/22 13:10 07/01/22 04:55 Hydralazine Hcl 20 Mg/Ml Vial IV PUSH 10 mg Q8H PRN Administration Systolic BP >170 Levofloxacin/Dextrose 750 mg in 150 mls @ 100 mls/hr 06/29/22 13:00 06/30/22 14:33 Levaquin 750 Mg/D5w 150 Ml IVPB 100 mls/hr Q24H PRETTY Administration Ipratropium [place] 0.5 mg 06/22/22 12:00 07/01/22 07:29 Ipratropium Br
[2022-07-01] MEDS: EUCERIN CREAM 120 GM JAR 1 APPLIC TOPICAL (10:23)
[2022-07-01] MEDS: ENOXAPARIN 40 MG/0.4 ML SYRINGE SUB-Q (10:24)
[2022-07-01] MEDS: SENNA/DOCUSATE SODIUM TABLET 2 TAB PO ×2 (10:24→17:39)
[2022-07-01] MEDS: polyethylene glycoL 3350 17 GM POWD.PACK PO (10:25)
[2022-07-01] MEDS: FAMOTIDINE 20 MG/2 ML VIAL IV PUSH ×2 (10:25→20:34)
[2022-07-01] MEDS: FOLIC ACID 1 MG TABLET PO (10:25)
[2022-07-01] MEDS: THIAMINE HCL 100 MG TABLET PO (10:26)
--- NOTE | 2022-07-01 11:52 | PCNFU ---
Nutrition Follow-Up Complete: Suboptimal po intake related to reduced appetite as evidenced by self reported weight loss prior to admission, low BMI of 18.6 Goal: PO intake >50% of meals. Patient has not met goal, continue to offer food preferences and boost Pt current nutrition is nectar thickened fluids level 2, minced and moist diet level 5. Nutrition recommendation: encourage meals and nutritional supplement boost Last recorded weight is 57 kg. Bowel Motility: last BM 06/30/22 Labs Reviewed:Hgb: 11.9, Hct: 35.7, Alb: 2.2, Na: 132, K: 3.3, Cr: 0.6 Meds Noted:B1, miralax, cozaar, folic acid, lovenox Skin:WNL-no wounds/pressure injuries Additional Notes: Pt reports a history of eating disorder, still experiencing poor appetite, and refusing meals. did say that pt is drinking chocolate boost. (Pt does not like ensure and refuses to drink it, so family brings in chocolate boost). Monitor intake, appetite, wt, labs. Follow up in 3-5 days.
[2022-07-01 12:08] LABS: Glucose Point of Care 101 mg/dl (65-105)
--- NOTE | 2022-07-01 14:59 | PCNSR ---
On 07/01/22, the student, Miguel Sweeney, provided care and completed [facility] documentation on this patient. I have reviewed the student's documentation and agree with the findings.
[2022-07-01 18:17] LABS: Glucose Point of Care 88 mg/dl (65-105)
[2022-07-02] MEDS: CENTRAL LINE FLUSH 10 ML IV PUSH ×4 (00:01→20:50)
[2022-07-02 00:13] LABS: Glucose Point of Care 100 mg/dl (65-105)
[2022-07-02 06:00] VITALS: BP 154/79; PULSE 91; RESP 20; TEMP 36.4; O2SAT 99
[2022-07-02 06:15] LABS: Basophils Absolute Auto 0.1 K/mm3 (0.0-0.1); Basophils Percent Auto 0.7 % (0.2-1.2); Eosinophils Absolute Auto 0.4 K/mm3 (0-0.3); Eosinophils Percent Auto 3.2 % (0-4.4); Hematocrit 38.5 % (37.0-47.0); Hemoglobin 12.8 g/dL (12.0-15.0); Immature Granulocyte Percent A 1.6 % (0-0.5); Lymphocytes Absolute Auto 1.21 K/mm3 (0.9-3.2); Lymphocytes Percent Auto 9.9 % (18.3-44.2); Mean Corpuscular HGB Conc 33.2 g/dl (32-36); Mean Corpuscular Hemoglobin 32.2 pg (26-34); Mean Platelet Volume 10.3 fl (7.4-10.4); Monocytes Absolute Auto 0.6 K/mm3 (0.1-0.6); Monocytes Percent Auto 4.5 % (2.6-8.5); Neutrophils Absolute Auto 9.8 K/mm3 (1.3-6.7); Neutrophils Percent Auto 80.1 % (45.5-73.1); Platelet Count Result 376 k/mm3 (150-375); Red Blood Count 3.97 M/mm3 (4.2-5.4); Red Cell Distribution Width 15.6 % (11.5-14.5); White Blood Count 12.2 K/mm3 (4.5-10.0)
[2022-07-02 06:20] LABS: Alanine Aminotransferase 19 U/L (6-35); Albumin Level 2.5 g/dL (3.5-5.1); Alkaline Phosphatase 108 U/L (38-126); Anion Gap 10 mmol/L (8-16); Aspartate Amino Transferase 23 U/L (14-36); Bilirubin,Total 0.6 mg/dL (0.2-1.3); Blood Urea Nitrogen 12 mg/dL (7-17); Carbon Dioxide 28 mmol/L (22-30); Chloride 96 mmol/L (98-107); Estimated CRCL calculation 70 ml/min; Estimated Glomerular Filt Rate > 60; Glucose 113 mg/dL (65-110); Potassium 2.4 mmol/L (3.4-5.0); Sodium 134 mmol/L (137-145)
[2022-07-02] MEDS: POTASSIUM CHLORIDE 20 MEQ PACKET (FOR LIQUID) 40 MEQ PO ×2 (06:50→08:56)
[2022-07-02] MEDS: POTASSIUM CHLORIDE INJ 40 MEQ in SODIUM CHLORIDE 0.9% IV 500 ML 130 MEQ IVPB ×2 (07:18→11:21)
[2022-07-02] MEDS: ALBUTEROL SULFATE NEB 2.5 MG/3 ML INH INHALATION ×4 (08:31→21:32)
[2022-07-02 08:47] LABS: Glucose Point of Care 100 mg/dl (65-105)
[2022-07-02] MEDS: ENOXAPARIN 40 MG/0.4 ML SYRINGE SUB-Q (08:57)
[2022-07-02] MEDS: polyethylene glycoL 3350 17 GM POWD.PACK PO (08:57)
[2022-07-02] MEDS: THIAMINE HCL 100 MG TABLET PO (08:57)
[2022-07-02] MEDS: FOLIC ACID 1 MG TABLET PO (08:58)
[2022-07-02] MEDS: SENNA/DOCUSATE SODIUM TABLET 2 TAB PO (08:58)
[2022-07-02] MEDS: amLODIPine BESYLATE 5 MG TABLET PO (08:58)
[2022-07-02] MEDS: EUCERIN CREAM 120 GM JAR 1 APPLIC TOPICAL (08:59)
[2022-07-02] MEDS: FAMOTIDINE 20 MG/2 ML VIAL IV PUSH ×2 (09:15→20:50)
--- NOTE | 2022-07-02 10:04 | PCSTNOTE ---
Attempted to see patient for swallowing treatment. Patient refused but said she will participate in the future.
[2022-07-02 12:00] LABS: Glucose Point of Care 96 mg/dl (65-105)
[2022-07-02] MEDS: IPRATROPIUM BR 0.02% INH SOLN 0.5 MG/2.5 ML VIAL INHALATION ×5 (12:16→21:32)
[2022-07-02 13:13] VITALS: PULSE 86; RESP 12
[2022-07-02 13:16] VITALS: PULSE 91; RESP 12
[2022-07-02 14:00] VITALS: BP 116/74; PULSE 105; RESP 14; TEMP 36.4; O2SAT 94
--- NOTE | 2022-07-02 15:46 | P.PNIM_ITS ---
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 Patient is on day three of levofloxacin. Will continue for a total of 7 dyas of treatment. (2) Postoperative infection: Code(s): T81.40XA - Infection following a procedure, unspecified, initial encounter Status: Acute Assessment and Plan: 06/25: WBC elevated to 21 after d/c abx yesterday after 10 day course completed of Rocephin and 5 day course of azithromycin Fever of 100.2 Check CXR, UA, blood + urine cultures IS to bedside D/c macario Start broad spectrum antibiotics with vancomycin and cefepime Update: Chest x-ray showed small pleural effusions with some opacities at the bases, suggestive of atelectasis with underlying emphysema noted. Will continue antibiotics for now, suspect low-grade fever secondary to atelectasis and will encourage incentive spirometer as well as ambulation. Pulse ox is stable on r oom air for now. Urinalysis was positive for nitrates and bacteria as well as leuk esterase, concerning for UTI. Macario pulled today. 06/26: White blood cell count continues to go up, cefepime discontinued in favor of ertapenem, continue vancomycin. Urinalysis abnormal, concerning for UTI. Blood and urine cultures still pending. Surgical site infection appears unlikely. Chest x-ray relatively unchanged, however, there could be some incompletely treated pneumonia due to the lung collapse she experienced last week. Will attempt to deescalate antibiotics pending culture results, likely to Levaquin. MRSA swab pending 06/27: WBC finally trending down to 18 from 30, likely 2/2 ertapenem, concern for UTI, less likely surgical site infection or pneumonia. F/u cultures. 06/29: Patient with resolution of leukocytosis s/p cefepime-->ertapenem. 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 Patient discussed with infectious disease pharmacist. Urine culture growing juana parapsilosis. Patient had significant improvement on antibiotics, so will continue with levofloxacin and discuss duration with ID pharmacist tomorrow. -Due to recent reactions to two antibiotics will give levofloxacin today and monitor 06/30: Tolerated levofloxacin well. EKG from 06/14 shows normal QTC. Will recheck prior to discharge if the medication needs to continue. Discussed with ID pharmacist and will plan for 7 days of levofloxacin. 07/01: Continue levofloxacin. 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 She is no longer confused. Resolved. (4) Closed intertrochanteric fracture of right femur: Code(s): S72.141A - Displaced intertrochanteric fracture of right femur, initial encounter for closed fracture Status: Acute Assessment and Plan: OR 06/21/22, postop from ORIF R. hip Pain controlled D/c macario 06/25 07/01: Patient is appropriate for discharge but is awaiting insurance authorization. (5) Chest pain: Code(s): R07.9 - Chest pain, unspecified Status: Acute Assessment and Plan: Echocardiogram from 06/14/22 showed EF 65-70% moderate pulmonary hypertension grade 1 diastolic dysfunction, chest pain resolved, likely 2/2 GERD, cardiology consult reviewe
[2022-07-02 17:04] LABS: Glucose Point of Care 103 mg/dl (65-105)
[2022-07-02 17:49] VITALS: PULSE 85; PULSE 88; RESP 18; RESP 20
[2022-07-02 19:58] LABS: Potassium 3.4 mmol/L (3.4-5.0)
[2022-07-02 21:02] LABS: Glucose Point of Care 115 mg/dl (65-105)
[2022-07-02] MEDS: ONDANSETRON INJ 4 MG/2 ML VIAL IV PUSH (21:31)
[2022-07-02 22:03] VITALS: BP 156/78; PULSE 84; RESP 20; TEMP 36.3; O2SAT 99
[2022-07-03] VITALS (7 sets, daily range): BP systolic 173–186; BP diastolic 65–93; PULSE 74–89; RESP 12–20; TEMP 36.2–36.6; O2SAT 97–99
[2022-07-03] MEDS: CENTRAL LINE FLUSH 10 ML IV PUSH (06:11)
[2022-07-03 06:27] LABS: Glucose Point of Care 107 mg/dl (65-105)
[2022-07-03 06:34] LABS: Hematocrit 41.3 % (37.0-47.0); Hemoglobin 13.6 g/dL (12.0-15.0); Mean Corpuscular HGB Conc 32.9 g/dl (32-36); Mean Corpuscular Hemoglobin 32.2 pg (26-34); Mean Corpuscular Volume 97.9 fl (80-100); Mean Platelet Volume 10.4 fl (7.4-10.4); Platelet Count Result 321 k/mm3 (150-375); Red Blood Count 4.22 M/mm3 (4.2-5.4); Red Cell Distribution Width 15.6 % (11.5-14.5); White Blood Count 6.3 K/mm3 (4.5-10.0)
[2022-07-03 07:06] LABS: Anion Gap 10 mmol/L (8-16); Blood Urea Nitrogen 16 mg/dL (7-17); Carbon Dioxide 24 mmol/L (22-30); Chloride 101 mmol/L (98-107); Estimated CRCL calculation 70 ml/min; Estimated Glomerular Filt Rate > 60; Glucose 109 mg/dL (65-110); Potassium 3.2 mmol/L (3.4-5.0); Sodium 135 mmol/L (137-145)
[2022-07-03 07:39] LABS: Band Neutrophils Percent 16 % (0-6); Eosinophils Absolute Manual 0.06 K/mm3 (0.02-0.5); Eosinophils Percent Manual 1 % (0-4); Lymphocytes Absolute Manual 0.63 K/mm3 (1.1-4.5); Monocytes Absolute Manual 0.44 K/mm3 (0.1-0.90); Monocytes Percent Manual 7 % (3-9); Neutrophils Absolute Manual 5.16 K/mm3 (1.7-7.2); Neutrophils Percent Manual 66 % (46-73); Platelet Estimate Adequate (Adequate); Total Cells Counted 100
[2022-07-03 07:40] LABS: Schistocytes None Seen (NORMAL)
--- NOTE | 2022-07-03 07:40 | PM.DS ---
DS: Summary Time Spent with Patient Time attestation: Total time spent providing and/or coordinating discharge services: DS: Data Data Completed and Pending Labs on day of discharge: Labs from last 24 hours 07/03/22 07/03/22 07/03/22 06:14 06:14 06:12 WBC 6.3 RBC 4.22 Hgb 13.6 Hct 41.3 MCV 97.9 MCH 32.2 MCHC 32.9 RDW 15.6 H Plt Count 321 MPV 10.4 Immature Gran % (Auto) Not Reportable Neut % (Auto) Not Reportable Lymph % (Auto) Not Reportable Stanton % (Auto) Not Reportable Eos % (Auto) Not Reportable Baso % (Auto) Not Reportable Lymph # (Auto) Not Reportable Stanton # (Auto) Not Reportable Eos # (Auto) Not Reportable Baso # (Auto) Not Reportable Abs Immat Gran (auto) Not Reportable Absolute Neuts (auto) Not Reportable Absolute Nucleated RBC Not Reportable Nucleated RBC % Not Reportable Platelet Estimate Pending Schistocytes Pending Sodium 135 L Potassium 3.2 L Chloride 101 Carbon Dioxide 24 Anion Gap 10 BUN 16 Creatinine 0.60 L Estim Creat Clear Calc 70 Estimated GFR > 60 Glucose 109 POC Capillary Glucose 107 H Calcium 8.0 L 07/02/22 07/02/22 07/02/22 20:50 19:35 17:02 WBC RBC Hgb Hct MCV MCH MCHC RDW Plt Count MPV Immature Gran % (Auto) Neut % (Auto) Lymph % (Auto) Stanton % (Auto) Eos % (Auto) Baso % (Auto) Lymph # (Auto) Stanton # (Auto) Eos # (Auto) Baso # (Auto) Abs Immat Gran (auto) Absolute Neuts (auto) Absolute Nucleated RBC Nucleated RBC % Platelet Estimate Schistocytes Sodium Potassium 3.4 Chloride Carbon Dioxide Anion Gap BUN Creatinine Estim Creat Clear Calc Estimated GFR Glucose POC Capillary Glucose 115 H 103 Calcium 07/02/22 07/02/22 11:57 08:42 WBC RBC Hgb Hct MCV MCH MCHC RDW Plt Count MPV Immature Gran % (Auto) Neut % (Auto) Lymph % (Auto) Stanton % (Auto) Eos % (Auto) Baso % (Auto) Lymph # (Auto) Stanton # (Auto) Eos # (Auto) Baso # (Auto) Abs Immat Gran (auto) Absolute Neuts (auto) Absolute Nucleated RBC Nucleated RBC % Platelet Estimate Schistocytes Sodium Potassium Chloride Carbon Dioxide Anion Gap BUN Creatinine Estim Creat Clear Calc Estimated GFR Glucose POC Capillary Glucose 96 100 Calcium Discharge Plan Discharge Consulting providers: Mango Spicer ; Raffy Pérez ; Paddy Gomez Discharge Instructions: For Dr. Spicer: Strict touchdown weight-bearing right lower extremity for a minimum of eight weeks. Daily dressing changes to the three right hip and thigh incisions. Staple removal right hip/thigh wounds on July 05, 2022 Okay to use shower chair after ale are removed. Call my office to arrange for a follow-up at the eight week point from surgery Office phone number: [phone] Call with any questions regarding orthopedic care prior to follow-up. Upon discharge from hospital recommend enteric-coated aspirin 325 milligrams daily until follow-up appointment in office in two months. Patient Instructions: Apixaban (By mouth), How to Stop Smoking (DC), Cigarette Smoking and Your Health (GEN), Pain Management (GEN), Hip Fracture (GEN), ORIF (GEN) Discharge Medications: No Action escitalopram oxalate 20 mg tablet 20 mg PO DAILY Qty: 90 1RF Date of admission: 06/12/22 06:26 Primary Care Provider: UNKNOWN,DOCTOR Admitting Provider: Pooja Eid Attending physician on admission: Olive Metzger Condition: Stable
--- NOTE | 2022-07-03 07:59 | PM.IMPN ---
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 Patient is on day three of levofloxacin. Will continue for a total of 7 dyas of treatment. (2) Ileus: Code(s): K56.7 - Ileus, unspecified Status: Acute Assessment and Plan: KUB shows bowel distention with gas. No obstruction or transition point. Exam w/ no peritoneal signs. Patient hemodynamically stable. -NPO -IVF -Will place NGT if patient continues to vomit -Advised patient to move and sit up in chair to help ileus (3) Postoperative infection: Code(s): T81.40XA - Infection following a procedure, unspecified, initial encounter Status: Acute Assessment and Plan: 06/25: WBC elevated to 21 after d/c abx yesterday after 10 day course completed of Rocephin and 5 day course of azithromycin Fever of 100.2 Check CXR, UA, blood + urine cultures IS to bedside D/c macario Start broad spectrum antibiotics with vancomycin and cefepime Update: Chest x-ray showed small pleural effusions with some opacities at the bases, suggestive of atelectasis with underlying emphysema noted. Will continue antibiotics for now, suspect low-grade fever secondary to atelectasis and will encourage incentive spirometer as well as ambulation. Pulse ox is stable on room air for now. Urinalysis was positive for nitrates and bacteria as well as leuk esterase, concerning for UTI. Macario pulled today. 06/26: White blood cell count continues to go up, cefepime discontinued in favor of ertapenem, continue vancomycin. Urinalysis abnormal, concerning for UTI. Blood and urine cultures still pending. Surgical site infection appears unlikely. Chest x-ray relatively unchanged, however, there could be some incompletely treated pneumonia due to the lung collapse she experienced last week. Will attempt to deescalate antibiotics pending culture results, likely to Levaquin. MRSA swab pending 06/27: WBC finally trending down to 18 from 30, likely 2/2 ertapenem, concern for UTI, less likely surgical site infection or pneumonia. F/u cultures. 06/29: Patient with resolution of leukocytosis s/p cefepime-->ertapenem. 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 Patient discussed with infectious disease pharmacist. Urine culture growing juana parapsilosis. Patient had significant improvement on antibiotics, so will continue with levofloxacin and discuss duration with ID pharmacist tomorrow. -Due to recent reactions to two antibiotics will give levofloxacin today and monitor 06/30: Tolerated levofloxacin well. EKG from 06/14 shows normal QTC. Will recheck prior to discharge if the medication needs to continue. Discussed with ID pharmacist and will plan for 7 days of levofloxacin. 07/01: Continue levofloxacin. 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 She is no longer confused. Resolved. (5) Closed intertrochanteric fracture of right femur: Code(s): S72.141A - Displaced intertrochanteric fracture of right femur, initial encounter for closed fracture Status: Acute Assessment and Plan: OR 06/21/22, postop from ORIF R. hip Pain controlled D/c macario 06/25 07/01: Patient is appropriate for discharge but is awaiting insurance authorization. (6) Chest pain: Code(s): R07.9 - Chest pain, unspecified Status: Acute Assessment and Plan: Echocardiogram from 06/14/22 showed EF 65-70% moderate pulmonary hypertension grade 1 diastolic dysfunction, ches
[2022-07-03] MEDS: POTASSIUM CHLORIDE INJ 40 MEQ in SODIUM CHLORIDE 0.9% IV 500 ML 130 MEQ IVPB ×2 (08:32→23:45)
[2022-07-03] MEDS: FOLIC ACID 1 MG TABLET PO (08:32)
[2022-07-03] MEDS: amLODIPine BESYLATE 5 MG TABLET PO (08:32)
[2022-07-03] MEDS: THIAMINE HCL 100 MG TABLET PO (08:32)
[2022-07-03] MEDS: EUCERIN CREAM 120 GM JAR 1 APPLIC TOPICAL (08:33)
[2022-07-03] MEDS: ENOXAPARIN 40 MG/0.4 ML SYRINGE SUB-Q (08:33)
[2022-07-03] MEDS: FAMOTIDINE 20 MG/2 ML VIAL IV PUSH ×2 (08:33→22:15)
[2022-07-03 08:37] LABS: Glucose Point of Care 115 mg/dl (65-105)
[2022-07-03] MEDS: ALBUTEROL SULFATE NEB 2.5 MG/3 ML INH INHALATION ×3 (08:53→20:33)
[2022-07-03] MEDS: IPRATROPIUM BR 0.02% INH SOLN 0.5 MG/2.5 ML VIAL INHALATION ×3 (08:53→20:33)
[2022-07-03 09:35] LABS: Magnesium 1.3 mg/dL (1.6-2.3); Phosphorus 3.4 mg/dL (2.5-4.5)
[2022-07-03 12:08] LABS: Glucose Point of Care 100 mg/dl (65-105)
--- NOTE | 2022-07-03 15:21 | PCSTNOTE ---
Spoke with Dr. Sepulveda about this patient. She is NPO until further notice due to possible adynamic ileus. Speech therapy will discharge patient at this time.
[2022-07-03 19:24] LABS: Glucose Point of Care 110 mg/dl (65-105)
[2022-07-03 22:24] LABS: Glucose Point of Care 112 mg/dl (65-105)
[2022-07-03] MEDS: MAGNESIUM SULF 2 GM/WATER 50ML 2 GM/50 ML BAG IVPB (22:38)
[2022-07-03 22:52] LABS: Anion Gap 6 mmol/L (8-16); Blood Urea Nitrogen 16 mg/dL (7-17); Calcium 7.8 mg/dL (8.4-10.2); Carbon Dioxide 24 mmol/L (22-30); Chloride 105 mmol/L (98-107); Estimated CRCL calculation 70 ml/min; Estimated Glomerular Filt Rate > 60; Glucose 114 mg/dL (65-110); Potassium 3.7 mmol/L (3.4-5.0); Sodium 135 mmol/L (137-145)
[2022-07-04] VITALS (11 sets, daily range): BP systolic 154–170; BP diastolic 64–76; PULSE 73–96; RESP 14–20; TEMP 36.6–37; O2SAT 99–100
[2022-07-04 01:21] LABS: Glucose Point of Care 102 mg/dl (65-105)
[2022-07-04] MEDS: LACTATED RINGERS 1,000 ML 75 ML IV CONT (04:20)
[2022-07-04 05:33] LABS: Basophils Percent Auto 0.6 % (0.2-1.2); Eosinophils Absolute Auto 0.5 K/mm3 (0-0.3); Hematocrit 34.2 % (37.0-47.0); Hemoglobin 11.2 g/dL (12.0-15.0); Immature Granulocyte Absolute 0.08 K/mm3 (0.00-0.031); Immature Granulocyte Percent A 1.3 % (0-0.5); Lymphocytes Percent Auto 22.3 % (18.3-44.2); Mean Corpuscular HGB Conc 32.7 g/dl (32-36); Mean Corpuscular Hemoglobin 31.7 pg (26-34); Mean Corpuscular Volume 96.9 fl (80-100); Mean Platelet Volume 10.8 fl (7.4-10.4); Monocytes Absolute Auto 0.9 K/mm3 (0.1-0.6); Neutrophils Absolute Auto 3.3 K/mm3 (1.3-6.7); Neutrophils Percent Auto 52.8 % (45.5-73.1); Platelet Count Result 276 k/mm3 (150-375); Red Blood Count 3.53 M/mm3 (4.2-5.4); Red Cell Distribution Width 15.4 % (11.5-14.5); White Blood Count 6.3 K/mm3 (4.5-10.0)
[2022-07-04 05:50] LABS: Anion Gap 4 mmol/L (8-16); Blood Urea Nitrogen 13 mg/dL (7-17); Calcium 7.7 mg/dL (8.4-10.2); Carbon Dioxide 23 mmol/L (22-30); Chloride 107 mmol/L (98-107); Estimated CRCL calculation 82 ml/min; Estimated Glomerular Filt Rate > 60; Glucose 88 mg/dL (65-110); Magnesium 1.7 mg/dL (1.6-2.3); Phosphorus 2.2 mg/dL (2.5-4.5); Potassium 3.6 mmol/L (3.4-5.0); Sodium 134 mmol/L (137-145)
[2022-07-04 06:02] LABS: Glucose Point of Care 88 mg/dl (65-105)
--- NOTE | 2022-07-04 07:22 | PM.IMPN ---
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 Patient is on day three of levofloxacin. Will continue for a total of 7 dyas of treatment. (2) Ileus: Code(s): K56.7 - Ileus, unspecified Status: Acute Assessment and Plan: KUB shows bowel distention with gas. No obstruction or transition point. Exam w/ no peritoneal signs. Patient hemodynamically stable. Awaiting return of bowel function. -NPO -IVF -Will place NGT if patient continues to vomit (3) Postoperative infection: Code(s): T81.40XA - Infection following a procedure, unspecified, initial encounter Status: Acute Assessment and Plan: 06/25: WBC elevated to 21 after d/c abx yesterday after 10 day course completed of Rocephin and 5 day course of azithromycin Fever of 100.2 Check CXR, UA, blood + urine cultures IS to bedside D/c macario Start broad spectrum antibiotics with vancomycin and cefepime Update: Chest x-ray showed small pleural effusions with some opacities at the bases, suggestive of atelectasis with underlying emphysema noted. Will continue antibiotics for now, suspect low-grade fever secondary to atelectasis and will encourage incentive spirometer as well as ambulation. Pulse ox is stable on room air for now. Urinalysis was positive for nitrates and bacteria as well as leuk esterase, concerning for UTI. Macario pulled today. 06/26: White blood cell count continues to go up, cefepime discontinued in favor of ertapenem, continue vancomycin. Urinalysis abnormal, concerning for UTI. Blood and urine cultures still pending. Surgical site infection appears unlikely. Chest x-ray relatively unchanged, however, there could be some incompletely treated pneumonia due to the lung collapse she experienced last week. Will attempt to deescalate antibiotics pending culture results, likely to Levaquin. MRSA swab pending 06/27: WBC finally trending down to 18 from 30, likely 2/2 ertapenem, concern for UTI, less likely surgical site infection or pneumonia. F/u cultures. 06/29: Patient with resolution of leukocytosis s/p cefepime-->ertapenem. 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 Patient discussed with infectious disease pharmacist. Urine culture growing juana parapsilosis. Patient had significant improvement on antibiotics, so will continue with levofloxacin and discuss duration with ID pharmacist tomorrow. -Due to recent reactions to two antibiotics will give levofloxacin today and monitor 06/30: Tolerated levofloxacin well. EKG from 06/14 shows normal QTC. Will recheck prior to discharge if the medication needs to continue. Discussed with ID pharmacist and will plan for 7 days of levofloxacin. 07/01: Continue levofloxacin. 07/02: Continue levofloxacin 07/03: cotinue levofloxacin 07/04: Continue levofloxacin and tomorrow should be the last day of treatment. 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 She is no longer confused. Resolved. (5) Closed intertrochanteric fracture of right femur: Code(s): S72.141A - Displaced intertrochanteric fracture of right femur, initial encounter for closed fracture Status: Acute Assessment and Plan: OR 06/21/22, postop from ORIF R. hip Pain controlled D/c macario 06/25 07/01: Patient is appropriate for discharge but is awaiting insurance authorization. (6) Chest pain: Code(s): R07.9 - Chest pain, unspecified Status: Acute Assessment and Plan: Echocardiogram from 06/14/22 showed EF 65-70% moderate
[2022-07-04] MEDS: ALBUTEROL SULFATE NEB 2.5 MG/3 ML INH INHALATION ×4 (08:32→21:09)
[2022-07-04] MEDS: IPRATROPIUM BR 0.02% INH SOLN 0.5 MG/2.5 ML VIAL INHALATION ×4 (08:32→21:09)
[2022-07-04] MEDS: FOLIC ACID 1 MG TABLET PO (09:14)
[2022-07-04] MEDS: amLODIPine BESYLATE 5 MG TABLET PO (09:14)
[2022-07-04] MEDS: ENOXAPARIN 40 MG/0.4 ML SYRINGE SUB-Q (09:14)
[2022-07-04] MEDS: MAGNESIUM SULF 1 GM/D5W 100 ML 1 GM/100 ML BAG IVPB ×2 (09:14→21:29)
[2022-07-04] MEDS: THIAMINE HCL 100 MG TABLET PO (09:14)
[2022-07-04] MEDS: FAMOTIDINE 20 MG/2 ML VIAL IV PUSH ×2 (09:14→21:01)
[2022-07-04] MEDS: EUCERIN CREAM 120 GM JAR 1 APPLIC TOPICAL (09:15)
[2022-07-04] MEDS: POTASSIUM PHOS,M-BASIC-D-BASIC 20 MMOL in SODIUM CHLORIDE 0.9% IV 250 ML 64.17 MMOL IVPB (11:02)
--- NOTE | 2022-07-04 11:40 | PCNFU ---
Nutrition Follow-Up Complete: Suboptimal po intake related to reduced appetite as evidenced by self reported weight loss prior to admission, low BMI of 18.6 Goal:PO intake 75% of meals. Pt is not progressing towards goal as she is NPO as of today. Pt current nutrition is NPO. Nutrition recommendation: resume diet when medically appropriate Last recorded weight is 57 kg - stable. Bowel Motility: C/O nausea and diarrhea. +BM 07/04 Labs Reviewed: hgb:11.2, HCT:34.2, NA:134, Cr:0.5 Meds Noted: folic acid, KCL, zofran Skin: WNL Additional Notes: Pt is currently NPO for suspected ileus. No plans for nutrition at this time per nursing. Monitor intake, wt, labs. Follow up in 3 days.
[2022-07-04 12:20] LABS: Glucose Point of Care 93 mg/dl (65-105)
[2022-07-04 17:00] LABS: Glucose Point of Care 94 mg/dl (65-105)
[2022-07-04 20:03] LABS: Anion Gap 3 mmol/L (8-16); Blood Urea Nitrogen 10 mg/dL (7-17); Calcium 7.6 mg/dL (8.4-10.2); Carbon Dioxide 25 mmol/L (22-30); Chloride 104 mmol/L (98-107); Estimated CRCL calculation 70 ml/min; Estimated Glomerular Filt Rate > 60; Glucose 89 mg/dL (65-110); Magnesium 1.8 mg/dL (1.6-2.3); Phosphorus 2.9 mg/dL (2.5-4.5); Potassium 3.2 mmol/L (3.4-5.0); Sodium 132 mmol/L (137-145)
[2022-07-04] MEDS: POTASSIUM CHLORIDE INJ 40 MEQ in SODIUM CHLORIDE 0.9% IV 500 ML 130 MEQ IVPB (23:09)
[2022-07-05] VITALS (13 sets, daily range): BP systolic 129–184; BP diastolic 54–84; PULSE 58–87; RESP 16–18; TEMP 36.4–36.7; O2SAT 96–100
[2022-07-05 01:12] LABS: Glucose Point of Care 92 mg/dl (65-105)
[2022-07-05] MEDS: KCL 20 MEQ/SW 100 ML 100 ML 50 MEQ IVPB (04:15)
[2022-07-05 05:08] LABS: Basophils Percent Auto 0.4 % (0.2-1.2); Eosinophils Absolute Auto 1.1 K/mm3 (0-0.3); Eosinophils Percent Auto 14.9 % (0-4.4); Hematocrit 33.6 % (37.0-47.0); Hemoglobin 11.1 g/dL (12.0-15.0); Immature Granulocyte Absolute 0.06 K/mm3 (0.00-0.031); Immature Granulocyte Percent A 0.8 % (0-0.5); Lymphocytes Percent Auto 19.5 % (18.3-44.2); Mean Corpuscular Hemoglobin 31.8 pg (26-34); Mean Corpuscular Volume 96.3 fl (80-100); Mean Platelet Volume 10.7 fl (7.4-10.4); Monocytes Percent Auto 13.9 % (2.6-8.5); Neutrophils Absolute Auto 3.6 K/mm3 (1.3-6.7); Neutrophils Percent Auto 50.5 % (45.5-73.1); Platelet Count Result 248 k/mm3 (150-375); Red Blood Count 3.49 M/mm3 (4.2-5.4); Red Cell Distribution Width 15.3 % (11.5-14.5); White Blood Count 7.2 K/mm3 (4.5-10.0)
[2022-07-05 05:42] LABS: Anion Gap 4 mmol/L (8-16); Blood Urea Nitrogen 6 mg/dL (7-17); Calcium 7.7 mg/dL (8.4-10.2); Carbon Dioxide 24 mmol/L (22-30); Chloride 102 mmol/L (98-107); Estimated CRCL calculation 82 ml/min; Estimated Glomerular Filt Rate > 60; Glucose 83 mg/dL (65-110); Potassium 3.5 mmol/L (3.4-5.0); Sodium 130 mmol/L (137-145)
[2022-07-05] MEDS: hydrALAZINE HCL 20 MG/ML VIAL 10 MG IV PUSH (05:59)
[2022-07-05 07:02] LABS: Glucose Point of Care 73 mg/dl (65-105)
[2022-07-05] MEDS: FOLIC ACID 1 MG TABLET PO (09:11)
[2022-07-05] MEDS: FAMOTIDINE 20 MG/2 ML VIAL IV PUSH ×2 (09:11→20:19)
[2022-07-05] MEDS: EUCERIN CREAM 120 GM JAR 1 APPLIC TOPICAL (09:11)
[2022-07-05] MEDS: THIAMINE HCL 100 MG TABLET PO (09:11)
[2022-07-05] MEDS: amLODIPine BESYLATE 5 MG TABLET PO (09:11)
[2022-07-05] MEDS: POTASSIUM CHLORIDE INJ 40 MEQ in SODIUM CHLORIDE 0.9% IV 500 ML 130 MEQ IVPB (09:11)
[2022-07-05] MEDS: IPRATROPIUM BR 0.02% INH SOLN 0.5 MG/2.5 ML VIAL INHALATION ×4 (09:48→20:49)
[2022-07-05] MEDS: ALBUTEROL SULFATE NEB 2.5 MG/3 ML INH INHALATION ×4 (09:48→20:48)
[2022-07-05 12:18] LABS: Glucose Point of Care 80 mg/dl (65-105)
--- NOTE | 2022-07-05 15:34 | PM.PNORT ---
Progress Note: A&P Assessment and Plan (1) Closed intertrochanteric fracture of right femur: Code(s): S72.141A - Displaced intertrochanteric fracture of right femur, initial encounter for closed fracture Status: Acute Plan 66-year-old female now 2 weeks out from ORIF of right IT fracture with Dr. Spicer. She has really showed significant amount improvement over the last week. Continue to mobilize with therapy. [place] can be removed. Plan to start daily 325 mg aspirin for 6 weeks at time of discharge for DVT prophylaxis. Subjective Subjective Date/Time Seen: 07/05/22 15:34 Post Op day: 14 Principal diagnosis: Status post ORIF right IT hip fracture Interval history: 66-year-old female postop day 14 after ORIF right IT hip fracture. Incision site is clean and dry. She denies any new complaints. She continues to improve with therapy. Review of Systems Constitutional: Constitutional: Reports as per HPI Exam Const: General: comfortable and no acute distress HENMT: Head: normal to inspection Resp: Effort & Inspection: normal respiratory effort GI: Inspection: non-distended Extrem: Other: Exam of right hip shows clean and dry surgical ale. No appreciable drainage. No ecchymosis or swelling of the distal right extremity. Neurovascular status right lower extremity is intact. Psych: Mental Status: mental status grossly normal Affect: normal affect Objective Data Vital Signs Vital Signs: Vital Signs - 24 hr 07/04/22 15:44 07/04/22 15:56 07/04/22 20:23 Temperature 98.1 F Pulse Rate 82 73 73 Respiratory Rate 20 20 14 Blood Pressure 155/64 H Pulse Oximetry 100 Oxygen Delivery 07/04/22 21:08 07/04/22 21:15 07/04/22 20:00 Temperature Pulse Rate 81 88 Respiratory Rate 20 20 Blood Pressure Pulse Oximetry Oxygen Delivery Room Air 07/05/22 05:30 07/05/22 06:38 07/05/22 06:55 Temperature 97.6 F Pulse Rate 75 Respiratory Rate 18 Blood Pressure 184/70 H 151/54 H 143/62 H Pulse Oximetry 99 Oxygen Delivery 07/05/22 09:50 07/05/22 09:58 07/05/22 08:00 Temperature Pulse Rate 80 80 Respiratory Rate 18 18 Blood Pressure Pulse Oximetry Oxygen Delivery Room Air 07/05/22 13:03 07/05/22 13:12 07/05/22 13:33 Temperature 98.0 F Pulse Rate 83 85 58 L Respiratory Rate 18 18 16 Blood Pressure 154/58 H Pulse Oximetry 96 Oxygen Delivery Intake/Output Intake/Output: Intake & Output 07/02/22 07/03/22 07/04/22 07/05/22 23:59 23:59 23:59 23:59 Intake Total 2430 276 227.8960 570 Output Total 958 989 4647 1100 Balance 1705 65 -1043.3333 -530 Meds/Results Medications: Active Medications Generic Name Dose Route Start Last Admin Trade Name Freq PRN Reason Stop Dose Admin Albuterol 2.5 mg 06/22/22 12:00 07/05/22 13:03 Albuterol Sulfate Neb 2.5 Mg/3 Ml Inh INHALATION 2.5 mg [id number] PRETTY Administration Amlodipine Besylate 5 mg 06/15/22 10:40 07/05/22 09:11 Amlodipine Besylate 5 Mg Tablet PO 5 mg QAM PRETTY Administration Enoxaparin Sodium 40 mg 06/28/22 09:00 07/05/22 09:11 Enoxaparin 40 Mg/0.4 Ml Syringe SUB-Q Not Given DAILY PRETTY Famotidine 20 mg 06/27/22 18:00 07/05/22 09:11 Famotidine 20 Mg/2 Ml Vial IV PUSH 20 mg Q12HR PRETTY Administration Folic Acid 1 mg 06/12/22 09:00 07/05/22 09:11 Folic Acid 1 Mg Tablet PO 1 mg DAILY PRETTY Administration Hydralazine HCl 10 mg 06/13/22 13:10 07/05/22 05:59 Hydralazine Hcl 20 Mg/Ml Vial IV PUSH 10 mg Q8H PRN Administration Systolic BP >170 Hydralazine HCl 2.5 mg 07/04/22 07:19 Hydralazine Hcl 20 Mg/Ml Vial IV PUSH Q8H PRN Blood Pressure - SBP > 160 Levofloxacin/Dextrose 750 mg in 150 mls @ 100 mls/hr 06/29/22 13:00 07/05/22 13:12 Levaquin 750 Mg/D5w 150 Ml IVPB 100 mls/hr Q24H PRETTY Administration Ipratropium [place] 0.5 mg 06/22/22 12:00 07/05/22 13:03 Ipratropium Br 0.02% Inh
--- NOTE | 2022-07-05 16:06 | PM.CNGS ---
Assessment and Plan Assessment and plan (1) Ileus: Code(s): K56.7 - Ileus, unspecified Status: Acute Assessment and Plan: Patient developed nausea and vomiting initially felt to be related to an ileus. She was treated with bowel rest and monitored with serial imaging. I reviewed her plain films from the last two days and today. It appears that the small and large bowel dilatation has improved on today's x-ray. This seems to be resolving. She is not complaining of abdominal pain and has good bowel sounds. Recommend to continue with bowel stimulation as needed. Will add dulcolax suppository as needed if no BM today. Will start clear liquids and advance as tolerated to full liquids. Will also add a probiotic given her long course of IV antibiotics. Encouraged walking with therapy when tolerated and when stable to do so. No indication for surgical intervention at this time. Discussed with patient that I would also recommend having a colonoscopy in the future as an outpatient once she is stable, stronger, and has resolved her current acute issues. Thank you for allowing us to see the patient in consultation. (2) UTI (urinary tract infection): Code(s): N39.0 - Urinary tract infection, site not specified Status: Acute Assessment and Plan: Continue antibiotics per primary service. Urine culture noted to have juana, although patient has been improving with current treatment. Hospitalist was planning to speak with ID pharmacist. Management per Hospitalist. (3) Postoperative infection: Code(s): T81.40XA - Infection following a procedure, unspecified, initial encounter Status: Acute (4) Closed intertrochanteric fracture of right femur: Code(s): S72.141A - Displaced intertrochanteric fracture of right femur, initial encounter for closed fracture Status: Acute Assessment and Plan: S/p ORIF right IT hip fracture on 06/21/22. (5) Alcohol use: Code(s): Z72.89 - Other problems related to lifestyle Status: Acute Assessment and Plan: Had issues with alcohol withdrawal during her hospitalization, which has resolved. Recommend to avoid any alcohol intake after discharge. (6) Electrolyte abnormality: Code(s): E87.8 - Other disorders of electrolyte and fluid balance, not elsewhere classified Status: Acute Assessment and Plan: Has dealt with hyponatremia and hypokalemia, which is being replaced as needed and improved. Can contribute to an ileus picture. Recommend to continue monitoring electrolytes and replace as needed. (7) Atelectasis of left lung: Code(s): J98.11 - Atelectasis Status: Acute Plan I have discussed the patient's case and plan of care with Dr. Browning. History of Present Illness Consult details Consult date: 07/05/22 Reason for consult: other (Ileus and/or possible colitis) Requesting physician: Isabel Sepulveda MD Narrative: This is a 66-year-old woman with a history of alcohol abuse and anxiety who presented to the ER initially on 06/12/2022 with right hip pain after suffering a fall at home. She was found to have a right intertrochanteric hip fracture. She was admitted and was additionally having chest pain, which was worked up by pulmonology and Cardiology. She eventually had an ORIF of the right IT hip fracture by Dr. Spicer on 06/21/2022. She developed leukocytosis and has been on numerous IV antibiotics. She has been treated for possible pneumonia and UTI. 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 She has also dealt with delirium during hospitalization, which has improved. Per the patient she has not eaten much since being admitted and has not had much of an appetite. She has had minimal ambulation and activity due to the hip fracture, delirium, and generalized weakness. About 3 days ago, she developed nausea and vomiting. She subsequently had a KUB, which showed dilated small bowel a
[2022-07-05 17:11] LABS: Glucose Point of Care 89 mg/dl (65-105)
--- NOTE | 2022-07-05 18:36 | PM.IMPN ---
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 Patient is on day three of levofloxacin. Will continue for a total of 7 day of treatment ending 07/06/22. (2) Ileus: Code(s): K56.7 - Ileus, unspecified Status: Acute Assessment and Plan: KUB shows less bowel distention but report mentions concerns for colitis. -Consult General Surgery (3) Postoperative infection: Code(s): T81.40XA - Infection following a procedure, unspecified, initial encounter Status: Acute Assessment and Plan: 06/25: WBC elevated to 21 after d/c abx yesterday after 10 day course completed of Rocephin and 5 day course of azithromycin Fever of 100.2 Check CXR, UA, blood + urine cultures IS to bedside D/c macario Start broad spectrum antibiotics with vancomycin and cefepime Update: Chest x-ray showed small pleural effusions with some opacities at the bases, suggestive of atelectasis with underlying emphysema noted. Will continue antibiotics for now, suspect low-grade fever secondary to atelectasis and will encourage incentive spirometer as well as ambulation. Pulse ox is stable on room air for now. Urinalysis was positive for nitrates and bacteria as well as leuk esterase, concerning for UTI. Macario pulled today. 06/26: White blood cell count continues to go up, cefepime discontinued in favor of ertapenem, continue vancomycin. Urinalysis abnormal, concerning for UTI. Blood and urine cultures still pending. Surgical site infection appears unlikely. Chest x-ray relatively unchanged, however, there could be some incompletely treated pneumonia due to the lung collapse she experienced last week. Will attempt to deescalate antibiotics pending culture results, likely to Levaquin. MRSA swab pending 06/27: WBC finally trending down to 18 from 30, likely 2/2 ertapenem, concern for UTI, less likely surgical site infection or pneumonia. F/u cultures. 06/29: Patient with resolution of leukocytosis s/p cefepime-->ertapenem. 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 Patient discussed with infectious disease pharmacist. Urine culture growing juana parapsilosis. Patient had significant improvement on antibiotics, so will continue with levofloxacin and discuss duration with ID pharmacist tomorrow. -Due to recent reactions to two antibiotics will give levofloxacin today and monitor 06/30: Tolerated levofloxacin well. EKG from 06/14 shows normal QTC. Will recheck prior to discharge if the medication needs to continue. Discussed with ID pharmacist and will plan for 7 days of levofloxacin. 07/01: Continue levofloxacin. 07/02: Continue levofloxacin 07/03: cotinue levofloxacin 07/04: Continue levofloxacin. 07/05: Last day of levofloxacin is tomorrow. 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 She is no longer confused. Resolved. (5) Closed intertrochanteric fracture of right femur: Code(s): S72.141A - Displaced intertrochanteric fracture of right femur, initial encounter for closed fracture Status: Acute Assessment and Plan: OR 06/21/22, postop from ORIF R. hip Pain controlled D/c macario 06/25 07/01: Patient is appropriate for discharge but is awaiting insurance authorization. (6) Chest pain: Code(s): R07.9 - Chest pain, unspecified Status: Acute Assessment and Plan: Echocardiogram from 06/14/22 showed EF 65-70% moderate pulmonary hypertension grade 1 diastolic dysfunction, chest pain resolved, likely 2/2 GERD, cardiology consult revie
[2022-07-05] MEDS: SACCHAROMYCES BOULARDII 250 MG CAPSULE PO (18:37)
[2022-07-05] MEDS: SODIUM PHOSPHATE 20 MM in DEXTROSE 5% IN WATER 250 ML 50 MM IVPB (20:19)
[2022-07-05 21:34] LABS: Glucose Point of Care 90 mg/dl (65-105)
[2022-07-06] VITALS (7 sets, daily range): BP systolic 145–150; BP diastolic 59–70; PULSE 72–78; RESP 18–20; TEMP 36.4–36.8; O2SAT 99–100
[2022-07-06 00:13] LABS: Glucose Point of Care 115 mg/dl (65-105)
[2022-07-06 04:51] LABS: Basophils Percent Auto 0.4 % (0.2-1.2); Eosinophils Absolute Auto 0.6 K/mm3 (0-0.3); Eosinophils Percent Auto 7.6 % (0-4.4); Hemoglobin 10.7 g/dL (12.0-15.0); Immature Granulocyte Absolute 0.08 K/mm3 (0.00-0.031); Lymphocytes Absolute Auto 1.39 K/mm3 (0.9-3.2); Lymphocytes Percent Auto 16.6 % (18.3-44.2); Mean Corpuscular HGB Conc 33.4 g/dl (32-36); Mean Corpuscular Hemoglobin 31.9 pg (26-34); Mean Corpuscular Volume 95.5 fl (80-100); Mean Platelet Volume 10.8 fl (7.4-10.4); Monocytes Absolute Auto 1.1 K/mm3 (0.1-0.6); Monocytes Percent Auto 12.8 % (2.6-8.5); Neutrophils Absolute Auto 5.2 K/mm3 (1.3-6.7); Neutrophils Percent Auto 61.6 % (45.5-73.1); Platelet Count Result 229 k/mm3 (150-375); Red Blood Count 3.35 M/mm3 (4.2-5.4); Red Cell Distribution Width 15.1 % (11.5-14.5); White Blood Count 8.4 K/mm3 (4.5-10.0)
[2022-07-06 05:07] LABS: Anion Gap 5 mmol/L (8-16); Blood Urea Nitrogen 5 mg/dL (7-17); Calcium 7.7 mg/dL (8.4-10.2); Carbon Dioxide 24 mmol/L (22-30); Chloride 98 mmol/L (98-107); Estimated CRCL calculation 82 ml/min; Estimated Glomerular Filt Rate > 60; Glucose 97 mg/dL (65-110); Magnesium 1.4 mg/dL (1.6-2.3); Potassium 3.1 mmol/L (3.4-5.0); Sodium 127 mmol/L (137-145)
[2022-07-06 05:27] LABS: Glucose Point of Care 88 mg/dl (65-105)
[2022-07-06 08:12] LABS: Glucose Point of Care 96 mg/dl (65-105)
[2022-07-06] MEDS: IPRATROPIUM BR 0.02% INH SOLN 0.5 MG/2.5 ML VIAL INHALATION ×2 (08:42→15:34)
[2022-07-06] MEDS: ALBUTEROL SULFATE NEB 2.5 MG/3 ML INH INHALATION ×2 (08:42→15:34)
[2022-07-06] MEDS: THIAMINE HCL 100 MG TABLET PO (09:01)
[2022-07-06] MEDS: FOLIC ACID 1 MG TABLET PO (09:01)
[2022-07-06] MEDS: ENOXAPARIN 40 MG/0.4 ML SYRINGE SUB-Q (09:01)
[2022-07-06] MEDS: amLODIPine BESYLATE 5 MG TABLET PO (09:01)
[2022-07-06] MEDS: SACCHAROMYCES BOULARDII 250 MG CAPSULE PO ×2 (09:01→16:47)
[2022-07-06] MEDS: FAMOTIDINE 20 MG/2 ML VIAL IV PUSH ×2 (09:02→20:00)
[2022-07-06] MEDS: EUCERIN CREAM 120 GM JAR 1 APPLIC TOPICAL (09:02)
[2022-07-06 11:46] LABS: Glucose Point of Care 121 mg/dl (65-105)
--- NOTE | 2022-07-06 13:07 | P.DS_ITS ---
DS: Admitting Diagnosis Discharge Date July 06, 2022 Admitting Diagnosis Hip pain DS: Discharge Diagnosis Discharge Diagnosis (1) UTI (urinary tract infection): Code(s): N39.0 - Urinary tract infection, site not specified Status: Acute Assessment and Plan: Ertapenem and cefepime called Rocha Nam Syndrome rash. Patient is on day three of levofloxacin. Will continue for a total of 7 day of treatment ending 07/06/22. (2) Ileus: Code(s): K56.7 - Ileus, unspecified Status: Acute Assessment and Plan: KUB shows less bowel distention but report mentions concerns for colitis. -Consult General Surgery (3) Postoperative infection: Code(s): T81.40XA - Infection following a procedure, unspecified, initial encounter Status: Acute Assessment and Plan: 06/25: WBC elevated to 21 after d/c abx yesterday after 10 day course completed of Rocephin and 5 day course of azithromycin Fever of 100.2 Check CXR, UA, blood + urine cultures IS to bedside D/c macario Start broad spectrum antibiotics with vancomycin and cefepime Update: Chest x-ray showed small pleural effusions with some opacities at the bases, suggestive of atelectasis with underlying emphysema noted. Will continue antibiotics for now, suspect low-grade fever secondary to atelectasis and will encourage incentive spirometer as well as ambulation. Pulse ox is stable on room air for now. Urinalysis was positive for nitrates and bacteria as well as leuk esterase, concerning for UTI. Macario pulled today. 06/26: White blood cell count continues to go up, cefepime discontinued in favor of ertapenem, continue vancomycin. Urinalysis abnormal, concerning for UTI. Blood and urine cultures still pending. Surgical site infection appears unlikely. Chest x-ray relatively unchanged, however, there could be some incompletely treated pneumonia due to the lung collapse she experienced last week. Will attempt to deescalate antibiotics pending culture results, likely to Levaquin. MRSA swab pending 06/27: WBC finally trending down to 18 from 30, likely 2/2 ertapenem, concern for UTI, less likely surgical site infection or pneumonia. F/u cultures. 06/29: Patient with resolution of leukocytosis s/p cefepime-->ertapenem. 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 Patient discussed with infectious disease pharmacist. Urine culture growing juana parapsilosis. Patient had significant improvement on antibiotics, so will continue with levofloxacin and discuss duration with ID pharmacist tomorrow. -Due to recent reactions to two antibiotics will give levofloxacin today and monitor 06/30: Tolerated levofloxacin well. EKG from 06/14 shows normal QTC. Will recheck prior to discharge if the medication needs to continue. Discussed with ID pharmacist and will plan for 7 days of levofloxacin. 07/01: Continue levofloxacin. 07/02: Continue levofloxacin 07/03: cotinue levofloxacin 07/04: Continue levofloxacin. 07/05: Last day of levofloxacin is tomorrow. 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 She is no longer confused. Resolved. (5) Closed intertrochanteric fracture of right femur: Code(s): S72.141A - Displaced intertrochanteric fracture of right femur, initial encounter for closed fracture Status: Acute As
[2022-07-06] MEDS: SODIUM CHLORIDE 0.9% IV 1,000 ML 999 ML IV CONT (13:41)
--- NOTE | 2022-07-06 14:58 | PC.NURSE ---
On 07/06/22, the student, [Maya Larsen], provided care and completed [facility] documentation on this patient. I have reviewed the student's documentation and agree with the findings.
--- NOTE | 2022-07-06 15:39 | PCSTNOTE ---
Please refer to the Bedside Swallow Evaluation in the EMR. Please note, silent aspiration cannot be ruled out at bedside.
[2022-07-06 16:40] LABS: Glucose Point of Care 149 mg/dl (65-105)
[2022-07-06 17:25] LABS: Anion Gap 7 mmol/L (8-16); Blood Urea Nitrogen 3 mg/dL (7-17); Calcium 7.4 mg/dL (8.4-10.2); Carbon Dioxide 24 mmol/L (22-30); Chloride 99 mmol/L (98-107); Estimated CRCL calculation 82 ml/min; Estimated Glomerular Filt Rate > 60; Glucose 96 mg/dL (65-110); Potassium 2.7 mmol/L (3.4-5.0); Sodium 130 mmol/L (137-145)
[2022-07-06] MEDS: POTASSIUM CHLORIDE 20 MEQ TABLET 80 MEQ PO (17:46)
--- NOTE | 2022-07-06 20:53 | PCRCNOTE ---
pt refusing 1999 UPD stating the ambulance is coming for her and she does not want treatment before she leaves
== END 2022-07-06 23:08 | DRG 480 ==
LOC: ANHED 06:23 → ANH3MEDSUR 07:23 → ANHIMU 06-14 11:27 → ANH2MED 06-22 14:46 → ANHIMU 06-26 13:51 → ANH2MED 06-29 17:36
PROVIDERS: Family Medicine; Internal Medicine; Internal Medicine Pulmonary Disease; Nurse Practitioner; Orthopaedic Surgery; Physician Assistant; Admitting Provider Internal Medicine; Emergency Provider Emergency Medicine; Visit Provider Student in an Organized Health Care Education/Training Program
PROC: 0QS634Z Reposition Right Upper Femur with Internal Fixation Device, Percutaneous Approach (ICD-10-PCS; CPT 27245; principal; 2022-06-21 13:30)
DX: S72.141A Displaced intertrochanteric fracture of right femur, initial encounter for closed fracture (principal); J18.9 Pneumonia, unspecified organism; B37.49 Other urogenital candidiasis; K91.89 Other postprocedural complications and disorders of digestive system; K56.7 Ileus, unspecified; L51.1 Stevens-Johnson syndrome; F10.932 Alcohol use, unspecified with withdrawal with perceptual disturbance; F10.921 Alcohol use, unspecified with intoxication delirium; E87.1 Hypo-osmolality and hyponatremia; J98.11 Atelectasis; J90 Pleural effusion, not elsewhere classified; L27.1 Localized skin eruption due to drugs and medicaments taken internally; T36.8X5A Adverse effect of other systemic antibiotics, initial encounter; T36.1X5A Adverse effect of cephalosporins and other beta-lactam antibiotics, initial encounter; E87.6 Hypokalemia; R07.89 Other chest pain; G25.2 Other specified forms of tremor; W18.39XA Other fall on same level, initial encounter; Z20.822 Contact with and (suspected) exposure to COVID-19; K21.9 Gastro-esophageal reflux disease without esophagitis; R09.02 Hypoxemia; K52.9 Noninfective gastroenteritis and colitis, unspecified; R41.0 Disorientation, unspecified; R03.0 Elevated blood-pressure reading, without diagnosis of hypertension; D72.829 Elevated white blood cell count, unspecified; D75.1 Secondary polycythemia; F41.9 Anxiety disorder, unspecified; R13.10 Dysphagia, unspecified; F17.210 Nicotine dependence, cigarettes, uncomplicated; E86.0 Dehydration; Z66 Do not resuscitate; Y90.6 Blood alcohol level of 120-199 mg/100 ml
CPT/HCPCS: 36415; 36569; 36600; 51701; 51702; 71045; 71046; 71250; 71275; 73502; 74018; 74019; 80048; 80053; 80202; 80307; 81001; 82570; 82805; 82948; 83605; 83735; 83880; 84100; 84132; 84145; 84295; 84300; 84484; 85025; 85027; 85610; 85730; 86850; 86900; 86901; 87040; 87077; 87081; 87086; 87088; 87106; 87186; 92526; 92610; 92611; 93005; 93306; 93970; 94640; 94667; 94668; 94669; 96374; 97110; 97162; 97166; 97530; 97535; 99199; 99285; A9270; C1713; C1751; C9113; C9803; J0131; J0360; J0456; J0692; J0696; J1100; J1170; J1200; J1335; J1650; J1885; J1940; J1956; J2060; J2250; J2270; J2405; J2704; J2920; J3010; J3370; J3411; J3475; J3480; J7030; J7040; J7042; J7050; J7060; J7120; J7512; Q9967; U0003; U0005

== ENCOUNTER 2022-08-05 15:35 | Emergency (ER) | payer MEDICARE, SELFPAY ==
--- NOTE | ~2022-08-05 | XR_ITS ---
EXAMINATION: XR heel RT min 2V DATE: 08/05/2022 18:11 INDICATION: Right heel wound. TECHNIQUE: 2 views of right calcaneus on 3 radiographs were obtained. COMPARISON: None. FINDINGS: Bone alignment is normal. No fracture. There is mild midfoot osteoarthritis. There are enth esophytes at the posterior and plantar aspects of calcaneal tuberosity. IMPRESSION: 1. No specific evidence of osteomyelitis. Reviewed, dictated and finalized at location A.
[2022-08-05 15:55] VITALS: BP 127/68; PULSE 94; RESP 14; TEMP 36.8; O2SAT 98
[2022-08-05 18:02] LABS: Basophils Absolute Auto 0.1 K/mm3 (0.0-0.1); Basophils Percent Auto 0.5 % (0.2-1.2); Eosinophils Absolute Auto 0.3 K/mm3 (0-0.3); Eosinophils Percent Auto 2.6 % (0-4.4); Hematocrit 34.8 % (37.0-47.0); Hemoglobin 11.6 g/dL (12.0-15.0); Immature Granulocyte Absolute 0.06 K/mm3 (0.00-0.031); Immature Granulocyte Percent A 0.6 % (0-0.5); Lymphocytes Absolute Auto 1.63 K/mm3 (0.9-3.2); Mean Corpuscular HGB Conc 33.3 g/dl (32-36); Mean Corpuscular Hemoglobin 32.5 pg (26-34); Mean Corpuscular Volume 97.5 fl (80-100); Monocytes Absolute Auto 0.9 K/mm3 (0.1-0.6); Monocytes Percent Auto 9.8 % (2.6-8.5); Neutrophils Absolute Auto 6.7 K/mm3 (1.3-6.7); Neutrophils Percent Auto 69.5 % (45.5-73.1); Platelet Count Result 420 k/mm3 (150-375); Red Blood Count 3.57 M/mm3 (4.2-5.4); Red Cell Distribution Width 13.6 % (11.5-14.5); White Blood Count 9.6 K/mm3 (4.5-10.0)
[2022-08-05 18:12] LABS: Lactic Acid Reflex 1.8 mmol/L (0.7-2.0)
[2022-08-05 18:13] LABS: Anion Gap 9 mmol/L (8-16); Blood Urea Nitrogen 15 mg/dL (7-17); Calcium 9.2 mg/dL (8.4-10.2); Carbon Dioxide 27 mmol/L (22-30); Chloride 98 mmol/L (98-107); Estimated CRCL calculation 64 ml/min; Estimated Glomerular Filt Rate > 60; Glucose 92 mg/dL (65-110); Potassium 4.1 mmol/L (3.4-5.0); Sodium 134 mmol/L (137-145)
--- NOTE | 2022-08-05 19:08 | ED.WOUNDLAC ---
HPI - Wound/Laceration General Chief Complaint: Wound/Laceration Stated Complaint: R. foot decreased circulation Time Seen by Provider: 08/05/22 17:17 History of Present Illness HPI narrative: Patient is a 66-year-old female who presents ER with a wound to her right heel. Notes has been developing the last couple weeks. Patient had a intertrochanteric nail for hip fracture in June of this year. She was taken care of by Dr. Spicer. She then had complication of infection related and history of this. She has rehab bed at home. Reports she tries To walk and uses a walker for stability. No pain in her foot. No fevers chills or sweats. No purulent drainage or foul odor. Sent here from urgent care for further evaluation. Related Data Allergies Allergy/AdvReac Type Severity Reaction Status Date / Time cefepime Allergy Severe Other Verified 08/05/22 14:28 ceftriaxone Allergy Severe Other Verified 08/05/22 14:28 ertapenem Allergy Severe Other Verified 08/05/22 14:28 Review of Systems Review of Systems: All systems reviewed & are unremarkable except as noted in HPI and below Constitutional: Constitutional: Denies chills, Denies fatigue and Denies fever(s) ENT: Denies epistaxis and Denies sore throat Cardiovascular: Cardiovascular: Denies chest pain, Denies rapid heart rate and Denies radiating jaw, neck or arm pain Respiratory: Respiratory: Denies cough and Denies dyspnea Musculoskeletal: Musculoskeletal: Denies arthralgias and Denies joint swelling Integumentary/Breasts: Skin/Breast: Denies pruritus, Denies erythema, Denies rash and Reports skin ulcer PMFSH Past Medical History Medical History Alcohol use Anxiety Enlarged thyroid Surgical History Surgical History Closed intertrochanteric fracture of right femur ORIF with troch nail 06/21/2022 Family History Family History Father Diabetes mellitus Hypertension Family history of cardiovascular disease Non-Hodgkin lymphoma Mother Lung cancer Sibling Breast cancer Social History Social History Social History: lives at home with independent with ADLs PCP: Bibiana Cordova NP POA: Tato (close friend) Code: DNR Smoking packs per day: 1 Smoking cigarettes per day: 20.0 Years smoked: 47 Smoking pack-years: 47.00 Smoking status: Current every day smoker Tobacco type: cigarettes Alcohol intake: current Drinks per week: 28 Alcohol use details: 3 beers/day Substance use type: marijuana Other substance usage details: 1 joint every 2 weeks Gender identity (if verbalized by the patient): Female Sexual Orientation (if Verbalized by the Patient): Straight or Heterosexual Spiritual care concerns: No Exam Narrative: GENERAL: Well-appearing, well-nourished, and in no acute distress. HEAD: Normocephalic, atraumatic. EYES: PERRL and EOMI. ENT: Mucous membranes moist. CHEST: Clear to auscultation. No respiratory distress. HEART: Regular rate and rhythm. Normal peripheral pulses. EXTREMITIES: Normal range of motion. No edema. SKIN: Warm, dry. Black eschar right heel consistent with pressure wound. No purulent drainage. No surrounding cellulitis. NEURO: Alert and oriented x3. Course Course Emergency Course: Discussed with Dr. Spicer. He will have his nurse practitioner rechecked patient to help manage swelling through the wound clinic. Acute hospitalization not necessary. Vital Signs Vital signs: Vital Signs Temperature 98.3 F 08/05/22 15:55 Pulse Rate 94 08/05/22 15:55 Respiratory Rate 14 08/05/22 15:55 Blood Pressure 127/68 08/05/22 15:55 Pulse Oximetry 98 08/05/22 15:55 Oxygen Delivery Room Air 08/05/22 15:55 Temperature 98.3 F 08/05/22 15:55 Pulse Rate 86 08/05/22 19:1
[2022-08-05 19:18] VITALS: BP 134/77; PULSE 86; RESP 16; O2SAT 100
== END 2022-08-05 19:19 | disposition home or self-care (01) ==
PROVIDERS: Emergency Provider Emergency Medicine; PCP Nurse Practitioner
DX: L89.619 Pressure ulcer of right heel, unspecified stage (principal); F17.210 Nicotine dependence, cigarettes, uncomplicated
CPT/HCPCS: 36415; 73650; 80048; 83605; 85025; 99283

== ENCOUNTER 2022-10-20 14:10 | Outpatient (CLI) | payer MEDICARE, SELFPAY ==
--- NOTE | ~2022-10-20 | US_ITS ---
US arterial ankle brachial ind INDICATION: Skin ulcerations. Thickened toenails. Smoking history. TECHNIQUE: Segmental pressures and plethysmographic and Doppler waveforms of the brachial and lower e xtremity arteries were obtained. COMPARISON: None. FINDINGS: Right and left brachial artery pressures of 191 mm Hg and 168 mm Hg, respectively, are concordant (no rmal difference <= 30 mmHg). The right ankle-brachial index (CARLOS) is 0.64 (normal >= 0.9-1.0). The right great toe-brachial index (TBI) is 0.39 (normal >= 0.60). The left CARLOS is 1.07. The left TBI is 0.53. IMPRESSION: 1. Diminished right ankle-brachial index and bilateral toe brachial indices consistent with moderate bilateral peripheral arterial disease. Reviewed, dictated and finalized at location A. NSION WAREHOUSE SUPERVISOR IMPRESSION: 1. Diminished right ankle-brachial index and bilateral toe brachial indices con sistent with moderate bilateral peripheral arterial disease.
== END 2022-10-20 14:11 | disposition home or self-care (01) ==
PROVIDERS: PCP Nurse Practitioner; Visit Provider Nurse Practitioner
DX: R09.89 Other specified symptoms and signs involving the circulatory and respiratory systems (principal)
CPT/HCPCS: 93922

== ENCOUNTER 2022-11-01 07:46 | Outpatient (RCR) | payer MEDICARE, SELFPAY ==
[2022-08-12 13:36] VITALS: BMI 17.0
--- NOTE | 2022-11-08 11:08 | PCWOUND ---
WOCN NOTE Patient called to cancel for today due to illness, fever of 103. Patient to call for follow up appointment when she is better.
== END 2022-11-10 23:59 | disposition home or self-care (01) ==
LOC: ANHWOC 07:46
PROVIDERS: PCP Nurse Practitioner; Visit Provider Nurse Practitioner
DX: L97.419 Non-pressure chronic ulcer of right heel and midfoot with unspecified severity (principal)
CPT/HCPCS: 99212; 99213; G0463

== ENCOUNTER 2022-12-14 13:35 | Emergency (ER) | payer MEDICARE, SELFPAY ==
[2022-12-14] VITALS (24 sets, daily range): BP systolic 122–204; BP diastolic 57–77; PULSE 54–66; RESP 9–19; TEMP 36.4; O2SAT 94–100
--- NOTE | ~2022-12-14 | CT_ITS ---
EXAMINATION: CT brain wo con DATE: 12/14/2022 15:18 INDICATION: Headache. TECHNIQUE: Computed tomography (CT) of the head was performed without intravenous contrast. The mA wa s adjusted according to patient size. Iterative reconstruction technique was employed. The dose-lengt h product was 605.33 mGy-cm. COMPARISON: None FINDINGS: There are scattered areas of low attenuation in the cerebral white matter, which is within normal limits for the patient's age. There is no intracranial hemorrhage, acute infarction, or abnorm al intracranial mass lesion. The ventricles are normal in size. There is mild mucosal thickening in t he paranasal sinuses. There are old healed fracture deformities of the nasal bones and nasal processe s of maxilla. There are small bilateral mastoid effusions. IMPRESSION: 1. Normal aging brain. Reviewed, dictated and finalized at location A. AD ROLLER IMPRESSION: 1. Normal aging brain.
--- NOTE | ~2022-12-14 | XR_ITS ---
XR chest 1V portable DATE: 12/14/2022 15:20 INDICATION: Dizziness TECHNIQUE: AP chest COMPARISON: 06/26/2022 portable AP chest FINDINGS: Normal heart size. Aortic arch calcification. No hilar or mediastinal enlargement. No pulmonary infiltrate or consolidation, pleural effusion or pulmonary vascular congestion or pneumo thorax is detected. IMPRESSION: No active cardiopulmonary disease Reviewed, dictated and finalized at location B. SPLICER
--- NOTE | 2022-12-14 13:41 | ECG_ITS ---
Measurements Intervals [place] Rate: 62 P: 52 TN: 141 QRS: 53 QRSD: 102 T: 70 QT: 441 QTc: 449 Interpretive Statements SINUS RHYTHM NORMAL ECG COMPARED TO ECG 06/14/2022 09:17:46 NO SIGNIFICANT CHANGES Electronically Signed On 12-14-2022 13:45:48 SOLAR PANEL INSTALLATION SUPERVISOR by Navdeep Maciel D.O.
[2022-12-14 14:11] LABS: Basophils Absolute Auto 0.1 K/mm3 (0.0-0.1); Basophils Percent Auto 0.5 % (0.2-1.2); Eosinophils Absolute Auto 0.2 K/mm3 (0-0.3); Eosinophils Percent Auto 2.4 % (0-4.4); Hematocrit 39.6 % (37.0-47.0); Hemoglobin 13.2 g/dL (12.0-15.0); Immature Granulocyte Absolute 0.06 K/mm3 (0.00-0.031); Immature Granulocyte Percent A 0.6 % (0-0.5); Lymphocytes Absolute Auto 1.61 K/mm3 (0.9-3.2); Lymphocytes Percent Auto 17.3 % (18.3-44.2); Mean Corpuscular HGB Conc 33.3 g/dl (32-36); Mean Corpuscular Hemoglobin 30.5 pg (26-34); Mean Corpuscular Volume 91.5 fl (80-100); Mean Platelet Volume 10.3 fl (7.4-10.4); Monocytes Absolute Auto 0.8 K/mm3 (0.1-0.6); Monocytes Percent Auto 8.8 % (2.6-8.5); Neutrophils Absolute Auto 6.5 K/mm3 (1.3-6.7); Neutrophils Percent Auto 70.4 % (45.5-73.1); Platelet Count Result 346 k/mm3 (150-375); Red Blood Count 4.33 M/mm3 (4.2-5.4); Red Cell Distribution Width 12.9 % (11.5-14.5); White Blood Count 9.3 K/mm3 (4.5-10.0)
[2022-12-14 14:20] LABS: Alanine Aminotransferase 19 U/L (6-35); Albumin Level 4.2 g/dL (3.5-5.1); Alkaline Phosphatase 122 U/L (38-126); Anion Gap 8 mmol/L (8-16); Aspartate Amino Transferase 19 U/L (14-36); Bilirubin,Total 0.5 mg/dL (0.2-1.3); Blood Urea Nitrogen 21 mg/dL (7-17); Calcium 9.5 mg/dL (8.4-10.2); Carbon Dioxide 27 mmol/L (22-30); Chloride 100 mmol/L (98-107); Estimated CRCL calculation 58 ml/min; Estimated Glomerular Filt Rate > 60; Glucose 105 mg/dL (65-110); Potassium 3.7 mmol/L (3.4-5.0); Sodium 135 mmol/L (137-145)
--- NOTE | 2022-12-14 15:07 | ED.DIZZY ---
HPI - Dizziness General Chief Complaint: Dizziness Stated Complaint: dizzy, n/v, TYSON Time Seen by Provider: 12/14/22 15:07 Source: patient History of Present Illness HPI Narrative: Patient is 67 years old white female developed dizziness while trying to prepare herself to go to her orthopedic today to check on her right femur which got broken few months ago, nonhealing. Patient denies any pain at her right leg. In the way to the orthopedic office patient got severely dizzy, could not see, got worse on arrival to her orthopedic office then referred to our emergency room. For evaluation. Patient report that her dizziness cannot explain it, denied spinning or rotating, associated with nausea and vomiting, and could not see at that time currently able to see but still feeling dizzy. She denied weakness, numbness. Patient also denies any fever, chills, respiratory symptoms, chest pain, shortness of breath, back pain. Related Data Home Medications Medication Instructions Recorded Confirmed aspirin 81 mg tablet,delayed 81 mg PO DAILY 12/02/22 12/02/22 release Allergies Allergy/AdvReac Type Severity Reaction Status Date / Time cefepime Allergy Severe Other Verified 12/14/22 12:57 ceftriaxone Allergy Severe Other Verified 12/14/22 12:57 ertapenem Allergy Severe Other Verified 12/14/22 12:57 Review of Systems Review of Systems: All systems reviewed & are unremarkable except as noted in HPI and below PMFSH Past Medical History Medical History Alcohol use Anxiety Enlarged thyroid Surgical History Surgical History Closed intertrochanteric fracture of right femur ORIF with troch nail 06/21/2022 Family History Family History Father Diabetes mellitus Hypertension Family history of cardiovascular disease Non-Hodgkin lymphoma Mother Lung cancer Sibling Breast cancer Social History Social History Social History: lives at home with independent with ADLs PCP: Bibiana Cordova NP POA: Tato (close friend) Code: DNR Smoking packs per day: 1 Smoking cigarettes per day: 20.0 Years smoked: 47 Smoking pack-years: 47.00 Smoking status: Current every day smoker Tobacco type: cigarettes Alcohol intake: former Drinks per week: 28 Alcohol use details: quit 06/16/22 Substance use: former Substance use type: marijuana Other substance usage details: 1 joint every 2 weeks Lack of Transportation: No Lack of Food: Never True Current Housing: I Have Housing Concerned About Future Housing: No Difficulty Paying Gas/Electric Bills: No Difficulty Paying for Meds: No Currently Unemployed: No Education: High School Diploma/GED Difficulty w/ Childcare or Family Care: No Occupation/Education: retired Gender identity (if verbalized by the patient): Female Sexual Orientation (if Verbalized by the Patient): Straight or Heterosexual Spiritual care concerns: No Exam Narrative: General appearance: Well-developed, well-nourished, laying down flat in bed, dizziness get worse when she turns her head to the right. Skin: Normal color Head: Normocephalic, nontraumatic Eyes: Clear conjunctiva ENT: Oropharynx normal, ears normal, nose normal Neck: Supple, nontender Chest and respiratory: Airway patent, no respiratory distress, no accessory muscle use Heart: Regular rate/rhythm Abdomen: Soft, nontender, no organomegaly, quiet bowel sounds Vascular: Normal peripheral pulses, normal capillary refill. Musculoskeletal: Normal range of motion, nontender back Neurologic: Alert and oriented ?3, IN STORE MARKETER is normal as tested, no gross motor deficit
[2022-12-14 15:41] LABS: Troponin I < 0.012 ng/mL (0.000-0.034)
[2022-12-14] MEDS: ONDANSETRON INJ 4 MG/2 ML VIAL IV PUSH (16:04)
[2022-12-14] MEDS: diazePAM (*CRX) 5 MG TABLET PO (16:04)
[2022-12-14] MEDS: MECLIZINE HCL 25 MG TABLET PO (16:05)
[2022-12-14] MEDS: SODIUM CHLORIDE 0.9% IV 1,000 ML 999 ML IV CONT (16:28)
[2022-12-14 17:21] LABS: Appearance Urine Cloudy (Clear); Bacteria Urine None Seen /hpf; Bilirubin Urine Negative (Negative); Blood Urine Negative (Negative); Color Urine Yellow (Yellow); Glucose Urine UA Negative (Negative); Ketones Urine Negative (Negative); Leukocyte Esterase Ur Negative LEU/UL (Negative); Need Manual Microscopic Reviewed; Nitrate Urine Negative (Negative); Protein Urine Trace mg/dL (Negative); RBC Urine 0-2 /hpf (0-2); Specific Grav Ur 1.016 (1.001-1.035); Squamous Epithelial Cell Urine None seen /hpf (Few); Urobilinogen Urine 0.2 mg/dL (<2.0); WBC Urine 0-5 /hpf
[2022-12-14 17:22] LABS: Add Urine Microscopic? YES
[2022-12-14] MEDS: hydrALAZINE HCL 20 MG/ML VIAL IV PUSH (17:52)
== END 2022-12-14 18:24 | disposition home or self-care (01) ==
PROVIDERS: Emergency Medicine; Emergency Provider Emergency Medicine; PCP Nurse Practitioner
DX: I95.1 Orthostatic hypotension (principal); R42 Dizziness and giddiness; I10 Essential (primary) hypertension; E04.9 Nontoxic goiter, unspecified; F41.9 Anxiety disorder, unspecified; F17.210 Nicotine dependence, cigarettes, uncomplicated; Z79.82 Long term (current) use of aspirin
CPT/HCPCS: 36415; 70450; 71045; 80053; 81001; 84484; 85025; 93005; 96361; 96374; 96375; 99284; A9270; J0360; J2405; J7030

== ENCOUNTER 2023-01-02 14:48 | Outpatient (CLI) | payer MEDICARE, SELFPAY ==
[2023-01-02 19:45] LABS: Hemoglobin A1C 5.4 % (<5.7)
== END 2023-01-02 14:49 | disposition home or self-care (01) ==
LOC: ANHGOSHLAB 14:51
PROVIDERS: PCP Family Medicine; Visit Provider Nurse Practitioner
DX: R73.9 Hyperglycemia, unspecified (principal)
CPT/HCPCS: 36415; 83036

== ENCOUNTER 2023-01-03 08:04 | Outpatient (RCR) | payer MEDICARE, SELFPAY | END 2023-02-06 08:41 | disposition home or self-care (01) | LOC: ANHWOC 08:04 | PROVIDERS: PCP Nurse Practitioner; Visit Provider Nurse Practitioner | DX: L97.419 Non-pressure chronic ulcer of right heel and midfoot with unspecified severity (principal) | CPT/HCPCS: 99212; 99213; A9270; G0463 ==

== ENCOUNTER 2023-01-09 13:57 | Outpatient (CLI) | payer MEDICARE, SELFPAY ==
--- NOTE | ~2023-01-09 | US_ITS ---
EXAMINATION: US carotid duplex BI DATE: 01/09/2023 14:35 INDICATION: Dizziness/giddiness. Carotid atherosclerosis. TECHNIQUE: Grayscale, color Doppler, and pulsed Doppler images of the cervical carotid arteries were obtained. The degree of vessel stenosis is placed in one of the following categories: normal, <50%, 5 0-69%, >=70% but less than near-occlusion, near-occlusion, or total occlusion. Note that percent sten osis relative to normal distal artery lumen diameter is indirectly measured from velocity measurement s as described by José, et al. Radiology 2003; 229:340-346. COMPARISON: None. FINDINGS: RIGHT: The right common carotid artery (CCA) peak systolic velocity (PSV) is 86 cm/s. The right internal car otid artery (ICA) PSV is 79 cm/s. The right ICA end-diastolic velocity (EDV) is 18 cm/s. The right IC A/CCA PSV ratio is 0.9. Grayscale and color Doppler images yield an estimate of <50% diameter reducti on from plaque in the ICA. The external carotid artery (ECA) PSV is 86 cm/s. There is antegrade flow in the right vertebral artery. LEFT: The left CCA PSV is 91 cm/s. The left ICA PSV is 120 cm/s. The left ICA EDV is 36 cm/s. The left ICA/ CCA PSV ratio is 1.3. Grayscale and color Doppler images yield an estimate of <50% diameter reduction from plaque in the ICA. The ECA PSV is 140 cm/s. There is antegrade flow in the left vertebral arter y. IMPRESSION: 1. <50% stenosis in the right internal carotid artery. 2. <50% stenosis in the left internal carotid artery. Reviewed, dictated and finalized at location A.
== END 2023-01-09 13:58 | disposition home or self-care (01) ==
LOC: ANHIMG 13:58
PROVIDERS: PCP Family Medicine; Visit Provider Nurse Practitioner
DX: R42 Dizziness and giddiness (principal); I65.23 Occlusion and stenosis of bilateral carotid arteries
CPT/HCPCS: 93880

== ENCOUNTER 2023-05-22 14:14 | Outpatient (CLI) | payer MEDICARE, SELFPAY ==
--- NOTE | ~2023-05-22 | CT_ITS ---
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 TECHNIQUE: Computed tomography (CT) of the orbits was performed with 75 mL Omnipaque 350 intravenous contrast. Automated exposure control and iterative reconstruction technique were employed. The dose-l ength product was 146.79 mGy-cm. COMPARISON: Head CT 12/14/2022 FINDINGS: The ocular globes are normal. The extraocular muscles and optic nerves are normal. There is no abnormal mass. There is mild mucosal thickening in the paranasal sinuses. IMPRESSION: 1. Normal orbits. Reviewed, dictated and finalized at location A. IMPRESSION: 1. Normal orbits.
[2023-05-22 14:45] LABS: Estimated Glomerular Filt Rate > 60
[2023-05-22 17:03] LABS: Free T4 Free Thyroxine 1.28 ng/mL (0.78-2.19)
== END 2023-05-22 14:15 | disposition home or self-care (01) ==
PROVIDERS: PCP Family Medicine; Visit Provider Nurse Practitioner Family
DX: E05.00 Thyrotoxicosis with diffuse goiter without thyrotoxic crisis or storm (principal)
CPT/HCPCS: 70481; 84439; 84443; Q9967

== ENCOUNTER 2023-08-24 06:50 | Emergency (ER) | payer MEDICARE, SELFPAY ==
[2023-08-24] VITALS (20 sets, daily range): BP systolic 191–233; BP diastolic 71–94; PULSE 57–69; RESP 12–19; TEMP 36.7; O2SAT 95–100
--- NOTE | 2023-08-24 06:54 | ED.GENADULT ---
HPI - General Adult General Chief complaint: Recheck/Abnormal Lab/Rx Stated complaint: HTN Time Seen by Provider: 08/24/23 06:52 History of Present Illness HPI narrative: Patient is a 67 year old female with history of anxiety, PAD, here with high blood pressure. She notes that she was at her eye doctor's office this morning to get cataract surgery on her left eye. They took her blood pressure and found it to be high which prompted them to send her into the ER for evaluation. Patient denies history of high blood pressure but does note that usually when she gets to her primary care doctor's office she has a high blood pressure but on repeat blood pressure readings they are usually normal and she is not on any medication for blood pressure. She denies any symptoms. She states that she feels great right now, a bit anxious about the surgery and disappointed that she could not get it done today. She denies chest pain, headache, shortness of breath. Related Data Home Medications Medication Instructions Recorded Confirmed aspirin 81 mg tablet,delayed 81 mg PO DAILY 12/02/22 07/20/23 release Allergies Allergy/AdvReac Type Severity Reaction Status Date / Time cefepime Allergy Severe Other Verified 08/24/23 07:19 ceftriaxone Allergy Severe Other Verified 08/24/23 07:19 ertapenem Allergy Severe Other Verified 08/24/23 07:19 Review of Systems Review of Systems: All systems reviewed & are unremarkable except as noted in HPI and below PMFSH Past Medical History Medical History (Updated 08/24/23 @ 09:15 by Kalina Tobias MD) Alcohol use Anxiety Atelectasis of left lung 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 [place] state Dysphagia Enlarged thyroid Eschar of heel Right heel Hypokalemia Ileus Pneumonia Postoperative infection Preop cardiovascular exam Rocha-Nam syndrome UTI (urinary tract infection) Surgical History Surgical History Closed intertrochanteric fracture of right femur ORIF with troch nail 06/21/2022 Family History Family History Father Diabetes mellitus Hypertension Family history of cardiovascular disease Non-Hodgkin lymphoma Mother Lung cancer Sibling Breast cancer Social History Social History Social History: lives at home with independent with ADLs PCP: Bibiana Cordova NP POA: Tato (close friend) Code: DNR Smoking packs per day: 1 Smoking cigarettes per day: 20.0 Years smoked: 47 Smoking pack-years: 47.00 Smoking status: Current every day smoker Tobacco type: cigarettes Alcohol intake: former Drinks per week: 28 Alcohol use details: quit 06/16/22 Substance use: former Substance use type: marijuana Other substance usage details: 1 joint every 2 weeks Lack of Transportation: No Lack of Food: Never True Current Housing: I Have Housing Concerned About Future Housing: No Difficulty Paying Gas/Electric Bills: No Difficulty Paying for Meds: No Currently Unemployed: No Education: Bachelor's Degree Difficulty w/ Childcare or Family Care: No Occupation/Education: retired Gender identity (if verbalized by the patient): Female Sexual Orientation (if Verbalized by the Patient): Straight or Heterosexual Spiritual care concerns: No Exam Narrative: GENERAL: Well-appearing, well-nourished, and in no acute distress. HEAD: Normocephalic, atraumatic. EYES: PERRLA and EOMI. ENT: Nares clear. Mucous membranes moist. NECK: Supple. CHEST: Clear to auscultation. No respiratory distress. HEART: Regular rate and rhythm. Normal peripheral pulses. ABDOMEN: Soft, nontender, nondistended. EXTREMITIES: Normal range of motion. No edema. SKIN: Warm, dry, no rash. NEURO: No focal deficits. Alert and oriented x3. PSYCH: Normal mood and affect.
[2023-08-24] MEDS: LORazepam (*CRX) 0.5 MG TABLET PO (08:06)
[2023-08-24] MEDS: amLODIPine BESYLATE 5 MG TABLET PO (08:59)
== END 2023-08-24 09:46 | disposition home or self-care (01) ==
PROVIDERS: Emergency Provider Student in an Organized Health Care Education/Training Program; PCP Family Medicine
DX: R03.0 Elevated blood-pressure reading, without diagnosis of hypertension (principal); E04.9 Nontoxic goiter, unspecified; F41.9 Anxiety disorder, unspecified; F17.210 Nicotine dependence, cigarettes, uncomplicated; Z87.01 Personal history of pneumonia (recurrent); Z87.440 Personal history of urinary (tract) infections; Z98.41 Cataract extraction status, right eye; Z79.82 Long term (current) use of aspirin
CPT/HCPCS: 99283; A9270

== ENCOUNTER 2023-10-13 15:28 | Outpatient (CLI) | payer MEDICARE, SELFPAY ==
--- NOTE | ~2023-10-13 | XR_ITS ---
XR hip RT min 2V DATE: 10/13/2023 15:49 INDICATION: Intertrochanteric hip fracture TECHNIQUE: AP and lateral views COMPARISON: 05/02/2023 right hip FINDINGS: Again noted is an intramedullary nail with through compression screw extending into the rig ht femoral head, providing internal fixation for an old healed intertrochanteric right hip fracture, without significant displacement or angulation deformity. There is osteopenia. Normal alignment at the pubic symphysis and sacral iliac joints and both hips. B ilateral hip osteoarthritis. Bilateral iliac and femoral artery calcifications. IMPRESSION: Status post ORIF right intertrochanteric hip fracture Reviewed, dictated and finalized at location [facility] [employer]
== END 2023-10-13 15:29 | disposition home or self-care (01) ==
PROVIDERS: PCP Family Medicine; Visit Provider Orthopaedic Surgery
DX: S72.144D Nondisplaced intertrochanteric fracture of right femur, subsequent encounter for closed fracture with routine healing (principal); X58.XXXD Exposure to other specified factors, subsequent encounter
CPT/HCPCS: 73502